=== PATIENT | male | born 1940 | race Caucasian/White ===

== ENCOUNTER 2016-11-08 11:56 | Inpatient (IN) | payer MEDICARE, BC ==
[2016-11-08] VITALS (10 sets, daily range): BP systolic 111–146; BP diastolic 63–96
[~2016-11-08] VITALS: Ht 185.4 cm; Wt 86.4 kg
[~2016-11-08 11:56] MED LIST: AMLO5TAB2 PO; APIX5TAB2 PO; MELO-195 PO; MULT-974 PO; OMEP40CA36 PO; ROSU20TA14 PO
[2016-11-08] MEDS ORDERED: DILTIAZEM 25 MG/5 ML INJ (CARDIZEM) VIAL ONE (12:02)
--- OUTSIDE RECORDS SUMMARY | 2016-11-08 12:03 | XMS REPORT | Continuity of Care Document ---
Author Author [facility] Organization [facility] Address Unknown Phone Unavailable Care Team Providers Care Certified Alcohol Drug Counselor Name Role Phone AdolfoElier PCP [phone] Source Comments Some departments are not documenting in the electronic medical record. If you do not see the information that you expected, contact Release of Information in the Health Information Management department at [phone] for further assistance in locating additional records.[facility] Active Allergies and Adverse Reactions No Known Allergies Current Medications Prescription Sig. Disp. Refills Start End Date Status Date meloxicam (MOBIC) 15 mg Take 15 mg by mouth Active tablet daily. omeprazole DR(+) Take 40 mg by mouth Active (PRILOSEC) 40 mg capsule daily. amLODIPine (NORVASC) 5 mg Take 5 mg by mouth daily. Active tablet apixaban (ELIQUIS) 5 mg Take 5 mg by mouth twice Active tab tablet daily. MULTIVITAMINS WITH Take 1 Tab by mouth Active FLUORIDE (MULTI-VITAMIN daily. PO) metoprolol XL (TOPROL XL) TAKE 1 TABLET DAILY 90 Tab 3 11/23/19 Active 50 mg tablet 16 aspirin EC 81 mg tablet Take 1 Tab by mouth 90 Tab 3 10/04/19 Active daily. Take with food. 17 DOCOSAHEXANOIC ACID/EPA Take 100 mg by mouth Active (FISH OIL PO) three times daily. rosuvastatin (CRESTOR) 20 Take 20 mg by mouth every 10/31/19 Discontin mg tablet 48 hours. 17 ued Active Problems Problem Noted Date Nonsustained ventricular tachycardia (HCC) 10/08/2015 Cardiac function test abnormal 10/08/2015 Overview: 10/04/13: Echo: Normal LV function: EF 60%. Diastolic dysfunction. LA dilation. Mod MR, TR. PA 45mmHg. 10/04/13: Stress test: No ischemia or infarct. EF 62%. 11/20/13: Carotid duplex: No hemodynamically significant stenosis. 05/19/14: LHC: Patent stent in the mid LAD, otherwise no obstructive disease. EF 60%. 08/08/14: LHC: No intervention 08/21/14: PCM implant. 10/04/2013 - ECHO: LVEF ~ 60%. LA size=4.1 cm. The LV is normal in size with normal contractility. Diastolic dysfunction is suggested by Doppler. LA dilitation. Moderate MR and TR. PAP ~ 45 mmHg. ([facility]). 12/02/14: Stress test: Tolerated well. SR with no ischemic changes. EF 48. Mildly prominent LV with preserved contractility. Normal. SSS (sick sinus syndrome) ([facility]) 12/25/2014 Overview: Medtronic DC PPM in place with [email or web address] remote monitoring. Wide-complex tachycardia ([facility]) 08/19/2014 Cardiac device in situ 05/27/2014 Overview: Medtronic Linq + remote monitoring. Chronic anticoagulation 02/20/2014 Overview: On Eliquis CAD (coronary artery disease), ute coronary artery 02/20/2014 Overview: 09/09/2011 - Cardiac Catheterization: 3x8 mm Promus to LAD. PTCA to Diagonal. ([facility]) 09/17/2012 - Cardiac Catheterization: No evidence of obstructive CAD. Abnormal LV systolic function. Mildly elevated LV filling pressures. Normal RV filling pressures. Abnormal PAP. 1+ MVR. ([facility]). 10/04/2013 - Stress Test: Normal LV size with good contractility. Calculated EF=62%. ([facility]). PAF (paroxysmal atrial fibrillation) ([facility]) 02/20/2014 Carotid artery stenosis 02/20/2014 Overview: 11/10/2013 - Carotid duplex Ultrasound: No hemodynamically significant internal carotid artery stenosis. Estimated diameter reduction of < 50%. ([employer]). Essential hypertension 02/20/2014 HLD (hyperlipidemia) 02/20/2014 NSVT (nonsustained ventricular tachycardia) ([facility]) 02/20/2014 Resolved Problems Problem Noted Date Resolved Date Cardiac pacemaker 08/22/2014 12/25/2014 Overview: 08/22/14 MEDTRONIC DDDR MRI compatible device with 5076 leads SCOTT (dyspnea on exertion) 02/20/2014 10/03/2016 Dizziness 02/20/2014 10/03/2016 Overview: 03/01/2012 - ANTHONY: The patient did show some hemodynamically variability but was completely asymptomatic throughout the study, therefore was a negative ANTHONY. ([facility]). Most Recent Encounters Date Type Specialty Providers Description 10/31/2016 [facility] Radiology Ben Ledbetter MD Encounter 10/31/2016 Nurse Only Internal Medicine Cardiac device in situ (Primary Dx) 10/31/2016 Office Visit Cardiology Ben Ledbetter MD Device Check; Post-hospital Follow Up - 1 month post Cath F/U ; Results - PET scan results (Same day), Xray results 10/31/2016 [facility] Cardiology Ben Ledbetter MD Encounter 10/31/2016 [facility] Radiology Ben Ledbetter MD Encounter 10/31/2016 Orders Only Cardiology Radha Lara RN Cardiac device in situ (Primary Dx); SSS (sick sinus syndrome) (HCC) 10/31/2016 Ancillary Cardiology Ben Ledbetter MD Nonsustained ventricular Orders tachycardia (HCC) (Primary Dx); Wide-complex tachycardia (HCC) 10/03/2016 [facility] Cardiology Gian Day MD CAD (coronary artery Encounter disease), ute coronary artery 10/03/2016 Orders Only Cardiology Radha Lara RN Nonsustained ventricular tachycardia (HCC) (Primary Dx); Wide-complex tachycardia (HCC) 10/03/2016 Telephone Cardiology Radha Lara RN Procedure - pet scan for evaluation of inflammation 10/03/2016 Telephone Cardiology Bita Cabrera LPN Procedure - PET scan 10/03/2016 Surgery Cardiology Gian Day MD Left Heart Catheterization With Ventriculogram 09/30/2016 Telephone Cardiology Bita Cabrera LPN Procedure - Monday at 7am 09/30/2016 Pre-Procedure Cardiology Radha Lara RN Cath Pre- Procedure Instructions Instructions - LV Cors possible PCI 09/29/2016 Pre-Admit Cardiology Lucy Dupree APRN-C Orders Only 09/28/2016 Telephone Cardiology Joslyn Claudio RN Patient Questions - regarding heart catheterization. 09/23/2016 Office Visit Cardiology Glenn Casiano MD Bradycardia; Device Check Ben Ledbetter MD 09/23/2016 [facility] Cardiology Ben Ledbetter MD Encounter Social History Tobacco Use Types Packs/Day Years Used Date Never Smoker Alcohol Use Drinks/Week oz/Week Comments Yes social Last Filed Vital Signs Vital Sign Reading Time Taken Blood Pressure 126/76 10/31/2016 2:04 PM OPTICS TECHNICAL OFFICER Pulse 84 10/31/2016 2:04 PM OPTICS TECHNICAL OFFICER Temperature 36.6 C (97.8 F) 10/03/2016 1:37 PM OPTICS TECHNICAL OFFICER Respiratory Rate - - Height 1.88 m (6' 2") 10/31/2016 2:04 PM OPTICS TECHNICAL OFFICER Weight 91.082 kg (200 lb 12.8 10/31/2016 2:04 PM OPTICS TECHNICAL OFFICER oz) Body Mass Index 25.77 10/31/2016 2:04 PM OPTICS TECHNICAL OFFICER Oxygen Saturation 98% 10/03/2016 1:37 PM OPTICS TECHNICAL OFFICER Plan of Care Date Type Specialty Providers Description 02/03/2017 Appointment Cardiology Ben Ledbetter MD [email or web address] [place] [address] [phone] (Fax) 02/03/2017 Appointment Cardiology Ben Ledbetter MD [address] [facility] [address] [place] [address] [phone] (Fax) Health Maintenance Due Date Last Done Comments Physical (Comprehensive) 1947 Exam Pertussis Vaccine 1949 Tetanus Vaccine 1955 Shingles Vaccine 1998 Prevnar/Pneumovax (#1) 2003 Influenza Vaccine 05/05/2017 Procedures from Last 3 Months Procedure Name Priority Date/Time Associated Diagnosis Comments TELEMETRY STRIPS-SCAN 10/05/2016 Results for this 12:03 PM OPTICS TECHNICAL OFFICER procedure are in the results section. PROCEDURE RECORD-SCAN 10/05/2016 Results for this 12:02 PM OPTICS TECHNICAL OFFICER procedure are in the results section. ECG UNCONFIRMED-SCAN 10/05/2016 Results for this 11:36 AM OPTICS TECHNICAL OFFICER procedure are in the results section. Results from Last 3 Months DEVICE EVALUATION - PPM (10/31/2016 3:01 PM)Only the most recent of 2 results within the time period is included. Component Value Range Device Implanted By Keshia Matt MD Generator Model # ADVISA DR MRI SURESCAN [id number] Generator Serial # [id number] Generator Implnat Date 03/27/2014 Remote Monitor Serial# [id number] MEGAN/EOL Indicator TELECOMMUNICATIONS FIELD ENGINEER=2.83V Generator Heating Equipment Installer Medtronic Generator Investigational No Wireless Generator Yes Device Type DDD-PM Atrial Lead Model # CAPSUREFIX ANGIE HARVEY SUREJEANETTEAN 5076-52CM Atrial Lead Serial # [id number] Atrial Lead Implant Date 08/22/2014 Atrial Lead Diaph. 10 Stimulation Atrial Lead Heating Equipment Installer Medtronic Atrial Lead No Investigational Atrial Lead Fixation active fixation Atrial Lead Location right atrial appendage Atrial Lead Pin Connector IS1 Atrial Lead Polarity Bipolar RV Lead Model # CAPSUREFIX NOV 5076-58CM RV Lead Serial # [id number] RV Lead Implant Date 08/22/2014 RV Lead Diaph. 10 Stimulation RV Lead Heating Equipment Installer Medtronic RV Lead Investigational No RV Lead Fixation active fixation RV Lead Location RV low septum RV Lead Pin Connector ICD IS1 Device Mode AAIR-DDDR Lower Rate Limit 60 Upper Rate Limit 130 Sensor Rate Limit 130 Pace AV Delay 180 Sense AV Delay 150 VT Monitor 150 Mode Switch (bpm) 133 High V Rate Detect 133 Mode Switch Status On Date of Last Programming 10/31/16 Pacemaker Dependant No Date of baseline remote Reports to Dr Sheets transmission Remote Monitoring? No HF Patient No EP Device Followed by Dr Lozano in [place], [place] Name EP Device Followed By Other # Mode S. Events 0 # High V Events 1393 VT-NS and 2 SVT episodes Single PVSc 90.8/hr (was54.6) PVC runs 18.6/hr (was7.8) Battery Voltage 3.01 Estimated Longevity 6 to 8.5 years A Sense mv 3.8 A Lead ohms 418 A Capture V 1.0 A Capture ms 0.4 Ao Voltage 1.75A AO Pulse Width 0.4 RV Sense mv 3.5 to 7.1 RV Lead ohms 437 RV Capture V 0.75 RV Capture ms 0.4 RV Voltage 2.0A RV Pulse Width 0.4 Counters Clrd Yes Saved to Disc No Initial Rhythm APVS 74 bpm Underlying Rhythm ASVS SB 43 bpm -VS% 1.2 -SHOWER ROOM ATTENDANT% <0.1 -VS% 97.8 AP-SHOWER ROOM ATTENDANT% 1.0 Device Function WNL Yes Programming? Yes Interrogation? Yes Narrative [10/31/2016 3:54:34 PM - ARNOLD B[facility]] Dual chamber pacemaker programming.Device function appears normal. Events noted since 09/23/16: Atrial:0 Ventricular:1,393 VT-NS/VT-Mon episodes, longest 109 minutes. From 10/31/16 MPE office note: Interestingly, nearly every recent event has had a coupling to the intervals of VT, suggestive of a bigeminal rhythm. Out of concern that this could be related to far-field oversensing, I obtained a CXR today-- this showed excellent lead placement. Therefore, it is certainly possible that he is having periods of ventricular bigeminy precipitating his VT. Although, there are some short but infrequent bursts where there is no coupling. See MPEs office note for further detail. I attached one of the VT monitored egms. 2 SVT episodes, Appear to be short bursts of AT. Changes made to programming:none Device is followed by Dr. Lozano in [place], [place]. Report given to E in clinic. OUTSIDE CHEST EXAM - NO CHARGE (10/31/2016 2:50 PM) Impressions Stable chest radiograph with no acute cardiopulmonary process. Finalized by Donald Cueva M.D. on 10/31/2016 4:19 PM. Dictated by Donald Cueva M.D. on 10/31/2016 4:17 PM. Narrative OUTSIDE CHEST EXAM - NO CHARGE Clinical history: 76 years old Male cardiac device in situ.,Coronary artery disease. Comparison: 08/23/2014. Findings: PA and lateral views of the chest again demonstrate that the heart size and pulmonary vasculature are within normal limits.Left-sided cardiac conduction device remains to be in place. No new acute pulmonary infiltrates, pneumothorax, or pleural effusion is seen.No evidence of consolidating pneumonia is identified. Mild thoracic spondylosis again noted. Procedure Note Interface, Radiant Results - MonOct 31, 2016 4:22 PM OPTICS TECHNICAL OFFICER OUTSIDE CHEST EXAM - NO CHARGE Clinical history: 76 years old Male cardiac device in situ.,Coronary artery disease. Comparison: 08/23/2014. Findings: PA and lateral views of the chest again demonstrate that the heart size and pulmonary vasculature are within normal limits. Left-sided cardiac conduction device remains to be in place. No new acute pulmonary infiltrates, pneumothorax , or pleural effusion is seen. No evidence of consolidating pneumonia is identified. Mild thoracic spondylosis again noted. IMPRESSION Stable chest radiograph with no acute cardiopulmonary process. Finalized by Donald Cueva M.D. on 10/31/2016 4:19 PM. Dictated by Donald Cueva M.D. on 10/31/2016 4:17 PM. NM PET HEART METABOLISM SARCOID (10/31/2016 11:26 AM) Impressions 1.No evidence of myocarditis. 2.No evidence of inflammatory lung disease or lymphadenopathy. Approved by Mela Riley M.D. on 10/31/2016 3:16 PM By my electronic signature, I attest that I have personally reviewed the images for this examination and formulated the interpretations and opinions expressed in this report Finalized by Kenny Schmid M.D. on 11/01/2016 12:30 PM. Dictated by Mela Riley M.D. on 10/31/2016 1:47 PM. Narrative PET HEART METABOLISM WITH FDG CLINICAL HISTORY: 76-year-old male, rule out inflammation, dyspnea, ventricular arrhythmia's RADIOPHARMACEUTICAL: 16.7 mCi IV Fluorine-18 fluorodeoxyglucose (FDG) TECHNIQUE: Patient was instructed to fast 18 hours prior to exam. Upon arrival, the patient was injected with 18-Flourine FDG.PET/CT imaging of the heart was obtained using attenuation correction PET scanning.Findings were displayed as tomographic imaging and polar maps.Comparison was made with perfusion imaging. COMPARISON: None FINDINGS: The maximum left ventricular blood pool SUV is 1.83. The right pulmonary artery demonstrates a maximum SUV of 2.62 (index 78). The basal one third of the anterior wall demonstrates a maximum SUV of 1.67. The basilar one half of the anterior septum demonstrate a maximum SUV of 2.16. The inferior basilar half of the septum demonstrates a maximum SUV of 1.72. The inferior wall demonstrates a maximum SUV of 1.55. The inferolateral wall demonstrates a maximum SUV of 1.85. The anterior lateral wall measures maximum SUV of 1.89. There is no appreciable activity within the right ventricle. There is no evidence of parenchymal lung disease or lymphadenopathy. Procedure Note Interface, Radiant Results - Tue Nov 01, 2016 12:33 PM OPTICS TECHNICAL OFFICER PET HEART METABOLISM WITH FDG CLINICAL HISTORY: 76-year-old male, rule out inflammation, dyspnea, ventricular arrhythmia's RADIOPHARMACEUTICAL: 16.7 mCi IV Fluorine-18 fluorodeoxyglucose (FDG) TECHNIQUE: Patient was instructed to fast 18 hours prior to exam. Upon arrival, the patient was injected with 18-Flourine FDG. PET/CT imaging of the heart was obtained using attenuation correction PET scanning. Findings were displayed as tomographic imaging and polar maps. Comparison was made with perfusion imaging. COMPARISON: None FINDINGS: The maximum left ventricular blood pool SUV is 1.83. The right pulmonary artery demonstrates a maximum SUV of 2.62 (index 78). The basal one third of the anterior wall demonstrates a maximum SUV of 1.67. The basilar one half of the anterior septum demonstrate a maximum SUV of 2.16. The inferior basilar half of the septum demonstrates a maximum SUV of 1.72. The inferior wall demonstrates a maximum SUV of 1.55. The inferolateral wall demonstrates a maximum SUV of 1.85. The anterior lateral wall measures maximum SUV of 1.89. There is no appreciable activity within the right ventricle. There is no evidence of parenchymal lung disease or lymphadenopathy. IMPRESSION 1. No evidence of myocarditis. 2. No evidence of inflammatory lung disease or lymphadenopathy. Approved by Mela Riley M.D. on 10/31/2016 3:16 PM By my electronic signature, I attest that I have personally reviewed the images for this examination and formulated the interpretations and opinions expressed in this report Finalized by Kenny Schmid M.D. on 11/01/2016 12:30 PM. Dictated by Mela Riley M.D. on 10/31/2016 1:47 PM. ECG/QRS (10/31/2016)Only the most recent of 2 results within the time period is included. Component Value Range QRS DURATION 84 TELEMETRY STRIPS-SCAN (10/05/2016 12:03 PM) Narrative Ordered by an unspecified provider. PROCEDURE RECORD-SCAN (10/05/2016 12:02 PM) Narrative Ordered by an unspecified provider. ECG UNCONFIRMED-SCAN (10/05/2016 11:36 AM) Narrative Ordered by an unspecified provider. CARDIAC CATH REPORT (10/03/2016 2:50 PM) Procedure Note MonOct 03, 2016 10:06 AM OPTICS TECHNICAL OFFICER Formatting of this note may be different from the original. [facility] CARDIAC CATHETERIZATION REPORT Page 2 BLANCHE Lawson : 1940 KU#: [id number] BELINDA MR #/Billing ID #: [id number] / [id number] DATE: 10/03/2016 AIR DRILL OPERATOR: Gian Day MD DICTATING PROVIDER: Gian Day MD REFERRING PHYSICIAN: ELIER GONZALEZ REFERRING AIR DRILL OPERATOR: Ben Ledbetter MD. DATE OF PROCEDURE: 10/03/2016 PROCEDURE: 1. Left heart cardiac catheterization. 2. Selective coronary arteriogram. 3. Measurements of left ventricular pressures. INDICATION: Mr. Blanche Torres is a 76-year-old gentleman with a history of coronary artery disease with previous coronary intervention. Patient has a stent which he mentioned in an unknown vessel done back in 2013. He has been having frequent nonsustained ventricular tachycardia. Patient has been admitted electively by Dr. Ledbetter for a cardiac catheterization to rule out any significant coronary artery disease as a cause for his ventricular arrhythmias. Patient does have some chest discomfort also which appears to be somewhat atypical. ANESTHESIA: IV Versed and fentanyl. PROCEDURE NOTE: Once informed consent was obtained, Mr. Torres was brought to the cardiac catheterization laboratory. A Barbeau test performed on his right wrist showed a good response. We then prepped the right wrist and right groin. Using a micropuncture technique, a 6-Kinyarwanda radial sheath was placed into the right radial artery. Selective coronary arteriogram and left ventricular pressures were then measured using the TIG 4 catheter. Prior to starting the procedure, the patient was given 2.5 mg of intra-arterial verapamil and 200 mcg of intra-arterial nitroglycerin. Patient was also given 3000 units of intravenous heparin. Once the procedure was completed. The sheath was removed and TR Band applied. Patient tolerated the procedure well. There were no complications noted. HEMODYNAMICS: Ending aortic pressure 107/66 with a mean of 85 mmHg. Left ventricular systolic pressures were 86 mmHg. Left ventricular end-diastolic pressure was about 4 mmHg. Patient was given 250 mL of IV bolus fluids during the procedure and another 250 mL by the end of the procedure. CONTRAST USED: [id number]. TOTAL CONTRAST: Was 70 mL. TOTAL FLUOROSCOPY TIME: 2.2 minutes. SELECTIVE CORONARY ARTERIOGRAM: 1. Left main: Left main coronary artery arises normally from the left coronary sinus. The left main artery appears to be patent. 2. Left anterior descending artery arises normally from the left main. In its mid portion it has about a 30% narrowing. This is followed by a stent in the mid part of the left anterior descending artery. The stent is widely patent. The rest of the left anterior descending artery is patent. Right in the middle of the stent there is a moderate to large size diagonal branch. The diagonal branch is probably 20% to 30% ostial disease as it is jailed within the stent. However there are no significant flow problems. 3. Left circumflex artery. This arises normally from the left main. Soon after its origin, the circumflex artery gives rise to a high obtuse marginal branch. Proximally the circumflex artery is patent. Right after the obtuse marginal branch, there is a hazy calcified lesion of about 50% in the circumflex artery. The rest of the circumflex artery is patent. The large obtuse marginal branch is also noted to be patent. 4. Right coronary artery. The right coronary artery is the dominant vessel. The right coronary artery arises normally from the right coronary sinus where the right coronary artery is patent with no significant disease. It gives rise to a posterolateral posterior descending arterial branches, both of which are patent. FINAL IMPRESSION: 1. Moderate disease of the mid part of the left circumflex artery which also appears to be calcified. The previously placed stent in the left anterior descending artery is patent. 2. Normal ventricular end-diastolic pressures. 3. No evidence of any significant gradient across the aortic valve. RECOMMENDATION: Continue to optimize medical treatment. Gian Day MD AM/MedQ /[id number] cc: - ELIER Ledbetter MD CBC (10/03/2016 8:04 AM) Component Value Range White Blood Cells 7.8 4.5-11.0 K/UL RBC 4.74 4.4-5.5 M/UL Hemoglobin 15.0 13.5-16.5 GM/DL Hematocrit 45.6 40-50 % MCV 96.3 80-100 FL MCH 31.6 26-34 PG MCHC 32.9 32.0-36.0 G/DL RDW 13.7 11-15 % Platelet Count 165 150-400 K/UL MPV 9.5 7-11 FL Specimen Blood BASIC METABOLIC PANEL (10/03/2016 8:04 AM) Component Value Range Sodium 138 137-147 MMOL/L Potassium 4.6Comment: SLT HEMOLYSIS 3.5-5.1 MMOL/L Chloride 108 98-110 MMOL/L CO2 23 21-30 MMOL/L Anion Gap 7 3-12 Glucose 93 70-100 MG/DL Blood Urea Nitrogen 20 7-25 MG/DL Creatinine 0.85 0.4-1.24 MG/DL Calcium 9.3 8.5-10.6 MG/DL eGFR Non >60Comment: >60 mL/min The eGFR is not validated for use in drug dosing adjustments. Continue to use estimated creatinine clearance per dosing reference text. Please contact the Clinical Pharmacist for questions. eGFR >60Comment: >60 mL/min The eGFR is not validated for use in drug dosing adjustments. Continue to use estimated creatinine clearance per dosing reference text. Please contact the Clinical Pharmacist for questions. Specimen Blood
[2016-11-08] MEDS ORDERED: DILTIAZEM 100 MG/VIAL (CARDIZEM) ADD-VANTAGE IV ONE (12:05)
[2016-11-08] MEDS ORDERED: SODIUM CHLORIDE (ADD-VANTAGE) 100 ML IV ONE (12:06)
[2016-11-08] MEDS ORDERED: ASPIRIN 81 MG CHEW (CHILDREN'S ASA) ONE (12:11)
[2016-11-08] MEDS ORDERED: DILTIAZEM 25 MG/5 ML INJ (CARDIZEM) VIAL IVP ONE ×2 (12:15→13:45)
[2016-11-08] MEDS ORDERED: DILTIAZEM DRIP 100 MG in SODIUM CHLORIDE (ADD-VANTAGE) 100 ML IV SCH (12:15)
[2016-11-08] MEDS ORDERED: DIGOXIN 0.25 MG/ML (LANOXIN) 2 ML AMP ONE (12:19)
[2016-11-08] MEDS: NS IV 1000 ML 1,000 ML IV SCH ×4 (12:20→17:22)
--- NOTE | 2016-11-08 12:43 | ED Cardiac General ---
History of Present Illness General Chief Complaint: Cardiac/General Problems Stated Complaint: RAPID HEART RATE Source: patient Exam Limitations: no limitations History of Present Illness Time seen by provider: 12:15 Initial Comments The patient is a 76-year-old white male from [place] who presents with a complaint of rapid heartbeat. This is been present for several days. His states that he is scarcely been able to do anything. The initial interpretation of the monitor was that of atrial fibrillation with rapid ventricular response. There was a left bundle branch block. There are no previous EKGs and therefore is not clear whether this is chronic or rate related. He has been treated by electro cardiology at [facility]. He had a pacemaker implanted in August 2014. Prior to that he had an implantable recorder. There is apparently no defibrillation function on this pacemaker. Dr. Lozano is his local physician. He has taken amiodarone in the past but this was stopped because of shakiness. He is presently on Eliquis for anticoagulation. He and his states that he was also supposed to have a 30 day recorder placed but this has not been done to date. He denies chest pain. Timing/Duration: 2-3 days Allergies and Home Medications Allergies Coded Allergies: No Known Drug Allergies (Unverified , 10/04/13) Home Medications Amlodipine Besylate 5 Mg Tablet 5 MG PO DAILY (Reported) Apixaban 5 Mg Tablet 5 MG PO BID (Reported) Meloxicam 15 Mg Tablet 15 MG PO DAILY (Reported) Multivitamin 1 Each Tablet 1 EACH PO DAILY (Reported) Omeprazole 40 Mg Capsule.dr 40 MG PO DAILY (Reported) Rosuvastatin Calcium 20 Mg Tablet 20 MG PO HS (Reported) Rosuvastatin Calcium 20 Mg Tablet 1 EACH PO DAILY (Reported) Review of Systems Constitutional: see HPI EENTM: No Symptoms Reported Respiratory: No Symptoms Reported Cardiovascular: Irregular Heart Rate Palpitations Gastrointestinal: No Symptoms Reported Genitourinary: No Symptoms Reported Musculoskeletal: no symptoms reported Skin: no symptoms reported Psychiatric/Neurological: No Symptoms Reported Endocrine: No Symptoms Reported Past Rdpntmg-Fxdgbl-Comjqj Hx Immunizations Up To Date Date of Pneumonia Vaccine: May 10, 2011 Date of Influenza Vaccine: May 06, 2014 Respiratory Hx Respiratory Disorders: No Cardiovascular Hx Cardiac Disorders: No Genitourinary Hx Genitourinary Disorders: No Gastrointestinal Hx Gastrointestinal Disorders: No Cancer Hx Cancer: No Physical Exam Vital Signs Vital Sign - Last 12Hours 11/08/16 11:56 Temp 98.0 Pulse 148 Resp 22 B/P 116/90 Pulse Ox 94 Capillary Refill : General Appearance: Mild Distress Other HEENT: Normal ENT Inspection Neck: Normal Inspection Respiratory: Chest Non Tender Lungs Clear Normal Breath Sounds No Accessory Muscle Use No Respiratory Distress Cardiovascular: Irregularly Irregular Tachycardia Gastrointestinal: Normal Bowel Sounds No Organomegaly No Pulsatile Mass Non Tender Extremity: Normal Capillary Refill Normal Inspection Normal Range of Motion Non Tender No Calf Tenderness No Pedal Edema Neurologic/Psychiatric: Alert Oriented x3 No Motor/Sensory Deficits Normal Mood/Affect Skin: Normal Color Warm/Dry Lymphatic: No Adenopathy Progress/Results/Core Measures Results/Orders My Orders Orders-LIZABETH QUINTERO MD Diltiazem Injection (Cardizem Injection) (11/08/16 12:15) Sodium Chloride (Ad... W/Diltiazem Drip (11/08/16 12:15) Aspirin Chewable Tablet (Baby Aspirin Ch (11/08/16 12:11) Digoxin Injection (Lanoxin Injection) (11/08/16 12:19) Medications Given in ED Current Medications Medications Dose Ordered Sig/Clementina Route Start Time Stop Time Status Last Admin Dose Admin Aspirin 81 mg STK-MED ONCE .ROUTE 11/08/16 12:11 11/08/16 12:13 DC 11/08/16 12:20 81 MG Digoxin 0.5 mg STK-MED ONCE .ROUTE 11/08/16 12:19 11/08/16 12:22 DC 11/08/16 12:24 0.5 MG Diltiazem HCl 20 mg ONCE ONCE IVP 11/08/16 12:15 11/08/16 12:16 DC 11/08/16 12:13 20 MG Diltiazem HCl 100 mg STK-MED ONCE IV 11/08/16 12:05 11/08/16 12:07 DC 11/08/16 12:16 15 MG Vital Signs/I&O Vital Sign - Last 12Hours 11/08/16 11/08/16 11/08/16 11:56 12:15 12:16 Temp 98.0 98.1 Pulse 148 140 148 Resp 22 18 20 B/P 116/90 116/90 116/90 Pulse Ox 94 94 Departure Communication Progress Notes The patient was given 20 mg of Cardizem at arrival. A Cardizem drip was then started. There was minimum if any effect on his rate. Unfortunately his blood pressure dropped to the 70/50 range albeit without symptoms while lying flat. Dr. Lozano then came to the unit and gave him adenosine. This also had no effect. The patient was then admitted to the ICU for further evaluation and maneuvers. Impression Impression: Primary Impression: atrial fibrillation with rapid ventricular response Disposition: ADMITTED INPATIENT Condition: Stable/Unchanged Decision to Admit Reason: Admit from ER (General) Decision to Admit/Date: Nov 08, 2016 Time/Decision to Admit Time: 13:35 Departure-Patient Inst. Referrals: KITA GONZALEZ MD (PCP/Family) Primary Care Physician LIZABETH QUINTERO MD Nov 08, 2016 12:43
[2016-11-08] MEDS ORDERED: ADENOSINE 6 MG/2 ML (ADENOCARD) VIAL IV ONE ×2 (13:07→13:12)
[2016-11-08] MEDS ORDERED: NS IV 1000 ML 1,000 ML IV SCH (14:00)
[2016-11-08] MEDS ORDERED: CATHETER FLUSH 10 ML SYR IV PRN (14:30)
[2016-11-08] MEDS ORDERED: OMG1KC PO (14:57)
[2016-11-08] MEDS ORDERED: METO-352 PO (14:57)
[2016-11-08] MEDS ORDERED: ASPI-983 PO (14:57)
[2016-11-08] MEDS ORDERED: proPOfol 200 MG/20 ML (DIPRIVAN) VIAL IV ONE (14:59)
[2016-11-08] MEDS ORDERED: MIDAZOLAM 2 MG/2 ML (VERSED) VIAL ONE (15:05)
--- NOTE | 2016-11-08 15:06 | Cardiology History & Physical ---
HPI-Cardiology Cardiology Consultation Date of Consultation 11/08/16 Date of Admission Indication: palpitation, shortness of breath HPI 76-year-old gentleman with history of coronary artery disease, history of ventricular tachycardia and paroxysmal atrial fibrillation, permanent pacemaker , for the last 3-4 days has been having increasing shortness of breath, had multiple episodes of wide complex tachycardia on his pacemaker interrogation. He denied any chest pain but has been having increasing shortness of breath, fatigue and loss of energy, came into the emergency room and noted to be in wide complex tachycardia with a heart rate 140, given Cardizem which cause severe hypotension, given IV fluid, I tried a Jose Miguel without any effect on his rhythm, I tried a magnet on his pacemaker which cause few paced beat to be intermittent capture which made me feel that it is in atrial fibrillation with rapid ventricular response and bundle branch block PMH-Cardiology Immunizations Up To Date Date of Pneumonia Vaccine: May 10, 2011 Date of Influenza Vaccine: May 05, 2016 Seasonal Allergies Seasonal Allergies: No Surgeries HX Surgeries: Yes Respiratory Hx Respiratory Disorders: No Cardiovascular Hx Cardiovascular Disorders: Yes (PACEMAKER) Neurological Hx Neurological Disorders: No Genitourinary Hx Genitourinary Disorders: No Gastrointestinal Hx Gastrointestinal Disorders: No Gastrointestinal Disorders: Hiatal Hernia Musculoskeletal Hx Musculoskeletal Disorders: Yes Musculoskeletal Disorders: Arthritis Cancer Hx Cancer: No Other PMHx Other PMHx: past medical history as discussed below Social History Patient Social History Marrital Status: Employed/Student: retired Alcohol Use: Denies Use Recreational Drug Use: No Smoking: Never smoker Recent Foreign Travel: No Contact w/other who traveled: No Recent Infectious Disease Expo: No Family Hx Family History: 19 FATHER FH: heart disease 19 MOTHER FH: heart disease G8 BROTHER FH: CHF (congestive heart failure) Dementia FH: throat cancer Relation not specified for: Dysphasia ROS-Cardiology Review of Systems General: No Chills, No Night Sweats, Fatigue MalaiseNo Appetite HEENT: No Head Aches, No Visual Changes, No Eye Pain, No Ear Pain, No Dysphasia , No Sinus Congestion, No Post Nasal Drip, No Sore Throat Pulmonary: DyspneaNo Cough, No Pleuritic Chest Pain Cardiovascular: : PalpitationsNo: Chest Pain, Edema, Lt Headedness, Orthopnea, Paroxysmal Noc. Dyspnea Gastrointestinal: No: Abdominal Pain, Constipation, Diarrhea, Hematochezia, Melena, Nausea, Vomiting Genitourinary: No Dysuria, No Frequency, No Incontinence, No Hematuria, No Retention Musculoskeletal: No: arm pain, back pain, foot pain, hand pain, leg pain, neck pain, shoulder pain Neurological: No: Change in speech, Confusion, Incoordination, Numbness, Seizures, Weakness Home Medications & Allergies Allergies: Coded Allergies: No Known Drug Allergies (Unverified , 10/04/13) Exam-Cardiology Vital Signs Vital Signs Date Time Temp Pulse Resp B/P Pulse Ox O2 Delivery O2 Flow Rate FiO2 11/08/16 14:14 95.3 141 17 141/63 92 Room Air 11/08/16 13:52 2 Exam General Appearance: Alert, Oriented X3, Cooperative, No Acute Distress HEENT: Atraumatic, PERRLA Respiratory: Clear to Auscultation, Normal Air Movement Cardiovascular: Normal S1, Normal S2, No Murmurs, Other (tachycardia, S3 is present) Abdominal: Normal Bowel Sounds, Soft, No Tenderness, No Hepatosplenomegaly, No Masses Extremities: No Clubbing, No Cyanosis, No Edema, Normal Pulses, No Tenderness/ Swelling Skin: No Rashes, No Breakdown, No Significant Lesion Neuro: Normal Gait, Normal Speech, Strength at 5/5 X4 Ext, Normal Tone, Sensation Intact Psych/Mental Status: Mental Status NL, Mood NL A/P-Cardiology Admission Diagnosis atrial fibrillation Tachycardia Palpitation Shortness of breath Assessment/Plan Wide-complex tachycardia, most probably atrial fibrillation with rapid ventricular response with left bundle branch block. Attempt with a Meng Gillespie has failed, hypotensive at this time, planning to proceed with electrical cardioversion and use sotalol. Patient did not skip any of his oral anticoagulation medication, I reviewed with him and his family regarding the procedure, emphasized on him taking his blood thinner, he expressed that he did not miss a single dose. Shortness of breath and fatigue and lethargy secondary to his tachycardia Palpitations secondary to tachycardia. Coronary artery disease, history of stent to the diagonal artery done in 2011. Last cardiac catheterization was done in August 2014 which showed 40-50 percent proximal LAD stenosis with patent stent otherwise no significant obstructive disease, normal LV size and function. Continue current medications and continue to monitor. Sick sinus syndrome/ Paroxysmal atrial fibrillation. Patient has CHADS2 scores of 2, yearly risk of stroke without oral anti-coagulation is 4 percent, on Eliquis 5 mg twice a day to reduce risk of stroke. Patient had permanent pacemaker placement implantation done in August 2014. History of ventricular tachycardia-managed by Dr. Ledbetter. Intolerance to amiodarone secondary to side effect of shakiness as well as elevated LFTs. LFTs are back to normal since discontinuing medication. Patient has had increased episodes of nonsustained ventricular tachycardia on most recent pacemaker interrogation. he was referred back to see Dr. Ledbetter and he was scheduled for event recorder. Moderate to moderately severe mitral regurgitation, mild aortic regurgitation per most recent 2-D echocardiogram July 2016. Continue to monitor. Planning to repeat 2-D echocardiogram Hypertension, reporting occasional episode of dizziness and lightheadedness, no syncope was reportedcontinue to monitor. Hyperlipidemia, continue on current medication monitor lipids History of Elevated LFTs-improved since discontinuation of amiodarone and Crestor. Since then we have restarted patient Crestor to be taken every other Torrie will evaluate liver function test. Family history of coronary artery disease, History of dizziness and syncope, mainly orthostatic changes. Had a tilt table test done in the past and reported as negative. Status post pacemaker implantation. Carotid artery stenosis-Mild nonobstructive disease, last ultrasound was done in February 2016. Continue to monitor. Venous stasis changes in the lower extremity, complaining of numbness and swelling by the end of the day, improved. ABIs done February 2016 within normal limits. Clinical Quality Measures DVT/VTE Risk/Contraindication: Risk Factor Score Per Nursin RFS Level Per Nursing on Admit: 2=Moderate ORLIN CORONADO MD Nov 08, 2016 3:06 pm
--- NOTE | 2016-11-08 15:09 | Cardiac Procedure Note-CS/ASA ---
Pre-Procedure Note Pre-Op Procedure Note H&P Reviewed The H&P was reviewed, patient examined and no changes noted. Date H&P Reviewed: Nov 08, 2016 Time H&P Reviewed: 15:08 Conscious Sedation Pre-Proced Time Reviewed: 15:08 ASA Class: 3 Airway Mallampati Classification: (mechoopda appropriate class) I. II. III, IV Lungs Heart ASA score ASA 1: a normal healthy patient ASA 2: a patient with a mild systemic disease (mid diabetes, controlled hypertension, obesity x ASA 3: a patient with a severe systemic disease that limits activity (angina , COPD, prior Myocardial infarction) ASA 4: a patient with an incapacitating disease that is a constant threat to life (CHF, renal failure) ASA 5: a moribund patient not expected to survive 24 hrs. (ruptured aneurysm) ASA 6: a declared brain patient whose organs are being harvested. For emergent operations, add the letter E after the classification Grade 3 Sedation Plan: Analgesia, Amnesia, Plan communicated to team members, Discussed options with patient/fam, Discussed risks with patient/fam Note The patient is an appropriate candidate to undergo the planned procedure, sedation, and anesthesia. The patient immediately re-assessed prior to indication. ORLIN CORONADO MD Nov 08, 2016 3:09 pm
--- NOTE | 2016-11-08 15:26 | Progress Note-Standard ---
Standard Progress Note Progress Notes/Assess & Plan Progress/Assessment & Plan 11/08/16 [id number] Called to ICU 6 for cardioversion. Patient is a 76 yo male with history of nonsustained SVT and afib with a pacemaker in place. He reports NKDA and states he has had lots of anesthetics without complication. Initially we were going to sedate with propofol only as no AARON was being done; however, due to his hypotension, we decided to give 2mg versed (1 mg at a time) prior to Dr. Lozano coming into the room, then we followed with 30 mg propofol, and then increments of 10-20 mg until patient was sedated adequately. A total of 2 shocks was completed before the patient maintained NSR. O2 was at 2L/NC and spontaneous respiration continued throughout with positive etcO2 noted throughout the procedure. A total of 2 mg versed and 70 mg Propofol was given for the entire procedure. TYRELL DE LEON CRNA Nov 08, 2016 15:26
[2016-11-08 15:28] LABS: RED BLOOD COUNT 4.31 10^6/uL (4.35-5.85); RED CELL DISTRIBUTION WIDTH 13.8 % (10.0-14.5); WHITE BLOOD COUNT 9.5 10^3/uL (4.3-11.0)
[2016-11-08] MEDS ORDERED: meTOprolol 5 MG/5 ML (LOPRESSOR) VIAL IV ONE (15:30)
[2016-11-08 15:59] LABS: ALANINE AMINOTRANSFERASE 46 U/L (0-55); ALBUMIN 3.2 G/DL (3.2-4.5); ANION GAP 9 MMOL/L (5-14); ASPARTATE AMINO TRANSFERASE 36 U/L (5-34); BILIRUBIN,TOTAL 0.8 MG/DL (0.1-1.0); BLOOD UREA NITROGEN 26 MG/DL (7-18); BUN/CREATININE RATIO 31; CALCIUM 7.9 MG/DL (8.5-10.1); CARBON DIOXIDE 19 MMOL/L (21-32); CHLORIDE 114 MMOL/L (98-107); CREATININE SERUM 0.85 MG/DL (0.60-1.30); GFR ESTIMATED > 60; GLUCOSE 93 MG/DL (70-105); POTASSIUM 4.4 MMOL/L (3.6-5.0); SODIUM 142 MMOL/L (135-145); TOTAL PROTEIN 5.1 G/DL (6.4-8.2)
[2016-11-08 16:19] LABS: THYROID STIMULATING HORMONE 0.98 UIU/ML (0.35-4.94)
[2016-11-08] MEDS: OMEGA 3 (FISH OIL) 1000 MG CAP PO SCH (17:20)
[2016-11-08] MEDS: SOTALOL 80 MG (BETAPACE) TAB PO SCH (20:31)
[2016-11-08] MEDS: APIXABAN 5 MG (ELIQUIS) TABLET PO SCH (20:31)
[2016-11-09] VITALS (12 sets, daily range): BP systolic 107–165; BP diastolic 70–93
[2016-11-09] MEDS: OMEGA 3 (FISH OIL) 1000 MG CAP PO SCH (06:44)
[2016-11-09 07:12] LABS: MEAN PLATELET VOLUME 11.7 FL (7.4-10.4); RED BLOOD COUNT 4.56 10^6/uL (4.35-5.85); RED CELL DISTRIBUTION WIDTH 13.4 % (10.0-14.5); WHITE BLOOD COUNT 5.7 10^3/uL (4.3-11.0)
[2016-11-09 07:20] LABS: ALANINE AMINOTRANSFERASE 42 U/L (0-55); ALBUMIN 3.3 G/DL (3.2-4.5); ANION GAP 8 MMOL/L (5-14); ASPARTATE AMINO TRANSFERASE 30 U/L (5-34); BILIRUBIN,TOTAL 1.2 MG/DL (0.1-1.0); BLOOD UREA NITROGEN 15 MG/DL (7-18); BUN/CREATININE RATIO 19; CALCIUM 8.4 MG/DL (8.5-10.1); CARBON DIOXIDE 21 MMOL/L (21-32); CHLORIDE 112 MMOL/L (98-107); CREATININE SERUM 0.77 MG/DL (0.60-1.30); GFR ESTIMATED > 60; GLUCOSE 81 MG/DL (70-105); POTASSIUM 4.3 MMOL/L (3.6-5.0); SODIUM 141 MMOL/L (135-145); TOTAL PROTEIN 5.3 G/DL (6.4-8.2)
--- NOTE | 2016-11-09 07:41 | PROCEDURE REPORT ---
PROCEDURE PHYSICIAN: ORLIN CORONADO DATE OF PROCEDURE: 11/08/2016 ELECTRICAL CARDIOVERSION REPORT: BRIEF HISTORY: Mr. Torres was admitted with wide complex tachycardia, had history of ventricular tachycardia and history of atrial fibrillation. He has been borderline hypotensive, became sick worse after receiving Cardizem, failed adenosine attempt to evaluate the underlying rhythm. I decided to proceed with electrical cardioversion. PROCEDURE NOTE: After explaining the procedure to the patient, all pros and cons were explained, all questions were answered. The patient signed consent then he was sedated with assistance of anesthesia. Synchronized DC cardioversion 120 joules was delivered. It did not terminate his atrial fibrillation. A second shock of 150 joules was successful in terminating atrial fibrillation. The patient maintained sinus rhythm. IN CONCLUSION: Successful electrical cardioversion with no complications. Job ID: [id number] Dictated Date: 11/08/2016 15:27:40 Supervisor Roving Date: 11/09/2016 07:37:00 / [place]
[2016-11-09] MEDS ORDERED: PANTOPRAZOLE 40 MG (PROTONIX) TAB PO SCH (09:00)
[2016-11-09] MEDS ORDERED: ASPIRIN E.C. 81 MG (ECOTRIN) TAB PO SCH (09:00)
[2016-11-09] MEDS: APIXABAN 5 MG (ELIQUIS) TABLET PO SCH (09:21)
[2016-11-09] MEDS: SOTALOL 80 MG (BETAPACE) TAB PO SCH (09:21)
[2016-11-09] MEDS: NS IV 1000 ML 1,000 ML IV SCH (09:26)
--- NOTE | 2016-11-09 10:55 | Electrophysiology Consultation ---
HPI-Cardiology Cardiology Consultation: Date of Consultation 11/09/16 Date of Admission Attending Physician Sha Lozano MD Admitting Physician No,Local Physician Consulting Physician Lulu LAY MD HPI: Chief Complaint: Wide-complex tachycardia This is 76-year-old gentleman with history of permanent pacemaker, ventricular tachycardia and atrial fibrillation. He presents with wide-complex tachycardia and was hypotensive. He was urgently cardioverted yesterday by Dr. Lozano. The patient denies any chest pain or shortness of breath. Review of Systems-Cardiology Review of Systems Constitutional: As described under HPI Eyes: No blurred vision, No drainage, No pain, No vision change Ears/Nose/Throat: No ear discharge, No ear pain, No nasal drainage, No ulcerations Respiratory: As described under HPI Cardiovascular: As described under HPI Gastrointestinal: No constipation, No diarrhea, No nausea, No vomiting, No stool coloration changes Genitourinary: No dysuria, No discharge, No frequency, No hematuria, No urgency Skin: No rash, No skin related problems, No ulcerations Psychiatric/Neurological: No anxiety, No depression, No focal weakness, No seizure, No syncope Hematologic: No bleeding abnormalities KWT-Gxtvcj-Urlici Hx Patient Social History Marrital Status: Employed/Student: retired Alcohol Use: Denies Use Recreational Drug Use: No Smoking Status: Never a Smoker Recent Foreign Travel: No Recent Infectious Disease Expo: No Hospitalization with Isolation: Denies Physical Abuse Screen: No Sexual Abuse: No Immunizations Up To Date Date of Pneumonia Vaccine: May 10, 2011 Date of Influenza Vaccine: May 05, 2016 Past Medical History PMH As described under Assessment. Family Medical History Family History: Dementia G8 BROTHER Dysphasia FH: CHF (congestive heart failure) G8 BROTHER FH: heart disease 19 FATHER 19 MOTHER FH: throat cancer G8 BROTHER Allergies and Home Medications Allergies Coded Allergies: No Known Drug Allergies (Unverified , 10/04/13) Home Medications Amlodipine Besylate 5 Mg Tablet 5 MG PO DAILY (Reported) Apixaban 5 Mg Tablet 5 MG PO BID (Reported) Aspirin 81 Mg Tablet.dr 81 MG PO DAILY (Reported) Meloxicam 15 Mg Tablet 15 MG PO DAILY (Reported) Metoprolol Succinate 50 Mg Tab.er.24h 50 MG PO DAILY (Reported) Multivitamin 1 Each Tablet 1 TAB PO DAILY (Reported) [place] 3 Polyunsat Fatty Acids 1,000 Mg Cap 1,000 MG PO TID (Reported) Omeprazole 40 Mg Capsule.dr 40 MG PO DAILY (Reported) Physical Exam-Cardiology Physical Exam Vital Signs/I&O Vital Sign - Last 12Hours 11/09/16 11/09/16 11/09/16 11/09/16 00:00 00:00 01:00 01:00 Temp 97.2 Pulse 60 60 60 Resp 13 15 B/P 127/70 107/71 Pulse Ox 95 93 O2 Delivery Room Air Room Air 11/09/16 11/09/16 11/09/16 11/09/16 02:00 03:00 04:00 04:00 Temp 97.5 Pulse 60 60 60 Resp 15 19 14 B/P 136/82 120/75 140/91 Pulse Ox 92 96 97 O2 Delivery Room Air Room Air Room Air 11/09/16 11/09/16 11/09/16 11/09/16 05:00 06:00 07:00 10:00 Temp 97.4 Pulse 60 61 60 Resp 21 12 B/P 133/73 126/74 Pulse Ox 93 95 O2 Delivery Room Air Room Air Intake and Output 11/09/16 00:00 Intake Total 1360 ml Output Total 1050 ml Balance 310 ml Capillary Refill : Less Than 3 Seconds Constitutional: No appears stated age, No AAO x 3, No apparent distress, No PERRL, No well-developed, No well-nourished, No other HEENT: No PERRL, No normal ENT inspection, No TMs normal, No pharynx normal, No scleral icterus (R), No scleral icterus (L), No pale conjunctivae (R), No pale conjunctivae (L), No photophobia, No TM abnormal (R), No TM abnormal (L), No pharyngeal erythema, No tonsillar exudate, No other, No discharge, No EOMI, No hearing is well preserved, No hard of hearing, No oral hygience is good, No ulceration, No xanthelasmas are seen Neck: No non-tender, No full range of motion, No supple, No normal inspection, No carotid bruit, No limited range of motion, No lymphadenopathy (R), No lymphadenopathy (L), No tender lateral, No tender midline, No thyromegaly, No other, No carotid pulses are 2 + bilaterally, No with good upstrokes Respiratory: No accessory muscle use, No respiratory distress, No chest tender , No chest expansion is symmetric, No chest is bilaterally symmetric, No lungs clear to percussion, No lungs clear to auscultation, No crackles, No rhonchi, No rales, No stridor, No wheezing, No pleural rub, No other Cardiovascular: No regular rate-rhythm, No irregularly irregular, No extra beats, No parasternal heave is noted, No JVD, No edema, No bradycardia, No tachycardia, No point of maximal impulse, No cardiac thrills are palpable, No S1 and S2, No gallop/S3, No gallop/S4, No diastolic murmur, No systolic murmur, No friction rub, No click, No other Gastrointestinal: No tender, No soft, No round, No distended, No pulsatile mass , No organomegaly, No guarding, No rebound, No tenderness, No hernia, No mass, No audible bowel sounds, No abnormal bowel sounds, No abdominal bruits, No spleenomegaly, No other Rectal: deferred Extremities: No normal range of motion, No non-tender, No normal inspection, No pedal edema, No calf tenderness, No normal capillary refill, No pelvis stable , No calf tenderness, No inflammation, No pedal edema, No slow capillary refill , No swelling, No other, No abrasion, No clubbing, No cyanosis, No ecchymosis, No laceration, No no lower extremity edema bilateral, No significant edema, No tenderness, No wound Neurologic/Psychiatric: No accountant budget II-XII nml as tested, No no motor/sensory deficits, No alert, No normal mood/affect, No oriented x 3, No abnormal cerebellar tests, No abnormal accountant budget II-XII, No abnormal gait, No aphasia, No EOM palsy, No facial droop, No motor weakness, No sensory deficit, No depressed affect, No disoriented x 3, No other, No grossly intact, No power is 5/5 both on sides Data Review Labs Laboratory Tests 11/08/16 15:19: Alanine Aminotransferase (ALT/SGPT) 46, Albumin 3.2, Alkaline Phosphatase 62, Anion Gap 9, Aspartate Amino Transf (AST/SGOT) 36H, B-Type Natriuretic Peptide 770.7H, BUN/Creatinine Ratio 31, Blood Urea Nitrogen 26H, Calcium Level 7.9L, Carbon Dioxide Level 19L, Chloride Level 114H, Creatinine 0.85, Estimat Glomerular Filtration Rate > 60, Glucose Level 93, Hematocrit 40, Hemoglobin 13.6, Mean Corpuscular Hemoglobin 32, Mean Corpuscular Hemoglobin Concent 34, Mean Corpuscular Volume 93, Mean Platelet Volume 11.0H, Platelet Count 159, Potassium Level 4.4, Red Blood Count 4.31L, Red Cell Distribution Width 13.8, Sodium Level 142, Thyroid Stimulating Hormone (TSH) 0.98, Total Bilirubin 0.8, Total Protein 5.1L, White Blood Count 9.5 11/09/16 06:22: Alanine Aminotransferase (ALT/SGPT) 42, Albumin 3.3, Alkaline Phosphatase 67, Anion Gap 8, Aspartate Amino Transf (AST/SGOT) 30, BUN/Creatinine Ratio 19, Blood Urea Nitrogen 15, Calcium Level 8.4L, Carbon Dioxide Level 21, Chloride Level 112H, Creatinine 0.77, Estimat Glomerular Filtration Rate > 60, Glucose Level 81, Hematocrit 42, Hemoglobin 14.4, Mean Corpuscular Hemoglobin 32, Mean Corpuscular Hemoglobin Concent 34, Mean Corpuscular Volume 93, Mean Platelet Volume 11.7H, Platelet Count 161, Potassium Level 4.3, Red Blood Count 4.56, Red Cell Distribution Width 13.4, Sodium Level 141, Total Bilirubin 1.2H, Total Protein 5.3L, White Blood Count 5.7, Magnesium Level 2.0 ECG Impression ECG Comment Yesterday's EKG showed ventricular tachycardia A/P-Cardiology Assessment/Admission Diagnosis Ventricular tachycardia Plan I have reviewed all the EKGs, telemetry strips, device interrogation. My opinion is that this is ventricular tachycardia. Mostly monomorphic however in one device interrogation strip it is suspicious for polymorphic tachycardia with difference in cycle lengths as well as morphology on electrograms. The patient previously did not tolerate amiodarone due to LFTs. Dr. Lozano started sotalol. The patient also sees Dr Ledbetter electrophysiology at [facility]. I have recommended to Dr. Lozano to do an inpatient transfer to for possible electrophysiology study and ablation. Thank you for your consult Clinical Quality Measures DVT/VTE Risk/Contraindication: Risk Factor Score Per Nursin RFS Level Per Nursing on Admit: 2=Moderate Lulu LAY MD Nov 09, 2016 10:55 am
--- NOTE | 2016-11-09 11:57 | Cardiology Discharge Summary ---
Diagnosis/Chief Complaint Date of Admission Nov 08, 2016 at 13:32 Date of Discharge November 09, 2016 Admission Diagnosis atrial fibrillation Tachycardia Palpitation Shortness of breath Discharge Diagnosis ventricular tachycardia Atrial fibrillation Palpitation Coronary artery disease Chief Complaint/HPI Chief Complaint/HPI 76-year-old gentleman with history of coronary artery disease, history of ventricular tachycardia and paroxysmal atrial fibrillation, permanent pacemaker , for the last 3-4 days has been having increasing shortness of breath, had multiple episodes of wide complex tachycardia on his pacemaker interrogation. He denied any chest pain but has been having increasing shortness of breath, fatigue and loss of energy, came into the emergency room and noted to be in wide complex tachycardia with a heart rate 140, given Cardizem which cause severe hypotension, given IV fluid, I tried a Jose Miguel without any effect on his rhythm, I tried a magnet on his pacemaker which cause few paced beat to be intermittent capture which made me feel that it is in atrial fibrillation with rapid ventricular response and bundle branch block Pacemaker interrogation showed underlying ventricular tachycardia, he is currently in sinus rhythm, there is questionable multifocal ventricular tachycardia, I discussed the management plan with Dr. 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 He is tolerating medication well, discussed the management plan with the patient and his family and with Dr. Arndt Shortness of breath and fatigue and lethargy secondary to his tachycardia Palpitations secondary to tachycardia. Coronary artery disease, history of stent to the diagonal artery done in 2011. Last cardiac catheterization was done in August 2014 which showed 40-50 percent proximal LAD stenosis with patent stent otherwise no significant obstructive disease, normal LV size and function. patient will need a cardiac catheterization. Sick sinus syndrome/ Paroxysmal atrial fibrillation. Patient has CHADS2 scores of 2, yearly risk of stroke without oral anti-coagulation is 4 percent, on Eliquis 5 mg twice a day to reduce risk of stroke. Patient had permanent pacemaker placement implantation done in August 2014. History of ventricular tachycardia-managed by Dr. Ledbetter. Intolerance to amiodarone secondary to side effect of shakiness as well as elevated LFTs. LFTs are back to normal since discontinuing medication. Patient has had increased episodes of nonsustained ventricular tachycardia on most recent pacemaker interrogation. he was referred back to see Dr. Ledbetter and he was scheduled for event recorder. Moderate to moderately severe mitral regurgitation, mild aortic regurgitation per most recent 2-D echocardiogram July 2016. Continue to monitor. Planning to repeat 2-D echocardiogram Hypertension, reporting occasional episode of dizziness and lightheadedness, no syncope was reportedcontinue to monitor. Hyperlipidemia, continue on current medication monitor lipids History of Elevated LFTs-improved since discontinuation of amiodarone and Crestor. Since then we have restarted patient Crestor to be taken every other Torrie will evaluate liver function test. Family history of coronary artery disease, History of dizziness and syncope, mainly orthostatic changes. Had a tilt table test done in the past and reported as negative. Status post pacemaker implantation. Carotid artery stenosis-Mild nonobstructive disease, last ultrasound was done in February 2016. Continue to monitor. Venous stasis changes in the lower extremity, complaining of numbness and swelling by the end of the day, improved. ABIs done February 2016 within normal limits. Labs Laboratory Tests 11/08/16 15:19: Aspartate Amino Transf (AST/SGOT) 36H, B-Type Natriuretic Peptide 770.7H, Blood Urea Nitrogen 26H, Calcium Level 7.9L, Carbon Dioxide Level 19L, Chloride Level 114H, Mean Platelet Volume 11.0H, Red Blood Count 4.31L, Total Protein 5.1L 11/09/16 06:22: Calcium Level 8.4L, Chloride Level 112H, Mean Platelet Volume 11.7H, Total Protein 5.3L, Total Bilirubin 1.2H Procedures None. Discharge Physical Examination Allergies: Coded Allergies: No Known Drug Allergies (Unverified , 10/04/13) Vitals & I&Os Vital Signs Date Time Temp Pulse Resp B/P Pulse Ox O2 Delivery O2 Flow Rate FiO2 11/09/16 11:00 62 14 138/79 95 Room Air 11/09/16 10:00 97.4 11/08/16 13:52 2 General Appearance: Alert, Oriented X3, Cooperative, No Acute Distress HEENT: Atraumatic, PERRLA Respiratory: Clear to Auscultation, Normal Air Movement Cardiovascular: Regular Rate, Normal S1, Normal S2, No Murmurs Abdominal: Normal Bowel Sounds, Soft, No Tenderness, No Hepatosplenomegaly, No Masses Extremities: No Clubbing, No Cyanosis, No Edema, Normal Pulses, No Tenderness/ Swelling Skin: No Rashes, No Breakdown, No Significant Lesion Neuro: Normal Gait, Normal Speech, Strength at 5/5 X4 Ext, Normal Tone, Sensation Intact, Cranial Nerves 3-12 NL, Reflexes 2+ Psych/Mental Status: Mental Status NL, Mood NL Discharge Home Medications Reviewed and agree with Discharge Medication list on patient's Discharge Instruction sheet Instructions to Patient/Family Please see electonic discharge instructions given to patient. Clinical Quality Measures DVT/VTE Risk/Contraindication: VTE Present on Admission: Yes Risk Factor Score Per Nursin RFS Level Per Nursing on Admit: 2=Moderate ORLIN CORONADO MD Nov 09, 2016 11:57
--- NOTE | 2016-11-10 08:05 | ECHOCARDIOGRAPHY REPORT ---
PROCEDURE PHYSICIAN: ORLIN CORONADO DATE OF PROCEDURE: 11/09/2016 TWO DIMENSIONAL ECHOCARDIOGRAM REPORT PRIMARY PHYSICIAN: OTHER PHYSICIAN: REFERRING PHYSICIAN: Dr. Elier Mata ORDERING PHYSICIAN: INDICATION FOR THE PROCEDURE: Ventricular tachycardia. MEASUREMENTS DERIVED VALUES LV DIAMETER (LAX) NORMALS NORMALS Diastolic 4.7 (3.6-5.2) Eject. Fract. 60% (60%+/-6%) Systolic (2.3-3.9) Diastolic Vol. % Shortening (0.22-0.42) Systolic Vol. Aortic Root IVS THICKNESS Diastolic 1.2 (0.6-1.1) LVPW THICKNESS Diastolic 1.2 (0.6-1.1) LA DIAMETER Systolic 3.6 (2.1-3.7) FINDINGS: 1. Technical quality is good. 2. The left ventricle is normal in size with normal contractility. Systolic function appeared to be normal. Estimated ejection fraction is 60%. 3. The left atrium is in the upper normal limit in size. No clot or thrombus were seen within the left atrium. 4. The right atrium and right ventricle are normal in size. No clot or thrombus were seen within the right side. 5. Mitral valve is calcified with mild mitral regurgitation noted by color Doppler flow. No mitral valve prolapse. No mitral valve stenosis. 6. Aortic valve leaflets were not well visualized. No significant aortic stenosis or regurgitation was seen. 7. Tricuspid valve is normal in morphology with mild tricuspid regurgitation noted by color Doppler flow. Doppler across tricuspid valve estimated pulmonary artery pressure of 31+ right atrial pressure. 8. Pulmonic valve is functioning normally. 9. No pericardial effusion. IN CONCLUSION: 1. Normal left ventricular size and systolic function. Estimated ejection fraction 60%. 2. Left atrium is in the upper normal limit in size. 3. Mild mitral regurgitation. Mild tricuspid regurgitation. 4. Estimated pulmonary artery pressure of 35 to 40 mmHg. Job ID: [id number] Dictated Date: 11/09/2016 16:51:29 [employer] Date: 11/10/2016 08:02:29 / [place]
== END 2016-11-09 12:45 | disposition short-term general hospital (02) | DRG 310 ==
LOC: EDUNIT# 11:56 → ER 11:58 → ICU 13:32
PROVIDERS: ADMIT Internal Medicine Cardiovascular Disease; ATTEND Internal Medicine Cardiovascular Disease
DX: I48.0 Paroxysmal atrial fibrillation (principal); I47.2 Ventricular tachycardia; I95.9 Hypotension, unspecified; I25.10 Atherosclerotic heart disease of native coronary artery without angina pectoris; I10 Essential (primary) hypertension; E78.5 Hyperlipidemia, unspecified; I87.8 Other specified disorders of veins; Z95.0 Presence of cardiac pacemaker; Z95.5 Presence of coronary angioplasty implant and graft
CPT/HCPCS: 36415; 80053; 83735; 83880; 84443; 85027; 87081; 93005; 93306; 96374; 96375

== ENCOUNTER → 2017-01-03 | Outpatient (CLI) | payer MEDICARE, BC ==
[~2017-01-03] MED LIST changes: +APIX5TAB PO; +ASPI-983 PO; +ATOR40TA PO; +MELO15TA39 PO; +METO-270 PO; +METO-352 PO; +MEXI200C PO; +MEXILETINE HCL PO; +OMG1KC PO; +Sotalol Hcl PO
[2017-01-03 15:22] LABS: BASOPHILS % (AUTO) 0 % (0-10); EOSINOPHILS # (AUTO) 0.1 10^3/uL (0.0-0.3); EOSINOPHILS % (AUTO) 1 % (0-10); LYMPHOCYTES # (AUTO) 1.1 X 10^3 (1.0-4.0); LYMPHOCYTES % (AUTO) 15 % (12-44); MEAN CORPUSCULAR HEMOGLOBIN 31 PG (25-34); MEAN CORPUSCULAR HGB CONC 33 G/DL (32-36); MEAN CORPUSCULAR VOLUME 94 FL (80-99); MEAN PLATELET VOLUME 10.2 FL (7.4-10.4); MONOCYTES # (AUTO) 0.5 X 10^3 (0.0-1.0); MONOCYTES % (AUTO) 7 % (0-12); NEUTROPHILS # (AUTO) 5.3 X 10^3 (1.8-7.8); NEUTROPHILS % (AUTO) 76 % (42-75); PLATELET COUNT 228 10^3/uL (130-400); RED BLOOD COUNT 4.73 10^6/uL (4.35-5.85); RED CELL DISTRIBUTION WIDTH 15.4 % (10.0-14.5)
[2017-01-03 15:42] LABS: ALBUMIN 3.9 G/DL (3.2-4.5); BILIRUBIN,TOTAL 0.6 MG/DL (0.1-1.0); CALCIUM 9.4 MG/DL (8.5-10.1); CREATININE SERUM 1.62 MG/DL (0.60-1.30); POTASSIUM 4.8 MMOL/L (3.6-5.0); TOTAL PROTEIN 6.5 G/DL (6.4-8.2)
--- NOTE | 2017-01-03 16:13 | Diagnostic Imaging Report ---
PA and lateral views of the chest. INDICATION: Dizziness. Hypertension. FINDINGS: The lungs are hyperinflated with no focal infiltrate. The heart size is normal. No effusion or pneumothorax. The mediastinum and simón appear unremarkable. There is a pacemaker with two leads seen. IMPRESSION: No acute process. Dictated by: Dictated on workstation # [id number]
== END ==
LOC: RAD 14:54
PROVIDERS: ATTEND Internal Medicine Cardiovascular Disease
DX: R42 Dizziness and giddiness (principal); I10 Essential (primary) hypertension; E78.2 Mixed hyperlipidemia; R06.02 Shortness of breath
CPT/HCPCS: 36415; 71020; 80053; 85025

== ENCOUNTER 2017-01-09 15:07 | Inpatient (IN) | payer MEDICARE, BC ==
[2017-01-09] VITALS (14 sets, daily range): BP systolic 117–147; BP diastolic 77–110
[~2017-01-09] VITALS: Ht 185.4 cm; Wt 83.5 kg
[~2017-01-09 15:07] MED LIST changes: -APIX5TAB PO; -ATOR40TA PO; -MELO15TA39 PO; -METO-270 PO; -MEXI200C PO; -MEXILETINE HCL PO; -Sotalol Hcl PO
[2017-01-09] MEDS ORDERED: METO-270 PO (16:13)
[2017-01-09] MEDS ORDERED: MEXI200C PO (16:13)
[2017-01-09] MEDS ORDERED: OMEP40CA36 PO (16:13)
[2017-01-09] MEDS ORDERED: MELO15TA39 PO (16:13)
[2017-01-09] MEDS ORDERED: APIX5TAB PO (16:13)
[2017-01-09 16:16] LABS: MEAN PLATELET VOLUME 10.3 FL (7.4-10.4); RED BLOOD COUNT 4.26 10^6/uL (4.35-5.85); RED CELL DISTRIBUTION WIDTH 15.4 % (10.0-14.5); WHITE BLOOD COUNT 6.7 10^3/uL (4.3-11.0)
[2017-01-09 16:19] LABS: INR 1.1 (0.8-1.4); PROTHROMBIN TIME PATIENT 14.1 SEC (12.2-14.7)
--- NOTE | 2017-01-09 16:20 | History & Physicial-Cardiolgy ---
HPI-Cardiology Cardiology Consultation: Date of Consultation 01/09/17 Date of Admission Attending Physician Lulu Garcia MD Admitting Physician Elier Mata MD Consulting Physician Lulu GARCIA MD HPI: Chief Complaint: Syncope Mr Torres is 76-year-old male with history of coronary artery disease s/p PCI on 09/09/11 with 3x8mm Promus JOVON to LAD and PTCA to Diagonal artery, another coronary angiography on 09/17/12 which shows patent stents and no evidence of obstructive coronary artery disease. The patient has history of sick sinus syndrome and dual-chamber Medtronic pacemaker was placed . Patient also has history of paroxysmal atrial fibrillation and continued on Eliquis. I initially saw him as an inpatient EP consult on 11/09/2016. He complained of dizziness and was found to have wide complex tachycardia and was hypotensive. He was urgently cardioverted by Dr. Lozano. Our assessment was that the patient has monomorphic ventricular tachycardia. Since the patient did not tolerate amiodarone previously due to elevated LFTs he was started on sotalol. We contacted Dr. Sanchez cardiac EP at [facility] and he was transferred to for further investigation. He had EP study by Dr. Lemus on 11/11/2016. VT ablation was done on the septal aspect of the RV output tract as well as the septal aspect of the LVOT. There was another VT induced which was likely epicardial in origin from the apical aspect of the LV. He underwent RANGE MECHANIC-D placement on 11/14/2016. Sotalol was increased to 120 mg twice a day. He did not have any episodes of nonsustained VT in the 24 hours before discharge. He was also continued on Toprol-XL and apixaban 5 mg twice a day for atrial fibrillation. Crestor 5 mg twice weekly was started as well. he presented today secondary to a syncopal episode yesterday. He shares with us that he had a syncopal episode 3 weeks ago as well. Also he stopped taking his sotalol one month ago around mid of December. I saw the patient urgently on the request of Dr. Lozano for an EP evaluation. Review of Systems-Cardiology Review of Systems Constitutional: No As described under HPI, No no symptoms reported, No chills, No fever, No lightheadedness, No malaise, No tiredness, No weight loss, No weight gain, No other Eyes: No As described under HPI, No no symptoms reported, No blindness, No blurred vision, No contact lenses, No drainage, No decreased acuity, No foreign body sensation, No glasses, No inflammation, No pain, No photophobia, No previous injury, No shadows, No tunnel vision, No other, No vision change Ears/Nose/Throat: No As described under HPI, No no symptoms reported, No chronic hearing loss, No epistaxis, No ear discharge, No ear pain, No loose teeth, No mouth pain, No mouth swelling, No nasal drainage, No nose pain, No recent hearing loss, No throat pain, No throat swelling, No ulcerations, No other Respiratory: No no symptoms reported, No As described under HPI, No cough, No orthopnea, No shortness of breath, No SOB with excertion, No SOB at rest, No stridor, No wheezing, No other Cardiovascular: syncope Gastrointestinal: No no symptoms reported, No As described under HPI, No abdomen distended, No abdominal pain, No blood streaked bowels, No constipation , No diarrhea, No difficulty swallowing, No nausea, No poor appetite, No poor fluid intake, No rectal bleeding, No vomiting, No other, No nausea/vomiting/ diarrhea, No stool coloration changes Genitourinary: No no symptoms reported, No As described under HPI, No burning, No dysuria, No discharge, No frequency, No flank pain, No hematuria, No incontinence, No pain, No urgency, No other, No urine frequency changes, No urine coloration changes Musculoskeletal: No no symptoms reported, No As describe under HPI, No back pain, No gout, No joint pain, No joint swelling, No muscle pain, No muscle stiffness, No neck pain, No other Skin: No no symptoms reported, No As described under HPI, No change in color, No change in hair/nails, No dryness, No lesions, No lumps, No rash, No other, No skin related problems, No ulcerations, No rash on exposed areas, No ulcerations on exposed areas Psychiatric/Neurological: No As described under HPI, No anxiety, No depression , No emotional problems, No focal weakness, No headache, No no symptoms reported , No numbness, No other, No pre-existing deficit, No seizure, No syncope, No tingling, No tremors, No weakness [id number] Hx Immunizations Up To Date Date of Pneumonia Vaccine: May 10, 2011 Date of Influenza Vaccine: May 05, 2016 Past Medical History PMH As described under Assessment. Family Medical History Family History: Dementia G8 BROTHER Dysphasia FH: CHF (congestive heart failure) G8 BROTHER FH: heart disease 19 FATHER 19 MOTHER FH: throat cancer G8 BROTHER Allergies and Home Medications Allergies Coded Allergies: No Known Drug Allergies (Unverified , 10/04/13) Home Medications Apixaban 5 Mg Tablet, 5 MG PO BID, (Reported) Aspirin 81 Mg Tablet.dr, 81 MG PO DAILY, (Reported) Meloxicam 15 Mg Tablet, 15 MG PO HS, (Reported) Metoprolol Succinate 25 Mg Tab.er.24h, 25 MG PO BID, (Reported) Mexiletine HCl 200 Mg Capsule, 200 MG PO TID, (Reported) Multivitamin 1 Each Tablet, 1 TAB PO DAILY, (Reported) [place] 3 Polyunsat Fatty Acids 1,000 Mg Cap, 1,000 MG PO TID, (Reported) Omeprazole 40 Mg Capsule.dr, 40 MG PO DAILY, (Reported) Physical Exam-Cardiology Physical Exam Vital Signs/I&O Capillary Refill : Constitutional: No appears stated age, No AAO x 3, No apparent distress, No PERRL, No well-developed, No well-nourished, No other HEENT: No PERRL, No normal ENT inspection, No TMs normal, No pharynx normal, No scleral icterus (R), No scleral icterus (L), No pale conjunctivae (R), No pale conjunctivae (L), No photophobia, No TM abnormal (R), No TM abnormal (L), No pharyngeal erythema, No tonsillar exudate, No other, No discharge, No EOMI, No hearing is well preserved, No hard of hearing, No oral hygience is good, No ulceration, No xanthelasmas are seen Neck: No non-tender, No full range of motion, No supple, No normal inspection, No carotid bruit, No limited range of motion, No lymphadenopathy (R), No lymphadenopathy (L), No tender lateral, No tender midline, No thyromegaly, No other, No carotid pulses are 2 + bilaterally, No with good upstrokes Respiratory: No accessory muscle use, No respiratory distress, No chest tender , No chest expansion is symmetric, No chest is bilaterally symmetric, No lungs clear to percussion, No lungs clear to auscultation, No crackles, No rhonchi, No rales, No stridor, No wheezing, No pleural rub, No other Cardiovascular: No regular rate-rhythm, No irregularly irregular, No extra beats, No parasternal heave is noted, No JVD, No edema, No bradycardia, No tachycardia, No point of maximal impulse, No cardiac thrills are palpable, No S1 and S2, No gallop/S3, No gallop/S4, No diastolic murmur, No systolic murmur, No friction rub, No click, No other Gastrointestinal: No tender, No soft, No round, No distended, No pulsatile mass , No organomegaly, No guarding, No rebound, No tenderness, No hernia, No mass, No audible bowel sounds, No abnormal bowel sounds, No abdominal bruits, No spleenomegaly, No other Rectal: deferred Extremities: No normal range of motion, No non-tender, No normal inspection, No pedal edema, No calf tenderness, No normal capillary refill, No pelvis stable , No calf tenderness, No inflammation, No pedal edema, No slow capillary refill , No swelling, No other, No abrasion, No clubbing, No cyanosis, No ecchymosis, No laceration, No no lower extremity edema bilateral, No significant edema, No tenderness, No wound Neurologic/Psychiatric: No crate opener II-XII nml as tested, No no motor/sensory deficits, No alert, No normal mood/affect, No oriented x 3, No abnormal cerebellar tests, No abnormal crate opener II-XII, No abnormal gait, No aphasia, No EOM palsy, No facial droop, No motor weakness, No sensory deficit, No depressed affect, No disoriented x 3, No other, No grossly intact, No power is 5/5 both on sides Data Review Labs Laboratory Tests 01/09/17 16:02: White Blood Count 6.7, Red Blood Count 4.26L, Hemoglobin 13.5, Hematocrit 40, Mean Corpuscular Volume 95, Mean Corpuscular Hemoglobin 32, Mean Corpuscular Hemoglobin Concent 34, Red Cell Distribution Width 15.4H, Platelet Count 261, Mean Platelet Volume 10.3 A/P-Cardiology Assessment/Admission Diagnosis Sustained ventricular tachycardia, Syncope, Paroxysmal atrial fibrillation Plan Mr Torres is 76-year-old male with history of coronary artery disease s/p PCI on 09/09/11 with 3x8mm Promus JOVON to LAD and PTCA to Diagonal artery, another coronary angiography on 09/17/12 which shows patent stents and no evidence of obstructive coronary artery disease. The patient has history of sick sinus syndrome and dual-chamber Medtronic pacemaker was placed . Patient also has history of paroxysmal atrial fibrillation and continued on Eliquis. I initially saw him as an inpatient EP consult on 11/09/2016. He complained of dizziness and was found to have wide complex tachycardia and was hypotensive. He was urgently cardioverted by Dr. Lozano. Our assessment was that the patient has monomorphic ventricular tachycardia. Since the patient did not tolerate amiodarone previously due to elevated LFTs he was started on sotalol. We contacted Dr. Sanchez cardiac EP at [facility] and he was transferred to for further investigation. He had EP study by Dr. Lemus on 11/11/2016. VT ablation was done on the septal aspect of the RV output tract as well as the septal aspect of the LVOT. There was another VT induced which was likely epicardial in origin from the apical aspect of the LV. He underwent RANGE MECHANIC-D placement on 11/14/2016. Sotalol was increased to 120 mg twice a day. He did not have any episodes of nonsustained VT in the 24 hours before discharge. He was also continued on Toprol-XL and apixaban 5 mg twice a day for atrial fibrillation. Crestor 5 mg twice weekly was started as well. he presented today secondary to a syncopal episode yesterday. He shares with us that he had a syncopal episode 3 weeks ago as well. Also he stopped taking his sotalol one month ago around mid of December. I saw the patient urgently on the request of Dr. Lozano for an EP evaluation. 1. Sick sinus syndrome/ Paroxysmal atrial fibrillation. maintained on low-dose beta blockers with Toprol and Eliquis. 2. History of multiple episode of ventricular tachycardia, intolerant to amiodarone due to side effect of shakiness and elevated LFTs, had monomorphic ventricular tachycardia with associated dizziness and hypotension. Was cardioverted in our hospital and transferred to . patient had recurrent VT with rates of 140-160 BPM. EKG showed left bundle branch block with R to S transition in V4 and inferior axis suggestive of RVOT VT. His MRI and cardiac PET were negative. His clinical VT was inducible with programmed electrical stimulation 600/400/270 ms and Isuprel of 10 g/KG/minute. Earliest activation of the VT was in the high RVOT septum. The VT was ablated with a ThermoCool SF catheter however VT was still inducible. Therefore the LVOT was extensively mapped just below the aortic valve and further ablation was performed with termination of tachycardia and noninducibility. However another VT was induced which had broad QRS from the apical LV and epicardial VT could not be ruled out. sotalol was started and his pacemaker was upgraded to a CRTICD. 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 the patient stopped his sotalol one month after the procedure. He saw Dr. Lozano last week and half per discussion with Dr. Sanchez mexiletine 200 mg 3 times a day was started. He was continued on Toprol and Eliquis as well. The patient presented today after having a syncopal episode yesterday. Device interrogation was performed which showed numerous episodes of VT in zone 1 between 133 bpm to 148 bpm which were treated with ATP. ATP did not result in acceleration of VT and defibrillation was not required. all episodes are monomorphic in origin. Numerous episodes of slow VT was also noticed on device interrogation in the monitored zone from 111 - 133 BPM. the morphology of the slow VT is similar to the other faster VT. I discussed at length with the patient/spouse and I discussed with Dr. Lozano and Dr. Sanchez. The plan is to admit the patient for sotalol loading with 120 mg twice a day. We will continue to follow the patient with device interrogation to see if there is resolution of VT episodes. He will also electively see Dr. Lemus at [facility] for possible repeat ablation. Lulu GARCIA MD January 09, 2017 16:20
[2017-01-09 16:29] LABS: ALANINE AMINOTRANSFERASE 22 U/L (0-55); ALBUMIN 3.4 G/DL (3.2-4.5); ANION GAP 6 MMOL/L (5-14); ASPARTATE AMINO TRANSFERASE 17 U/L (5-34); BILIRUBIN,TOTAL 0.5 MG/DL (0.1-1.0); BLOOD UREA NITROGEN 20 MG/DL (7-18); BUN/CREATININE RATIO 20; CALCIUM 8.5 MG/DL (8.5-10.1); CARBON DIOXIDE 24 MMOL/L (21-32); CHLORIDE 109 MMOL/L (98-107); CHOLESTEROL 213 MG/DL (< 200); CREATININE SERUM 0.99 MG/DL (0.60-1.30); DIRECT LDL 154 MG/DL (1-129); GFR ESTIMATED > 60; GLUCOSE 95 MG/DL (70-105); MAGNESIUM 2.1 MG/DL (1.8-2.4); POTASSIUM 4.1 MMOL/L (3.6-5.0); SODIUM 139 MMOL/L (135-145); TOTAL PROTEIN 5.4 G/DL (6.4-8.2); TRIGLYCERIDES 189 MG/DL (<150); VLDL CHOLESTEROL 38 MG/DL (5-40)
[2017-01-09 16:35] LABS: TROPONIN I < 0.30 NG/ML (<0.30)
--- NOTE | 2017-01-09 17:47 | Diagnostic Imaging Report ---
EXAMINATION: CHEST (PA AND LATERAL) CLINICAL INDICATION: A 76-year-old male, syncope. COMPARISON: January 03, 2017. FINDINGS: There is a left-sided cardiac-assist device with right atrial and right ventricular leads. The leads appear intact. Stable overall appearance of the cardiomediastinal silhouette. There is no identified pneumothorax. There is no pleural effusion. There is no focal airspace consolidation. There are end-stage right glenohumeral degenerative changes. There also are left-sided glenohumeral degenerative changes. There are very mild disc degenerative changes of the thoracic spine. IMPRESSION: No identified acute cardiopulmonary abnormality. Dictated by: Dictated on workstation # [id number]
[2017-01-09] MEDS ORDERED: PATIENT MAY USE OWN MEDS, ALL MC SCH (19:30)
[2017-01-09] MEDS ORDERED: NON-FORMULARY MEDICATION 1 EA EA (Mexiletine HCl 200 MG) PO SCH (21:00)
[2017-01-09] MEDS: SOTALOL 80 MG (BETAPACE) TAB PO SCH (21:05)
[2017-01-09] MEDS: MEXILETINE 200 MG PO SCH (21:06)
[2017-01-09] MEDS: APIXABAN 5 MG (ELIQUIS) TABLET PO SCH (21:06)
[2017-01-10] VITALS (23 sets, daily range): BP systolic 90–142; BP diastolic 61–105
[2017-01-10] MEDS: APIXABAN 5 MG (ELIQUIS) TABLET PO SCH ×2 (08:39→21:20)
[2017-01-10] MEDS: MEXILETINE 200 MG PO SCH (08:40)
[2017-01-10] MEDS: SOTALOL 80 MG (BETAPACE) TAB PO SCH ×2 (08:40→21:23)
--- NOTE | 2017-01-10 12:59 | Cardiology Progress Note ---
Cardiology SOAP Progress Note Subjective: No complaints Objective: I&O/Vital Signs Vital Sign - Last 12Hours 01/10/17 01/10/17 01/10/17 01/10/17 01:27 02:00 03:00 04:00 Pulse 82 80 80 Resp 17 28 B/P (MAP) 107/83 132/92 Pulse Ox 92 97 98 O2 Delivery Room Air Room Air 01/10/17 01/10/17 01/10/17 01/10/17 04:00 04:00 05:00 06:00 Temp 97.0 Pulse 80 80 81 Resp 11 12 12 B/P (MAP) 114/80 136/94 142/105 Pulse Ox 92 92 93 O2 Delivery Room Air Room Air Room Air 01/10/17 01/10/17 01/10/17 01/10/17 07:00 08:00 08:37 12:28 Temp 97.1 Pulse 79 80 Resp 21 B/P (MAP) 119/75 Pulse Ox 95 95 95 O2 Delivery Room Air Intake and Output 01/09/17 23:59 Intake Total 100 ml Output Total 950 ml Balance -850 ml Weight (Pounds): 183 Weight (Ounces): 6.0 Weight (Calculated Kilograms): 83.791068 Constitutional: No appears stated age, No AAO x 3, No apparent distress, No PERRL, No well-developed, No well-nourished, No other Respiratory: No accessory muscle use, No respiratory distress, No chest tender , No chest expansion is symmetric, No chest is bilaterally symmetric, No lungs clear to percussion, No lungs clear to auscultation, No crackles, No rhonchi, No rales, No stridor, No wheezing, No pleural rub, No other Cardiovascular: No regular rate-rhythm, No irregularly irregular, No extra beats, No parasternal heave is noted, No JVD, No edema, No bradycardia, No tachycardia, No point of maximal impulse, No cardiac thrills are palpable, No S1 and S2, No gallop/S3, No gallop/S4, No diastolic murmur, No systolic murmur, No friction rub, No click, No other Gastrointestional: No tender, No soft, No round, No distended, No pulsatile mass, No organomegaly, No guarding, No rebound, No tenderness, No hernia, No mass, No audible bowel sounds, No abnormal bowel sounds, No abdominal bruits, No spleenomegaly, No other Extremities: No normal range of motion, No non-tender, No normal inspection, No pedal edema, No calf tenderness, No normal capillary refill, No pelvis stable , No calf tenderness, No inflammation, No pedal edema, No slow capillary refill , No swelling, No other, No abrasion, No clubbing, No cyanosis, No ecchymosis, No laceration, No no lower extremity edema bilateral, No significant edema, No tenderness, No wound Neurologic/Psychiatric: No line crew supervisor II-XII nml as tested, No no motor/sensory deficits, No alert, No normal mood/affect, No oriented x 3, No abnormal cerebellar tests, No abnormal line crew supervisor II-XII, No abnormal gait, No aphasia, No EOM palsy, No facial droop, No motor weakness, No sensory deficit, No depressed affect, No disoriented x 3, No other, No grossly intact, No power is 5/5 both on sides Results/Procedures: Labs Laboratory Tests 01/09/17 16:02: White Blood Count 6.7, Red Blood Count 4.26L, Hemoglobin 13.5, Hematocrit 40, Mean Corpuscular Volume 95, Mean Corpuscular Hemoglobin 32, Mean Corpuscular Hemoglobin Concent 34, Red Cell Distribution Width 15.4H, Platelet Count 261, Mean Platelet Volume 10.3, Prothrombin Time 14.1, INR Comment 1.1, Activated Partial Thromboplast Time 26, Sodium Level 139, Potassium Level 4.1, Chloride Level 109H, Carbon Dioxide Level 24, Anion Gap 6, Blood Urea Nitrogen 20H, Creatinine 0.99, Estimat Glomerular Filtration Rate > 60, BUN/Creatinine Ratio 20, Glucose Level 95, Calcium Level 8.5, Magnesium Level 2.1, Total Bilirubin 0.5, Aspartate Amino Transf (AST/SGOT) 17, Alanine Aminotransferase (ALT/SGPT) 22, Alkaline Phosphatase 56, Troponin I < 0.30, Total Protein 5.4L, Albumin 3.4 , Triglycerides Level 189H, Cholesterol Level 213H, LDL Cholesterol Direct 154H , VLDL Cholesterol 38, HDL Cholesterol 34L A/P: Assessment/Dx: Sustained ventricular tachycardia, Syncope, Paroxysmal atrial fibrillation significant hyperlipidemia CAD Plan: Mr Torres is 76-year-old male with history of coronary artery disease s/p PCI on 09/09/11 with 3x8mm Promus JOVON to LAD and PTCA to Diagonal artery, another coronary angiography on 09/17/12 which shows patent stents and no evidence of obstructive coronary artery disease. The patient has history of sick sinus syndrome and dual-chamber Medtronic pacemaker was placed . Patient also has history of paroxysmal atrial fibrillation and continued on Eliquis. I initially saw him as an inpatient EP consult on 11/09/2016. He complained of dizziness and was found to have wide complex tachycardia and was hypotensive. He was urgently cardioverted by Dr. Lozano. Our assessment was that the patient has monomorphic ventricular tachycardia. Since the patient did not tolerate amiodarone previously due to elevated LFTs he was started on sotalol. We contacted Dr. Sanchez cardiac EP at [facility] and he was transferred to for further investigation. He had EP study by Dr. Lemus on 11/11/2016. VT ablation was done on the septal aspect of the RV output tract as well as the septal aspect of the LVOT. There was another VT induced which was likely epicardial in origin from the apical aspect of the LV. He underwent AGRICULTURAL SYSTEMS SPECIALIST-D placement on 11/14/2016. Sotalol was increased to 120 mg twice a day. He did not have any episodes of nonsustained VT in the 24 hours before discharge. He was also continued on Toprol-XL and apixaban 5 mg twice a day for atrial fibrillation. Crestor 5 mg twice weekly was started as well. he presented today secondary to a syncopal episode yesterday. He shares with us that he had a syncopal episode 3 weeks ago as well. Also he stopped taking his sotalol one month ago around mid of December. I saw the patient urgently on the request of Dr. Lozano for an EP evaluation. 1. Sick sinus syndrome/ Paroxysmal atrial fibrillation. maintained on low-dose beta blockers with Toprol and Eliquis. 2. History of multiple episode of ventricular tachycardia, intolerant to amiodarone due to side effect of shakiness and elevated LFTs, had monomorphic ventricular tachycardia with associated dizziness and hypotension. Was cardioverted in our hospital and transferred to . patient had recurrent VT with rates of 140-160 BPM. EKG showed left bundle branch block with R to S transition in V4 and inferior axis suggestive of RVOT VT. His MRI and cardiac PET were negative. His clinical VT was inducible with programmed electrical stimulation 600/400/270 ms and Isuprel of 10 g/KG/minute. Earliest activation of the VT was in the high RVOT septum. The VT was ablated with a ThermoCool SF catheter however VT was still inducible. Therefore the LVOT was extensively mapped just below the aortic valve and further ablation was performed with termination of tachycardia and noninducibility. However another VT was induced which had broad QRS from the apical LV and epicardial VT could not be ruled out. sotalol was started and his pacemaker was upgraded to a CRTICD. 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 the patient stopped his sotalol one month after the procedure. He saw Dr. Lozano last week and half per discussion with Dr. Sanchez mexiletine 200 mg 3 times a day was started. He was continued on Toprol and Eliquis as well. The patient presented today after having a syncopal episode yesterday. Device interrogation was performed which showed numerous episodes of VT in zone 1 between 133 bpm to 148 bpm which were treated with ATP. ATP did not result in acceleration of VT and defibrillation was not required. all episodes are monomorphic in origin. Numerous episodes of slow VT was also noticed on device interrogation in the monitored zone from 111 - 133 BPM. the morphology of the slow VT is similar to the other faster VT. I discussed at length with the patient/spouse and I discussed with Dr. Lozano and Dr. Sanchez. The plan is to admit the patient for sotalol loading with 120 mg twice a day. We will continue to follow the patient with device interrogation to see if there is resolution of VT episodes. He will also electively see Dr. Lemus at [facility] for possible repeat ablation. Sotalol 120mg bid started yesterday, however, QTc interval on am EKG was 517ms, therefore, will reduce the dose to Sotalol 80mg twice daily and continue EKG just before and two hour after sotalol dose. continue telemetry. 3. Severe hyperlipidemia in a patient with CAD: will start lipitor 40mg daily. Thank you for your consultation. Please call me if you have any questions. Deborah Garcia MD, FACP, FACC, FSCAI, FHRS, CCDS Interventional Cardiology Cardiac Electrophysiology Vascular Medicine and Endovascular Interventions Lulu GARCIA MD January 10, 2017 12:59 pm
[2017-01-10] MEDS: ATORVASTATIN 40 MG (LIPITOR) TABLET PO SCH (21:23)
[2017-01-11] VITALS (13 sets, daily range): BP systolic 90–136; BP diastolic 61–98
[2017-01-11 08:04] LABS: BASOPHILS % (AUTO) 0 % (0-10); EOSINOPHILS # (AUTO) 0.2 10^3/uL (0.0-0.3); EOSINOPHILS % (AUTO) 2 % (0-10); LYMPHOCYTES # (AUTO) 1.2 X 10^3 (1.0-4.0); LYMPHOCYTES % (AUTO) 18 % (12-44); MEAN CORPUSCULAR HEMOGLOBIN 32 PG (25-34); MEAN CORPUSCULAR HGB CONC 34 G/DL (32-36); MEAN CORPUSCULAR VOLUME 95 FL (80-99); MEAN PLATELET VOLUME 10.4 FL (7.4-10.4); MONOCYTES # (AUTO) 0.6 X 10^3 (0.0-1.0); MONOCYTES % (AUTO) 9 % (0-12); NEUTROPHILS # (AUTO) 4.9 X 10^3 (1.8-7.8); NEUTROPHILS % (AUTO) 70 % (42-75); PLATELET COUNT 274 10^3/uL (130-400); RED CELL DISTRIBUTION WIDTH 15.2 % (10.0-14.5); WHITE BLOOD COUNT 6.9 10^3/uL (4.3-11.0)
[2017-01-11 08:26] LABS: ALANINE AMINOTRANSFERASE 27 U/L (0-55); ALBUMIN 3.7 G/DL (3.2-4.5); ANION GAP 9 MMOL/L (5-14); ASPARTATE AMINO TRANSFERASE 20 U/L (5-34); BILIRUBIN,TOTAL 0.9 MG/DL (0.1-1.0); BLOOD UREA NITROGEN 18 MG/DL (7-18); BUN/CREATININE RATIO 19; CALCIUM 9.2 MG/DL (8.5-10.1); CARBON DIOXIDE 29 MMOL/L (21-32); CHLORIDE 106 MMOL/L (98-107); CREATININE SERUM 0.96 MG/DL (0.60-1.30); GFR ESTIMATED > 60; GLUCOSE 86 MG/DL (70-105); POTASSIUM 4.4 MMOL/L (3.6-5.0); SODIUM 144 MMOL/L (135-145)
[2017-01-11] MEDS: APIXABAN 5 MG (ELIQUIS) TABLET PO SCH ×2 (08:55→21:05)
[2017-01-11] MEDS: SOTALOL 80 MG (BETAPACE) TAB PO SCH ×2 (08:55→21:05)
--- NOTE | 2017-01-11 10:12 | Cardiology Progress Note ---
Cardiology SOAP Progress Note Subjective: No complaints Objective: I&O/Vital Signs Vital Sign - Last 12Hours 01/10/17 01/11/17 01/11/17 01/11/17 23:00 00:00 00:00 00:00 Temp 98.0 Pulse 80 86 Resp 13 14 B/P (MAP) 101/67 94/74 Pulse Ox 89 95 93 O2 Delivery Room Air Room Air 01/11/17 01/11/17 01/11/17 01/11/17 01:00 01:00 02:00 03:00 Pulse 80 80 75 78 Resp 13 13 14 B/P (MAP) 90/69 101/61 95/63 Pulse Ox 93 92 91 O2 Delivery Room Air Room Air Room Air 01/11/17 01/11/17 01/11/17 01/11/17 04:00 04:00 04:00 05:00 Temp 98.9 Pulse 75 80 Resp 11 12 B/P (MAP) 95/64 123/77 Pulse Ox 95 93 90 O2 Delivery Room Air Room Air 01/11/17 01/11/17 01/11/17 01/11/17 06:00 07:00 07:00 08:00 Pulse 80 77 85 77 Resp 18 6 26 B/P (MAP) 104/75 102/91 104/67 Pulse Ox 90 93 94 O2 Delivery Room Air Room Air Room Air 01/11/17 01/11/17 01/11/17 08:00 08:00 09:00 Temp 96.6 Pulse 74 Resp 10 B/P (MAP) 106/64 Pulse Ox 91 94 O2 Delivery Room Air Intake and Output 01/11/17 00:00 Intake Total 850 ml Output Total 1125 ml Balance -275 ml Weight (Pounds): 184 Weight (Ounces): 6.0 Weight (Calculated Kilograms): 83.431398 Constitutional: No appears stated age, No AAO x 3, No apparent distress, No PERRL, No well-developed, No well-nourished, No other Respiratory: No accessory muscle use, No respiratory distress, No chest tender , No chest expansion is symmetric, No chest is bilaterally symmetric, No lungs clear to percussion, No lungs clear to auscultation, No crackles, No rhonchi, No rales, No stridor, No wheezing, No pleural rub, No other Cardiovascular: No regular rate-rhythm, No irregularly irregular, No extra beats, No parasternal heave is noted, No JVD, No edema, No bradycardia, No tachycardia, No point of maximal impulse, No cardiac thrills are palpable, No S1 and S2, No gallop/S3, No gallop/S4, No diastolic murmur, No systolic murmur, No friction rub, No click, No other Gastrointestional: No tender, No soft, No round, No distended, No pulsatile mass, No organomegaly, No guarding, No rebound, No tenderness, No hernia, No mass, No audible bowel sounds, No abnormal bowel sounds, No abdominal bruits, No spleenomegaly, No other Extremities: No normal range of motion, No non-tender, No normal inspection, No pedal edema, No calf tenderness, No normal capillary refill, No pelvis stable , No calf tenderness, No inflammation, No pedal edema, No slow capillary refill , No swelling, No other, No abrasion, No clubbing, No cyanosis, No ecchymosis, No laceration, No no lower extremity edema bilateral, No significant edema, No tenderness, No wound Neurologic/Psychiatric: No forensics analyst II-XII nml as tested, No no motor/sensory deficits, No alert, No normal mood/affect, No oriented x 3, No abnormal cerebellar tests, No abnormal forensics analyst II-XII, No abnormal gait, No aphasia, No EOM palsy, No facial droop, No motor weakness, No sensory deficit, No depressed affect, No disoriented x 3, No other, No grossly intact, No power is 5/5 both on sides Results/Procedures: Labs Laboratory Tests 01/11/17 07:53: White Blood Count 6.9, Red Blood Count 4.90, Hemoglobin 15.5, Hematocrit 46, Mean Corpuscular Volume 95, Mean Corpuscular Hemoglobin 32, Mean Corpuscular Hemoglobin Concent 34, Red Cell Distribution Width 15.2H, Platelet Count 274, Mean Platelet Volume 10.4, Neutrophils (%) (Auto) 70, Lymphocytes (%) (Auto) 18 , Monocytes (%) (Auto) 9, Eosinophils (%) (Auto) 2, Basophils (%) (Auto) 0, Neutrophils # (Auto) 4.9, Lymphocytes # (Auto) 1.2, Monocytes # (Auto) 0.6, Eosinophils # (Auto) 0.2, Basophils # (Auto) 0.0, Sodium Level 144, Potassium Level 4.4, Chloride Level 106, Carbon Dioxide Level 29, Anion Gap 9, Blood Urea Nitrogen 18, Creatinine 0.96, Estimat Glomerular Filtration Rate > 60, BUN/ Creatinine Ratio 19, Glucose Level 86, Calcium Level 9.2, Total Bilirubin 0.9, Aspartate Amino Transf (AST/SGOT) 20, Alanine Aminotransferase (ALT/SGPT) 27, Alkaline Phosphatase 69, Total Protein 6.0L, Albumin 3.7 A/P: Assessment/Dx: Sustained ventricular tachycardia, Syncope, Paroxysmal atrial fibrillation significant hyperlipidemia CAD Plan: 1. Syncope/ventricular tachycardia: Patient was admitted for sotalol loading. Sotalol 120 mg twice a day was started, however, QTc interval was 517 ms. Dose was reduced to sotalol 80 mg twice daily and post sotalol EKGs have shown QTc interval to be below 500 ms. Mexiletine was discontinued yesterday. However, patient has had more ventricular ectopy as well as brief runs of nonsustained VT. We will restart mexiletine at the same dose. We will check electrolytes to make sure potassium > 4 and magnesium > 2. 2. Severe hyperlipidemia in a patient with CAD: Started lipitor 40mg daily. Previously had elevated LFTs with Crestor. Will check LFTs in a couple of weeks. He probably will need ezetimibe as well. If he continues to be intolerant to more than one statin then he may be a candidate for PCSK9 inhibitors (Praluent or Repatha). Thank you for your consultation. Please call me if you have any questions. Deborah Garcia MD, FACP, FACC, FSCAI, FHRS, CCDS Interventional Cardiology Cardiac Electrophysiology Vascular Medicine and Endovascular Interventions Lulu GARCIA MD January 11, 2017 10:12 am
[2017-01-11] MEDS: MEXILETINE 200 MG PO SCH ×2 (13:01→21:06)
[2017-01-11] MEDS: ATORVASTATIN 40 MG (LIPITOR) TABLET PO SCH (21:05)
[2017-01-12] VITALS: BP 129/75
[2017-01-12 04:09] VITALS: BP 120/81
[2017-01-12 04:11] LABS: MEAN PLATELET VOLUME 10.4 FL (7.4-10.4); RED BLOOD COUNT 4.47 10^6/uL (4.35-5.85); WHITE BLOOD COUNT 6.9 10^3/uL (4.3-11.0)
[2017-01-12 04:26] LABS: ANION GAP 7 MMOL/L (5-14); BLOOD UREA NITROGEN 15 MG/DL (7-18); BUN/CREATININE RATIO 19; CARBON DIOXIDE 26 MMOL/L (21-32); CHLORIDE 109 MMOL/L (98-107); GFR ESTIMATED > 60; GLUCOSE 90 MG/DL (70-105); POTASSIUM 4.1 MMOL/L (3.6-5.0); SODIUM 142 MMOL/L (135-145)
[2017-01-12 08:30] VITALS: BP 110/77
--- NOTE | 2017-01-12 09:29 | Cardiology Progress Note ---
Cardiology SOAP Progress Note Subjective: stable Objective: I&O/Vital Signs Vital Sign - Last 12Hours 01/12/17 01/12/17 01/12/17 01/12/17 04:09 07:00 08:30 12:00 Temp 96.7 97.3 98.5 Pulse 76 80 61 77 Resp 18 20 20 B/P (MAP) 120/81 110/77 133/88 Pulse Ox 96 97 95 O2 Delivery Room Air Room Air Room Air Intake and Output 01/12/17 00:00 Intake Total 1350 ml Balance 1350 ml Weight (Pounds): 184 Weight (Ounces): 1.0 Weight (Calculated Kilograms): 83.746702 Constitutional: No appears stated age, No AAO x 3, No apparent distress, No PERRL, No well-developed, No well-nourished, No other Respiratory: No accessory muscle use, No respiratory distress, No chest tender , No chest expansion is symmetric, No chest is bilaterally symmetric, No lungs clear to percussion, No lungs clear to auscultation, No crackles, No rhonchi, No rales, No stridor, No wheezing, No pleural rub, No other Cardiovascular: No regular rate-rhythm, No irregularly irregular, No extra beats, No parasternal heave is noted, No JVD, No edema, No bradycardia, No tachycardia, No point of maximal impulse, No cardiac thrills are palpable, No S1 and S2, No gallop/S3, No gallop/S4, No diastolic murmur, No systolic murmur, No friction rub, No click, No other Gastrointestional: No tender, No soft, No round, No distended, No pulsatile mass, No organomegaly, No guarding, No rebound, No tenderness, No hernia, No mass, No audible bowel sounds, No abnormal bowel sounds, No abdominal bruits, No spleenomegaly, No other Extremities: No normal range of motion, No non-tender, No normal inspection, No pedal edema, No calf tenderness, No normal capillary refill, No pelvis stable , No calf tenderness, No inflammation, No pedal edema, No slow capillary refill , No swelling, No other, No abrasion, No clubbing, No cyanosis, No ecchymosis, No laceration, No no lower extremity edema bilateral, No significant edema, No tenderness, No wound Neurologic/Psychiatric: No measuring machine operator II-XII nml as tested, No no motor/sensory deficits, No alert, No normal mood/affect, No oriented x 3, No abnormal cerebellar tests, No abnormal measuring machine operator II-XII, No abnormal gait, No aphasia, No EOM palsy, No facial droop, No motor weakness, No sensory deficit, No depressed affect, No disoriented x 3, No other, No grossly intact, No power is 5/5 both on sides Results/Procedures: Labs Laboratory Tests 01/12/17 03:48: White Blood Count 6.9, Red Blood Count 4.47, Hemoglobin 14.1, Hematocrit 42, Mean Corpuscular Volume 94, Mean Corpuscular Hemoglobin 32, Mean Corpuscular Hemoglobin Concent 33, Red Cell Distribution Width 15.0H, Platelet Count 241, Mean Platelet Volume 10.4, Sodium Level 142, Potassium Level 4.1, Chloride Level 109H, Carbon Dioxide Level 26, Anion Gap 7, Blood Urea Nitrogen 15, Creatinine 0.80, Estimat Glomerular Filtration Rate > 60, BUN/Creatinine Ratio 19, Glucose Level 90, Calcium Level 9.0, Magnesium Level 2.0 A/P: Assessment/Dx: Sustained ventricular tachycardia, Syncope, Paroxysmal atrial fibrillation significant hyperlipidemia CAD Plan: 1. Syncope/ventricular tachycardia: Patient was admitted for sotalol loading. Sotalol 120 mg twice a day was started, however, QTc interval was 517 ms. Dose was reduced to sotalol 80 mg twice daily and post sotalol EKGs have shown QTc interval to be below 500 ms. Mexiletine was discontinued yesterday. However, patient has had more ventricular ectopy as well as brief runs of nonsustained VT. Mexilitine 200mg Bid started yesterday. We will check electrolytes to make sure potassium > 4 and magnesium > 2. Patient can be discharged today. 2. Severe hyperlipidemia in a patient with CAD: Started lipitor 40mg daily. Previously had elevated LFTs with Crestor. Will check LFTs in a couple of weeks. He probably will need ezetimibe as well. If he continues to be intolerant to more than one statin then he may be a candidate for PCSK9 inhibitors (Praluent or Repatha). Thank you for your consultation. Please call me if you have any questions. Deborah Garcia MD, FACP, FACC, FSCAI, FHRS, CCDS Interventional Cardiology Cardiac Electrophysiology Vascular Medicine and Endovascular Interventions Lulu GARCIA MD January 12, 2017 9:29 am
[2017-01-12] MEDS: SOTALOL 80 MG (BETAPACE) TAB PO SCH (09:44)
[2017-01-12] MEDS: MEXILETINE 200 MG PO SCH (09:45)
[2017-01-12] MEDS: APIXABAN 5 MG (ELIQUIS) TABLET PO SCH (09:45)
[2017-01-12 12:00] VITALS: BP 133/88
[2017-01-12] MEDS ORDERED: MEXILETINE HCL PO (13:22)
[2017-01-12] MEDS ORDERED: ATOR40TA PO (13:22)
[2017-01-12] MEDS ORDERED: Sotalol Hcl PO (13:22)
--- NOTE | 2017-01-12 13:30 | Cardiology Discharge Summary ---
Diagnosis/Chief Complaint Date of Admission January 10, 2017 at 9:20 am Date of Discharge 01/12/2017 Admission Diagnosis Atrial Fibrillation - for sotalol loading Final/Discharge Diagnosis Atrial Fibrillation, sotalol loading Chief Complaint/HPI Chief Complaint/HPI Mr Torres is 76-year-old male with history of coronary artery disease s/p PCI on 09/09/11 with 3x8mm Promus JOVON to LAD and PTCA to Diagonal artery, another coronary angiography on 09/17/12 which shows patent stents and no evidence of obstructive coronary artery disease. The patient has history of sick sinus syndrome and dual-chamber Medtronic pacemaker was placed . Patient also has history of paroxysmal atrial fibrillation and continued on Eliquis. I initially saw him as an inpatient EP consult on 11/09/2016. He complained of dizziness and was found to have wide complex tachycardia and was hypotensive. He was urgently cardioverted by Dr. Lozano. Our assessment was that the patient has monomorphic ventricular tachycardia. Since the patient did not tolerate amiodarone previously due to elevated LFTs he was started on sotalol. We contacted Dr. Sanchez cardiac EP at [facility] and he was transferred to for further investigation. He had EP study by Dr. Lemus on 11/11/2016. VT ablation was done on the septal aspect of the RV output tract as well as the septal aspect of the LVOT. There was another VT induced which was likely epicardial in origin from the apical aspect of the LV. He underwent MEDIA REPORTER-D placement on 11/14/2016. Sotalol was increased to 120 mg twice a day. He did not have any episodes of nonsustained VT in the 24 hours before discharge. He was also continued on Toprol-XL and apixaban 5 mg twice a day for atrial fibrillation. Crestor 5 mg twice weekly was started as well. he presented today secondary to a syncopal episode yesterday. He shares with us that he had a syncopal episode 3 weeks ago as well. Also he stopped taking his sotalol one month ago around mid of December. I saw the patient urgently on the request of Dr. Lozano for an EP evaluation. Discharge Summary Procedures None. Discharge Physical Examination stable Hospital Course Sotalol 120mg Bid resulted in QTc 517 therefore decreased to 80mg bid. Mexilitine initially discontinued however freq ventricular ectopy and NSVT noted , therefore restarted at 200mg Bid Discussion & Recommendations Discussion Stable to discharge. EKG for Qtc on monday Follow up in ten days Follow up appt.: EKG on monday, Follow up in ten days Dicharge Diet: Cardiac Diet Activity as Tolerated: Yes Home Medications Reviewed patient Home Medication Reconciliation Form Discharge Home Medications: Reviewed and agree with Discharge Medication list on patient's Discharge Instruction sheet Condition at discharge stable Instructions to patient/family Follow up in ten days. EKG appointment on monday Clinical Quality Measures DVT/VTE Risk/Contraindication: Risk Factor Score Per Nursin RFS Level Per Nursing on Admit: 2=Moderate Lulu LAY MD January 12, 2017 1:30 pm
== END 2017-01-12 13:55 | disposition home or self-care (01) | DRG 310 ==
LOC: UNDOADMOB 15:15 → ICU 15:15 → INTOOBSV 15:15 → ICU 15:15 → UNDOADMIN 15:19 → OBSVTOIN 01-10 09:20 → INTOOBSV 01-10 09:20 → CSD 01-11 14:55
PROVIDERS: ADMIT Internal Medicine Cardiovascular Disease; ATTEND Internal Medicine Interventional Cardiology
DX: I47.2 Ventricular tachycardia (principal); I48.0 Paroxysmal atrial fibrillation; I25.10 Atherosclerotic heart disease of native coronary artery without angina pectoris; E78.5 Hyperlipidemia, unspecified; Z95.810 Presence of automatic (implantable) cardiac defibrillator; Z95.5 Presence of coronary angioplasty implant and graft; Z79.01 Long term (current) use of anticoagulants
CPT/HCPCS: 36415; 71020; 80048; 80053; 80061; 83735; 84484; 85025; 85027; 85610; 85730; 93005; 99211; G0378

== ENCOUNTER → 2017-03-09 | Outpatient (CLI) | payer MEDICARE, BC ==
[~2017-03-09] MED LIST changes: +APIX5TAB PO; +ATOR40TA PO; +MELO15TA39 PO; +METO-270 PO; +MEXI200C PO; +MEXILETINE HCL PO; +Sotalol Hcl PO
== END ==
LOC: CARD 09:14
PROVIDERS: ATTEND Internal Medicine Cardiovascular Disease
DX: I25.10 Atherosclerotic heart disease of native coronary artery without angina pectoris (principal); I65.23 Occlusion and stenosis of bilateral carotid arteries; I10 Essential (primary) hypertension; E78.2 Mixed hyperlipidemia; R06.02 Shortness of breath; R42 Dizziness and giddiness
CPT/HCPCS: 93306

== ENCOUNTER 2017-06-04 19:30 | Observation (INO) | payer MEDICARE, BC ==
[~2017-06-04] VITALS: Ht 185.4 cm; Wt 88.6 kg
[2017-06-04] MEDS ORDERED: ALPRAZolam 0.25 MG (XANAX) TAB PO PRN (19:45)
[2017-06-04] MEDS ORDERED: DOCUSATE SODIUM 100 MG (COLACE) CAP PO PRN (19:45)
[2017-06-04] MEDS ORDERED: ONDANSETRON 4 MG/2 ML (SDV) Z0FRAN IVP PRN (19:45)
[2017-06-04] MEDS ORDERED: HYDROcodone/APAP 5 MG/325 MG (LORTAB) TAB PO PRN (19:45)
[2017-06-04] MEDS ORDERED: fentaNYL INJECTION 100 MCG/2 ML AMP IVP PRN (19:45)
[2017-06-04] MEDS ORDERED: ACETAMINOPHEN 500 MG TAB (TYLENOL) PO PRN (19:45)
[2017-06-04 21:48] VITALS: BP 131/88
--- OUTSIDE RECORDS SUMMARY | 2017-06-04 21:50 | XMS REPORT | Continuity of Care Document ---
Author Author [employer] Organization [facility] Address Unknown Phone Unavailable Care Team Providers Care Mobile Equipment Mechanic Name Role Phone [employer] Unavailable Unavailable Problems Medications Allergies, Adverse Reactions, Alerts Immunizations Results Vital Signs Encounters Location Location Details Encounter Type Encounter Number Reason For Visit Attending Provider ADM Date DC Date Status Source OUTPATIENT [id number] JEEVAN HENRIQUEZ 02/17/2017 02/17/2017 Active [facility] OUTPATIENT [id number] JEEVAN HENRIQUEZ 03/29/2017 03/29/2017 Active [facility] OUTPATIENT [id number] JEEVAN HENRIQUEZ 05/19/2017 05/19/2017 Active [facility] OUTPATIENT [id number] ANTONI FRIAS 06/20/2017 Active [facility] O Active [facility] Procedures Plan of Care Social History Assessment and Plan Family History Value Date Source Advance Directives Order Name Results Value Date Source
--- OUTSIDE RECORDS SUMMARY | 2017-06-04 21:51 | XMS REPORT | Encounter Summary ---
Author Author [facility] Organization [facility] Address Unknown Phone Unavailable Care Team Providers Care Bridge Repairer Name Role Phone PCP Unavailable Encounter Details Date Type Department Care Team Description 05/19/2017 [facility] Cardiology Ben Ledbetter MD Encounter Remote Device Check [id number] [facility] [phone] [address] [place] [address] [phone] Social History Tobacco Use Types Packs/Day Years Used Date Never Smoker Smokeless Tobacco: Never Used Alcohol Use Drinks/Week oz/Week Comments No social Sex Assigned at Date Recorded Not on file as of this encounter Functional Status Functional Status Response Date of Assessment Does the patient have a hearing impairment: No 04/02/2017 Does the patient have a visual impairment: Yes 04/02/2017 Does the patient have impaired ambulation: No 04/02/2017 Does the patient have an activity of daily living No 04/02/2017 (ADL) impairment: Does the patient have an instrumental activity of No 04/02/2017 daily living (IADL) impairment: Cognitive Status Response Date of Assessment Does the patient have a cognitive impairment: No 04/02/2017 as of this encounter Medications at Time of Discharge Medication Sig. Disp. Refills Start Date End Date apixaban (ELIQUIS) 5 mg Take 5 mg by mouth twice tab tablet daily. aspirin EC 81 mg Take 1 Tab by mouth 90 Tab 3 10/04/2016 tabletIndications: daily. Take with food. Chronic anticoagulation, Coronary artery disease involving [place] coronary artery of [place] heart without angina pectoris, PAF (paroxysmal atrial fibrillation) (HCC), Essential hypertension, Mixed hyperlipidemia, Nonsustained ventricular tachycardia (HCC) atorvastatin (LIPITOR) 40 Take 40 mg by mouth at mg tablet bedtime daily. DOCOSAHEXANOIC ACID/EPA Take 1,200 mg by mouth (FISH OIL PO) twice daily. meloxicam (MOBIC) 15 mg Take 15 mg by mouth tablet daily. MULTIVITAMINS WITH Take 1 Tab by mouth FLUORIDE (MULTI-VITAMIN daily. PO) omeprazole DR(+) Take 40 mg by mouth (PRILOSEC) 40 mg capsule daily. sotalol (BETAPACE) 120 mg Take 1 Tab by mouth twice 180 Tab 3 2016 tab daily. as of this encounter Plan of Treatment Not on fileas of this encounter Results * DEVICE EVALUATION - REMOTE ICD (05/26/2017 8:52 AM) Component Value Ref Range RV Lead Model # SPRINT QUATTRO SECURE S MRI SURECESAR 6935M-62CM RV Lead Serial # [id number] RV Lead Implant Date 11/14/2016 RV Lead Diaph. [address] Mechanical Engineer Medtronic RV Lead Fixation active fixation RV Lead Location RV low septum RV Lead Pin Connector ICD IS1 RV Lead Coil Single Generator Model # EVERA MRI XT DR LUCAS [id number] Generator Serial # [id number] Generator Implnat Date 11/14/[address] Mechanical Engineer Medtronic Generator Investigational No Device Type DDD-ICD Device Needles Carelink Express Transmitter Compatible Atrial Lead Model # CAPSUREFIX NOVUS MRI SURESCTHIERRY 5076-52CM Atrial Lead Serial # [id number] Atrial Lead Implant Date 08/22/2014 Atrial Lead Diaph. N/A Stimulation Atrial Lead Rd Mechanical Engineer Medtronic Atrial Lead No Investigational Atrial Lead Fixation active fixation Atrial Lead Location right atrial appendage Atrial Lead Pin Connector IS1 Atrial Lead Polarity Bipolar Device Mode AAIR/DDDR Lower Rate Limit 70 Upper Rate Limit 110 Sensor Rate Limit 110 Pace AV Delay 180 Sense AV Delay 150 VT Monitor 111 VT Detect Rate (bpm) 154 VT Detect Rate Tx ATP/SHOCK FVT Detect Rate (bpm) 188 FVT Detect Rate Tx ATP/SHOCK VF Detect Rate (bpm) 250 VF Detect Rate Tx ATP/SHOCK Mode Switch (bpm) 150 High A Rate Detect 150 Mode Switch Status On Device Implanted By MACHINE CHAIN MAKER EP Device Followed by MPE Name Pacemaker Dependant No EP Device Followed By MAC Date of Last Programming 03/29/17 HF Patient Yes Date of Last Remote Check 05/19/17 AT/AF Daily [place] Hours 6 Average Vent Rate during 100 AT/AF #BPM Average Vent Rate During 6 AT/AF #Hours Remote Monitoring? Yes Daily [place] Threshld On Alert? Average Venticular Rate On AT/AF On/Off VF Detection/Therapy Off On MEGAN/EOL Indicator BV 2.73v Remote Check? Yes Specimen Performing Laboratory OTHER OUTSIDE LAB Narrative Current Monitoring Period 05/19/17- 08/17/17 See attached PDF for review 03/30/17: s/p VT ablation 5 Carelink remotes received 05/19 & 05/23, reviewed today some with events. Dual chamber ICD interrogation. Device function appears normal. Presenting EGM shows AP-VS Apacing 99.8% PVC count: 17.1/hr since 04/18/17, Prior 160.1/hr (03/31 -04/18) Events noted: Atrial: none Ventricular: Most recent remote episodes: 2 NSVT events occurred on 05/23/17, duration <1 to 1sec V rates 157-171bpm, EGM shows 4 and 21bts 2- VT Mon episodes on 05/23/17, duration 8sec and 24sec, avg V rates 100-101bpm EGMs show V>A. 21 VT events and 274 NSVT events, most show on 05/18 longest duration [id number] on 05/16/17, V rates 84-188bpm Optivol/Thoracic Impedance shows possible fluid accumulation since mid april. Will flag Next OV ~ 06/20/17 with [facility]. Routed to [facility] for review/co-sign. in this encounter Visit Diagnoses Diagnosis Paroxysmal atrial fibrillation (HCC) Atrial fibrillation ICD (implantable cardioverter-defibrillator), dual, in situ Sick sinus syndrome (HCC) Sinoatrial node dysfunction Wide-complex tachycardia (HCC) Paroxysmal ventricular tachycardia in this encounter
--- OUTSIDE RECORDS SUMMARY | 2017-06-04 21:51 | XMS REPORT | Clinical Summary ---
Author Author [facility] Organization [facility] Address Unknown Phone Unavailable Care Team Providers Care Electrolysis Engineer Name Role Phone PCP Unavailable Source Comments Some departments are not documenting in the electronic medical record. If you do not see the information that you expected, contact Release of Information in the Health Information Management department at [phone] for further assistance in locating additional records.[facility] Allergies No Known Allergies Current Medications Prescription Sig. Disp. Refills Start End Date Status Date omeprazole DR(+) Take 40 mg by mouth Active (PRILOSEC) 40 mg capsule daily. apixaban (ELIQUIS) 5 mg Take 5 mg by mouth twice Active tab tablet daily. MULTIVITAMINS WITH Take 1 Tab by mouth Active FLUORIDE (MULTI-VITAMIN daily. PO) aspirin EC 81 mg Take 1 Tab by mouth 90 Tab 3 10/04/19 Active tabletIndications: daily. Take with food. 17 Chronic anticoagulation, Coronary artery disease involving [place] coronary artery of [place] heart without angina pectoris, PAF (paroxysmal atrial fibrillation) (HCC), Essential hypertension, Mixed hyperlipidemia, Nonsustained ventricular tachycardia (HCC) DOCOSAHEXANOIC ACID/EPA Take 1,200 mg by mouth Active (FISH OIL PO) twice daily. atorvastatin (LIPITOR) 40 Take 40 mg by mouth at Active mg tablet bedtime daily. meloxicam (MOBIC) 15 mg Take 15 mg by mouth Active tablet daily. sotalol (BETAPACE) 120 mg Take 1 Tab by mouth twice 180 Tab 3 Active tab daily. 17 Active Problems Problem Noted Date Biventricular implantable cardioverter-defibrillator (ICD) in situ 2016 Overview: Wool Brusher: 6APTtronic Device Type: DDD-ICD Model Number: WILLY HARVEY XT DR LUCAS [id number] Serial Number: [id number] Implant Date: 11/14/2016 Nonsustained ventricular tachycardia (HCC) 10/08/2015 Cardiac function [...] and TR. PAP ~ 45 mmHg. ([facility]). 12/02/14: Stress test: Tolerated well. SR with no ischemic changes. EF 48. Mildly prominent LV with preserved contractility. Normal. SSS (sick sinus syndrome) ([facility]) 12/25/2014 Overview: Medtronic DC PPM in place with CarestreamOnce remote monitoring. VT (ventricular tachycardia) ([facility]) 08/19/2014 Chronic anticoagulation 02/20/2014 Overview: On Eliquis CAD (coronary artery disease), [place] coronary artery 02/20/2014 Overview: 09/09/2011 - Cardiac Catheterization: 3x8 mm Promus to LAD. PTCA to Diagonal. ([facility]) 09/17/2012 - Cardiac Catheterization: No evidence of obstructive CAD. Abnormal LV systolic function. Mildly elevated LV filling pressures. Normal RV filling pressures. Abnormal PAP. 1+ MVR. ([facility]). 10/04/2013 - Stress Test: Normal LV size with good contractility. Calculated EF=62%. ([facility]). PAF (paroxysmal atrial fibrillation) ([facility]) 02/20/2014 Carotid artery stenosis 02/20/2014 Overview: 11/10/2013 - Carotid duplex Ultrasound: No hemodynamically significant internal carotid artery stenosis. Estimated diameter reduction of < 50%. ([employer]). Essential hypertension 02/20/2014 HLD (hyperlipidemia) 02/20/2014 Resolved Problems Problem Noted Date Resolved Date Cardiac pacemaker 08/22/2014 12/25/2014 Overview: 08/22/14 MEDTRONIC DDDR MRI compatible device with 5076 leads Cardiac device in situ 05/27/2014 03/30/2017 Overview: Medtronic Linq + remote monitoring. SCOTT (dyspnea on exertion) 02/20/2014 10/03/2016 Dizziness 02/20/2014 10/03/2016 Overview: 03/01/2012 - ANTHONY: The patient did show some hemodynamically variability but was completely asymptomatic throughout the study, therefore was a negative ANTHONY. ([facility]). Encounters Date Type Specialty Care Team Description 06/02/2017 Patient Profile Cardiology Beth Pruitt New Patient (f /u ) 06/02/2017 Documentation Cardiology Beth Pruitt Records Request (Records from PCP in Care Everywhere) 05/26/2017 Telephone Cardiology Joe Balderas RN Remote ICD/PM Check (SVT and elevated optivol) 05/19/2017 Hospital Cardiology Ben Ledbetter MD Encounter 03/30/2017 Anesthesia Cardiology Meenakshi Grewal CRNA Event 03/30/2017 Procedure Pass Cardiology 03/30/2017 Surgery Cardiology Chago Shin MD Ablation: Ventricular Tachycardia 03/29/2017 [facility] Cardiology David Castanon MD VT (ventricular - Encounter tachycardia) ([facility]) 04/02/2017 03/29/2017 Office Visit Cardiology Ben Ledbetter MD 03/29/2017 [facility] Cardiology Ben Ledbetter MD Encounter from Last 3 Months Family History Medical History Relation Name Comments Cancer Brother throat Heart Attack Father Cancer Maternal Aunt 4 Heart problem Maternal Aunt 4 Heart problem Maternal Grandfather Heart problem Maternal Grandmother Cancer-Colon Mother Heart Attack Mother Heart problem Paternal Aunt Heart problem Paternal Aunt Heart problem Paternal Grandfather Heart problem Paternal Grandmother Heart problem Paternal Uncle Heart problem Paternal Uncle Heart problem Paternal Uncle Relation Name Status Comments Brother Alive Brother Alive [place] disease, poor health Father bad lungs (Age 79) Maternal Aunt 4 Maternal Grandfather Maternal Grandmother Mother (Age 91) Paternal Aunt Paternal Aunt Paternal Grandfather Paternal Grandmother Paternal Uncle Paternal Uncle Paternal Uncle Social History Tobacco Use Types Packs/Day Years Used Date Never Smoker Smokeless Tobacco: Never Used Alcohol Use Drinks/Week oz/Week Comments No social Sex Assigned at Date Recorded Not on file Last Filed Vital Signs Vital Sign Reading Time Taken Blood Pressure 118/90 04/02/2017 12:00 PM CDT Pulse 71 04/02/2017 12:00 PM CDT Temperature 36.3 C (97.4 F) 04/02/2017 12:00 PM CDT Respiratory Rate - - Oxygen Saturation 96% 04/02/2017 12:00 PM CDT Inhaled Oxygen - - Concentration Weight 83.2 kg (183 lb 6.4 oz) 04/02/2017 7:00 AM CDT Height 185.4 cm (6' 1") 03/31/2017 10:06 AM CDT Body Mass Index 24.2 04/02/2017 7:00 AM CDT Plan of Treatment Health Maintenance Due Date Last Done Comments PHYSICAL (COMPREHENSIVE) 1947 EXAM PERTUSSIS VACCINE 1949 TETANUS VACCINE 1955 SHINGLES VACCINE 1998 PREVNAR/PNEUMOVAX (#1) 2003 INFLUENZA VACCINE 06/04/2017 Procedures Procedure Name Priority Date/Time Associated Diagnosis Comments ECG UNCONFIRMED-SCAN 04/09/2017 Results for this 4:42 PM CDT procedure are in the results section. ECG UNCONFIRMED-SCAN 04/09/2017 Results for this 4:42 PM CDT procedure are in the results section. ECG-SCAN 04/09/2017 Results for this 4:39 PM CDT procedure are in the results section. TELEMETRY STRIPS-SCAN 04/06/2017 Results for this 4:21 PM CDT procedure are in the results section. ECG UNCONFIRMED-SCAN 04/06/2017 Results for this 3:01 PM CDT procedure are in the results section. ECG-SCAN 04/06/2017 Results for this 2:58 PM CDT procedure are in the results section. ECG-SCAN 04/06/2017 Results for this 2:58 PM CDT procedure are in the results section. ECG-SCAN 04/04/2017 Results for this 8:22 AM CDT procedure are in the results section. ECG-SCAN 04/04/2017 Results for this 8:22 AM CDT procedure are in the results section. ECG-SCAN 04/04/2017 Results for this 8:22 AM CDT procedure are in the results section. ECG-SCAN 04/02/2017 Results for this 11:03 AM CDT procedure are in the results section. ECG-SCAN 04/02/2017 Results for this 11:03 AM CDT procedure are in the results section. ECG-SCAN 04/02/2017 Results for this 11:03 AM CDT procedure are in the results section. ECG-SCAN 04/02/2017 Results for this 11:03 AM CDT procedure are in the results section. ECG-SCAN 03/31/2017 Results for this 2:04 PM CDT procedure are in the results section. ECG-SCAN 03/31/2017 Results for this 2:04 PM CDT procedure are in the results section. ECG-SCAN 03/31/2017 Results for this 2:04 PM CDT procedure are in the results section. from Last 3 Months Results * DEVICE EVALUATION - REMOTE ICD (05/26/2017 8:52 AM) Component Value Ref Range RV Lead Model # SPRINT QUATTRO SECURE S MRI SURESCAN 6935M-62CM RV Lead Serial # [id number] RV Lead Implant Date 11/14/2016 RV Lead Diaph. 10 Stimulation RV Lead Wool Brusher Medtronic RV Lead Fixation active fixation RV Lead Location RV low septum RV Lead Pin Connector ICD IS1 RV Lead Coil Single Generator Model # EVERA MRI XT DR LUCAS [id number] Generator Serial # [id number] Generator Implnat Date 11/14/2016 Generator Wool Brusher Medtronic Generator Investigational No Device Type DDD-ICD Device Jewell Carelink Express Transmitter Compatible Atrial Lead Model # CAPSUREFIX NOVUS MRI SURESCAN 5076-52CM Atrial Lead Serial # [id number] Atrial Lead Implant Date 08/22/2014 Atrial Lead Diaph. N/A Stimulation Atrial Lead Wool Brusher Medtronic Atrial Lead No Investigational Atrial Lead [...] Mode Switch Status On Device Implanted By INSTITUTIONAL COOK EP Device Followed by MPE Name Pacemaker Dependant No EP Device Followed By MAC Date of Last Programming 03/29/17 HF Patient Yes Date of Last Remote Check 05/19/17 AT/AF Daily [place] Hours 6 Average Vent Rate during 100 AT/AF #BPM Average Vent Rate During 6 AT/AF #Hours Remote Monitoring? Yes Daily [place] Threshld On Alert? Average Venticular Rate On [...] events, most show on 05/18 longest duration [id number] on 05/16/17, V rates 84-188bpm Optivol/Thoracic Impedance shows possible fluid accumulation since mid april. Will flag Next OV ~ 06/20/[address] [facility]. Routed to [facility] for review/co-sign. * ECG UNCONFIRMED-SCAN (04/09/2017 4:42 PM) Narrative Ordered by an unspecified provider. * ECG UNCONFIRMED-SCAN (04/09/2017 4:42 PM) Narrative Ordered by an unspecified provider. * ECG-SCAN (04/09/2017 4:39 PM) Narrative Ordered by an unspecified provider. * TELEMETRY STRIPS-SCAN (04/06/2017 4:21 PM) Narrative Ordered by an unspecified provider. * ECG UNCONFIRMED-SCAN (04/06/2017 3:01 PM) Narrative Ordered by an unspecified provider. * ECG-SCAN (04/06/2017 2:58 PM) Narrative Ordered by an unspecified provider. * ECG-SCAN (04/06/2017 2:58 PM) Narrative Ordered by an unspecified provider. * ECG-SCAN (04/04/2017 8:22 AM) Narrative Ordered by an unspecified provider. * ECG-SCAN (04/04/2017 8:22 AM) Narrative Ordered by an unspecified provider. * ECG-SCAN (04/04/2017 8:22 AM) Narrative Ordered by an unspecified provider. * ECG-SCAN (04/02/2017 11:03 AM) Narrative Ordered by an unspecified provider. * ECG-SCAN (04/02/2017 11:03 AM) Narrative Ordered by an unspecified provider. * ECG-SCAN (04/02/2017 11:03 AM) Narrative Ordered by an unspecified provider. * ECG-SCAN (04/02/2017 11:03 AM) Narrative Ordered by an unspecified provider. * CBC (04/02/2017 5:00 AM) Only the most recent of 4 results within the time period is included. Component Value Ref Range White Blood Cells 7.8 4.5 - 11.0 K/UL RBC 4.22 (L) 4.4 - 5.5 M/UL Hemoglobin 13.4 (L) 13.5 - 16.5 GM/DL Hematocrit 38.2 (L) 40 - 50 % MCV 90.6 80 - 100 FL MCH 31.7 26 - 34 PG MCHC 35.0 32.0 - 36.0 G/DL RDW 14.0 11 - 15 % Platelet Count 152 150 - 400 K/UL MPV 10.0 7 - 11 FL Specimen Performing Laboratory Blood MAIN [facility] [address] [place] [address] * MAGNESIUM (04/02/2017 5:00 AM) Only the most recent of 6 results within the time period is included. Component Value Ref Range Magnesium 2.1Comment: SLT HEMOLYSIS 1.6 - 2.6 mg/dL Specimen Performing Laboratory Blood [facility] [address] [place] [address] * COMPREHENSIVE METABOLIC PANEL (04/02/2017 5:00 AM) Only the most recent of 5 results within the time period is included. Component Value Ref Range Sodium 139 137 - 147 MMOL/L Potassium 4.4Comment: SLT HEMOLYSIS 3.5 - 5.1 MMOL/L Chloride 107 98 - 110 MMOL/L Glucose 96 70 - 100 MG/DL Blood Urea Nitrogen 18 7 - 25 MG/DL Creatinine 0.70 0.4 - 1.24 MG/DL Calcium 9.2 8.5 - 10.6 MG/DL Total Protein 5.7 (L) 6.0 - 8.0 G/DL Total Bilirubin 1.0 0.3 - 1.2 MG/DL Albumin 3.2 (L) 3.5 - 5.0 G/DL Alk Phosphatase 87 25 - 110 U/L AST (SGOT) 30 7 - 40 U/L CO2 27 21 - 30 MMOL/L ALT (SGPT) 18 7 - 56 U/L Anion Gap 5 3 - 12 eGFR Non >60 >60 mL/min Comment: The eGFR is not validated for use in drug dosing adjustments. Continue to use estimated creatinine clearance per dosing reference text. Please contact the Clinical Pharmacist for questions. eGFR >60 >60 mL/min Comment: The eGFR is not validated for use in drug dosing adjustments. Continue to use estimated creatinine clearance per dosing reference text. Please contact the Clinical Pharmacist for questions. Specimen Performing Laboratory [facility] [address] [place] [address] * DEVICE EVALUATION - ICD (03/31/2017 3:55 PM) Only the most recent of 3 results within the time period is included. Component Value Ref Range RV Lead Model # SPRINT QUATTRO SECURE S MRI SURESCAN 6935M-62CM RV Lead Serial # [id number] RV Lead Implant Date 11/14/2016 RV Lead Diaph. 10 Stimulation RV Lead Wool Brusher Medtronic RV Lead Fixation active fixation RV Lead Location RV low septum RV Lead Pin Connector ICD IS1 RV Lead Coil Single Generator Model # EVERA MRI XT DR LUCAS [id number] Generator Serial # [id number] Generator Implnat Date 11/14/2016 Generator Wool Brusher Medtronic Generator Investigational No Device Type DDD-ICD Device Jewell Carelink Express Transmitter Compatible Atrial Lead Model # CAPSUREFIX NOVUS MRI SURESCAN 5076-52CM Atrial Lead Serial # [id number] Atrial Lead Implant Date 08/22/2014 Atrial Lead Diaph. N/A Stimulation Atrial Lead Wool Brusher Medtronic Atrial Lead No Investigational Atrial Lead [...] Mode Switch Status On Device Implanted By INSTITUTIONAL COOK EP Device Followed by MPE Name Pacemaker Dependant No EP Device Followed By MAC Date of Last Programming 03/29/17 HF Patient Yes Date of Last Remote Check 02/17/17 Next Remote Check Due 05/19/17 AT/AF Daily [place] Hours 6 Average Vent Rate during 100 AT/AF #BPM Average Vent Rate During 6 AT/AF #Hours Remote Monitoring? Yes Daily [place] Threshld On Alert? Average Venticular Rate On AT/AF On/Off VF Detection/Therapy Off On MEGAN/EOL Indicator BV 2.73v Specimen Performing Laboratory OTHER OUTSIDE LAB Narrative Post ablation programming changes by Alyssa Leggett with 6APTtronic. LRL from 80 [id number] VT detect from 162 to 154bpm. See scanned Implantable Device Flowsheet. Report to Dr. Shin [03/31/2017 5:00:24 PM - PETER SARAVIA] * ECG-SCAN (03/31/2017 2:04 PM) Narrative Ordered by an unspecified provider. * ECG-SCAN (03/31/2017 2:04 PM) Narrative Ordered by an unspecified provider. * ECG-SCAN (03/31/2017 2:04 PM) Narrative Ordered by an unspecified provider. * CARDIAC CATH REPORT (03/31/2017 1:40 PM) Specimen Performing Laboratory OTHER OUTSIDE LAB Procedure Note Mustapha Alonzo MD - 03/30/2017 5:10 PM CDT [facility] CARDIAC CATHETERIZATION REPORT Page 1 BLANCHE Lawson : 1940 KU#: [id number] BELINDA MR #/Billing ID #: [id number] / [id number] DATE: 03/30/2017 PANAMA HAT HYDRAULIC PRESS OPERATOR: Mustapha Alonzo MD DICTATING PROVIDER: Mustapha Alonzo MD REFERRING PHYSICIAN: PROCEDURES PERFORMED: 1. Limited left coronary cineangiogram. 2. Echo-guided alcohol septal ablation, also utilizing electrophysiologic guidance. 3. Manage basal LV OT ventricular tachycardia which was refractory to the traditional ablation. PROCEDURE: Mr. Torres is a 76-year-old male with a history of recurrent symptomatic ventricular tachycardia that was mapped to the basal septum left ventricular outflow tract region. He had undergone an attempted VT ablation with traditional catheters and this was a repeat attempt. We were asked to participate with alcohol septal ablation to help manage the ablation of the rhythm from this region. I discussed with Mr. Torres and his the risks and benefits at length given the risk of potential complications and worsening rhythm problems. He agreed to proceed given the current situation. He was undergoing VT ablation after mapping. The rhythm was mapped to the basal left ventricular outflow tract. They were unable to manage it with traditional RF ablation. We performed limited left coronary cineangiography and identified the 1st septal bench worker. We advanced a 2.0 x 6 [id number] balloon into the 1st septal bench worker and confirmed occlusion after inflating the balloon to 3 atmospheres, injecting with contrast through the end-hole of the balloon. This did continue down the septal bench worker and did not extravasate back into the LAD. Utilizing echo guidance, both transthoracic and intracardiac, we administered a total 1.9 mL to the basal septum. He tolerated this well. I did modify the ventricular rhythm. After observing for a period of time, all catheters and wires were removed and he continued with the ventricular tachycardia ablation. The left coronary bifurcated to LAD and circumflex vessels. There was a patent stent to the mid LAD with some mild to moderate diffuse plaquing throughout the mid segment of the LAD. Post ablation the anterior branch off the septal bench worker was occluded. There were no complications associated with the procedure. Total IV contrast was 265 mL of Visipaque 320. PLAN: Post alcohol ablation, we will plan to repeat a 2D echocardiogram in the morning and cycle cardiac markers q.8 hours until they peak. MD NATALIE Gentile/Valeria /[id number] p cc: * TROPONIN-I (03/31/2017 12:36 PM) Only the most recent of 7 results within the time period is included. Component Value Ref Range Troponin-I 4.22 (H) 0.0 - 0.05 NG/ML Specimen Performing Laboratory [facility] [address] [place] [address] * 2-D + DOPPLER ECHOCARDIOGRAM (03/31/2017 10:06 AM) Component Value Ref Range BSA 2.1 m2 LVIDD 4.9 4.2 - 5.9 cm IVS 1.2 0.6 - 1.0 cm PW 0.8 0.6 - 1.0 cm LVIDS 3.9 cm LA volume 57.7 18 - 58 mL LA size 3.1 3.0 - 4.0 cm AV peak velocity 0.9 m/s AV LVOT peak gradient 2 mmHg TV rest pulmonary artery 32 mmHg pressure Right Ventricular Basal 4.6 cm (2.4-4.2) Diameter Right Ventricular Mid 2.5 cm (2.0-3.5) Diameter Right Ventricular Long 6.9 cm (5.6-8.6) Diameter Right Atrial Area 18.9 cm2 (<=18) Right Atrial Major 4.7 cm (<=5.3) Dimension Right Heart Systolic 2.8 cm Mmode TAPSE FS 20.41 28 - 44 % EF 34.70 % Left Atrium Index 27.48 10 - 32 ECHO EF 60 % Specimen Performing Laboratory OTHER OUTSIDE LAB Narrative 1.Normal left ventricular function, EF 60% - hypokinesis of the basal septum 2.Mild right atrial enlargment 3.Mild mitral and tricuspid insufficiency 4.Estimated peak PAP ~ 32mm hg 5.No pericardial effusion * EP STUDY (03/30/2017 10:30 PM) Specimen Performing Laboratory OTHER OUTSIDE LAB Impressions : Partially successful ablation of VT from the intramural outflow tract region and LV [place] Alcohol septal ablation performed by Dr. Mustapha Alonzo PLAN: - Sheaths to be removed in recovery - Bedrest 8 hours after sheath removal - Anti-arrhythmic drug: resume/start sotalol 120 bid - Anticoagulation: Aspirin 81 mg daily -- hold apixaban for at least 24-48 hours while femoral site heals (can resume earlier if goes into atrial fibrillation) - Add lidocaine if develops VT overnight - Echocardiogram tomorrow - Trend troponins until peak - Outpatient follow up with Dr. Ledbetter and Dr. Lozano Narrative ELECTROPHYSIOLOGY PROCEDURE PROCEDURES: Ventricular tachycardia ablation (Location: Intramural outflow-tract/LV summit) Alcohol septal ablation (by Dr. Alonzo) Ventricular stimulation study EP study with CS catheter placement and pacing Intra-atrial pacing and intraventricular pacing. Bundle of HIS recording. Moderate Sedation Anesthesia Right heart catheterization Intracardiac echocardiography Three-dimensional intracardiac electroanatomic mapping Acute drug testing/IV Drug-Isuprel Administration Coronary angiography BRIEF SUMMARY: Frequent nonsustained and sustained spontaneous ventricular tachycardia at the beginning of the procedure that was decreased but occasionally present with sedation.With single and occasionally double ventricular extrastimuli ventricular tachycardia was easily inducible, especially on Isuprel 1 mcg/min) but often would only last for 30 seconds to a few minutes.The cycle length was variable and often changed exits which limited the ability to perform entrainment mapping and confirm the mechanism of the tachycardia. 3 of the 4 inducible ventricular tachycardias were mapped to the outflow tract region with exits to the RV posterior septum, LVOT, and cusp region.Scar was seen adjacent to these areas likely from the prior ablation.Ablation was performed in these areas which would temporarily suppress but not eliminate the ventricular tachycardia.Pace maps from the adjacent areas were also consistent with exits of VT 1, 2, and 3.Mapping was also performed in the great cardiac vein.Coronary angiography confirmed an acceptable distance from the coronary arteries.Ablation was performed here as well but did not eliminate the tachycardia.After further discussion with Dr. Lemus who performed the prior ablation, it was elected to proceed with septal alcohol ablation with Dr. Alonzo. This was performed with a small high septal bench worker branch.It often suppressed the tachycardia but later there continued to be spontaneous ventricular tachycardia which was nonsustained and now had a superior axis.It was elected to map this exit site which was localized to the RV basal, mid septum.Ablation was performed here and eliminated the spontaneous ectopy.Ventricular stimulation which previously easily induced multiple ventricular tachycardias no longer induced a sustained tachycardia.There were approximately up to 5-6 beats of VT 5 seen on occasion with ventricular extrastimuli (nonsustained).Ventricular tachycardia 4 was no longer induced and thus was not mapped. ATTENDING: Chago Shin M.D. INDICATION FOR PROCEDURE: Mr. Torres is a 76 y.o. year-old man with history of recurrent VT that presents for EP study +- ablation of VT. # Ventricular tachycardia s/p prior ablation Follows with Dr. Ledbetter and Dr. Lozano ([place], [place]) AAD: Sotalol 80 bid (ineffective at 80 bid, on 120 bid on DC 11/16/16 and decreased for unclear reasons), prior amiodarone (Aug 2014, decreased to 100 daily in Oct 2015 d/t tremor/ataxis, DC d 2015), prior dofetilide (2013, stopped due to QTc prolongation) -12/25/14 Cardiac MRI: LV end-diastolic volume index 81 mL/m, normal myocardial thickness, LVEF 56%.No myocardial delayed enhancement.There is possible artifact and a small segment of the posterior wall.Mild ectasia of the ascending aorta measuring 39 x 40 mm at the root. -10/31/16 PET: No evidence of myocarditis. Max SUV 2.16 with blood pool 1.83. -11/09/16 Echo: LVIDD 49 mm, LVEF 55%, interventricular septum/posterior wall 11 mm LA 37 mm, LA volume index 23, RVSP 32.Mild tricuspid and mitral regurgitation. -11/11/16 Ablation (Dr. Lemus): 2 different VTs mapped from the same region. High septal RVOT and subaortic LVOT on septal aspect. Fractionation and low voltage in this area. Accelerated and terminated the VT there.Also had wide-QRS LV apical VT that looked epicardial by report. -03/29/17 EC-lead ECG of ventricular tachycardia shows left bundle branch block morphology with large R-wave in V1, V2 transition isoelectric inferior axis and completely negative in aVL and aVR.The R waves are very tall in the inferior leads -03/30/17 Ablation (Dr. Shin): Intramural OFT and LV summit. Ablation in posteroseptal RVOT, cusps, LVOT, GCV, and after alcohol ablation the mid-septal RVOT --> Frequent nonsustained and sustained spontaneous ventricular tachycardia at the beginning of the procedure that was decreased but occasionally present with sedation.With single and occasionally double ventricular extrastimuli ventricular tachycardia was easily inducible, especially on Isuprel 1 mcg/min) but often would only last for 30 seconds to a few minutes.The cycle length was variable and often changed exits which limited the ability to perform entrainment mapping and confirm the mechanism of the tachycardia. 3 of the 4 inducible ventricular tachycardias were mapped to the outflow tract region with exits to the RV posterior septum, LVOT, and cusp region.Scar was seen adjacent to these areas likely from the prior ablation.Ablation was performed in these areas which would temporarily suppress but not eliminate the ventricular tachycardia.Pace maps from the adjacent areas were also consistent with exits of VT 1, 2, and 3.Mapping was also performed in the great cardiac vein.Coronary angiography confirmed an acceptable distance from the coronary arteries.Ablation was performed here as well but did not eliminate the tachycardia.After further discussion with Dr. Lemus who performed the prior ablation, it was elected to proceed with septal alcohol ablation with Dr. Alonzo. This was performed with a small high septal bench worker branch.It often suppressed the tachycardia but later there continued to be spontaneous ventricular tachycardia which was nonsustained and now had a superior axis.It was elected to map this exit site which was localized to the RV basal, mid septum.Ablation was performed here and eliminated the spontaneous ectopy.Ventricular stimulation which previously easily induced multiple ventricular tachycardias no longer induced a sustained tachycardia.There were approximately up to 5-6 beats of VT 5 seen on occasion with ventricular extrastimuli (nonsustained).Ventricular tachycardia 4 was no longer induced and thus was not mapped. # Sinus node dysfunction s/p Medtronic dual-chamber ICD implantation -08/22/14 Implant (Dr. Matt): for SND; Medtronic DC PPM implantation (5076 leads) -11/14/16 Upgrade (Dr. Matt): Extraction of RV 5076 lead, Implant of a new RV ICD lead and dual-chamber ICD # Atrial fibrillation -November 2016: Cardioversion in [place], [place] # CAD s/p PCI -09/09/2011 - Cardiac Catheterization:3x8 mm Promus to LAD.PTCA to Diagonal.([facility]) 09/17/2012 - Cardiac Catheterization:No evidence of obstructive CAD.Abnormal LV systolic function.Mildly elevated LV filling pressures.Normal RV filling pressures.Abnormal PAP.1+ MVR.([facility]). 10/04/2013 - Stress Test:Normal LV size with -10/03/16 Coronary angiogram: Mid LAD stent was patent.Moderate disease in the mid circumflex measured at 50% with a hazy calcified lesion. # Sinus node dysfunction s/p Medtronic dual-chamber ICD implantation -08/22/14 Implant (Dr. Matt): for SND; Medtronic DC PPM implantation (5076 leads) -11/14/16 Upgrade (Dr. Matt): Extraction of RV 5076 lead, Implant of a new RV ICD lead and dual-chamber ICD CONSENT: The risks, benefits and alternatives to the procedure have been described to the patient in detail. All questions wre answered.The patient expressed understanding and agreed to proceed. PRESENTATING RHYTHM:Sinus with frequent NSVT SETUP AND ACCESS: The patient was brought to the EP Lab in a fasting state after informed and written consent was obtained. Cardiac rhythm, blood pressure, heart rate, respirations, oxygen saturation and level of consciousness were monitored prior to, throughout and after the procedure. Moderate sedation was then administered by trained staff members. The patient was prepped and draped in the usual sterile fashion. Local anesthetic was provided. Ultrasound was utilized to confirm femoral venous and arterial patency. Needle access was obtained under ultrasound guidance and a permanent recording obtained.Venous access was obtained using a micropuncture needle in the right femoral artery/vein and the left femoral vein under fluoroscopic/anatomic and ultrasound guidance using the modified Seldinger technique.Guidewires were placed through each access. A 45 cm 8 Fr Arrow sheath was placed in the right femoral artery and attached for continuous blood pressure monitoring. An 8.5 Nigerien SR-0, 8 Fr short, and 6 Fr short sheaths were placed in the right femoral vein and a 11 Fr short sheath placed in the left femoral vein.3000 Units of heparin was provided followed by 1000 units per hour during the case. In addition, a bolus and maintenance of heparin was provided prior to and during left-sided mapping and ablation to maintain the ACT between 300 and 350 CATHETER PLACEMENT: The intracardiac echo catheter was advanced via the left femoral vein into the right heart. A Vidhi quadripolar diagnostic catheter was advanced to the RV apex. A Biosense Rogesr D-F CS catheter was placed into the coronary sinus.A Biosense Rogers SF D-F Ablation catheter was advanced through the SR-0 to the His position. INTRACARDIAC ECHO:Intracardiac echocardiography was performed under the guidance of fluoroscopy. Cardiac anatomy was assessed and contours were drawn using [employer]. The origin of the left main coronary artery was well visualized but the right coronary artery origin was not well seen. There was trace baseline pericardial effusion. Post-procedure, the intracardiac echocardiogram was repeated and there remained trace pericardial effusion.Septal hypokinesis was seen after the ablation likely due to ablation lesions and alcohol septal ablation. MAPPING AND ABLATION: Frequent nonsustained and sustained spontaneous ventricular tachycardia at the beginning of the procedure that was decreased but occasionally present with sedation.With single and occasionally double ventricular extrastimuli ventricular tachycardia was easily inducible, especially on Isuprel 1 mcg/min) but often would only last for 30 seconds to a few minutes.The cycle length was variable and often changed exits which limited the ability to perform entrainment mapping and confirm the mechanism of the tachycardia. 3 of the 4 inducible ventricular tachycardias were mapped to the outflow tract region with exits to the RV posterior septum, LVOT, and cusp region.Activation and pace mapping were performed.Pace mapping from these areas had matches of low 90% and 10 out of 12 of surface leads. Scar was seen adjacent to these areas likely from the prior ablation. Ablation was performed in these areas which would temporarily suppress but not eliminate the ventricular tachycardia.Ablation was performed in the RVOT posterior septum at up to 30-35 W. The aortic cusps were then mapped utilizing fluoroscopy and the labeled 3D shells from [employer]. Ablation in the cusp region was limited to 25 W and predominantly occurred at the right left commissure and right coronary cusp.Ablation in the LVOT was just below the cusp lesions and ablation was extended between the cusp lesions in the sites of the best pace and activation mapping within the LVOT.Ablation in the LVOT was performed at up to 40 W.Care was taken to monitor the impedance and look for an approximate 10 ohm impedance drop with ablation.Unfortunately, despite this ablation, the VT was only suppressed but certainly not eliminated. Mapping was then performed in the great cardiac vein.The ablation catheter advanced out to the distal great cardiac vein/anterior interventricular vein junction.Coronary angiography confirmed an acceptable distance from the coronary arteries.Ablation was performed here starting with 15 W titrating up as high as 25 Wwith careful monitoring of the impedance and high flow. Unfortunately, this did not eliminate the tachycardia. After further discussion with Dr. Lemus who performed the prior ablation, it was elected to proceed with septal alcohol ablation by Dr. Alonzo this was discussed with the patient.And as an option prior to our ablation procedure.This was performed with a small high septal bench worker branch.It often suppressed the tachycardia but later there continued to be spontaneous ventricular tachycardia which was nonsustained and now had a superior axis. This appeared to be likely a new exit site from the prior intramural ectopy. It was elected to map this exit site which likely changed due to the alcohol septal ablation. Activation mapping localized it to the RV basal, mid septum.Ablation was performed here at up to 35 W and eliminated the spontaneous ectopy.Ventricular stimulation which previously easily induced multiple ventricular tachycardias no longer induced a sustained tachycardia.There were approximately up to 5-6 beats of VT 5 seen on occasion with ventricular extrastimuli (nonsustained). Ventricular tachycardia 4 was no longer induced and thus was not mapped. It appeared to have an apical origin. Isoproterenol 1 mcg/min was used throughout much of the procedure to help facilitate further ventricular ectopy.This was later titrated up to 2 mcg/min after ablation to make sure that there is no other ventricular arrhythmias. Post ablation intracardiac echo showedno change in pericardial effusion. A repeat EP study was performed, including pacing and recording from the CS.Final measurements were taken.All catheters were removed, sheaths were flushed, long sheaths were exchanged for short sheaths, protamine was administered (initially with a test dose followed by the remainder), and the patient was brought to the holding area where the sheaths were to be pulled once the ACT had dropped to a safe level. Hopefully this procedure will reduce the burden of VT. VENTRICULAR TACHYCARDIAS: VT CL Morphology Site of earliest activation Hemodynamically stable Entrainment Pace-termination If successfully ablated VT1 clinical 510 msec RBB Iso Inferior axis V3 transitionLVOT HD stableNot possible (variable CL) Yes Yes VT2 clinical 500 msec LBB L inferior axis V4 transitionPosteroseptal RVOT HD stable Not possible (variable CL) Yes Yes VT3 Clinical 400 ms LBBB R Inferior axis, V3 transition RCC-LCC commissure/LVOT HD stable Not possible (variable CL) Yes Yes VT4 280msec LBB L Inferior axis V6 transitionLikely apical RV/LV HD unstable Not possible (variable CL) Yes N/A (no longer inducible although this VT was not ablated) VT5 (likely changed clinical exit from prior VT1-3) 420 msecLBBB L superior axis V4 transition Mid basal RV septum HD stable Not possible (variable CL) Yes Non-sustained up to 5 beats post-ablation ABLATION TIME: 32.1 minutes EXTERNAL DC CARDIOVERSION: Direct current cardioversion was not performed. DRUG INFUSION: Isoproterenol 2 mcg/min was initiated to attempt to induce other arrhythmias. During this time, the patient had no induction of other arrhythmias. DIAGNOSTIC EP STUDY: Baseline: Surface QRS: Sinus CL 900 msec, P wave duration 103 ms, IN interval 185 msec, QRSd 115 msec, QT 452 msec. Incomplete RBBB Final Intervals Surface QRS: Sinus CL 980 msec, P wave duration 103 ms, IN interval 176 msec, QRSd 126 msec, QT 452 msec. RBBB morphology. AH interval 93 msec, HV interval 56 msec. AV Wenkebach: 400 msec VA Wenkebach: 390 msec. AV Node ERP: 600/380/360 msec Atrial ERP: 600/320 msec Ventricular ERP (at RV [place]): 350/220/210; 400/220/210; 600/250/240 msec DEVICE PROGRAMMING AND REPROGRAMMING: The patient's device was assessed prior to the procedure and demonstrated appropriate function.It was programmed to LRL of 40 ppm for the procedure.At the completion of the procedure, the device was reprogrammed back to therapies on, same lower rate limit (80 bpm), and the VT treatment zone was decreased to 162 bpm. VT/VF therapies were also adjusted. * POC ACTIVATED CLOTTING TIME (03/30/2017 6:52 PM) Component Value Ref Range Activated Clotting Time 159 s Specimen Performing Laboratory MAIN LAB [address] [place] [id number] * POC ACTIVATED CLOTTING TIME (03/30/2017 5:43 PM) Only the most recent of 10 results within the time period is included. Component Value Ref Range Activated Clotting Time 371 s Specimen Performing Laboratory MAIN LAB [address] [place] [address] * TYPE & CROSSMATCH (03/30/2017 8:40 AM) Component Value Ref Range Units Ordered 2 Crossmatch Expires 04/02/2017 Record Check FOUND ABO/RH(D) A POS Antibody Screen NEG Electronic Crossmatch YES Specimen Performing Laboratory Blood MAIN LAB [address] [place] [address] * POC PT/INR (03/30/2017 8:29 AM) Component Value Ref Range INR POC 1.1 0.8 - 1.2 Specimen Performing Laboratory MAIN LAB [address] [place] [address] * CHEST SINGLE VIEW (03/29/2017 4:05 PM) Specimen Performing Laboratory [facility] RAD RESULTS Impressions No acute disease in the chest. Approved by Tyree David M.D. on 03/29/2017 4:55 PM By my electronic signature, I attest that I have personally reviewed the images for this examination and formulated the interpretations and opinions expressed in this report Finalized by Deng Amaya M.D. on 03/29/2017 4:57 PM. Dictated by Tyree David M.D. on 03/29/2017 4:33 PM. Narrative CHEST SINGLE VIEW Clinical Indication: Male, 76 years old. Ventricular tachycardia, device Comparison: Chest November 15, 2016 Findings: Dual-lead cardiac conduction device with leads in unchanged position. Cardiac silhouettes normal in size. Pulmonary vasculature is unremarkable. No focal consolidation or pleural effusion. Mild bilateral glenohumeral arthrosis. Procedure Note Interface, Radiant Results - 03/29/2017 5:00 PM CDT CHEST SINGLE VIEW Clinical Indication: Male, 76 years old. Ventricular tachycardia, device Comparison: Chest November 15, 2016 Findings: Dual-lead cardiac conduction device with leads in unchanged position. Cardiac silhouettes normal in size. Pulmonary vasculature is unremarkable. No focal consolidation or pleural effusion. Mild bilateral glenohumeral arthrosis. IMPRESSION No acute disease in the chest. Approved by Tyree David M.D. on 03/29/2017 4:55 PM By my electronic signature, I attest that I have personally reviewed the images for this examination and formulated the interpretations and opinions expressed in this report Finalized by Deng Amaya M.D. on 03/29/2017 4:57 PM. Dictated by Tyree David M.D. on 03/29/2017 4:33 PM. * PTT (APTT) (03/29/2017 3:55 PM) Component Value Ref Range APTT 31.3 24.0 - 40.0 SEC Specimen Performing Laboratory Blood MAIN LAB [address] [place] [address] * PROTIME INR (PT) (03/29/2017 3:55 PM) Component Value Ref Range INR 1.4 (H) 0.8 - 1.2 Specimen Performing Laboratory Blood MAIN LAB [address] [place] [address] * CBC AND DIFF (03/29/2017 3:55 PM) Component Value Ref Range White Blood Cells 9.8 4.5 - 11.0 K/UL RBC 4.82 4.4 - 5.5 M/UL Hemoglobin 14.7 13.5 - 16.5 GM/DL Hematocrit 44.1 40 - 50 % MCV 91.5 80 - 100 FL MCH 30.4 26 - 34 PG MCHC 33.2 32.0 - 36.0 G/DL RDW 14.1 11 - 15 % Platelet Count 184 150 - 400 K/UL MPV 10.0 7 - 11 FL Neutrophils 70 41 - 77 % Lymphocytes 18 (L) 24 - 44 % Monocytes 10 4 - 12 % Eosinophils 2 0 - 5 % Basophils 0 0 - 2 % Absolute Neutrophil Count 6.80 1.8 - 7.0 K/UL Absolute Lymph Count 1.80 1.0 - 4.8 K/UL Absolute Monocyte Count 1.00 (H) 0 - 0.80 K/UL Absolute Eosinophil Count 0.20 0 - 0.45 K/UL Absolute Basophil Count 0.00 0 - 0.20 K/UL Specimen Performing Laboratory Blood MAIN LAB [address] [place] [address] * PHOSPHORUS (03/29/2017 3:55 PM) Component Value Ref Range Phosphorus 3.5 2.0 - 4.0 MG/DL Specimen Performing Laboratory Blood MAIN LAB [address] [place] [address] * BNP (B-TYPE NATRIURETIC PEPTI) (03/29/2017 3:55 PM) Component Value Ref Range B Type Natriuretic 446.0 (H) 0 - 100 PG/ML Peptide Specimen Performing Laboratory Blood MAIN LAB [address] [place] [address] from Last 3 Months
--- OUTSIDE RECORDS SUMMARY | 2017-06-04 21:51 | XMS REPORT | Encounter Summary ---
Author Author [facility] Organization [facility] Address Unknown Phone Unavailable Care Team Providers Care Product Responsibility Liaison Name Role Phone PCP Unavailable Reason for Visit * Reason Comments New Patient f/u Encounter Details Date Type Department Care Team Description 06/02/2017 Patient Profile [facility] New Patient (f/u ) [address] [place] [address] Social History Tobacco Use Types Packs/Day Years [...] impairment: No 04/02/2017 as of this encounter Plan of Treatment Not on fileas of this encounter Visit Diagnoses Not on filein this encounter
--- OUTSIDE RECORDS SUMMARY | 2017-06-04 21:51 | XMS REPORT | Encounter Summary ---
Author Author [facility] Organization [facility] Address Unknown Phone Unavailable Care Team Providers Care Psychology Assistant Name Role Phone PCP Unavailable Reason for Visit * Reason Comments Remote ICD/PM Check SVT and elevated optivol Encounter Details Date Type Department Care Team Description 05/26/2017 Telephone [facility] Cardiology Joe Balderas RN Remote ICD/PM Check (SVT [address] and elevated optivol) [place] [address] Social History Tobacco Use Types Packs/Day Years [...] impairment: No 04/02/2017 as of this encounter Miscellaneous Notes * Telephone Encounter - Joe Balderas RN - 05/26/2017 10:35 AM CDT Spoke to Mrs. Torres in f/u of remote findings as below as pt was outside at the time of my call. She states pt does not keep daily weights, but he is generally within a pound or two and doesn't really fluctuate. She has not noticed any edema, but pt has c/o a few dizzy spells this week with associated SOA during those times. She states he has associated them with food or drink such as feeling hungry or having just had coffee. She reports the dizziness and SOA are fleeting and when he sits down and relaxes then the s/s dissipate quickly. I suggested they might keep track of date and time of any additional episodes for review with MD at next OV. Pt has upcoming OV with Dr. Chago Shin ([facility]) on in [facility] and will have f/u device check that day as well. Confirmed date, time , and location of upcoming OV with Mrs. Torres. Mrs. Torres verbalized understanding and was agreeable to this plan. No further needs identified at this time. ----- Message ----- From: Elaine Leung RN Sent: 05/26/2017 9:57 AM To: [facility] Nurse Ep Subject: Elevated Optivol suggesting fluid accumulation & NSVT Remotes rec'd and charted. Several NSVT episodes, most recent 05/23/17 Pt had VT abl on 03/30. Also, Optivol suggests possible fluid accumulation. Pls follow up with pt. in this encounter Plan of Treatment Not on fileas of this encounter Visit Diagnoses Not on filein this encounter
--- OUTSIDE RECORDS SUMMARY | 2017-06-04 21:51 | XMS REPORT | Encounter Summary ---
Author Author [facility] Organization [facility] Address Unknown Phone Unavailable Care Team Providers Care Morgue Librarian Name Role Phone PCP Unavailable Reason for Visit * Reason Comments Records Request Records from PCP in Care Everywhere Encounter Details Date Type Department Care Team Description 06/02/2017 Documentation [facility] Beth Pruitt Records Request (Records [address] [place] from PCP in Care [address] Everywhere) [place] [address] Social History Tobacco Use Types Packs/Day Years [...] impairment: No 04/02/2017 as of this encounter Progress Notes * Beth Pruitt - 06/02/2017 11:57 AM CDT Records from PCP in Care Everywhere in this encounter Plan of Treatment Not on fileas of this encounter Visit Diagnoses Not on filein this encounter
--- OUTSIDE RECORDS SUMMARY | 2017-06-04 21:52 | XMS REPORT | Encounter Summary ---
Author Author [facility] Organization [facility] Address Unknown Phone Unavailable Care Team Providers Care Automatic Cigar Wrapper Tender Name Role Phone PCP Unavailable Encounter Details Date Type Department Care Team Description 03/30/2017 Procedure [facility] [address] [place] [address] Social History Tobacco Use Types Packs/Day Years Used Date Never Smoker Smokeless Tobacco: Never Used Alcohol Use Drinks/Week oz/Week Comments No social Sex Assigned at Date Recorded Not on file as of this encounter Functional Status Functional Status Response Date of Assessment Does the patient have a hearing impairment: No 03/29/2017 Does the patient have a visual impairment: No 11/16/2016 Does the patient have impaired ambulation: No 11/16/2016 Does the patient have an activity of daily living No 11/16/2016 (ADL) impairment: Does the patient have an instrumental activity of No 11/16/2016 daily living (IADL) impairment: Cognitive Status Response Date of Assessment Does the patient have a cognitive impairment: No 11/16/2016 as of this encounter Plan of Treatment Not on fileas of this encounter Visit Diagnoses Not on filein this encounter
--- OUTSIDE RECORDS SUMMARY | 2017-06-04 21:52 | XMS REPORT | Encounter Summary ---
Author Author [facility] Organization [facility] Address Unknown Phone Unavailable Care Team Providers Care Shoe Laster Name Role Phone PCP Unavailable Reason for Visit * Auth/Cert Status Reason Specialty Diagnoses / Referred By Referred To Procedures Contact Contact Diagnoses Vtach VT (ventricular tachycardia) ([facility]) Encounter Details Date Type Department Care Team Description 03/30/2017 Anesthesia Cardiac Catheterization Meenakshi Grewal CRNA Laboratory [address] [place] [address] Social History Tobacco Use Types Packs/Day Years [...] impairment: No 11/16/2016 as of this encounter OR Notes * Anesthesia Postprocedure Evaluation - Isabell Leo CRNA - 03/30/2017 6: 36 PM CDT Post-Anesthesia Evaluation Name: Srinivasa Torres : 1940 Age: 76 y.o. Sex: male Procedure Date: 03/30/2017 Procedure: Procedure(s): Ablation: Ventricular Tachycardia Surgeon: Surgeon(s): Chago Shin MD Post-Anesthesia Vitals BP: 111/87 (03/30 1100) Temp: 36.4 C (97.5 F) (03/30 0700) Pulse: 103 (03/30 1136) Respirations: 20 PER MINUTE (03/30 113) SpO2: 96 % (03/30 113) O2 Delivery: None (Room Air) (03/30 700) SpO2 Pulse: 75 (03/30 1136) Post Anesthesia Evaluation Note Evaluation location: ICU Patient participation: recovered; patient participated in evaluation Level of consciousness: alert Pain score: 0 Pain management: adequate Hydration: normovolemia Temperature: < 36.0C despite warming measures Airway patency: adequate Perioperative Events Perioperative events: no Post-op nausea and vomiting: no PONV Postoperative Status Cardiovascular status: hemodynamically stable Respiratory status: spontaneous ventilation * Anesthesia Preprocedure Evaluation - Meenakshi Grewal CRNA - 03/30/2017 7:36 AM CDT Formatting of this note may be different from the original. Anesthesia Pre-Procedure Evaluation Name: Srinivasa Torres : 1940 Age: 76 y.o. Sex: male Procedure Date: 03/30/2017 Procedure: Procedure(s): Ablation: Ventricular Tachycardia Physical Assessment Vital Signs (last filed in past 24 hours): BP: 135/99 (03/30 0700) Temp: 36.4 C (97.5 F) (03/30 700) Pulse: 79 (03/30 0700) Respirations: 18 PER MINUTE (03/30 700) SpO2: 94 % (03/30 0700) O2 Delivery: None (Room Air) (03/30 0400) Height: 185.4 cm (72.99") (03/29 154) Weight: 85.8 kg (189 lb 2.5 oz) (03/29 1546) Patient History No Known Allergies Current Medications Medication Directions apixaban (ELIQUIS) 5 mg tab tablet Take 5 mg by mouth twice daily. aspirin EC 81 mg tablet Take 1 Tab by mouth daily. Take with food. DOCOSAHEXANOIC ACID/EPA (FISH OIL PO) Take 1,200 mg by mouth twice daily. metoprolol XL (TOPROL XL) 25 mg extended release tablet Take 25 mg by mouth twice daily. MULTIVITAMINS WITH FLUORIDE (MULTI-VITAMIN PO) Take 1 Tab by mouth daily. omeprazole DR(+) (PRILOSEC) 40 mg capsule Take 40 mg by mouth daily. sotalol (BETAPACE) 80 mg tablet Take 80 mg by mouth twice daily. Review of Systems/Medical History Patient summary reviewed Nursing notes reviewed Pertinent labs reviewed PONV Screening: Non-smoker No history of anesthetic complications No family history of anesthetic complications Airway - negative Intubation not difficult No history of head/neck radiation No prior tracheostomy No TMJ Pulmonary Not a current smoker No recent URI Shortness of breath No sleep apnea Cardiovascular Recent diagnostic studies: echocardiogram 11/09/16 The LV EF is estimated at about 55%. The LA is normal in size. Mild MR & mild TR noted. Exercise tolerance: <4 METS Beta Yo therapy: Yes Beta blockers within 24 hours: Yes Pacemaker ( Placed in 2013 for SSS/SB, upgraded to RN PRIVATE DUTY-D 11/2016; Pt denies h /o defibrillation from ICD): Medtronic AV-paced Pacemaker interrogated last 6 months ( See Note) Hypertension, well controlled Coronary artery disease PTCA (remote stent to LAD) Dysrhythmias (history of Afib; current admission; transferred from office with NSVT) Angina (patient reports this as "chest tightness" which he has been experiencing independent of activity on and off for past 3 years) with exertion and at rest PVD Hyperlipidemia Orthopnea Dyspnea on exertion Per Cardiology H&P Sustained VT - Admitted from office with Vtach episodes. Hemodynamically stable. Rates 130's , just below VT threshold on RN PRIVATE DUTY-d -Patien had another episode of VT (hemodynamically stable) with admission to [facility] in November. The patient had nonsustained ventricular tachycardia with positive QRS in leads V5 and V6 consistent with RVOT ventricular tachyarrhythmia. The RVOT ablation was done on November 2016 as well. The patient was started on sotalol 120 mg twice daily to prevent VT, as well as Toprol-XL and apixaban 5 mg twice daily for atrial fibrillation. -Patient had Medtronic subcutaneous engine monitor in 2013. Cardiac catheterization was done on 09/09/2011 and stent was placed in the LAD artery. Repeat cardiac cath in 2012 did not show any obstruction. Echo echo in November 2016 showed EF of 55% and mild MR and mild TR. PET scan in 10/31/2016 was normal. GI/Hepatic/Renal - negative No GERD, Neuro/Psych Neuropathy (bilateral hands and feet) Per chart; Carotid artery stenosis Musculoskeletal No neck pain No back pain Arthritis History of bilateral knee replacements Endocrine/Other Chronic anticoagulation Physical Exam Airway Findings Mallampati: II TM distance: >3 FB Neck ROM: full Mouth opening: good Airway patency: adequate Dental Findings: Poor dentition, increased risk for dental injury; pt advised, lower dentures and partials Comments: Denies any loose/chipped/cracked teeth Cardiovascular Findings: Rhythm: regular Rate: normal Comments: Currently paced no episodes of VTach at time of assessment Pulmonary Findings: Negative Breath sounds clear to auscultation. Neurological Findings: Negative Diagnostic Tests Hematology: Lab Results Component Value Date HGB 13.5 03/30/2017 HCT 39.4 03/30/2017 PLTCT 163 03/30/2017 WBC 7.6 03/30/2017 NEUT 70 03/29/2017 ANC 6.80 03/29/2017 ALC 1.80 03/29/2017 GIOVANNI 10 03/29/2017 AMC 1.00 03/29/2017 EOSA 2 03/29/2017 ABC 0.00 03/29/2017 MCV 91.6 03/30/2017 MCH 31.3 03/30/2017 MCHC 34.2 03/30/2017 MPV 9.7 03/30/2017 RDW 14.1 03/30/2017 General Chemistry: Lab Results Component Value Date NA 140 03/30/2017 K 4.1 03/30/2017 CL 109 03/30/2017 CO2 26 03/30/2017 GAP 5 03/30/2017 BUN 26 03/30/2017 CR 0.86 03/30/2017 GLU 96 03/30/2017 GLU 96 10/08/2015 CA 8.9 03/30/2017 ALBUMIN 3.3 03/30/2017 MG 1.9 03/30/2017 TOTBILI 0.7 03/30/2017 PO4 3.5 03/29/2017 Coagulation: Lab Results Component Value Date PTT 31.3 03/29/2017 INR 1.4 03/29/2017 Anesthesia Plan ASA score: 3 Plan: MAC Induction method: intravenous NPO status: acceptable Informed Consent Anesthetic plan and risks discussed with patient. Use of blood products discussed with patient; consented to blood products. Plan discussed with: anesthesiologist and [employer] SEWER. in this encounter Plan of Treatment Not on fileas of this encounter Visit Diagnoses Not on filein this encounter Administered Medications Medication Order MAR Action Action Date Dose Rate Site ceFAZolin (ANCEF) injection Given 03/30/2017 2 g INTRA-PROCEDURE MED, Starting Bhavana 12:32 CDT 03/30/17 at 1232, Until Bhavana 03/30/17 at 1837, Anesthesia Intra-op Given 03/30/2017 2 g 16:35 CDT fentaNYL citrate PF (SUBLIMAZE) Given 03/30/2017 25 mcg injection 13:47 CDT INTRA-PROCEDURE MED, Starting Bhavana 03/30/17 at 1237, Until Bhavana 03/30/17 at 1837, Pain Injectable, Anesthesia Intra-op Given 03/30/2017 25 mcg 14:54 CDT Given 03/30/2017 25 mcg 15:37 CDT phenylephrine (SHARRON-SYNEPHRINE) 10 mg in Dose/Rate 03/30/2017 0.25 32.2 mL/hr sodium chloride 0.9% (NS) 250 mL IV drip Change 14:54 CDT mcg/kg/min (std conc) 10 mg 250 mL, INTRA-PROCEDURE MED(CONT), Starting Bhavana 03/30/17 at 1225, Until Bhavana 03/30/17 at 1837, Anesthesia Intra-op Dose/Rate Change 03/30/2017 0.2 25.7 mL/hr 14:56 CDT mcg/kg/min Dose/Rate Change 03/30/2017 0.1 12.9 mL/hr 15:08 CDT mcg/kg/min phenylephrine in NS Injection Given 03/30/2017 200 mcg INTRA-PROCEDURE MED, Starting Bhavana 12:02 CDT 03/30/17 at 1202, Until Bhavana 03/30/17 at 1837, Symptomatic Hypotension, Anesthesia Intra-op Given 03/30/2017 200 mcg 12:16 CDT propofol (DIPRIVAN) infusion 1,000 mg Dose/Rate 03/30/2017 35 18 mL/hr 1,000 mg Change 12:52 CDT mcg/kg/min 100 mL, INTRA-PROCEDURE MED(CONT), Starting Bhavana 03/30/17 at 1158, Until Bhavana 03/30/17 at 1837, Anesthesia Intra-op Dose/Rate Change 03/30/2017 28 14.4 mL/hr 15:17 CDT mcg/kg/min Dose/Rate Change 03/30/2017 35 18 mL/hr 15:36 CDT mcg/kg/min in this encounter
--- OUTSIDE RECORDS SUMMARY | 2017-06-04 21:52 | XMS REPORT | Encounter Summary ---
Author Author [facility] Organization [facility] Address Unknown Phone Unavailable Care Team Providers Care Hairspring Ii Inspector Name Role Phone PCP Unavailable Reason for Referral * Consult, Test & Treat (Routine) Status Reason Specialty Diagnoses / Referred By Referred To Procedures Contact Contact No Auth Needed Specialty Cardiology Diagnoses David Ruiz Sheldon, Seth, MD Services [place] (ventricular MD [address] Required tachycardia) [address] [place], [place] ([facility]) [address] [address] [address] Phone: [place], [place] [phone] [place] [phone] Reason for Visit * Auth/Cert Status Reason Specialty Diagnoses / Referred By Referred To Procedures Contact Contact Diagnoses Vtach VT (ventricular tachycardia) ([facility]) Encounter Details Date Type Department Care Team Description 03/29/2017 Hospital Cardiac Intensive Care David Ruiz MD [place] ( ventricular - Encounter [address] tachycardia) ([facility]) 04/02/2017 [place] [address] [address] [place] [address] [phone] Social History Tobacco Use Types Packs/Day Years Used Date Never Smoker Smokeless Tobacco: Never Used Alcohol Use Drinks/Week oz/Week Comments No social Sex Assigned at Date Recorded Not on file as of this encounter Last Filed Vital Signs Vital Sign Reading [...] Mass Index 24.2 04/02/2017 7:00 AM CDT in this encounter Functional Status Functional Status Response [...] impairment: No 04/02/2017 as of this encounter Discharge Summaries * David Ruiz MD - 04/02/2017 12:30 PM CDT Formatting of this note may be different from the original. Physician Discharge Summary Name: Blanche Torres Date Of : 1940 Age: 76 years Admit date: 03/29/2017 Discharge date: 04/02/2017 Attending Physician: Dr. David Ruiz Service: Cardiology-1st Round/CCU- 2634 Physician Summary completed by: Willem Choi DO Reason for hospitalization: Ventricular tachycardia Significant PMH: Past Medical History: Diagnosis Date CAD (coronary artery disease), [place] coronary artery 02/20/2014 09/09/2011 - Cardiac Catheterization: 3x8 mm Promus to LAD. PTCA to Diagonal. ([facility]) 09/17/2012 - Cardiac Catheterization: No evidence of obstructive CAD. Abnormal LV systolic function. Mildly elevated LV filling pressures. Normal RV filling pressures. Abnormal PAP. 1+ MVR. ([facility]). 10/04/2013 - Stress Test: Normal LV size with good c Cardiac device in situ 05/27/2014 [employer] + remote monitoring. Carotid artery stenosis 02/20/2014 Chronic anticoagulation 02/20/2014 Dizziness 02/20/2014 SCOTT (dyspnea on exertion) 02/20/2014 HLD (hyperlipidemia) 02/20/2014 HTN (hypertension) 02/20/2014 NSVT (nonsustained ventricular tachycardia) ([facility]) 02/20/2014 PAF (paroxysmal atrial fibrillation) ([facility]) 02/20/2014 SSS (sick sinus syndrome) ([facility]) 12/25/2014 [employer] DC PPM in place with [employer] remote monitoring. Allergies: Review of patient's allergies indicates no known allergies. Admission Physical Exam notable for: Regular rate and rhythm on auscultation, lungs clear on auscultation Admission Lab/Radiology studies notable for: BNP of 446, trop neg x3, INR 1.4 Brief Hospital Course: The patient was admitted and the following issues were addressed during this hospitalization: (with pertinent details). Blanche Torres is a 76 y.o. 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 On device interrogation, patient had been in multiple episodes of stable VT over the last month at a rate of around 130bpm and his device was set to function at 133. Patient was given bolus of amiodarone in transit to , and once inpatient, patient was stabilized on lidocaine. EP was consulted and performed ablation on LVOT, and following, patient remained in sinus and was put back on an elevated dose of sotalol at 120mg BID which is what he was discharged on. EP reset device detection zone to 170 Condition at Discharge: Stable Discharge Diagnoses: Hospital Problems Active Problems * (Principal)VT (ventricular tachycardia) (HCC) Chronic anticoagulation CAD (coronary artery disease), [place] coronary artery PAF (paroxysmal atrial fibrillation) ([facility]) Essential hypertension SSS (sick sinus syndrome) ([facility]) Biventricular implantable cardioverter-defibrillator (ICD) in situ Surgical Procedures: none Significant Diagnostic Studies and Procedures: noted in brief hospital course Consults: Cardiology - EP Patient Disposition: Home Patient instructions/medications: AMB REFERRAL TO CARDIAC ELECTROPHYSIOLOGY Referral Priority: Routine Referral Type: Consult, Test & Treat Referral Reason: Specialty Services Required Referred to Provider: CHAGO FRIAS Requested Specialty: Cardiology Number of Visits Requested: 1 Expiration Date: 04/02/18 Other Activity Restrictions You should resume your normal activity in [address] after 2 days. No lifting greater than 10 pounds for 1 week. No sexual activity of strenuous activity for 1 week. You may shower now, however no baths for 1 week. Procedure Specific Activity *Resume your normal activity in 3 days *You may drive after 2 days. *You may shower after discharge. *NO tub baths, hot tubs, or swimming for 1 week. *NO lifting greater than 10 pounds for 1 week. *NO sexual activity or strenuous activity for 1 week. DISCHARGE WOUND CARE Call if any swelling, redness or bleeding from groin site. No soaking in bath tub for 1 week. Report These Signs and Symptoms Please contact your doctor if you have any of the following symptoms: Chest pain , shortness of breath, lightheadedness, dizziness, near fainting, palpitations, abd pain, back pain, or bleeding. Questions About Your Stay For questions or concerns regarding your hospital stay: - DURING BUSINESS HOURS (8:00 AM - 4:30 PM): Call [phone] and asked to be transferred to your discharge attending physician. - AFTER BUSINESS HOURS (4:30 PM - 8:00 AM, on weekends, or holidays): Call [phone] and ask the varnishing machine operator to page the on-call doctor for the discharge attending physician. Discharging attending physician: DAVID RUIZ [[id number]] Cardiac Diet Limiting unhealthy fats and cholesterol is the most important step you can take in reducing your risk for cardiovascular disease. Unhealthy fats include saturated and trans fats. Monitor your sodium and cholesterol intake. Restrict your sodium to 2g (grams) or 2000mg (milligrams) daily, and your cholesterol to 200mg daily. If you have questions regarding your diet at home, you may contact a dietitian at . Incision Care *Keep your incision clean and dry. *May shower 3 days following procedure. Avoid direct water contact to the incision. Take sponge baths, working around the incision during this time. *Do not submerge incision in tub, pool, hot tub, or gomes for 4 weeks. *Usually there are not stitches to be removed. Steri-strips (strips of tape) will begin to fall off in 10-14 days. If they remain after 2 weeks, gently remove them when they are damp after a shower. *Your incision should gradually look better each day. If you notice unusual swelling, redness, drainage, have increasing pain at the site, or have a fever greater than 100 degrees, notify your physician immediately. REQUEST FOR CARDIOLOGY APPOINTMENT Standing Status: Future Standing Exp. Date: 03/30/22 Scheduling Priority: Routine [address] Ledbetter Location of Appointment [place] / Mon-Mon Current Discharge Medication List CONTINUE these medications which have been CHANGED or REFILLED Details sotalol (BETAPACE) 120 mg tab Take 1 Tab by mouth twice daily. Qty: 180 Tab, Refills: 3 PRESCRIPTION TYPE: Normal CONTINUE these medications which have NOT CHANGED Details apixaban (ELIQUIS) 5 mg tab tablet Take 5 mg by mouth twice daily. PRESCRIPTION TYPE: Historical Med aspirin EC 81 mg tablet Take 1 Tab by mouth daily. Take with food. Qty: 90 Tab, Refills: 3 PRESCRIPTION TYPE: OTC Associated Diagnoses: Chronic anticoagulation; Coronary artery disease involving [place] coronary artery of [place] heart without angina pectoris; PAF ( paroxysmal atrial fibrillation) (HCC); Essential hypertension; Mixed hyperlipidemia; Nonsustained ventricular tachycardia (HCC) atorvastatin (LIPITOR) 40 mg tablet Take 40 mg by mouth at bedtime daily. PRESCRIPTION TYPE: Historical Med DOCOSAHEXANOIC ACID/EPA (FISH OIL PO) Take 1,200 mg by mouth twice daily. PRESCRIPTION TYPE: Historical Med meloxicam (MOBIC) 15 mg tablet Take 15 mg by mouth daily. PRESCRIPTION TYPE: Historical Med MULTIVITAMINS WITH FLUORIDE (MULTI-VITAMIN PO) Take 1 Tab by mouth daily. PRESCRIPTION TYPE: Historical Med omeprazole DR(+) (PRILOSEC) 40 mg capsule Take 40 mg by mouth daily. PRESCRIPTION TYPE: Historical Med The following medications were removed from your list. This list includes medications discontinued this stay and those removed from your prior med list in our system metoprolol XL (TOPROL XL) 25 mg extended release tablet mexiletine (MEXITIL) 200 mg capsule Pending items needing follow up: None Signed: Willem Choi DO 04/03/2017 ATTESTATION I reviewed all relevant information in chart, including the EKG and other test results. I discussed the case with the resident, and concur with the findings and documentation of history, physical exam, assessment, the overall management and discharge plans unless otherwise noted. The discharge plan was discussed with the patient. The patient understood and agreed. I have made additions and corrections to the discharge summary as needed. Physician: David Ruiz M.D. Date: 04/03/17 cc: Primary Care Physician: Elier Mata Verified Referring physicians: Elier Mata MD Additional provider(s): in this encounter Medications at Time of Discharge Medication Sig. Disp. Refills Start Date End Date apixaban (ELIQUIS) 5 mg Take 5 mg by mouth twice tab tablet daily. aspirin EC 81 mg Take 1 Tab by mouth 90 Tab 3 10/04/2016 tabletIndications: daily. Take with food. Chronic anticoagulation, Coronary artery disease involving [place] coronary artery of [place] heart without angina pectoris, PAF (paroxysmal atrial fibrillation) ([facility]), Essential hypertension, Mixed hyperlipidemia, Nonsustained ventricular tachycardia [...] 2016 tab daily. as of this encounter Progress Notes * David Ruiz MD - 04/02/2017 7:16 AM CDT Formatting of this note may be different from the original. Cardiology Progress Note Today's Date: 04/02/2017 Name: Blanche Torres Admission Date: 03/29/2017 LOS: 4 days Assessment/Plan: arrhythmia Principal Problem: VT (ventricular tachycardia) ([facility]) Active Problems: Chronic anticoagulation CAD (coronary artery disease), [place] coronary artery PAF (paroxysmal atrial fibrillation) (HCC) Essential hypertension SSS (sick sinus syndrome) ([facility]) Biventricular implantable cardioverter-defibrillator (ICD) in situ 76 yo M with PMHx CAD s/p remote PCI to LAD , paroxysmal afib (on apixaban), SSS /bradycardia s/p PPM placed 2013, hx RVOTVtach (ablabtion on November), HTN, HLD , carotid artery stenosis who transferred from EP clinicwith VT. 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 Patient has been hemodynamically stable. - s/p VT ablation, alcohol septal ablation 03/30 - no VT events on tele overnight. - Patient back on sotalol, dose increased to 120 BID - EP increased VT detection zone to 170 - Patient back on apixaban 5mg BID - Patient to get scheduled for EP follow up Hx Afib -[id number] (age, HTN, CAD) - restartPTA apixaban 5mg BID CAD s/p LAD stent placement - Coronary angio09/2016 50% circumflex, 20% LAD and patent LAD stent - EKG A pacedw/ non specific St-t changes/Trop neg x3 on admission - Continue RADIO COMMUNICATIONS MECHANICIAN aspirin and statin HTN-BP stable this admission GERD- Protonix 40mg PO daily FEN:no IVF, monitor and replace electrolytes CODE STATUS: FULL CODE DISPO:Okay to discharge Patient seen and discussed with Dr. Ruiz ATTESTATION I personally performed the de la cruz portions of the E/M visit, examined the patient and reviewed all relevant information in chart, including the EKG and other test results. I discussed the case with the resident, and concur with the findings and documentation of history, physical exam, assessment, and the overall management plans unless otherwise noted. I have made additions and corrections to the entry as needed. Feeling better. No arrhythmia. Tolerated sotalol. Will f/u with EP perhaps one time - and then with local die cast operator. Physician: David Ruiz M.D. Date: 04/02/17 __ Subjective: Blanche Torres is a 76 y.o. male. Overnight Events:No new events noted. Patient Is feeling well this morning. Denies any palpitations, chest pain, shortness of breath, dizziness, or peripheral swelling. Patient able to get up and walk around the unit without any symptoms. Review of Systems: Review of Systems: Constitutional: negative for fevers, chills or headaches Eyes: negative for double or blurry vision Ears, nose, mouth, throat, and face: negative Respiratory: negative for shortness of breath, cough or wheezing Cardiovascular: denies chest pain , denies palpitations Gastrointestinal: denies nausea, vomiting Genitourinary:negative for polyuria/dysuria Musculoskeletal:denies swelling or joint pain Neurological: negative for sensory or motor deficits Behavioral/Psych: negative for mood changes Objective: Medications: Scheduled Meds: apixaban (ELIQUIS) tablet 5 mg 5 mg Oral BID aspirin EC tablet 81 mg 81 mg Oral QDAY atorvastatin (LIPITOR) tablet 20 mg 20 mg Oral QDAY pantoprazole DR (PROTONIX) tablet 40 mg 40 mg Oral QDAY(21) sotalol (BETAPACE) tablet 120 mg 120 mg Oral BID Continuous Infusions: sodium chloride 0.9 % infusion Stopped (03/30/17 1745) PRN and Respiratory Meds:ondansetron Q6H PRN, sodium chloride PRN Vital Signs: Last Filed Vital Signs: 24 Hour Range BP: 142/98 (04/02 700) Temp: 36.4 C (97.6 F) (04/01 2300) Pulse: 71 (04/02 700) Respirations: 19 PER MINUTE (04/02 700) SpO2: 98 % (04/02 700) O2 Delivery: None (Room Air) (04/02 0400) SpO2 Pulse: 71 (04/02 700) BP: (90-142)/(58-98) Temp: [36.3 C (97.4 F)-36.5 C (97.7 F)] Pulse: [70-86] Respirations: [10 PER MINUTE-24 PER MINUTE] SpO2: [93 %-99 %] O2 Delivery: None (Room Air) Intensity Pain Scale 0-10 (Pain 1): (not recorded) Vitals: 03/31/17 0600 03/31/17 1006 04/02/17 07 Weight: 84.6 kg (186 lb 9.6 oz) 85.7 kg (189 lb) 83.2 kg (183 lb 6.4 oz) Intake/Output Summary: (Last 24 hours) Intake/Output Summary (Last 24 hours) at 04/02/17 0716 Last data filed at 04/02/17 0700 Gross per 24 hour Intake 1090 ml Output 950 ml Net 140 ml Physical Exam: General appearance: alert, well-developed and cooperative Head: Normocephalic, without obvious abnormality, atraumatic Lungs: clear to auscultation bilaterally Heart: regular rate and rhythm, S1, S2 normal, no murmur, click, rub or gallop Abdomen: soft, non-tender. Bowel sounds normal. No masses, no organomegaly Extremities: extremities normal, atraumatic, no cyanosis or edema Neurologic: alert and oriented Peripheral pulses: 2+ and symmetric Skin: warm and dry Laboratory Review: 24-hour labs: Results for orders placed or performed during the hospital encounter of (from the past 24 hour(s)) CBC Collection Time: 04/02/17 5:00 AM Result Value Ref Range White Blood Cells 7.8 [...] K/UL MPV 10.0 7 - 11 FL COMPREHENSIVE METABOLIC PANEL Collection Time: 04/02/17 5:00 AM Result Value Ref Range Sodium 139 137 - 147 MMOL/L Potassium 4.4 3.5 - 5.1 MMOL/L Chloride 107 98 [...] - 12 eGFR Non >60 >60 mL/min eGFR >60 >60 mL/min MAGNESIUM Collection Time: 04/02/17 5:00 AM Result Value Ref Range Magnesium 2.1 1.6 - 2.6 mg/dL Point of Care Testing: (Last 24 hours): Glucose: 96 (04/02/17 0500) Cardiographics: ECG: atrial paced, no qt prolongation, RBBB Echocardiogram: This admit EF normal, mild right atrial enlargement, mild MR and TR, PAP of 32 Other Radiology/Diagnostics Review: Pertinent radiology reviewed. Willem Choi DO Pager [phone] * David Ruiz MD - 04/01/2017 12:28 PM CDT Formatting of this note may be different from the original. Cardiology Progress Note Today's Date: 04/01/2017 Name: Blanche Torres Admission Date: 03/29/2017 LOS: 3 days Assessment/Plan: arrhythmia Principal Problem: VT (ventricular tachycardia) ([facility]) Active Problems: Chronic anticoagulation CAD (coronary artery disease), [place] coronary artery PAF (paroxysmal atrial fibrillation) (HCC) Essential hypertension SSS (sick sinus syndrome) ([facility]) Biventricular implantable cardioverter-defibrillator (ICD) in situ 76 yo M with PMHx CAD s/p remote PCI to LAD , paroxysmal afib (on apixaban), SSS /bradycardia s/p PPM placed 2013, hx RVOTVtach (ablabtion on November), HTN, HLD , carotid artery stenosis who transferred from EP clinicwith VT. 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 Patient has been hemodynamically stable. - s/p VT ablation, alcohol septal ablation 03/30 - no VT events on tele overnight. - Patient back on sotalol, dose increased to 120 BID - EP increased VT detection zone to 170 - Restart eliquis today - continue holding beta matt Hx Afib -[id number] (age, HTN, CAD) - restartPTA apixaban 5mg BID - holding toprol XL 50mg CAD s/p LAD stent placement - Coronary angio09/2016 50% circumflex, 20% LAD and patent LAD stent - EKG A pacedw/ non specific St-t changes/Trop neg x3 - Continue RADIO COMMUNICATIONS MECHANICIAN aspirin and statin HTN-Toprol XL as above, holding now GERD- Protonix 40mg PO daily FEN:no IVF, monitor and replace electrolytes CODE STATUS: FULL CODE DISPO:continue Admission to -1 Patient seen and discussed with Dr. Ruiz ATTESTATION I personally performed the de la cruz portions of the E/M visit, examined the patient and reviewed all relevant information in chart, including the EKG and other test results. I discussed the case with the resident, and concur with the findings and documentation of history, physical exam, assessment, and the overall management plans unless otherwise noted. I have made additions and corrections to the entry as needed. No further episode of ventricular arrhythmia. On sotalol 120. Restart Eliquis. Physician: David Ruiz M.D. Date: 04/01/17 __ Subjective: Blanche Torres is a 76 y.o. male. Overnight Events:No new events noted. Patient this morning is doing well. Denies feeling any palpitations, chest pain , shortness of breath, confusion, dizziness, or peripheral swelling. Patient reports ablation went well. Review of Systems: Constitutional: negative for fevers, chills or headaches Eyes: negative for double or blurry vision Ears, nose, mouth, throat, and face: negative Respiratory: negative for shortness of breath, cough or wheezing Cardiovascular: denies chest pain , denies palpitations Gastrointestinal: denies nausea, vomiting Genitourinary:negative for polyuria/dysuria Musculoskeletal:denies swelling or joint pain Neurological: negative for sensory or motor deficits Behavioral/Psych: negative for mood changes Objective: Medications: Scheduled Meds: aspirin EC tablet 81 mg 81 mg Oral QDAY atorvastatin (LIPITOR) tablet 20 mg 20 mg Oral QDAY pantoprazole DR (PROTONIX) tablet 40 mg 40 mg Oral QDAY(21) sotalol (BETAPACE) tablet 120 mg 120 mg Oral BID Continuous Infusions: sodium chloride 0.9 % infusion Stopped (03/30/17 1745) PRN and Respiratory Meds:ondansetron Q6H PRN, sodium chloride PRN Vital Signs: Last Filed Vital Signs: 24 Hour Range BP: 113/66 (04/01 1200) Temp: 36.3 C (97.4 F) (04/01 1200) Pulse: 70 (04/01 1200) Respirations: 12 PER MINUTE (04/01 1200) SpO2: 98 % (04/01 1200) O2 Delivery: None (Room Air) (04/01 1200) SpO2 Pulse: 69 (04/01 1200) BP: (90-135)/(59-89) Temp: [36.2 C (97.2 F)-36.8 C (98.2 F)] Pulse: [70-86] Respirations: [12 PER MINUTE-25 PER MINUTE] SpO2: [93 %-99 %] O2 Delivery: None (Room Air) Intensity Pain Scale 0-10 (Pain 1): (not recorded) Vitals: 03/29/17 1546 03/31/17 0600 03/31/17 1006 Weight: 85.8 kg (189 lb 2.5 oz) 84.6 kg (186 lb 9.6 oz) 85.7 kg (189 lb) Intake/Output Summary: (Last 24 hours) Intake/Output Summary (Last 24 hours) at 04/01/17 1229 Last data filed at 04/01/17 0800 Gross per 24 hour Intake 595 ml Output 1650 ml Net -1055 ml Physical Exam: General appearance: alert, well-developed and cooperative Head: Normocephalic, without obvious abnormality, atraumatic Lungs: non-labored breathing, good chest wall expansion Heart: regular rate and rhythm, S1, S2 normal, no murmur, click, rub or gallop Abdomen: Soft and non tender Neurologic: alert and oriented Peripheral pulses: 2+ and symmetric Skin: warm and dry Laboratory Review: 24-hour labs: Results for orders placed or performed during the hospital encounter of (from the past 24 hour(s)) TROPONIN-I Collection Time: 03/31/17 12:36 PM Result Value Ref Range Troponin-I 4.22 (H) 0.0 - 0.05 NG/ML CBC Collection Time: 04/01/17 3:00 AM Result Value Ref Range White Blood Cells 8.7 4.5 - 11.0 K/UL RBC 4.67 4.4 - 5.5 M/UL Hemoglobin 14.1 13.5 - 16.5 GM/DL Hematocrit 42.5 40 - 50 % MCV 90.9 80 - 100 FL MCH 30.2 26 - 34 PG MCHC 33.2 32.0 - 36.0 G/DL RDW 14.2 11 - 15 % Platelet Count 135 (L) 150 - 400 K/UL MPV 10.1 7 - 11 FL COMPREHENSIVE METABOLIC PANEL Collection Time: 04/01/17 3:00 AM Result Value Ref Range Sodium 139 137 - 147 MMOL/L Potassium 4.5 3.5 - 5.1 MMOL/L Chloride 109 98 - 110 MMOL/L Glucose 95 70 - 100 MG/DL Blood Urea Nitrogen 21 7 - 25 MG/DL Creatinine 0.79 0.4 - 1.24 MG/DL Calcium 8.9 8.5 - 10.6 MG/DL Total Protein 5.5 (L) 6.0 - 8.0 G/DL Total Bilirubin 0.7 0.3 - 1.2 MG/DL Albumin 3.5 3.5 - 5.0 G/DL Alk Phosphatase 80 25 - 110 U/L AST (SGOT) 37 7 - 40 U/L CO2 23 21 - 30 MMOL/L ALT (SGPT) 19 7 - 56 U/L Anion Gap 7 3 - 12 eGFR Non >60 >60 mL/min eGFR >60 >60 mL/min MAGNESIUM Collection Time: 04/01/17 3:00 AM Result Value Ref Range Magnesium 2.1 1.6 - 2.6 mg/dL Point of Care Testing: (Last 24 hours): Glucose: 95 (04/01/17 0300) Cardiographics: ECG: Showing mild qt prolongation Other Radiology/Diagnostics Review: Pertinent radiology reviewed. Willem Choi DO Pager [phone] * Roxanna Light RN - 03/31/2017 9:04 PM CDT 0900-Spoke with Dr. Hemphill regarding EKG 2 hours post sotalol dose given. OK to check EKG in AM * David Ruiz MD - 03/31/2017 1:31 PM CDT Formatting of this note may be different from the original. Cardiology Progress Note Today's Date: 03/31/2017 Name: Blanche Torres Admission Date: 03/29/2017 LOS: 2 days Assessment/Plan: arrhythmia Principal Problem: VT (ventricular tachycardia) ([facility]) Active Problems: Chronic anticoagulation CAD (coronary artery disease), [place] coronary artery PAF (paroxysmal atrial fibrillation) ([facility]) Essential hypertension SSS (sick sinus syndrome) ([facility]) Biventricular implantable cardioverter-defibrillator (ICD) in situ 76 yo M with PMHx CAD s/p remote PCI to LAD , paroxysmal afib (on apixaban), SSS /bradycardia s/p PPM placed 2013, 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 Patient has been hemodynamically stable. - hold RADIO COMMUNICATIONS MECHANICIAN sotalol - Was placed on lidocaine on admission, holding it now in preparation for ablation - s/p VT ablation, alcohol septal ablation 03/30 - no VT events on tele overnight. - EP increased VT detection zone to 170 - switched to sotalol , d/c lidocaine - will restart eliquis in the am - continue holding beta matt Hx Afib - [id number] (age, HTN, CAD) - Hold RADIO COMMUNICATIONS MECHANICIAN apixaban 5mg BID - holding toprol XL 50mg before ablation - continue to hold per EP recs - Patient on heparin now CAD s/p LAD stent placement - Coronary angio 09/2016 50% circumflex, 20% LAD and patent LAD stent - EKG A paced w/ non specific St-t changes/Trop neg x3 - Continue RADIO COMMUNICATIONS MECHANICIAN aspirin and statin HTN- Toprol XL as above, holding for ablation GERD- Protonix 40mg PO daily FEN:no IVF, monitor and replace electrolytes CODE STATUS: FULL CODE DISPO:continue Admission to -1 Patient seen and dicussed with Dr Ruiz ATTESTATION I personally performed the de la cruz portions of the E/M visit, examined the patient and reviewed all relevant information in chart, including the EKG and other test results. I discussed the case with the resident, and concur with the findings and documentation of history, physical exam, assessment, and the overall management plans unless otherwise noted. I have made additions and corrections to the entry as needed. Mr. Torres feels much better overall. Some chest discomfort after septal ablation. Trend trops. Sotalol started. Will monitor for arrhythmias. Physician: David Ruiz M.D. Date: 03/31/17 __ Subjective: Patient stable overnight. Reports some chest discomfort this morning , however bearable. Denies any chest pain, dizziness, nausea, vomiting. Remains afebrile. Objective: Medications: Scheduled Meds: aspirin EC tablet 81 mg 81 mg Oral QDAY atorvastatin (LIPITOR) tablet 20 mg 20 mg Oral QDAY pantoprazole DR (PROTONIX) tablet 40 mg 40 mg Oral QDAY(21) sotalol (BETAPACE) tablet 120 mg 120 mg Oral BID Continuous Infusions: lidocaine 2 g/D5W 250 mL infusion Stopped (03/30/17 0625) sodium chloride 0.9 % infusion Stopped (03/30/17 1745) PRN and Respiratory Meds: Vital Signs: Last Filed Vital Signs: 24 Hour Range BP: 103/81 (03/31 1300) Temp: 36.4 C (97.6 F) (03/31 1200) Pulse: 79 (03/31 1300) Respirations: 19 PER MINUTE (03/31 1300) SpO2: 95 % (03/31 1300) O2 Delivery: None (Room Air) (03/31 1300) SpO2 Pulse: 80 (03/31 1300) Height: 185.4 cm (73") (03/31 1006) BP: (98-168)/(58-103) Temp: [36.4 C (97.5 F)-36.9 C (98.4 F)] Pulse: [77-96] Respirations: [9 PER MINUTE-32 PER MINUTE] SpO2: [93 %-99 %] O2 Delivery: None (Room Air) Intensity Pain Scale 0-10 (Pain 1): (not recorded) Vitals: 03/29/17 1546 03/31/17 0600 03/31/17 1006 Weight: 85.8 kg (189 lb 2.5 oz) 84.6 kg (186 lb 9.6 oz) 85.7 kg (189 lb) Intake/Output Summary: (Last 24 hours) Intake/Output Summary (Last 24 hours) at 03/31/17 1331 Last data filed at 03/31/17 1200 Gross per 24 hour Intake 1225 ml Output 2675 ml Net -1450 ml Physical Exam: General appearance: alert, well-developed and cooperative Head: Normocephalic, without obvious abnormality, atraumatic Lungs: clear to auscultation bilaterally Heart: Normal rate with extra beats auscultated frequently, No murmurs aprpeciated Abdomen: soft, non-tender. Bowel sounds normal. No masses, no organomegaly Extremities: extremities normal, atraumatic, no cyanosis or edema Neurologic: alert and oriented Peripheral pulses: 2+ and symmetric Skin: warm and dry Laboratory Review: 24-hour labs: Results for orders placed or performed during the hospital encounter of (from the past 24 hour(s)) POC ACTIVATED CLOTTING TIME Collection Time: 03/30/17 1:57 PM Result Value Ref Range Activated Clotting Time 382 s POC ACTIVATED CLOTTING TIME Collection Time: 03/30/17 2:27 PM Result Value Ref Range Activated Clotting Time 382 s POC ACTIVATED CLOTTING TIME Collection Time: 03/30/17 2:59 PM Result Value Ref Range Activated Clotting Time 376 s POC ACTIVATED CLOTTING TIME Collection Time: 03/30/17 3:28 PM Result Value Ref Range Activated Clotting Time 389 s POC ACTIVATED CLOTTING TIME Collection Time: 03/30/17 3:50 PM Result Value Ref Range Activated Clotting Time 379 s POC ACTIVATED CLOTTING TIME Collection Time: 03/30/17 4:31 PM Result Value Ref Range Activated Clotting Time 373 s POC ACTIVATED CLOTTING TIME Collection Time: 03/30/17 5:01 PM Result Value Ref Range Activated Clotting Time 373 s POC ACTIVATED CLOTTING TIME Collection Time: 03/30/17 5:25 PM Result Value Ref Range Activated Clotting Time 368 s POC ACTIVATED CLOTTING TIME Collection Time: 03/30/17 5:43 PM Result Value Ref Range Activated Clotting Time 371 s POC ACTIVATED CLOTTING TIME Collection Time: 03/30/17 6:52 PM Result Value Ref Range Activated Clotting Time 159 s TROPONIN-I Collection Time: 03/30/17 7:00 PM Result Value Ref Range Troponin-I 2.59 (H) 0.0 - 0.05 NG/ML TROPONIN-I Collection Time: 03/31/17 12:53 AM Result Value Ref Range Troponin-I 4.26 (H) 0.0 - 0.05 NG/ML CBC Collection Time: 03/31/17 4:08 AM Result Value Ref Range White Blood Cells 9.4 4.5 - 11.0 K/UL RBC 4.19 (L) 4.4 - 5.5 M/UL Hemoglobin 13.4 (L) 13.5 - 16.5 GM/DL Hematocrit 38.2 (L) 40 - 50 % MCV 91.2 80 - 100 FL MCH 31.9 26 - 34 PG MCHC 35.0 32.0 - 36.0 G/DL RDW 13.9 11 - 15 % Platelet Count 150 150 - 400 K/UL MPV 9.5 7 - 11 FL COMPREHENSIVE METABOLIC PANEL Collection Time: 03/31/17 4:08 AM Result Value Ref Range Sodium 141 137 - 147 MMOL/L Potassium 3.8 3.5 - 5.1 MMOL/L Chloride 110 98 - 110 MMOL/L Glucose 130 (H) 70 - 100 MG/DL Blood Urea Nitrogen 19 7 - 25 MG/DL Creatinine 0.82 0.4 - 1.24 MG/DL Calcium 8.3 (L) 8.5 - 10.6 MG/DL Total Protein 5.0 (L) 6.0 - 8.0 G/DL Total Bilirubin 0.8 0.3 - 1.2 MG/DL Albumin 3.0 (L) 3.5 - 5.0 G/DL Alk Phosphatase 75 25 - 110 U/L AST (SGOT) 50 (H) 7 - 40 U/L CO2 24 21 - 30 MMOL/L ALT (SGPT) 23 7 - 56 U/L Anion Gap 7 3 - 12 eGFR Non >60 >60 mL/min eGFR >60 >60 mL/min MAGNESIUM Collection Time: 03/31/17 4:08 AM Result Value Ref Range Magnesium 2.1 1.6 - 2.6 mg/dL TROPONIN-I Collection Time: 03/31/17 6:56 AM Result Value Ref Range Troponin-I 5.80 (H) 0.0 - 0.05 NG/ML MAGNESIUM Collection Time: 03/31/17 6:56 AM Result Value Ref Range Magnesium 2.2 1.6 - 2.6 mg/dL TROPONIN-I Collection Time: 03/31/17 12:36 PM Result Value Ref Range Troponin-I 4.22 (H) 0.0 - 0.05 NG/ML Point of Care Testing: (Last 24 hours): Glucose: (!) 130 (03/31/17 0408) Cardiographics: ECG: 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 Alex Regalado Internal Medicine PGY3 [phone] * Magalis Dillon APRN-MANPOWER DEVELOPMENT SPECIALIST - 03/31/2017 12:54 PM CDT Formatting of this note may be different from the original. EP Note: Patient awake and alert up to chair this am. Reports feeling well and denies active pain. Deonte groins free of bleeding, hematoma or bruit. Heart tones clear. Lungs CTA Tele: A-paced / V-sensed @ 80 bpm without frequent PVC's or arrhythmia's. Vitals: 03/31/17 1200 BP: 120/87 Pulse: 80 Temp: 36.4 C (97.6 F) SpO2: 97% Labs: Hematology: Lab Results Component Value Date HGB 13.4 03/31/2017 HCT 38.2 03/31/2017 PLTCT 150 03/31/2017 WBC 9.4 03/31/2017 NEUT 70 03/29/2017 ANC 6.80 03/29/2017 ALC 1.80 03/29/2017 GIOVANNI 10 03/29/2017 AMC 1.00 03/29/2017 ABC 0.00 03/29/2017 MCV 91.2 03/31/2017 MCHC 35.0 03/31/2017 MPV 9.5 03/31/2017 RDW 13.9 03/31/2017 , Coagulation: Lab Results Component Value Date PTT 31.3 03/29/2017 INR 1.1 03/30/2017 INR 1.4 03/29/2017 and General Chemistry: Lab Results Component Value Date NA 141 03/31/2017 K 3.8 03/31/2017 CL 110 03/31/2017 GAP 7 03/31/2017 BUN 19 03/31/2017 CR 0.82 03/31/2017 GLU 130 03/31/2017 GLU 96 10/08/2015 CA 8.3 03/31/2017 ALBUMIN 3.0 03/31/2017 MG 2.2 03/31/2017 TOTBILI 0.8 03/31/2017 Recommendations: Will reduce lower rate limit from 80 bpm to 70 bpm. Continue sotalol re- initiation @ 120 mg bid (He has tolerated this dose previously, so should not require monitoring for 5 total doses). If groins continue to look good tomorrow am, would resume Apixiban and if tele, QTc, and groins stable by tomorrow evening - ok for DC home from EP standpoint with outpatient follow up in 2 months time. JOSE ARMANDO Loyd (pgr [phone]) Heart Rhythm Management (pgr [phone]) Associated attestation - Chago Frias MD - 03/31/2017 10:26 PM CDT I personally interviewed and examined the patient. I have reviewed the history , physical, impression and plan outlined by the Nurse Practitioner. I agree with the note below, which I have reviewed and agree with with the exception of updates/revisions as noted here. The patient presents with ventricular tachycardia and is status post ablation on 03/30. He had no ventricular arrhythmias overnight. Examination demonstrates man in bed in no apparent distress. Access sites are without evidence of hematoma or bruit. Our impression is VT s/p ablation. Our plan is: -Reduce device lower rate limit from 80 to 70 bpm -Resume sotalol 120 bid -If access sites are okay tomorrow morning he may resume apixaban at that time -He does not have to stay inpatient for the entire sotalol load as he previously tolerated the dose of 120 mg twice a day and has a defibrillator. # Ventricular tachycardia s/p ablation x 2 and alcohol ablation of septal golf course keeper branch Follows with Dr. Ledbetter and Dr. Lozano ([place], [place]) AAD: Sotalol 80 bid (ineffective at 80 bid, on 120 bid on DC 11/16/16 and decreased for unclear reasons), prior amiodarone (Aug 2014, decreased to 100 daily in Oct 2015 d/t tremor/ataxis, DCd 2015), prior dofetilide (2013, stopped due to QTc prolongation) -12/25/14 Cardiac MRI: LV end-diastolic volume index 81 mL/m, normal myocardial thickness, LVEF 56%. No myocardial delayed enhancement. There is possible artifact and a small segment of the posterior wall. Mild ectasia of the ascending aorta measuring 39 x 40 mm at the root. -10/31/16 PET: No evidence of myocarditis. Max SUV 2.16 with blood pool 1.83. -11/09/16 Echo: LVIDD 49 mm, LVEF 55%, interventricular septum/posterior wall 11 mm LA 37 mm, LA volume index 23, RVSP 32. Mild tricuspid and mitral regurgitation. -11/11/16 Ablation (Dr. Lemus): 2 different VTs mapped from the same region. High septal RVOT and subaortic LVOT on septal aspect. Fractionation and low voltage in this area. Accelerated and terminated the VT there. Also had wide-QRS LV apical VT that looked epicardial by report. -03/29/17 EC-lead ECG of ventricular tachycardia shows left bundle branch block morphology with large R-wave in V1, V2 transition isoelectric inferior axis and completely negative in aVL and aVR. The R waves are very tall in the inferior leads -03/30/17 Ablation (Dr. Frias): Intramural OFT and LV summit. Ablation in posteroseptal RVOT, cusps, LVOT, GCV, and after alcohol ablation the mid-septal RVOT --> Frequent nonsustained and sustained spontaneous ventricular tachycardia at the beginning of the procedure that was decreased but occasionally present with sedation. With single and occasionally double ventricular extrastimuli ventricular tachycardia was easily inducible, especially on Isuprel 1 mcg/min) but often would only last for 30 seconds to a few minutes. The cycle length was variable and often changed exits which limited the ability to perform entrainment mapping and confirm the mechanism of the tachycardia. 3 of the 4 inducible ventricular tachycardias were mapped to the outflow tract region with exits to the RV posterior septum, LVOT, and cusp region. Scar was seen adjacent to these areas likely from the prior ablation. Ablation was performed in these areas which would temporarily suppress but not eliminate the ventricular tachycardia. Pace maps from the adjacent areas were also consistent with exits of VT 1, 2, and 3. Mapping was also performed in the great cardiac vein. Coronary angiography confirmed an acceptable distance from the coronary arteries. Ablation was performed here as well but did not eliminate the tachycardia. After further discussion with Dr. Lemus who performed the prior ablation, it was elected to proceed with septal alcohol ablation with Dr. Alonzo. This was performed with a small high septal golf course keeper branch. It often suppressed the tachycardia but later there continued to be spontaneous ventricular tachycardia which was nonsustained and now had a superior axis. It was elected to map this exit site which was localized to the RV basal, mid septum. Ablation was performed here and eliminated the spontaneous ectopy. Ventricular stimulation which previously easily induced multiple ventricular tachycardias no longer induced a sustained tachycardia. There were approximately up to 5-6 beats of [...] # Atrial fibrillation -November 2016: Cardioversion in [place], [place] # CAD s/p PCI -09/09/2011 - Cardiac Catheterization: 3x8 mm Promus to LAD. PTCA to Diagonal. ([facility]ia [facility]) 09/17/2012 - Cardiac Catheterization: No evidence of obstructive CAD. Abnormal LV systolic function. Mildly elevated LV filling pressures. Normal RV filling pressures. Abnormal PAP. 1+ MVR. ( [facility]). 10/04/2013 - Stress Test: Normal LV size with -10/03/16 Coronary angiogram: Mid LAD stent was patent. Moderate disease in the mid circumflex measured at 50% with a hazy calcified lesion. # Sinus node dysfunction s/p Medtronic dual-chamber ICD implantation -08/22/14 Implant (Dr. Matt): for SND; Medtronic DC PPM implantation (5076 leads) -11/14/16 Upgrade (Dr. Matt): Extraction of RV 5076 lead, Implant of a new RV ICD lead and dual-chamber ICD Chago Frias MD * Sha Hemphill MD - 03/30/2017 10:54 PM CDT CV fellow note: Called to review pre-Sotalol ECG. ECG done 03/30/17 at 20:42 pm shows Atrial paced rhythm with RBBB at 80 bpm. The QRS duration was 130-140, measured QT interval was 430 msec. Modified QT interval (430 - 1/2*130) is 365 msec. Calculated QTc is 421 msec. Of to give 1st dose. 2 hour post 1st dose sotalol ECG done on shows Atrial paced rhythm with RBBB at 81 bpm. The QRS duration was 130-140, measured QT interval was 445 msec. Modified QT interval (445 - 1/2*130) is 380 msec. Calculated QTc is 438 msec. Ok to give next dose. Sha Hemphill CV fellow PGY-5 Pager # [phone] * Luis Fernando Haskins - 03/30/2017 8:48 PM CDT Obtained EKG before 1st dose of Sotalol. Dr. Hemphill notified and read EKG, stated to go ahead with first dose. * Mateo Campos, MINAL - 03/30/2017 10:57 AM CDT Patient is in V-Tach with the heart rate in mid-140th. Dr. Salazar is at bedside , evaluating patient. Patient remains asymptomatic, BP stable. * David Ruiz MD - 03/30/2017 9:30 AM CDT Formatting of this note may be different from the original. Cardiology Progress Note Today's Date: 03/30/2017 Name: Blanche Torres Admission Date: 03/29/2017 LOS: 1 day Assessment/Plan: arrhythmia Principal Problem: VT (ventricular tachycardia) ([facility]) Active Problems: Chronic anticoagulation CAD (coronary artery disease), [place] coronary artery PAF (paroxysmal atrial fibrillation) ([facility]) Essential hypertension SSS (sick sinus syndrome) ([facility]) Biventricular implantable cardioverter-defibrillator (ICD) in situ 76 yo M with PMHx CAD s/p remote PCI to LAD , paroxysmal afib (on apixaban), SSS /bradycardia s/p PPM placed 2013, 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 Patient has been hemodynamically stable. - hold RADIO COMMUNICATIONS MECHANICIAN sotalol - Was placed on lidocaine on admission, holding it now in preparation for ablation - appreciate EP recs - EP increased VT detection zone to 170 Hx Afib - [id number] (age, HTN, CAD) - Hold RADIO COMMUNICATIONS MECHANICIAN apixaban 5mg BID - holding toprol XL 50mg before ablation - Patient on heparin now CAD s/p LAD stent placement - Coronary angio 09/2016 50% circumflex, 20% LAD and patent LAD stent - EKG A paced w/ non specific St-t changes/Trop neg x3 - Continue RADIO COMMUNICATIONS MECHANICIAN aspirin and statin HTN- Toprol XL as above, holding for ablation GERD- Protonix 40mg PO daily FEN:NPO CODE STATUS: FULL CODE DISPO:Admit to CV-1 ATTESTATION I personally performed the del a cruz portions of the E/M visit, examined the patient and reviewed all relevant information in chart, including the EKG and other test results. I discussed the case with the resident, and concur with the findings and documentation of history, physical exam, assessment, and the overall management plans unless otherwise noted. I have made additions and corrections to the entry as needed. Mr. Torres continues to be in VT intermittently. Hemodynamically stable. Plan for ablation today. Physician: David Ruiz M.D. Date: 03/30/17 __ Subjective: Blanche Torres is a 76 y.o. male. Patient admitted overnight for sustained VT. This morning, patient reports that he is still experiencing some shortness of breath and generalized fatigue that he thinks is associated to when his rhythm is in VT. Otherwise patient is comfortably sitting in chair next to his bed and saying that he is feeling well. Denies chest pain, dizziness or confusion. Review of Systems: Review of Systems: Constitutional: negative for fevers, chills or headaches Eyes: negative for double or blurry vision Ears, nose, mouth, throat, and face: negative Respiratory: positive for occasional shortness of breath Cardiovascular: denies chest pain, or palpitations Gastrointestinal: denies nausea, vomiting Genitourinary:negative for polyuria/dysuria Musculoskeletal:denies swelling or joint pain Neurological: negative for sensory or motor deficits Behavioral/Psych: negative for mood changes Objective: Medications: Scheduled Meds: aspirin EC tablet 81 mg 81 mg Oral QDAY atorvastatin (LIPITOR) tablet 20 mg 20 mg Oral QDAY pantoprazole DR (PROTONIX) tablet 40 mg 40 mg Oral QDAY(21) Continuous Infusions: lidocaine 2 g/D5W 250 mL infusion Stopped (03/30/17624) sodium chloride 0.9 % infusion 20 mL/hr at 03/30/17 0800 PRN and Respiratory Meds: Vital Signs: Last Filed Vital Signs: 24 Hour Range BP: 122/92 (03/30 900) Temp: 36.4 C (97.5 F) (03/30 700) Pulse: 99 (03/30 900) Respirations: 18 PER MINUTE (03/30 900) SpO2: 96 % (03/30 900) O2 Delivery: None (Room Air) (03/30 700) SpO2 Pulse: 76 (03/30 900) Height: 185.4 cm (72.99") (03/29 154) BP: (98-149)/(65-99) Temp: [36.3 C (97.4 F)-36.6 C (97.9 F)] Pulse: [78-135] Respirations: [13 PER MINUTE-28 PER MINUTE] SpO2: [93 %-99 %] O2 Delivery: None (Room Air) Intensity Pain Scale 0-10 (Pain 1): (not recorded) Vitals: 03/29/17 1546 Weight: 85.8 kg (189 lb 2.5 oz) Intake/Output Summary: (Last 24 hours) Intake/Output Summary (Last 24 hours) at 03/30/17 09 Last data filed at 03/30/17 06 Gross per 24 hour Intake 587.33 ml Output 950 ml Net -362.67 ml Physical Exam: General appearance: alert, well-developed and cooperative Head: Normocephalic, without obvious abnormality, atraumatic Lungs: clear to auscultation bilaterally Heart: Normal rate with extra beats auscultated frequently, No murmurs aprpeciated Abdomen: soft, non-tender. Bowel sounds normal. No masses, no organomegaly Extremities: extremities normal, atraumatic, no cyanosis or edema Neurologic: alert and oriented Peripheral pulses: 2+ and symmetric Skin: warm and dry Laboratory Review: 24-hour labs: Results for orders placed or performed during the hospital encounter of (from the past 24 hour(s)) CBC AND DIFF Collection Time: 03/29/17 3:55 PM Result Value Ref Range White Blood Cells 9.8 [...] Basophil Count 0.00 0 - 0.20 K/UL PROTIME INR (PT) Collection Time: 03/29/17 3:55 PM Result Value Ref Range INR 1.4 (H) 0.8 - 1.2 PTT (APTT) Collection Time: 03/29/17 3:55 PM Result Value Ref Range APTT 31.3 24.0 - 40.0 SEC COMPREHENSIVE METABOLIC PANEL Collection Time: 03/29/17 3:55 PM Result Value Ref Range Sodium 137 137 - 147 MMOL/L Potassium 4.5 3.5 - 5.1 MMOL/L Chloride 107 98 - 110 MMOL/L Glucose 121 (H) 70 - 100 MG/DL Blood Urea Nitrogen 25 7 - 25 MG/DL Creatinine 1.04 0.4 - 1.24 MG/DL Calcium 9.3 8.5 - 10.6 MG/DL Total Protein 6.1 6.0 - 8.0 G/DL Total Bilirubin 1.0 0.3 - 1.2 MG/DL Albumin 3.8 3.5 - 5.0 G/DL Alk Phosphatase 86 25 - 110 U/L AST (SGOT) 24 7 - 40 U/L CO2 24 21 - 30 MMOL/L ALT (SGPT) 22 7 - 56 U/L Anion Gap 6 3 - 12 eGFR Non >60 >60 mL/min eGFR >60 >60 mL/min MAGNESIUM Collection Time: 03/29/17 3:55 PM Result Value Ref Range Magnesium 2.1 1.6 - 2.6 mg/dL PHOSPHORUS Collection Time: 03/29/17 3:55 PM Result Value Ref Range Phosphorus 3.5 2.0 - 4.0 MG/DL BNP (B-TYPE NATRIURETIC PEPTI) Collection Time: 03/29/17 3:55 PM Result Value Ref Range B Type Natriuretic Peptide 446.0 (H) 0 - 100 PG/ML TROPONIN-I Collection Time: 03/29/17 3:55 PM Result Value Ref Range Troponin-I 0.01 0.0 - 0.05 NG/ML TROPONIN-I Collection Time: 03/29/17 9:26 PM Result Value Ref Range Troponin-I <0.01 0.0 - 0.05 NG/ML CBC Collection Time: 03/30/17 4:08 AM Result Value Ref Range White Blood Cells 7.6 4.5 - 11.0 K/UL RBC 4.30 (L) 4.4 - 5.5 M/UL Hemoglobin 13.5 13.5 - 16.5 GM/DL Hematocrit 39.4 (L) 40 - 50 % MCV 91.6 80 - 100 FL MCH 31.3 26 - 34 PG MCHC 34.2 32.0 - 36.0 G/DL RDW 14.1 11 - 15 % Platelet Count 163 150 - 400 K/UL MPV 9.7 7 - 11 FL COMPREHENSIVE METABOLIC PANEL Collection Time: 03/30/17 4:08 AM Result Value Ref Range Sodium 140 137 - 147 MMOL/L Potassium 4.1 3.5 - 5.1 MMOL/L Chloride 109 98 - 110 MMOL/L Glucose 96 70 - 100 MG/DL Blood Urea Nitrogen 26 (H) 7 - 25 MG/DL Creatinine 0.86 0.4 - 1.24 MG/DL Calcium 8.9 8.5 - 10.6 MG/DL Total Protein 5.3 (L) 6.0 - 8.0 G/DL Total Bilirubin 0.7 0.3 - 1.2 MG/DL Albumin 3.3 (L) 3.5 - 5.0 G/DL Alk Phosphatase 75 25 - 110 U/L AST (SGOT) 25 7 - 40 U/L CO2 26 21 - 30 MMOL/L ALT (SGPT) 29 7 - 56 U/L Anion Gap 5 3 - 12 eGFR Non >60 >60 mL/min eGFR >60 >60 mL/min TROPONIN-I Collection Time: 03/30/17 4:08 AM Result Value Ref Range Troponin-I <0.01 0.0 - 0.05 NG/ML MAGNESIUM Collection Time: 03/30/17 4:08 AM Result Value Ref Range Magnesium 1.9 1.6 - 2.6 mg/dL POC PT/INR Collection Time: 03/30/17 8:29 AM Result Value Ref Range INR POC 1.1 0.8 - 1.2 TYPE & CROSSMATCH Collection Time: 03/30/17 8:40 AM Result Value Ref Range Units Ordered 2 Crossmatch Expires 04/02/2017 Record Check FOUND ABO/RH(D) A POS Antibody Screen NEG Electronic Crossmatch YES Point of Care Testing: (Last 24 hours): Glucose: 96 (03/30/17 0408) Cardiographics: ECG: 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 Willem Choi DO Pager [phone] * Luis Hess, MINAL - 03/30/2017 5:32 AM CDT At ~ [address] Hemphill that the Pt had gone back into VT per telemetry at rates 130-135 BP 90s over 70s and Pt had not CP or SOA but did feel "a little light headed". Dr Hemphill to the bedside to assess. Pt continued to go in and out of VT sustaining >10 minutes. Lidocaine gtt resumed at 1mg/min. Will continue to monitor closely. in this encounter H&P Notes * David Ruiz MD - 03/29/2017 3:22 PM CDT Formatting of this note may be different from the original. Admission History and Physical Examination Name: Blanche Torres Admission Date: (Not on file) Assessment/Plan: Active Problems: Chronic anticoagulation CAD (coronary artery disease), [place] coronary artery PAF (paroxysmal atrial fibrillation) ([facility]) Essential hypertension VT (ventricular tachycardia) ([facility]) SSS (sick sinus syndrome) ([facility]) 76 yo M with PMHx CAD s/p remote PCI to LAD , paroxysmal afib (on apixaban), SSS /bradycardia s/p PPM placed 2013, 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 Recurrent Ventricular Tachycardia - Positive inferior lead axis, RBBB with transition in v2 (baseline EKG RBBB with transition in v3) which is likly in ideiopathic LVOT VT - hold RADIO COMMUNICATIONS MECHANICIAN sotalol - will start on lidocaine( Pt was given bolus amiodarone in clinic) - appreciate EP recs for ablation - EP increased VT detection zone to 170 Hx Afib - [id number] (age, HTN, CAD) - Hold RADIO COMMUNICATIONS MECHANICIAN apixaban 5mg BID and cont toprol XL 50mg daily - will start on heparin drip CAD s/p LAD stent placement - Coronary angio 09/2016 50% circumflex, 20% LAD and patent LAD stent - EKG A paced w/ non specific St-t changes/Trop neg - Continue RADIO COMMUNICATIONS MECHANICIAN aspirin and statin HTN- Toprol XL as above GERD- Protonix 40mg PO daily FEN: NPO CODE STATUS: FULL CODE DISPO:Admit to CV-1 Pt was seen and discussed with Dr. Ruiz. ATTESTATION I personally performed the de la cruz portions of the E/M visit, examined the patient and reviewed all relevant information in chart, including the EKG and other test results. I discussed the case with the resident, and concur with the findings and documentation of history, physical exam, assessment, and the overall management plans unless otherwise noted. I have made additions and corrections to the entry as needed. 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 Tolerated well. Appreciate EP assistance with mgmt. On lido. Plan for ablation in AM. Guarded prognosis. Physician: David Ruiz M.D. Date: 03/29/17 __ Primary Care Physician: Elier Mata Verified Chief Complaint: SOB and palpitation History of Present Illness: Blanche Torres is a 76 y.o. 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 Pt presented to EP clinic and was found to be in sustained VT with rate ~130 ( below his devices VT detection.) Pt was given 150mg amiodarone and was transnfered to . He was hemodynamically stable and denies any symptoms except for mild SOB. He noticed palpitation fatigue and SOB recently. He denies any chest pain or dizziness. Of note, Pt had VT ablation in November at . Past Medical History: Diagnosis Date CAD (coronary artery disease), [place] coronary artery 02/20/2014 09/09/2011 - Cardiac Catheterization: 3x8 mm Promus to LAD. PTCA to Diagonal. ([facility]) 09/17/2012 - Cardiac Catheterization: No evidence of obstructive CAD. Abnormal LV systolic function. Mildly elevated LV filling pressures. Normal RV filling pressures. Abnormal PAP. 1+ MVR. ([facility]). 10/04/2013 - Stress Test: Normal LV size with good c Cardiac device in situ 05/27/2014 Independent [employer] Linq + remote monitoring. Carotid artery stenosis 02/20/2014 Chronic anticoagulation 02/20/2014 Dizziness 02/20/2014 SCOTT (dyspnea on exertion) 02/20/2014 HLD (hyperlipidemia) 02/20/2014 HTN (hypertension) 02/20/2014 NSVT (nonsustained ventricular tachycardia) (HCC) 02/20/2014 PAF (paroxysmal atrial fibrillation) (HCC) 02/20/2014 SSS (sick sinus syndrome) ([facility]) 12/25/2014 Medtronic DC PPM in place with Carelink remote monitoring. Past Surgical History: Procedure Laterality Date PERCUTANEOUS CORONARY INTERVENTION N/A 10/03/2016 Possible Percutaneous Coronary Intervention performed by Gian Day MD at [facility] No family history on file. Social History Social History Marital status: Spouse name: N/A Number of children: N/A Years of education: N/A Social History Main Topics Smoking status: Never Smoker Smokeless tobacco: Never Used Alcohol use No Comment: social Drug use: No Sexual activity: Not on file Other Topics Concern Not on file Social History Narrative Immunizations (includes history and patient reported): There is no immunization history on file for this patient. Allergies: Review of patient's allergies indicates no known allergies. Medications: Prescriptions Prior to Admission Medication Sig apixaban (ELIQUIS) 5 mg tab tablet Take [...] mg by mouth twice daily. Review of Systems: A 14 point review of systems was negative except for: SOB, palpitation Physical Exam: Vital Signs: Last Filed In 24 Hours Vital Signs: 24 Hour Range BP: ()/() ABP: ()/() General: Alert, cooperative, no distress, appears stated age Head: Normocephalic, without obvious abnormality, atraumatic Throat: Lips, mucosa and tongue normal. Teeth and gums normal Neck: Supple, symmetrical, trachea midline, no adenopathy, thyroid: no enlargement/tenderness/nodules, no carotid bruit and no JVD Back: Symmetric, no curvature, ROM normal. No CVA tenderness. Lungs: Clear to auscultation bilaterally Chest wall: No tenderness or deformity. Heart: Regular rate and rhythm, S1, S2 normal, no murmur, click rub or gallop Abdomen: Soft, non-tender. Bowel sounds normal. No masses. No organomegaly. Extremities: Extremities normal, atraumatic, no cyanosis or edema Peripheral pulses: 2+ and symmetric, all extremities Musculoskeletal: Tenderness Lab/Radiology/Other Diagnostic Tests: 24-hour labs: No results found for this visit on 03/29/17 (from the past 24 hour(s)). Pertinent radiology reviewed. Gilberto Saalzar MD Pager in this encounter Procedure Notes * Mustapha Alonzo MD - 03/30/2017 5:10 PM CDT Associated Order(s): CARDIAC CATH REPORT [facility] CARDIAC CATHETERIZATION REPORT Page 1 BLANCHE Lawson : 1940 KU#: [id number] MR #/Billing ID #: [id number] / [id number] DATE: 03/30/2017 CREDIT COLLECTION SPECIALIST: Mustapha Alonzo MD DICTATING PROVIDER: Mustapha Alonzo [...] coronary cineangiography and identified the 1st septal golf course keeper. We advanced a 2.0 x 6 [id number] balloon into the 1st septal golf course keeper and confirmed occlusion after inflating the balloon to 3 atmospheres, injecting with contrast through the end-hole of the balloon. This did continue down the septal golf course keeper and did not extravasate back into the [...] ablation the anterior branch off the septal golf course keeper was occluded. There were no complications associated with the procedure. Total IV contrast was 265 mL of Visipaque 320. PLAN: Post alcohol ablation, we will plan to repeat a 2D echocardiogram in the morning and cycle cardiac markers q.8 hours until they peak. MD NATALIE Gentile/Valeria /[id number] p cc: in this encounter Consult Notes * Jasmeet Narayanan MD - 03/29/2017 6:04 PM CDT Associated Order(s): CONSULT CARDIOLOGY PHYSICIAN Formatting of this note may be different from the original. EP Consult Name: Blanche Torres Date: 03/29/2017 Admission Date: 03/29/2017 LOS: 0 Reason for Consult: Ventricular tachycardia Consult type: Routine ASSESSMENT AND PLAN: -Episodes of ventricular tachycardia (very inferior looking VT with precordial transition in lead V2, possible LVOT ventricular tachycardia), patient is hemodynamically stable so far -Right bundle branch block at baseline after the ablation in November 2069 -Medtronic CHASSIS INSPECTOR-D device in place and functioning, initial liver VT threshold was set as 130 (now increased to 170) -Structurally normal heart, remote coronary artery disease and PCI to LAD -Paroxysmal atrial fibrillation on apixaban at home Recommendations: -N.p.o. after midnight -Start lidocaine 1 mg/kg in case of recurrent VT episodes -Hold anticoagulation, beta-blockers, amiodarone, and sotalol for now -The VT zone was increased to 170 bpm, patient is hemodynamically stable We will consider ablation in the morning - Please keep potassium over 4, magnesium over 2 and calcium over 9. Jasmeet Choudhury MD, PhD sporting goods sales associate, pager [phone] HPI Patient was seen and examined at the bedside. Patient is a 76-year-old man with past medical history of coronary artery disease status post PCI to LAD, paroxysmal A. fib on apixaban, recurrent VT (status post VT ablation in November 11 2016, on sotalol at home), status post CHASSIS INSPECTOR/D in November 2016 (Medtronic device , upgrade from PPM placed in 2013 for sick sinus syndrome/bradycardia), hypertension, hyperlipidemia, carotid artery stenosis, who was transferred to [facility] hospital with sustained VT episodes at the rate of 130, which was slightly below the Medtronic device (VT zone 1) threshold. Patient was loaded with amiodarone and has been hemodynamically stable throughout the transfer process. Patient mentioned that he has fatigue and feels occasional shortness of breath and palpitation. He denied chest pain, shortness of breath, nausea, vomiting, PND, orthopnea. Of note, patient had tried amiodarone before and had the rash afterward. Patient had another episode of VT (hemodynamically stable) with admission to [facility] in November. The patient had nonsustained ventricular tachycardia with positive QRS in leads V5 and V6 consistent with RVOT ventricular tachyarrhythmia. The RVOT ablation was done on November 2016 as well. The patient was started on sotalol 120 mg twice daily to prevent VT, as well as Toprol-XL and apixaban 5 mg twice daily for atrial fibrillation. Patient had Medtronic subcutaneous hospital monitor in 2013. Cardiac catheterization was done on 09/09/2011 and stent was placed in the LAD artery. Repeat cardiac cath in 2012 did not show any obstruction. Echo echo in November 2016 showed EF of 55% and mild MR and mild TR. PET scan in 10/31/2016 was normal. ATTESTATION/ADDENDUM: Medications (inpatient) No medication comments found. Review of Systems: General: Denies fever, chills, loss of appetite, weight change Neuro: Denies headache, seizure. Oriented to person, place, and time Cardio: Admits to shortness of breath and palpitation, denies CP, PND, cyanosis , claudication Resp: Denies cough, sputum production, dyspnea, wheeze, snoring, hemoptysis GI: Denies GERD, N/V, hematochezia, melena, BRBPR, abd pain MSK: Admits to fatigue, denies arthralgia, myalgia, back pain, cramps, denies lower extremity sinus changes or asymmetry Skin: Denies rash, pruritis Psych: Denies depression, anxiety, hallucination, memory loss, psychosis Endo: Denies polyphagia, polydipsia, heat/cold intolerance Heme: Denies ecchymosis, purpura, petechiae, anemia, JUNG Filed Vitals: 03/08/17 0750 03/08/17 0905 03/08/17 1147 03/08/17 1500 BP: 114/52 143/50 124/68 Pulse: 70 Temp: 36.8 C (98.2 F) Height: 1.651 m (5' 5") 1.651 m (5' 5") Weight: 73.483 kg (162 lb) 73.5 kg (162 lb 0.6 oz) SpO2: 96% 97% Physical Exam: Constitutional: in no acute distress, resting comfortably. Skin/Integument: Warm and dry Eyes: PERRL, sclera are non-icteric and no xanthelasmas noted ENT : Hearing is intact, Oropharynx is clear and moist. Heme/Lym/Immun: Supple neck, without thyromegaly Respiratory-Pulmonary/Chest: Effort normal and breath sounds normal. No respiratory distress or accessory muscle use. No obvious tracheal deviation. Clear to auscultation bilaterally. Cardiovascular: Occasionally irregular, S1 S2, No murmur, No heaves, thrills or rubs. GI: Obese, + Bowel sounds, soft and non-tender Musc/Skeletal-Extremities: Homans sign is negative, no lower extremity size changes or asymmetry, no pain in the lower extremities on palpation, no visible superficial veins Neuro: Patient is alert and oriented to person, place, and time. Psych: Patient does not appear anxious, appears appropriate, with normal non- pressured speech and what appears to be appropriate judgement Laboratory Review: Results for orders placed or performed during the hospital encounter of (from the past 48 hour(s)) CBC AND DIFF Collection Time: 03/29/17 3:55 PM # # Low-High White Blood Cells 9.8 4.5 - 11.0 [...] Basophil Count 0.00 0 - 0.20 K/UL PROTIME INR (PT) Collection Time: 03/29/17 3:55 PM # # Low-High INR 1.4 (H) 0.8 - 1.2 PTT (APTT) Collection Time: 03/29/17 3:55 PM # # Low-High APTT 31.3 24.0 - 40.0 SEC COMPREHENSIVE METABOLIC PANEL Collection Time: 03/29/17 3:55 PM # # Low-High Sodium 137 137 - 147 MMOL/L Potassium 4.5 3.5 - 5.1 MMOL/L Chloride 107 98 - 110 MMOL/L Glucose 121 (H) 70 - 100 MG/DL Blood Urea Nitrogen 25 7 - 25 MG/DL Creatinine 1.04 0.4 - 1.24 MG/DL Calcium 9.3 8.5 - 10.6 MG/DL Total Protein 6.1 6.0 - 8.0 G/DL Total Bilirubin 1.0 0.3 - 1.2 MG/DL Albumin 3.8 3.5 - 5.0 G/DL Alk Phosphatase 86 25 - 110 U/L AST (SGOT) 24 7 - 40 U/L CO2 24 21 - 30 MMOL/L ALT (SGPT) 22 7 - 56 U/L Anion Gap 6 3 - 12 eGFR Non >60 >60 mL/min eGFR >60 >60 mL/min MAGNESIUM Collection Time: 03/29/17 3:55 PM # # Low-High Magnesium 2.1 1.6 - 2.6 mg/dL PHOSPHORUS Collection Time: 03/29/17 3:55 PM # # Low-High Phosphorus 3.5 2.0 - 4.0 MG/DL BNP (B-TYPE NATRIURETIC PEPTI) Collection Time: 03/29/17 3:55 PM # # Low-High B Type Natriuretic Peptide 446.0 (H) 0 - 100 PG/ML TROPONIN-I Collection Time: 03/29/17 3:55 PM # # Low-High Troponin-I 0.01 0.0 - 0.05 NG/ML Cardiographics: EKG: Right bundle branch block status post ablation at baseline Tele episodes of ventricular tachycardia (nonsustained) Associated attestation - Loretta Garcia MD - 04/03/2017 10:49 AM CDT ATTESTATION I personally interviewed and examined the patient. I have reviewed the history , physical, impression and plan outlined by the Fellow.. The patient presents with (HPI) Recurrent VT, On examination there is Incessant VT, Clear Lung sounds My impression is Incessant outflow tract VT refractory to Sotalol, My plan is Consider VT ablation. in this encounter Miscellaneous Notes * Care Plan - Nini Li RN - 04/02/2017 1:53 AM CDT Problem: Discharge Planning Goal: Participation in plan of care Outcome: Goal Ongoing POC reviewed with patient and (bedside); discharge date tentatively 04/02/17 Problem: Pain Goal: Management of pain Outcome: Goal Ongoing Pt denies pain; pt encouraged to report pain to nursing staff Problem: Falls, High Risk of Goal: Absence of falls-Adult Patient Outcome: Goal Ongoing High fall risk bundle implemented * Care Plan - Roxanna Light RN - 04/01/2017 5:49 AM CDT Problem: Discharge Planning Goal: Participation in plan of care Outcome: Goal Ongoing Discharge pending, asks questions appropriately Problem: Pain Goal: Management of pain Outcome: Goal Ongoing Encourage to speak up, pain meds per MD order, hourly rounding Problem: Skin Integrity Goal: Skin integrity intact Outcome: Goal Ongoing Encourage activity Problem: Falls, High Risk of Goal: Absence of falls-Adult Patient Outcome: Goal Ongoing Bed in lowest position, near nurses station, prompt response to call light, socks and bracelet on * Care Plan - Luis Fernando Haskins - 03/31/2017 4:30 AM CDT Problem: Discharge Planning Goal: Participation in plan of care Outcome: Goal Ongoing Pt understanding of teaching, eager to go home. Problem: Pain Goal: Management of pain Outcome: Goal Ongoing Pt has been free from pain so far this shift, will continue to assess. Problem: Respiratory Impairment (Non-Ventilated Patient) Goal: Effective gas exchange Outcome: Goal Ongoing Pt O2 appropriate this shift, will continue to monitor. Problem: Tissue Perfusion, Altered Goal: Adequate tissue perfusion Outcome: Goal Ongoing Pt pulses remain appropriate with sheath pulls, will continue to assess. Problem: Skin Integrity Goal: Skin integrity intact Outcome: Goal Ongoing Pt had multiple sheath pulls this shift, will continue to monitor wounds. * Procedures (Immed Post or Bedside) - Chago Frias MD - 03/30/2017 6:19 PM CDT Cardiac Electrophysiology Brief Post-Procedure Note Attending: Chago Frias MD Preoperative diagnosis: Recurrent monomorphic VT Postoperative diagnosis: Recurrent monomorphic VT Procedure(s) Performed: EP study, VT ablation, alcohol septal ablation (by Dr. Mustapha Alonzo) Procedure Description: Partially successful EP study, VT ablation, alcohol septal ablation (by Dr. Mustapha Alonzo) Procedure Findings: -Baseline: 4 VT's inducible -- 3 from outflow tract likely intramural exit, 1 from apical ventricle (not treated, non-clinical) -Post-EtOH: continued NSVT no longer exiting OFT -- exiting from mid-posterior basal RV septum -- then ablated there -Procedure end: Short non-sustained VT inducible with double extrastimuli. No sustained VT induced (apical VT also no longer inducible). No change in pericardium post-ablation. Septal RWMA present post-alcohol ablation Anesthesia: Deep sedation via anesthesia Estimated blood loss: 100 mL Complications: None Specimens removed: None Sheaths: RFA 8 Fr; RFV 8.5/8/6 Fr; LFV 11 Fr Recommendations: - Please refer to post-procedure note for full recommendations - Pain control as needed - Remove sheaths in recovery once ACT <200 - Bedrest 8 hours after sheath removal - Anti-arrhythmic drug: resume/start sotalol 120 bid - Anticoagulation: Aspirin 81 mg daily -- hold apixaban for at least 24-48 hours while femoral site heals (can resume earlier if goes into atrial fibrillation) - Add lidocaine if develops VT overnight - Echocardiogram tomorrow - Trend troponins until peak * Case Mgmt DC Plan - Praveena Dinero RN - 03/30/2017 10:46 AM CDT Formatting of this note may be different from the original. Case Management Admission Assessment NAME:Blanche Torres :1939 AGE: 76 y.o. ADMISSION DATE: 03/29/2017 DAYS ADMITTED: LOS: 1 day Todays Date: 03/30/2017 Source of Information: patient and Plan Plan: CM Assessment, Assist PRN with SW/NCM Services, Discharge Planning for Home Anticipated EP consulted for VT- currently on Lido gtt Emergency Contact Extended Emergency Contact Information Primary Emergency Contact: Brittanie Torres [facility] Relation: Spouse Secondary Emergency Contact: Heidi Cruz [facility] Relation: Daughter KASIA on file Transportation Does the patient need discharge transport arranged?: No Transportation Name, Phone and Availability #1: maikel Dave Does the patient use Medicaid Transportation?: No Expected Discharge Expected Discharge Date: 04/01/17 Living Situation Prior to Admission ? Living Arrangements Type of Residence: Home, independent Living Arrangements: Spouse/significant other Bathroom Shower / Tub: Tub/Shower Unit Bathroom Toilet: Standard How many levels in the residence?: 1 Can patient live on one level if needed?: Yes Support Systems: Spouse/Partner, Other family (daughter geraldo TRIPP lives in [place], [place] 50 miles from [place]) Assistance Needed: No (pt no longer drives, provides transport ) Home Care Services: No ? Level of Function Prior level of function: Independent drives to and from appts, reports patient passing out while driving therefore pt no longer is allowed to drive. Pt still mows the yard and manages his own care. ? Cognitive Abilities Cognitive Abilities: Alert and Oriented, Engages in problem solving and planning , Participates in decision making Financial Resources ? 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 Pt is of [place] ? Source of Income Source Of Income: Other [place] [facility] income (worked for [employer] for 30 years ) ? Financial Assistance Needed? none identified Current/Previous Services ? 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 DME DME at home: Single Point Cane, Walker ? Home Health Receiving home health: No ? HD or PD Undergoing hemodialysis or peritoneal dialysis: No ? Tube/Enteral Feeds Receive tube/enteral feeds: No ? Infusion Receive infusions: No ? Private Duty Private duty help used: No ? HCBS Home and community based services: No ? Francisco White Francisco White: N/A ? Hospice Hospice: No ? Outpatient Therapy PT: In the past Name of rehab location/group: ([facility]) Would patient return for future services?: Yes OT: In the past Name of rehab location/group: [facility] Would patient return for future services?: Yes REGIONAL ACCOUNT EXECUTIVE: No ? SNF/NH SNF: No NH: No ? IPR IPR: No ? LTACH LTACH: No ? Acute Hospital Stay Acute Hospital Stay: In the past Was patient's stay within the last 30 days?: No When did patient receive care?: December 2016 Name of hospital: [facility] [place] [place] Psychosocial Needs ? Mental Health Mental Health History: No ? Substance History History Smoking Status Never Smoker Smokeless Tobacco Never Used History Alcohol Use No Comment: social History Drug Use No ? Abuse/Sexual Assault Are You Alone With The Patient?: No Have You Ever Been Hit, Hurt Or Threatened In Any Way In The Past 5 Years?: No Nurse Suspected Abuse?: No Praveena Dinero RN, BSN Cardiology Nurse [employer] Machine Feeder pager: [phone] * Advanced Care Planning/Resuscitation Status - Gilberto Salazar MD - 03/29/2017 6:05 PM CDT Advance Care Planning/Resuscitation Status Conversation Individuals present for advance care planning conversation: resident/fellow physician, patient and patient surrogate decision maker Pertinent details of conversation (including direct quotes from patient or surrogate): full code Outcome of conversation: Full Code Documents completed as a result of this conversation: None Other documents present, which outline patient/surrogate wishes: None in this encounter Plan of Treatment Name Priority Associated Diagnoses Order Schedule ECG 12-LEAD Routine ONE TIME for 1 Occurrences starting 03/29/2017 until 03/29/2017 ECG 12-LEAD Routine TWO TIMES A DAY TWO TIMES A DAY for 5 Occurrences starting 03/30/2017 until 04/01/2017, 3 completed Name Priority Associated Diagnoses Order Schedule AMB REFERRAL TO CARDIAC Routine VT (ventricular Ordered: 04/02/2017 ELECTROPHYSIOLOGY tachycardia) (HCC) as of this encounter Procedures Procedure Name Priority Date/Time Associated Diagnosis [...] CDT procedure are in the results section. in this encounter Results * ECG UNCONFIRMED-SCAN (04/09/2017 4:42 PM) Narrative [...] Narrative Ordered by an unspecified provider. * MAGNESIUM (04/02/2017 5:00 AM) Component Value Ref Range Magnesium 2.1Comment: SLT HEMOLYSIS 1.6 - 2.6 mg/dL Specimen Performing Laboratory Blood MAIN LAB [address] [place] [address] * COMPREHENSIVE METABOLIC PANEL (04/02/2017 5:00 AM) Component Value Ref Range Sodium 139 137 [...] Pharmacist for questions. Specimen Performing Laboratory Blood MAIN LAB [address] [place] [address] * CBC (04/02/2017 5:00 AM) Component Value Ref Range White Blood Cells [...] Specimen Performing Laboratory Blood MAIN LAB [address] [place] [address] * MAGNESIUM (04/01/2017 3:00 AM) Component Value Ref Range Magnesium 2.1 1.6 - 2.6 mg/dL Specimen Performing Laboratory Blood MAIN LAB [address] [place] [address] * COMPREHENSIVE METABOLIC PANEL (04/01/2017 3:00 AM) Component Value Ref Range Sodium 139 137 - 147 MMOL/L Potassium 4.5 3.5 - 5.1 MMOL/L Chloride 109 98 - 110 MMOL/L Glucose 95 70 - 100 MG/DL Blood Urea Nitrogen 21 7 - 25 MG/DL Creatinine 0.79 0.4 - 1.24 MG/DL Calcium 8.9 8.5 - 10.6 MG/DL Total Protein 5.5 (L) 6.0 - 8.0 G/DL Total Bilirubin 0.7 0.3 - 1.2 MG/DL Albumin 3.5 3.5 - 5.0 G/DL Alk Phosphatase 80 25 - 110 U/L AST (SGOT) 37 7 - 40 U/L CO2 23 21 - 30 MMOL/L ALT (SGPT) 19 7 - 56 U/L Anion Gap 7 3 - 12 eGFR Non >60 >60 [...] Pharmacist for questions. Specimen Performing Laboratory Blood MAIN LAB [address] [place] [address] * CBC (04/01/2017 3:00 AM) Component Value Ref Range White Blood Cells 8.7 4.5 - 11.0 K/UL RBC 4.67 4.4 - 5.5 M/UL Hemoglobin 14.1 13.5 - 16.5 GM/DL Hematocrit 42.5 40 - 50 % MCV 90.9 80 - 100 FL MCH 30.2 26 - 34 PG MCHC 33.2 32.0 - 36.0 G/DL RDW 14.2 11 - 15 % Platelet Count 135 (L) 150 - 400 K/UL MPV 10.1 7 - 11 FL Specimen Performing Laboratory Blood MAIN LAB [address] [place] [address] * DEVICE EVALUATION - ICD (03/31/2017 3:55 PM) Component Value Ref Range RV Lead Model # SPRINT QUATTRO SECURE S MRI SURESCAN 6935M-62CM RV Lead Serial # [id number] RV Lead Implant Date 11/14/2016 RV Lead Diaph. 10 Stimulation RV Lead Sap Plant Maintenance Consultant Medtronic RV Lead Fixation active fixation RV Lead Location RV low septum RV Lead Pin Connector ICD IS1 RV Lead Coil Single Generator Model # EVERA MRI XT DR LANCE [id number] Generator Serial # [id number] Generator Implnat Date 11/14/2016 Generator Sap Plant Maintenance Consultant Medtronic Generator Investigational No Device Type DDD-ICD Device [place] Carelink Express Transmitter Compatible Atrial Lead Model # CAPSUREFIX NOVUS MRI SURESCAN 5076-52CM Atrial Lead Serial # [id number] Atrial Lead Implant Date 08/22/2014 Atrial Lead Diaph. 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 Medtronic Atrial Lead No Investigational Atrial Lead [...] Mode Switch Status On Device Implanted By LINK TRAINER OPERATOR EP Device Followed by MPE Name Pacemaker Dependant No EP Device Followed By MAC Date of Last Programming 03/29/17 HF Patient Yes Date of Last Remote Check 6/16/17 Next Remote Check Due 05/19/17 AT/AF Daily Touchet Hours 6 Average Vent Rate during 100 AT/AF #BPM Average Vent Rate During 6 AT/AF #Hours Remote Monitoring? Yes Daily Touchet Threshld On Alert? Average Venticular Rate On AT/AF On/Off VF Detection/Therapy Off On MEGAN/EOL Indicator BV 2.73v Specimen Performing Laboratory OTHER OUTSIDE LAB Narrative Post ablation programming changes by Alyssa Leggett with [employer]. LRL from 80 [id number] VT detect from 162 to 154bpm. See scanned Implantable Device Flowsheet. Report to Dr. Frias [03/31/2017 5:00:24 PM - PETER SARAVIA] * [...] 5:10 PM CDT [facility] CARDIAC CATHETERIZATION REPORT Page 1 BLANCHE Lawson : 1940 #: [id number] MR #/Billing ID #: [id number] / [id number] DATE: 03/30/2017 CREDIT COLLECTION SPECIALIST: Mustapha Alonzo MD DICTATING PROVIDER: Mustapha Alonzo [...] coronary cineangiography and identified the 1st septal golf course keeper. We advanced a 2.0 x 6 [id number] balloon into the 1st septal golf course keeper and confirmed occlusion after inflating the balloon to 3 atmospheres, injecting with contrast through the end-hole of the balloon. This did continue down the septal golf course keeper and did not extravasate back into the [...] ablation the anterior branch off the septal golf course keeper was occluded. There were no complications associated with the procedure. Total IV contrast was 265 mL of Visipaque 320. PLAN: Post alcohol ablation, we will plan to repeat a 2D echocardiogram in the morning and cycle cardiac markers q.8 hours until they peak. MD NATALIE Gentile/Valeria /[id number] p cc: * TROPONIN-I (03/31/2017 12:36 PM) Component Value Ref Range Troponin-I 4.22 (H) 0.0 - 0.05 NG/ML Specimen Performing Laboratory [facility] [address] [place] [address] * 2-D + DOPPLER ECHOCARDIOGRAM (03/31/2017 10:06 [...] ~ 32mm hg 5.No pericardial effusion * DEVICE EVALUATION - ICD (03/31/2017 8:11 AM) Component Value Ref Range RV Lead Model # SPRINT QUATTRO SECURE S MRI SURESCAN 6935M-62CM RV Lead Serial # [id number] RV Lead Implant Date 11/14/2016 RV Lead Diaph. 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 [employer] Atrial Lead No Investigational Atrial Lead Fixation active fixation Atrial Lead Location right atrial appendage Atrial Lead Pin Connector IS1 Atrial Lead Polarity Bipolar Device Mode AAIR/DDDR Lower Rate Limit 80 Upper Rate Limit 110 Sensor Rate Limit 110 Pace AV Delay 180 Sense AV Delay 150 VT Monitor 111 VT Detect Rate (bpm) 162 VT Detect Rate Tx ATP/SHOCK FVT Detect Rate (bpm) 188 FVT Detect Rate Tx ATP/SHOCK VF Detect Rate (bpm) 250 VF Detect Rate Tx ATP/SHOCK Mode Switch (bpm) 150 High A Rate Detect 150 Mode Switch Status On Device Implanted By LINK TRAINER OPERATOR EP Device Followed by MPE Name Pacemaker Dependant No EP Device Followed By MAC Date of Last Programming 03/29/17 HF Patient Yes Date of Last Remote Check 02/17/17 Next Remote Check Due 05/19/17 AT/AF Daily Touchet Hours 6 Average Vent Rate during 100 AT/AF #BPM Average Vent Rate During 6 AT/AF #Hours Remote Monitoring? Yes Daily Touchet Threshld On Alert? Average Venticular Rate On AT/AF On/Off VF Detection/Therapy Off On MEGAN/EOL Indicator BV 2.73v Specimen Performing Laboratory OTHER OUTSIDE LAB Narrative s/p VT RFA Post VT ablation check by [employer] rep.See scanned Implantable Device Flowsheet. Notes indicate VT zone was changed from 171 to 162bpm. Report to Dr. Frias. * MAGNESIUM (03/31/2017 6:56 AM) Component Value Ref Range Magnesium 2.2 1.6 - 2.6 mg/dL Specimen Performing Laboratory [facility] [address] [place] [address] * TROPONIN-I (03/31/2017 6:56 AM) Component Value Ref Range Troponin-I 5.80 (H) 0.0 - 0.05 NG/ML Specimen Performing Laboratory [facility] [address] [place] [address] * MAGNESIUM (03/31/2017 4:08 AM) Component Value Ref Range Magnesium 2.1 1.6 - 2.6 mg/dL Specimen Performing Laboratory MA[facility] [address] [place] [address] * COMPREHENSIVE METABOLIC PANEL (03/31/2017 4:08 AM) Component Value Ref Range Sodium 141 137 - 147 MMOL/L Potassium 3.8 3.5 - 5.1 MMOL/L Chloride 110 98 - 110 MMOL/L Glucose 130 (H) 70 - 100 MG/DL Blood Urea Nitrogen 19 7 - 25 MG/DL Creatinine 0.82 0.4 - 1.24 MG/DL Calcium 8.3 (L) 8.5 - 10.6 MG/DL Total Protein 5.0 (L) 6.0 - 8.0 G/DL Total Bilirubin 0.8 0.3 - 1.2 MG/DL Albumin 3.0 (L) 3.5 - 5.0 G/DL Alk Phosphatase 75 25 - 110 U/L AST (SGOT) 50 (H) 7 - 40 U/L CO2 24 21 - 30 MMOL/L ALT (SGPT) 23 7 - 56 U/L Anion Gap 7 3 - 12 eGFR Non >60 >60 [...] Pharmacist for questions. Specimen Performing Laboratory [facility] [address] [place] [address] * CBC (03/31/2017 4:08 AM) Component Value Ref Range White Blood Cells 9.4 4.5 - 11.0 K/UL RBC 4.19 (L) 4.4 - 5.5 M/UL Hemoglobin 13.4 (L) 13.5 - 16.5 GM/DL Hematocrit 38.2 (L) 40 - 50 % MCV 91.2 80 - 100 FL MCH 31.9 26 - 34 PG MCHC 35.0 32.0 - 36.0 G/DL RDW 13.9 11 - 15 % Platelet Count 150 150 - 400 K/UL MPV 9.5 7 - 11 FL Specimen Performing Laboratory [facility] [address] [place] [address] * TROPONIN-I (03/31/2017 12:53 AM) Component Value Ref Range Troponin-I 4.26 (H) 0.0 - 0.05 NG/ML Specimen Performing Laboratory [facility] [address] [place] [address] * EP STUDY (03/30/2017 10:30 PM) Specimen Performing Laboratory OTHER OUTSIDE LAB Impressions : Partially successful ablation of VT from the intramural outflow tract region and LV Qulin Alcohol septal ablation performed by Dr. Mustapha [...] was performed with a small high septal golf course keeper branch.It often suppressed the tachycardia but later [...] and thus was not mapped. ATTENDING: Chago Frias M.D. INDICATION FOR PROCEDURE: Mr. Torres is a 76 y.o. year-old man with history of recurrent VT that presents for EP study +- ablation of VT. # Ventricular tachycardia s/p prior ablation Follows with Dr. Ledbetter and Dr. Lozano ([place], [place]) AAD: Sotalol 80 bid (ineffective at [...] in the inferior leads -03/30/17 Ablation (Dr. Frias): Intramural OFT and LV summit. Ablation in [...] was performed with a small high septal golf course keeper branch.It often suppressed the tachycardia but later [...] # Atrial fibrillation -November 2016: Cardioversion in [place], [place] # CAD s/p PCI -09/09/2011 - Cardiac Catheterization:3x8 mm Promus to LAD.PTCA to Diagonal.([facility]) 09/17/2012 - Cardiac Catheterization:No evidence of obstructive CAD.Abnormal LV systolic function.Mildly elevated LV filling pressures.Normal RV filling pressures.Abnormal PAP.1+ MVR.([facility]). 10/04/2013 - Stress Test:Normal LV size [...] for continuous blood pressure monitoring. An 8.5 Yi SR-0, 8 Fr short, and 6 Fr [...] advanced to the RV apex. A Biosense Rogers D-F CS catheter was placed into the coronary sinus.A Biosense Rogers SF D-F Ablation catheter was advanced through the SR-0 to the His position. INTRACARDIAC ECHO:Intracardiac echocardiography was performed under the guidance of fluoroscopy. Cardiac anatomy was assessed and contours were drawn using [employer]. The origin of the left main coronary [...] was performed with a small high septal golf course keeper branch.It often suppressed the tachycardia but later [...] 900 msec, P wave duration 103 ms, ND interval 185 msec, QRSd 115 msec, QT 452 msec. Incomplete RBBB Final Intervals Surface QRS: Sinus CL 980 msec, P wave duration 103 ms, ND interval 176 msec, QRSd 126 msec, QT 452 msec. RBBB morphology. AH interval 93 msec, HV interval 56 msec. AV Wenkebach: 400 msec VA Wenkebach: 390 msec. AV Node ERP: 600/380/360 msec Atrial ERP: 600/320 msec Ventricular ERP (at RV Dixie): 350/220/210; 400/220/210; 600/250/240 msec DEVICE PROGRAMMING AND [...] bpm. VT/VF therapies were also adjusted. * TROPONIN-I (03/30/2017 7:00 PM) Component Value Ref Range Troponin-I 2.59 (H) 0.0 - 0.05 NG/ML Specimen Performing Laboratory [facility] [address] [place] [address] * POC ACTIVATED CLOTTING TIME (03/30/2017 6:52 PM) Component Value Ref Range Activated Clotting Time 159 s Specimen Performing Laboratory [facility] [address] [place] [address] * POC ACTIVATED CLOTTING TIME (03/30/2017 5:43 PM) Component Value Ref Range Activated Clotting Time 371 s Specimen Performing Laboratory [facility] [address] [place] [address] * POC ACTIVATED CLOTTING TIME (03/30/2017 5:25 PM) Component Value Ref Range Activated Clotting Time 368 s Specimen Performing Laboratory MA[facility] [address] [place] [address] * POC ACTIVATED CLOTTING TIME (03/30/2017 5:01 PM) Component Value Ref Range Activated Clotting Time 373 s Specimen Performing Laboratory [facility] [address] [place] [address] * POC ACTIVATED CLOTTING TIME (03/30/2017 4:31 PM) Component Value Ref Range Activated Clotting Time 373 s Specimen Performing Laboratory [facility] [address] [place] [address] * POC ACTIVATED CLOTTING TIME (03/30/2017 3:50 PM) Component Value Ref Range Activated Clotting Time 379 s Specimen Performing Laboratory [facility] [address] [place] [address] * POC ACTIVATED CLOTTING TIME (03/30/2017 3:28 PM) Component Value Ref Range Activated Clotting Time 389 s Specimen Performing Laboratory [facility] [address] [place] [address] * POC ACTIVATED CLOTTING TIME (03/30/2017 2:59 PM) Component Value Ref Range Activated Clotting Time 376 s Specimen Performing Laboratory MA[facility] [address] [place] [address] * POC ACTIVATED CLOTTING TIME (03/30/2017 2:27 PM) Component Value Ref Range Activated Clotting Time 382 s Specimen Performing Laboratory [facility] [address] [place] [address] * POC ACTIVATED CLOTTING TIME (03/30/2017 1:57 PM) Component Value Ref Range Activated Clotting Time 382 s Specimen Performing Laboratory [facility] [address] [place] [address] * POC ACTIVATED CLOTTING TIME (03/30/2017 1:15 PM) Component Value Ref Range Activated Clotting Time 173 s Specimen Performing Laboratory [facility] [address] [place] [address] * TYPE & CROSSMATCH (03/30/2017 8:40 AM) Component Value Ref Range Units Ordered 2 Crossmatch Expires 04/02/2017 Record Check FOUND ABO/RH(D) A POS Antibody Screen NEG Electronic Crossmatch YES Specimen Performing Laboratory [facility] [address] [place] [address] * POC PT/INR (03/30/2017 8:29 AM) Component Value Ref Range INR POC 1.1 0.8 - 1.2 Specimen Performing Laboratory [facility] [address] [place] [address] * MAGNESIUM (03/30/2017 4:08 AM) Component Value Ref Range Magnesium 1.9 1.6 - 2.6 mg/dL Specimen Performing Laboratory [facility] [address] [place] [address] * COMPREHENSIVE METABOLIC PANEL (03/30/2017 4:08 AM) Component Value Ref Range Sodium 140 137 - 147 MMOL/L Potassium 4.1 3.5 - 5.1 MMOL/L Chloride 109 98 - 110 MMOL/L Glucose 96 70 - 100 MG/DL Blood Urea Nitrogen 26 (H) 7 - 25 MG/DL Creatinine 0.86 0.4 - 1.24 MG/DL Calcium 8.9 8.5 - 10.6 MG/DL Total Protein 5.3 (L) 6.0 - 8.0 G/DL Total Bilirubin 0.7 0.3 - 1.2 MG/DL Albumin 3.3 (L) 3.5 - 5.0 G/DL Alk Phosphatase 75 25 - 110 U/L AST (SGOT) 25 7 - 40 U/L CO2 26 21 - 30 MMOL/L ALT (SGPT) 29 7 - 56 U/L Anion Gap 5 [...] Pharmacist for questions. Specimen Performing Laboratory [facility] [address] [place] [address] * CBC (03/30/2017 4:08 AM) Component Value Ref Range White Blood Cells 7.6 4.5 - 11.0 K/UL RBC 4.30 (L) 4.4 - 5.5 M/UL Hemoglobin 13.5 13.5 - 16.5 GM/DL Hematocrit 39.4 (L) 40 - 50 % MCV 91.6 80 - 100 FL MCH 31.3 26 - 34 PG MCHC 34.2 32.0 - 36.0 G/DL RDW 14.1 11 - 15 % Platelet Count 163 150 - 400 K/UL MPV 9.7 7 - 11 FL Specimen Performing Laboratory [facility] [address] [place] [address] * TROPONIN-I (03/30/2017 4:08 AM) Component Value Ref Range Troponin-I <0.01 0.0 - 0.05 NG/ML Specimen Performing Laboratory [facility] [address] [place] [address] * TROPONIN-I (03/29/2017 9:26 PM) Component Value Ref Range Troponin-I <0.01 0.0 - 0.05 NG/ML Specimen Performing Laboratory [facility] [address] [place] [address] * CHEST SINGLE VIEW (03/29/2017 4:05 PM) [...] David M.D. on 03/29/2017 4:33 PM. * TROPONIN-I (03/29/2017 3:55 PM) Component Value Ref Range Troponin-I 0.01 0.0 - 0.05 NG/ML Specimen Performing Laboratory [facility] [address] [place] [address] * BNP (B-TYPE NATRIURETIC PEPTI) (03/29/2017 3:55 PM) Component Value Ref Range B Type Natriuretic 446.0 (H) 0 - 100 PG/ML Peptide Specimen Performing Laboratory [facility] [address] [place] [address] * PHOSPHORUS (03/29/2017 3:55 PM) Component Value Ref Range Phosphorus 3.5 2.0 - 4.0 MG/DL Specimen Performing Laboratory [facility] [address] [place] [address] * MAGNESIUM (03/29/2017 3:55 PM) Component Value Ref Range Magnesium 2.1 1.6 - 2.6 mg/dL Specimen Performing Laboratory [facility] [address] [place] [address] * COMPREHENSIVE METABOLIC PANEL (03/29/2017 3:55 PM) Component Value Ref Range Sodium 137 137 - 147 MMOL/L Potassium 4.5 3.5 - 5.1 MMOL/L Chloride 107 98 - 110 MMOL/L Glucose 121 (H) 70 - 100 MG/DL Blood Urea Nitrogen 25 7 - 25 MG/DL Creatinine 1.04 0.4 - 1.24 MG/DL Calcium 9.3 8.5 - 10.6 MG/DL Total Protein 6.1 6.0 - 8.0 G/DL Total Bilirubin 1.0 0.3 - 1.2 MG/DL Albumin 3.8 3.5 - 5.0 G/DL Alk Phosphatase 86 25 - 110 U/L AST (SGOT) 24 7 - 40 U/L CO2 24 21 - 30 MMOL/L ALT (SGPT) 22 7 - 56 U/L Anion Gap 6 3 - 12 eGFR Non >60 >60 [...] Pharmacist for questions. Specimen Performing Laboratory [facility] [address] [place] [address] * PTT (APTT) (03/29/2017 3:55 PM) Component Value Ref Range APTT 31.3 24.0 - 40.0 SEC Specimen Performing Laboratory [facility] [address] [place] [address] * PROTIME INR (PT) (03/29/2017 3:55 PM) Component Value Ref Range INR 1.4 (H) 0.8 - 1.2 Specimen Performing Laboratory [facility] [address] [place] [address] * CBC AND DIFF (03/29/2017 3:55 PM) [...] Specimen Performing Laboratory [facility] [address] [place] [address] in this encounter Visit Diagnoses Diagnosis VT (ventricular tachycardia) ([facility]) - Primary Paroxysmal ventricular tachycardia PAF (paroxysmal atrial fibrillation) ([facility]) Atrial fibrillation SSS (sick sinus syndrome) ([facility]) Sinoatrial node dysfunction CAD (coronary artery disease), [place] coronary artery Coronary atherosclerosis of [place] coronary artery Chronic anticoagulation Long-term (current) use of anticoagulants Essential hypertension Unspecified essential hypertension Biventricular implantable cardioverter-defibrillator (ICD) in situ in this encounter Admitting Diagnoses Diagnosis Vtach VT (ventricular tachycardia) ([facility]) in this encounter Administered Medications Medication Order MAR Action Action Date Dose Rate Site amiodarone (CORDARONE) 360 mg in Given - New 03/29/2017 1 mg/min 33 mL/ hr dextrose, iso-osm 200 ml infusion Bag 16:11 CDT 0.5-1 mg/min (16.6667-33.3333 mL/hr, rounded to 17-33 mL/hr) 200 mL, at 17-33 mL/hr, Intravenous, TITRATE DIRECTED , Starting Mon03/29/17 at 1600, Until Mon03/29/17 at 1629, Std conc=1.8mg/mL. Initiate infusion at 1mg/min for the first 6 hours, followed by 0.5mg/min maint rate. apixaban (ELIQUIS) tablet 5 mg Given 04/01/2017 5 mg 5 mg, Oral, TWICE DAILY, First dose on 20:44 CDT 04/01/17 at 2100, Until Discontinued, NOTE: This is a HIGH ALERT Medication. Given 04/02/2017 5 mg 10:29 CDT aspirin EC tablet 81 mg Given 03/31/2017 81 mg 81 mg, Oral, DAILY, First dose on Mon 08:50 CDT 03/29/17 at 1630, Until Discontinued Given 04/01/2017 81 mg 09:06 CDT Given 04/02/2017 81 mg 08:55 CDT atorvastatin (LIPITOR) tablet 20 mg Given 03/31/2017 20 mg 20 mg, Oral, DAILY, First dose on Mon 08:50 CDT 03/29/17 at 1930, Until Discontinued Given 04/01/2017 20 mg 09:06 CDT Given 04/02/2017 20 mg 08:55 CDT lidocaine 2 g/D5W 250 mL infusion Given - New 03/29/2017 1 mg/min 7.5 mL/hr 1 mg/min (7.5 mL/hr) Bag 17: CDT 250 mL, at 7.5 mL/hr, Intravenous, CONTINUOUS, Starting Mon03/29/17 at 1730, Until Mon03/29/17 at 1802, Initiate at 1 mg Titrate to keep: Do not titrate NOTE: This is a HIGH ALERT Medication. lidocaine 2 g/D5W 250 mL infusion Dose/Rate 03/29/2017 1 mg/min 7.5 mL/ hr 1 mg/min (7.5 mL/hr) Verify 18:28 CDT 250 mL, at 7.5 mL/hr, Intravenous, TITRATE DIRECTED , Starting Mon03/29/17 at 1830, Until Bhavana 03/30/17 at 0400, Initiate at 1 Titrate to keep: Do not titrate NOTE: This is a HIGH ALERT Medication. Dose/Rate Verify 03/29/2017 1 mg/min 7.5 mL/hr 19:29 CDT lidocaine 2 g/D5W 250 mL infusion Infusion 03/30/2017 1 mg/min 7.5 mL/ hr 1 mg/min (7.5 mL/hr) Restarted 05:20 CDT 250 mL, at 7.5 mL/hr, Intravenous, CONTINUOUS, Starting Bhavana 03/30/17 at 0545, Until Mon03/31/17 at 1421, Initiate at 1 mg/min Titrate to keep: do not titrate/ NOTE: This is a HIGH ALERT Medication. magnesium sulfate 1 g/D5W 100 mL IVPB Given - New 03/30/2017 1 g 100 mL/hr 1 g, Intravenous, 100 mL, Administer Bag 06:29 CDT over 1 Hours, ONCE, 1 dose, Bhavana 03/30/17 at 0630, Each 1gm delivers 8.1 mEq Magnesium. melatonin tablet 5 mg Given 04/01/2017 5 mg 5 mg, Oral, ONCE, 1 dose, 04/01/17 at 22:[address] (PROTONIX) tablet 40 mg Given 03/30/2017 40 mg 40 mg, Oral, DAILY, First dose on Mon 20:55 CDT 03/29/17 at 2100, Until Discontinued, Do not crush or chew tablet. Given 03/31/2017 40 mg 21:03 CDT Given 04/01/2017 40 mg 20:44 CDT potassium chloride SR (K-DUR) tablet 40 Given 03/31/2017 40 mEq mEq 08:50 CDT 40 mEq, Oral, ONCE, 1 dose, Mon03/31/17 at 0715, Do NOT break or crush tablet sodium chloride 0.9 % infusion Given - New 03/30/2017 20 mL/hr 1,000 mL, Intravenous, at 20 mL/hr, Bag 08:00 CDT CONTINUOUS, Starting Mon03/29/17 at 0600, Until Mon04/02/17 at 1442 sotalol (BETAPACE) tablet 120 mg Given 04/01/2017 120 mg 120 mg, Oral, TWICE DAILY, First dose on 09:06 CDT Bhavana 03/30/17 at 2100, Until Discontinued Given 04/01/2017 120 mg 20:44 CDT Given 04/02/2017 120 mg 08:55 CDT in this encounter
--- OUTSIDE RECORDS SUMMARY | 2017-06-04 21:53 | XMS REPORT | Encounter Summary ---
Author Author [facility] Organization [facility] Address Unknown Phone Unavailable Care Team Providers Care Pocket Grinder Operator Name Role Phone PCP Unavailable Reason for Visit * Auth/Cert Status Reason Specialty Diagnoses / Referred By Referred To Procedures Contact Contact Diagnoses Vtach VT (ventricular tachycardia) (HCC) Encounter Details Date Type Department Care Team Description 03/30/2017 Surgery Cardiac Catheterization Chago Frias MD Ablation : Ventricular Laboratory [address] Tachycardia [address] [place] [address] [place] [address] [phone] Social History Tobacco Use Types Packs/Day Years [...] History: Diagnosis Date CAD (coronary artery disease), [place] coronary artery 02/20/2014 09/09/2011 - Cardiac Catheterization: 3x8 mm Promus to LAD. PTCA to Diagonal. ([facility]) 09/17/2012 - Cardiac Catheterization: No evidence of obstructive CAD. Abnormal LV systolic function. Mildly elevated LV filling pressures. Normal RV filling pressures. Abnormal PAP. 1+ MVR. ([facility]). 10/04/2013 - Stress Test: Normal LV size with good c Cardiac device in situ 05/27/2014 Medtronic Linq + remote monitoring. Carotid artery stenosis 02/20/2014 Chronic anticoagulation 02/20/2014 Dizziness 02/20/2014 SCOTT (dyspnea on exertion) 02/20/2014 HLD (hyperlipidemia) 02/20/2014 HTN (hypertension) 02/20/2014 NSVT (nonsustained ventricular tachycardia) ([facility]) 02/20/2014 PAF (paroxysmal atrial fibrillation) ([facility]) 02/20/2014 SSS (sick sinus syndrome) ([facility]) 12/25/2014 Medtronic DC PPM in place with [...] (HCC) Chronic anticoagulation CAD (coronary artery disease), [place] coronary artery PAF (paroxysmal atrial fibrillation) (HCC) Essential hypertension SSS (sick sinus syndrome) (HCC) Biventricular implantable cardioverter-defibrillator (ICD) in situ Surgical [...] HOURS (8:00 AM - 4:30 PM): Call [phone] and asked to be transferred to your discharge attending physician. - AFTER BUSINESS HOURS (4:30 PM - 8:00 AM, on weekends, or holidays): Call [phone] and ask the slime plant operator to page the on-call doctor for the discharge attending physician. Discharging attending physician: DAVID RUIZ [[id number]] Cardiac Diet Limiting unhealthy fats and cholesterol [...] months with Dr. Ledbetter Location of Appointment [place] / Mon-Mon Current Discharge Medication List CONTINUE [...] Diagnoses: Chronic anticoagulation; Coronary artery disease involving [place] coronary artery of [place] heart without angina pectoris; PAF ( paroxysmal atrial fibrillation) ([facility]); Essential hypertension; Mixed hyperlipidemia; Nonsustained ventricular tachycardia [...] food. Chronic anticoagulation, Coronary artery disease involving [place] coronary artery of [place] heart without angina pectoris, PAF (paroxysmal atrial fibrillation) ([facility]), Essential hypertension, Mixed hyperlipidemia, Nonsustained ventricular tachycardia [...] Assessment/Plan: arrhythmia Principal Problem: VT (ventricular tachycardia) ([facility]) Active Problems: Chronic anticoagulation CAD (coronary artery disease), [place] coronary artery PAF (paroxysmal atrial fibrillation) ([facility]) Essential hypertension SSS (sick sinus syndrome) ([facility]) Biventricular implantable cardioverter-defibrillator (ICD) in situ 78 [...] scheduled for EP follow up Hx Afib -[id number]=8 (age, HTN, CAD) - restartPTA apixaban 5mg BID CAD s/p LAD stent placement - Coronary angio09/2016 50% circumflex, 20% LAD and patent LAD stent - EKG A pacedw/ non specific St-t changes/Trop neg x3 on admission - Continue INVENTORY CONTROL CLERK aspirin and statin HTN-BP stable this admission [...] one time - and then with local water pipe installer. Physician: David Ruiz M.D. Date: 04/02/17 __ [...] Pertinent radiology reviewed. Willem Choi DO Pager [phone] * David Ruiz MD - 04/01/2017 12:28 PM CDT Formatting of this note may be different from the original. Cardiology Progress Note Today's Date: 04/01/2017 Name: Blanche Torres Admission Date: 03/29/2017 LOS: 3 days Assessment/Plan: arrhythmia Principal Problem: VT (ventricular tachycardia) ([facility]) Active Problems: Chronic anticoagulation CAD (coronary artery disease), [place] coronary artery PAF (paroxysmal atrial fibrillation) ([facility]) Essential hypertension SSS (sick sinus syndrome) ([facility]) Biventricular implantable cardioverter-defibrillator (ICD) in situ 78 [...] - continue holding beta matt Hx Afib -[id number]=4 (age, HTN, CAD) - restartPTA apixaban 5mg BID - holding toprol XL 50mg CAD s/p LAD stent placement - Coronary angio09/2016 50% circumflex, 20% LAD and patent LAD stent - EKG A pacedw/ non specific St-t changes/Trop neg x3 - Continue INVENTORY CONTROL CLERK aspirin and statin HTN-Toprol XL as above, holding now GERD- Protonix 40mg PO daily FEN:no IVF, monitor and replace electrolytes CODE STATUS: FULL CODE DISPO:continue Admission to CV-1 Patient seen and discussed with Dr. Ruiz [...] PER MINUTE (04/01 1200) SpO2: 98 % (07/29 1200) O2 Delivery: None (Room Air) (04/01 [...] Pertinent radiology reviewed. Willem Choi DO Pager [phone] * Roxanna Light RN - 03/31/2017 9:04 [...] Assessment/Plan: arrhythmia Principal Problem: VT (ventricular tachycardia) ([facility]) Active Problems: Chronic anticoagulation CAD (coronary artery disease), [place] coronary artery PAF (paroxysmal atrial fibrillation) ([facility]) Essential hypertension SSS (sick sinus syndrome) ([facility]) Biventricular implantable cardioverter-defibrillator (ICD) in situ 78 [...] Patient has been hemodynamically stable. - hold INVENTORY CONTROL CLERK sotalol - Was placed on lidocaine on admission, holding it now in preparation for ablation - s/p VT ablation, alcohol septal ablation 03/30 - no VT events on tele overnight. - EP increased VT detection zone to 170 - switched to sotalol , d/c lidocaine - will restart eliquis in the am - continue holding beta matt Hx Afib - [id number]=2 (age, HTN, CAD) - Hold INVENTORY CONTROL CLERK apixaban 5mg BID - holding toprol XL 50mg before ablation - continue to hold per EP recs - Patient on heparin now CAD s/p LAD stent placement - Coronary angio 09/2016 50% circumflex, 20% LAD and patent LAD stent - EKG A paced w/ non specific St-t changes/Trop neg x3 - Continue INVENTORY CONTROL CLERK aspirin and statin HTN- Toprol XL as [...] (Last 24 hours): Glucose: (!) 130 (03/31/17 9385) Cardiographics: ECG: 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 Alex Regalado Internal Medicine PGY3 [phone] * Magalis Dillon APRN-DIESEL MACHINIST - 03/31/2017 12:54 PM CDT Formatting of [...] 2 months time. JOSE ARMANDO Loyd (pgr [phone]) Heart Rhythm Management ([facility] [phone]) Associated attestation - Chago Frias MD - [...] x 2 and alcohol ablation of septal new business clerk branch Follows with Dr. Ledbetter and Dr. Lozano ([place], [place]) AAD: Sotalol 80 bid (ineffective at [...] was performed with a small high septal new business clerk branch. It often suppressed the tachycardia but [...] # Atrial fibrillation -November 2016: Cardioversion in [place], [place] # CAD s/p PCI -09/09/2011 - Cardiac Catheterization: 3x8 mm Promus to LAD. PTCA to Diagonal. ([facility]) 09/17/2012 - Cardiac Catheterization: No evidence of obstructive CAD. Abnormal LV systolic function. Mildly elevated LV filling pressures. Normal RV filling pressures. Abnormal PAP. 1+ MVR. ( [facility]). 10/04/2013 - Stress Test: Normal LV size [...] Sha Hemphill CV fellow PGY-5 Pager # [phone] * Jozef Luis Fernando - 03/30/2017 8:48 PM CDT Obtained EKG before 1st dose of Sotalol. Dr. Hemphill notified and read EKG, stated to go ahead with first dose. * Mateo Campos RN - 03/30/2017 10:57 AM CDT Patient is [...] Assessment/Plan: arrhythmia Principal Problem: VT (ventricular tachycardia) ([facility]) Active Problems: Chronic anticoagulation CAD (coronary artery disease), [place] coronary artery PAF (paroxysmal atrial fibrillation) ([facility]) Essential hypertension SSS (sick sinus syndrome) ([facility]) Biventricular implantable cardioverter-defibrillator (ICD) in situ 78 [...] Patient has been hemodynamically stable. - hold INVENTORY CONTROL CLERK sotalol - Was placed on lidocaine on admission, holding it now in preparation for ablation - appreciate EP recs - EP increased VT detection zone to 170 Hx Afib - [id number]=2 (age, HTN, CAD) - Hold INVENTORY CONTROL CLERK apixaban 5mg BID - holding toprol XL 50mg before ablation - Patient on heparin now CAD s/p LAD stent placement - Coronary angio 09/2016 50% circumflex, 20% LAD and patent LAD stent - EKG A paced w/ non specific St-t changes/Trop neg x3 - Continue INVENTORY CONTROL CLERK aspirin and statin HTN- Toprol XL as above, holding for ablation GERD- Protonix 40mg PO daily FEN:NPO CODE STATUS: FULL CODE DISPO:Admit to CV-1 ATTESTATION I personally performed the de la [...] (03/30 900) Height: 185.4 cm (72.99") (03/29 1546) BP: (98-149)/(65-99) Temp: [36.3 C (97.4 F)-36.6 C (97.9 F)] Pulse: [78-135] Respirations: [13 PER MINUTE-28 PER MINUTE] SpO2: [93 %-99 %] O2 Delivery: None (Room Air) Intensity Pain Scale 0-10 (Pain 1): (not recorded) Vitals: 03/29/171545 Weight: 85.8 kg (189 lb 2.5 oz) Intake/Output Summary: (Last 24 hours) Intake/Output Summary (Last 24 hours) at 03/30/17930 Last data filed at 03/30/17624 Gross per 24 hour Intake 587.33 ml [...] Pertinent radiology reviewed. Willem Choi DO Pager [phone] * Luis Hess RN - 03/30/2017 5:32 AM CDT At ~ [...] Problems: Chronic anticoagulation CAD (coronary artery disease), [place] coronary artery PAF (paroxysmal atrial fibrillation) ([facility]) Essential hypertension VT (ventricular tachycardia) ([facility]) SSS (sick sinus syndrome) ([facility]) 76 yo M with PMHx CAD s/p [...] likly in ideiopathic LVOT VT - hold INVENTORY CONTROL CLERK sotalol - will start on lidocaine( Pt was given bolus amiodarone in clinic) - appreciate EP recs for ablation - EP increased VT detection zone to 170 Hx Afib - [id number]=2 (age, HTN, CAD) - Hold INVENTORY CONTROL CLERK apixaban 5mg BID and cont toprol XL 50mg daily - will start on heparin drip CAD s/p LAD stent placement - Coronary angio 09/2016 50% circumflex, 20% LAD and patent LAD stent - EKG A paced w/ non specific St-t changes/Trop neg - Continue INVENTORY CONTROL CLERK aspirin and statin HTN- Toprol XL as [...] History: Diagnosis Date CAD (coronary artery disease), [place] coronary artery 02/20/2014 09/09/2011 - Cardiac Catheterization: 3x8 mm Promus to LAD. PTCA to Diagonal. ([facility]) 09/17/2012 - Cardiac Catheterization: No evidence of obstructive CAD. Abnormal LV systolic function. Mildly elevated LV filling pressures. Normal RV filling pressures. Abnormal PAP. 1+ MVR. ([facility]). 10/04/2013 - Stress Test: Normal LV size with good c Cardiac device in situ 05/27/2014 Medtronic Linq + remote monitoring. Carotid artery stenosis 02/20/2014 Chronic anticoagulation 02/20/2014 Dizziness 02/20/2014 SCOTT (dyspnea on exertion) 02/20/2014 HLD (hyperlipidemia) 02/20/2014 HTN (hypertension) 02/20/2014 NSVT (nonsustained ventricular tachycardia) ([facility]) 02/20/2014 PAF (paroxysmal atrial fibrillation) ([facility]) 02/20/2014 SSS (sick sinus syndrome) ([facility]) 12/25/2014 Medtronic DC PPM in place with Carelink remote monitoring. Past Surgical History: Procedure Laterality Date PERCUTANEOUS CORONARY INTERVENTION N/A 10/03/2016 Possible Percutaneous Coronary Intervention performed by Gian Day MD at [facility] No family history on file. Social History [...] past 24 hour(s)). Pertinent radiology reviewed. Gilberto Salazar MD Pager [phone] in this encounter Procedure Notes * Mustapha Alonzo MD - 03/30/2017 5:10 PM CDT Associated Order(s): CARDIAC CATH REPORT [facility] CARDIAC CATHETERIZATION REPORT Page 1 BLANCHE GARVEY: 1940 #: [id number] MR #/Billing ID #: [id number] / [id number] DATE: 03/30/2017 IT SECURITY ADMINISTRATOR: Mustapha Alonzo MD DICTATING PROVIDER: Mustapha Alonzo [...] coronary cineangiography and identified the 1st septal new business clerk. We advanced a 2.0 x 6 [id number]-[id number] balloon into the 1st septal new business clerk and confirmed occlusion after inflating the balloon to 3 atmospheres, injecting with contrast through the end-hole of the balloon. This did continue down the septal new business clerk and did not extravasate back into the [...] ablation the anterior branch off the septal new business clerk was occluded. There were no complications associated with the procedure. Total IV contrast was 265 mL of Visipaque 320. PLAN: Post alcohol ablation, we will plan to repeat a 2D echocardiogram in the morning and cycle cardiac markers q.8 hours until they peak. MD NATALIE Gentile/Valeria /[id number] p cc: in this encounter Consult Notes [...] after the ablation in November 2069 -Medtronic PROCESS ENGINEERING TECHNICIAN-D device in place and functioning, initial liver [...] calcium over 9. Jasmeet Choudhury MD, PhD electric meter technician, pager [phone] HPI Patient was seen and examined at the bedside. Patient is a 76-year-old man with past medical history of coronary artery disease status post PCI to LAD, paroxysmal A. fib on apixaban, recurrent VT (status post VT ablation in November 11 2016, on sotalol at home), status post PROCESS ENGINEERING TECHNICIAN/D in November 2016 (Medtronic device , upgrade from PPM placed in 2013 for sick sinus syndrome/bradycardia), hypertension, hyperlipidemia, carotid artery stenosis, who was transferred to [facility] hospital with sustained VT episodes at the [...] of VT (hemodynamically stable) with admission to [facility] in November. The patient had nonsustained ventricular tachycardia with positive QRS in leads V5 and V6 consistent with RVOT ventricular tachyarrhythmia. The RVOT ablation was done on November 2016 as well. The patient was started on sotalol 120 mg twice daily to prevent VT, as well as Toprol-XL and apixaban 5 mg twice daily for atrial fibrillation. Patient had Medtronic subcutaneous medicaid billing specialist in 2013. 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 Pt is of [place] ? 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 Financial Assistance Needed? none identified Current/Previous Services ? PCP Elier Ledbetter water pipe installer ? DME DME at home: Single Point [...] In the past Name of rehab location/group: ([facility]) Would patient return for future services?: Yes OT: In the past Name of rehab location/group: [facility] Would patient return for future services?: Yes MANAGER OF ENGINEERING: No ? SNF/NH SNF: No NH: No ? IPR IPR: No ? LTACH LTACH: No ? Acute Hospital Stay Acute Hospital Stay: In the past Was patient's stay within the last 30 days?: No When did patient receive care?: December 2016 Name of hospital: [facility] [place] [place] Psychosocial Needs ? Mental Health Mental [...] No Praveena Dinero RN, BSN Cardiology Nurse Polymerization Oven Operator pager: [phone] * Advanced Care Planning/Resuscitation Status - Gilberto [...] Specimen Performing Laboratory Blood MAIN LAB [address] [place] [address] * COMPREHENSIVE METABOLIC PANEL (04/02/2017 5:00 AM) [...] Specimen Performing Laboratory Blood MAIN LAB [address] [place] [address] * CBC (04/02/2017 5:00 AM) Component Value [...] Specimen Performing Laboratory Blood MAIN LAB [address] [place] [address] * MAGNESIUM (04/01/2017 3:00 AM) Component Value Ref Range Magnesium 2.1 1.6 - 2.6 mg/dL Specimen Performing Laboratory Blood MAIN LAB [address] [place] [address] * COMPREHENSIVE METABOLIC PANEL (04/01/2017 3:00 AM) [...] Specimen Performing Laboratory Blood MAIN LAB [address] [place] [address] * CBC (04/01/2017 3:00 AM) Component Value [...] Specimen Performing Laboratory Blood MAIN LAB [address] [place] [address] * DEVICE EVALUATION - ICD (03/31/2017 3:55 PM) Component Value Ref Range RV Lead Model # SPRINT QUATTRO SECURE S MRI SURESCAN 6935M-62CM RV Lead Serial # [id number] RV Lead Implant Date 11/14/2016 RV Lead Diaph. 10 Stimulation RV Lead Bpo Specialist Medtronic RV Lead Fixation active fixation RV Lead Location RV low septum RV Lead Pin Connector ICD IS1 RV Lead Coil Single Generator Model # EVERA MRI XT DR LUCAS [id number] Generator Serial # [id number] Generator Implnat Date 11/14/2016 Generator Bpo Specialist Medtronic Generator Investigational No Device Type DDD-ICD Device Sequim Carelink Express Transmitter Compatible Atrial Lead Model # CAPSUREFIX NOVUS MRI SURESCAN 5076-52CM Atrial Lead Serial # [id number] Atrial Lead Implant Date 08/22/2014 Atrial Lead Diaph. N/A Stimulation Atrial Lead Bpo Specialist Medtronic Atrial Lead No Investigational Atrial Lead [...] Mode Switch Status On Device Implanted By MIDDLE SCHO[employer] SPORTS COACH EP Device Followed by MPE Name Pacemaker Dependant No EP Device Followed By MAC Date of Last Programming 03/29/17 HF Patient Yes Date of Last Remote Check 02/17/17 Next Remote Check Due 05/19/17 AT/AF Daily [place] Hours 6 Average Vent Rate during 100 AT/AF #BPM Average Vent Rate During 6 AT/AF #Hours Remote Monitoring? Yes Daily [place] Threshld On Alert? Average Venticular Rate On AT/AF On/Off VF Detection/Therapy Off On MEGAN/EOL Indicator BV 2.73v Specimen Performing Laboratory OTHER OUTSIDE LAB Narrative Post ablation programming changes by Alyssa Leggett with Medtronic. LRL from 80 [id number] VT detect from 162 to 154bpm. See [...] Alonzo MD - 03/30/2017 5:10 PM CDT [facility] CARDIAC CATHETERIZATION REPORT Page 1 BLANCHE Lawson : 1940 KU#: [id number] KU MR #/Billing ID #: [id number] / [id number] DATE: 03/30/2017 IT SECURITY ADMINISTRATOR: Mustapha Alonzo MD DICTATING PROVIDER: Mustapha Alonzo [...] coronary cineangiography and identified the 1st septal new business clerk. We advanced a 2.0 x 6 [id number]-pkh-qktj balloon into the 1st septal new business clerk and confirmed occlusion after inflating the balloon to 3 atmospheres, injecting with contrast through the end-hole of the balloon. This did continue down the septal new business clerk and did not extravasate back into the [...] ablation the anterior branch off the septal new business clerk was occluded. There were no complications associated with the procedure. Total IV contrast was 265 mL of Visipaque 320. PLAN: Post alcohol ablation, we will plan to repeat a 2D echocardiogram in the morning and cycle cardiac markers q.8 hours until they peak. MD NATALIE Gentile/Valeria /[id number] p cc: * TROPONIN-I (03/31/2017 12:36 PM) Component Value Ref Range Troponin-I 4.22 (H) 0.0 - 0.05 NG/ML Specimen Performing Laboratory Blood KU MAIN LAB [address] [place] [address] * 2-D + DOPPLER ECHOCARDIOGRAM (03/31/2017 10:06 [...] MRI SURECESAR 6935M-62CM RV Lead Serial # [id number] RV Lead Implant Date 11/14/2016 RV Lead Diaph. 10 Stimulation RV Lead Bpo Specialist Medtronic RV Lead Fixation active fixation RV Lead Location RV low septum RV Lead Pin Connector ICD IS1 RV Lead Coil Single Generator Model # EVERA MRI XT DR LANCE [id number] Generator Serial # [id number] Generator Implnat Date 11/14/2016 Generator Bpo Specialist Medtronic Generator Investigational No Device Type DDD-ICD Device Sequim Carelink Express Transmitter Compatible Atrial Lead Model # CAPSUREFIX NOVUS MRI SURESCTHIERRY 5076-52CM Atrial Lead Serial # [id number] Atrial Lead Implant Date 08/22/2014 Atrial Lead Diaph. N/A Stimulation Atrial Lead Bpo Specialist Medtronic Atrial Lead No Investigational Atrial Lead [...] Mode Switch Status On Device Implanted By [employer] SPORTS COACH EP Device Followed by MPE Name Pacemaker Dependant No EP Device Followed By MAC Date of Last Programming 03/29/17 HF Patient Yes Date of Last Remote Check 02/17/17 Next Remote Check Due 05/19/17 AT/AF Daily [place] Hours 6 Average Vent Rate during 100 AT/AF #BPM Average Vent Rate During 6 AT/AF #Hours Remote Monitoring? Yes Daily [place] Threshld On Alert? Average Venticular Rate On [...] Specimen Performing Laboratory Blood MAIN LAB [address] [place] [address] * TROPONIN-I (03/31/2017 6:56 AM) Component Value Ref Range Troponin-I 5.80 (H) 0.0 - 0.05 NG/ML Specimen Performing Laboratory Blood MAIN LAB [address] [place] [address] * MAGNESIUM (03/31/2017 4:08 AM) Component Value Ref Range Magnesium 2.1 1.6 - 2.6 mg/dL Specimen Performing Laboratory MAIN LAB [address] [place] [address] * COMPREHENSIVE METABOLIC PANEL (03/31/2017 4:08 AM) [...] questions. Specimen Performing Laboratory Blood MAIN LAB [address] [place] [address] * CBC (03/31/2017 4:08 AM) Component Value [...] - 11 FL Specimen Performing Laboratory Blood [facility]U MAIN LAB [address] [place] [address] * TROPONIN-I (03/31/2017 12:53 AM) Component Value Ref Range Troponin-I 4.26 (H) 0.0 - 0.05 NG/ML Specimen Performing Laboratory Blood [facility]U MAIN LAB [address] [place] [address] * EP STUDY (03/30/2017 10:30 PM) Specimen Performing Laboratory OTHER OUTSIDE LAB Impressions : Partially successful ablation of VT from the intramural outflow tract region and LV [place] Alcohol septal ablation performed by Dr. Mustapha [...] was performed with a small high septal new business clerk branch.It often suppressed the tachycardia but later [...] Follows with Dr. Ledbetter and Dr. Lozano ([place], [place]) AAD: Sotalol 80 bid (ineffective at [...] was performed with a small high septal new business clerk branch.It often suppressed the tachycardia but later [...] # Atrial fibrillation -November 2016: Cardioversion in [place], [place] # CAD s/p PCI -09/09/2011 - Cardiac Catheterization:3x8 mm Promus to LAD.PTCA to Diagonal.([facility]) 09/17/2012 - Cardiac Catheterization:No evidence of obstructive CAD.Abnormal LV systolic function.Mildly elevated LV filling pressures.Normal RV filling pressures.Abnormal PAP.1+ MVR.([facility]). 10/04/2013 - Stress Test:Normal LV size with [...] for continuous blood pressure monitoring. An 8.5 [place] SR-0, 8 Fr short, and 6 Fr [...] femoral vein into the right heart. A Bluespec quadripolar diagnostic catheter was advanced to the RV apex. A Biosense Rogers D-F CS catheter was placed into the coronary sinus.A Biosense Rogers SF D-F Ablation catheter was advanced through the SR-0 to the His position. INTRACARDIAC ECHO:Intracardiac echocardiography was performed under the guidance of fluoroscopy. Cardiac anatomy was assessed and contours were drawn using CARTOPersonetaund. The origin of the left main coronary [...] was performed with a small high septal new business clerk branch.It often suppressed the tachycardia but later [...] 900 msec, P wave duration 103 ms, AR interval 185 msec, QRSd 115 msec, QT 452 msec. Incomplete RBBB Final Intervals Surface QRS: Sinus CL 980 msec, P wave duration 103 ms, AR interval 176 msec, QRSd 126 msec, QT 452 msec. RBBB morphology. AH interval 93 msec, HV interval 56 msec. AV Wenkebach: 400 msec VA Wenkebach: 390 msec. AV Node ERP: 600/380/360 msec Atrial ERP: 600/320 msec Ventricular ERP (at [facility] [place]): 350/220/210; 400/220/210; 600/250/240 msec DEVICE PROGRAMMING AND [...] - 0.05 NG/ML Specimen Performing Laboratory Blood [facility] [address] [place] [address] 67784 * POC ACTIVATED CLOTTING TIME (03/30/2017 6:52 PM) Component Value Ref Range Activated Clotting Time 159 s Specimen Performing Laboratory [facility] [address] [place] [address] 60332 * POC ACTIVATED CLOTTING TIME (03/30/2017 5:43 PM) Component Value Ref Range Activated Clotting Time 371 s Specimen Performing Laboratory [facility] [address] [place] [address] 47828 * POC ACTIVATED CLOTTING TIME (03/30/2017 5:25 PM) Component Value Ref Range Activated Clotting Time 368 s Specimen Performing Laboratory [facility] [address] [place] [address] 08787 * POC ACTIVATED CLOTTING TIME (03/30/2017 5:01 PM) Component Value Ref Range Activated Clotting Time 373 s Specimen Performing Laboratory [facility] [address] [place] [address] 09467 * POC ACTIVATED CLOTTING TIME (03/30/2017 4:31 PM) Component Value Ref Range Activated Clotting Time 373 s Specimen Performing Laboratory [facility] [address] [place] [address] 96136 * POC ACTIVATED CLOTTING TIME (03/30/2017 3:50 PM) Component Value Ref Range Activated Clotting Time 379 s Specimen Performing Laboratory [facility] [address] [place] [address] 60918 * POC ACTIVATED CLOTTING TIME (03/30/2017 3:28 PM) Component Value Ref Range Activated Clotting Time 389 s Specimen Performing Laboratory [facility] [address] [place] [address] 03832 * POC ACTIVATED CLOTTING TIME (03/30/2017 2:59 PM) Component Value Ref Range Activated Clotting Time 376 s Specimen Performing Laboratory [facility] [address] [place] [address] 94301 * POC ACTIVATED CLOTTING TIME (03/30/2017 2:27 PM) Component Value Ref Range Activated Clotting Time 382 s Specimen Performing Laboratory [facility] [address] [place] [address] 28648 * POC ACTIVATED CLOTTING TIME (03/30/2017 1:57 PM) Component Value Ref Range Activated Clotting Time 382 s Specimen Performing Laboratory [facility] [address] [place] [address] 76242 * POC ACTIVATED CLOTTING TIME (03/30/2017 1:15 PM) Component Value Ref Range Activated Clotting Time 173 s Specimen Performing Laboratory [facility] [address] [place] [address] 73655 * TYPE & CROSSMATCH (03/30/2017 8:40 AM) Component Value Ref Range Units Ordered 2 Crossmatch Expires 04/02/2017 Record Check FOUND ABO/RH(D) A POS Antibody Screen NEG Electronic Crossmatch YES Specimen Performing Laboratory Blood [facility] [address] [place] [address] 88915 * POC PT/INR (03/30/2017 8:29 AM) Component Value Ref Range INR POC 1.1 0.8 - 1.2 Specimen Performing Laboratory [facility] [address] [place] [address] 82821 * MAGNESIUM (03/30/2017 4:08 AM) Component Value Ref Range Magnesium 1.9 1.6 - 2.6 mg/dL Specimen Performing Laboratory [facility] [address] [place], [place] [id number] * COMPREHENSIVE METABOLIC PANEL (03/30/2017 4:08 AM) [...] Specimen Performing Laboratory [facility] [address] [place] [address] * CBC (03/30/2017 4:08 AM) Component Value [...] - 11 FL Specimen Performing Laboratory [facility] [address] [place] [address] * TROPONIN-I (03/30/2017 4:08 AM) Component Value Ref Range Troponin-I <0.01 0.0 - 0.05 NG/ML Specimen Performing Laboratory [facility] [address] [place] [address] * TROPONIN-I (03/29/2017 9:26 PM) Component Value Ref Range Troponin-I <0.01 0.0 - 0.05 NG/ML Specimen Performing Laboratory [facility] [address] [place] [address] * CHEST SINGLE VIEW (03/29/2017 4:05 PM) [...] Specimen Performing Laboratory Blood [facility] [address] [place] [address] * BNP (B-TYPE NATRIURETIC PEPTI) (03/29/2017 3:55 PM) Component Value Ref Range B Type Natriuretic 446.0 (H) 0 - 100 PG/ML Peptide Specimen Performing Laboratory [facility] [address] [place] [address] * PHOSPHORUS (03/29/2017 3:55 PM) Component Value Ref Range Phosphorus 3.5 2.0 - 4.0 MG/DL Specimen Performing Laboratory Blood [facility] [address] [place] [address] * MAGNESIUM (03/29/2017 3:55 PM) Component Value Ref Range Magnesium 2.1 1.6 - 2.6 mg/dL Specimen Performing Laboratory Blood [facility] [address] [place] [address] * COMPREHENSIVE METABOLIC PANEL (03/29/2017 3:55 PM) [...] questions. Specimen Performing Laboratory [facility] [address] [place] [address] * PTT (APTT) (03/29/2017 3:55 PM) Component Value Ref Range APTT 31.3 24.0 - 40.0 SEC Specimen Performing Laboratory Blood [facility] [address] [place] [address] 938[address] * PROTIME INR (PT) (03/29/2017 3:55 PM) Component Value Ref Range INR 1.4 (H) 0.8 - 1.2 Specimen Performing Laboratory [facility] [address] [place] [address] 8[address] * CBC AND DIFF (03/29/2017 3:55 PM) [...] - 0.20 K/UL Specimen Performing Laboratory [facility] [address] [place] [address] in this encounter Visit Diagnoses Not on filein this encounter Admitting Diagnoses Diagnosis Vtach VT (ventricular tachycardia) (HCC) in this encounter
--- OUTSIDE RECORDS SUMMARY | 2017-06-04 21:53 | XMS REPORT | Encounter Summary ---
Author Author [facility] Organization [facility] Address Unknown Phone Unavailable Care Team Providers Care Clearance Center Manager Name Role Phone PCP Unavailable Reason for Visit * Auth/Cert Status Reason Specialty Diagnoses / Referred By Referred To Procedures Contact Contact Diagnoses Vtach VT (ventricular tachycardia) ([facility]) Encounter Details Date Type Department Care Team Description 03/29/[address] [facility] [place] [address] [place], [place] [id number] [place] [address] [phone] Social History Tobacco Use Types Packs/Day Years Used Date Never Smoker Smokeless Tobacco: Never Used Alcohol Use Drinks/Week oz/Week Comments No social Sex Assigned at Date Recorded Not on file as of this encounter Last Filed Vital Signs Vital Sign Reading Time Taken Blood Pressure - - Pulse - - Temperature - - Respiratory Rate - - Oxygen Saturation - - Inhaled Oxygen - - Concentration Weight 86.2 kg (190 lb) 03/29/2017 2:20 PM CDT Height 185.4 cm (6' 1") 03/29/2017 2:20 PM CDT Body Mass Index 25.07 03/29/2017 2:20 PM CDT in this encounter Functional Status Functional [...] impairment: No 11/16/2016 as of this encounter Progress Notes * Ben Ledbetter MD - 03/29/2017 2:30 PM CDT Formatting of this note may be different from the original. Date of Service: 03/29/2017 Srinivasa Torres is a 76 y.o. male. HPI Patient presented today to the office and sustained VT. He was below his devices VT detection. His VT detection was at 133 bpm his VT was at 130 bpm. He was spontaneously terminating maintaining sinus rhythm for a few beats and then going back and VT. He was hemodynamically stable but has been feeling markedly more fatigued lately. He is especially been having problems during the morning hours as opposed to the afternoon, per him and his . He denies any tachypalpitations and he has not had any near-syncope or syncope. Refer to prior hospital notes regarding his recent VT and VT ablation back in November 2016, By Dr. Lemus. I briefly visited with and Mrs. Torres regarding his VT and the fact that we were calling an ambulance to transfer him straight to [facility] for further evaluation and treatment of his VT. EMS has arrived I have not lowered his VT detection at this time since it would result in repeated ICD shocks and since he is hemodynamically stable. I did however put in an order with EMS to administer amiodarone 150 mg IV bolus as soon as he is in the ambulance and stable. I also inform them that his VT/ F VT/VF zones are still intact, turned on, and will deliver therapy if his arrhythmia worsens. I spoke with the EP VEST BUSHELER Mona Irene to inform him the patient was coming. However he will be coming through the ED. She was asked to communicate with Dr. Garcia and the rounding physician that would be receiving him. Vitals: 03/29/17 1420 Weight: 86.2 kg (190 lb) Height: 1.854 m (6' 1") Body mass index is 25.07 kg/(m^2). Past Medical History Patient Active Problem List Diagnosis Date Noted Nonsustained ventricular tachycardia (HCC) 10/08/2015 Cardiac function test abnormal 10/08/2015 10/04/13: Echo: Normal LV function: EF 60%. Diastolic dysfunction. LA dilation. Mod MR, TR. PA 45mmHg. 1/31/14: Stress test: No ischemia or infarct. EF [...] and TR. PAP ~ 45 mmHg. ([facility]). 12/02/14: Stress test: Tolerated well. SR with no ischemic changes. EF 48. Mildly prominent LV with preserved contractility. Normal. SSS (sick sinus syndrome) ([facility]) 12/25/2014 Medtronic DC PPM in place with [employer] remote monitoring. Wide-complex tachycardia ([facility]) 08/19/2014 Cardiac device in situ 05/27/2014 Medtronic Linq + remote monitoring. Chronic anticoagulation 02/20/2014 On Eliquis CAD (coronary artery disease), [place] coronary artery 02/20/2014 09/09/2011 - Cardiac Catheterization: 3x8 mm Promus to LAD. PTCA to Diagonal. ([facility]) 09/17/2012 - Cardiac Catheterization: No evidence of obstructive CAD. Abnormal LV systolic function. Mildly elevated LV filling pressures. Normal RV filling pressures. Abnormal PAP. 1+ MVR. ([facility]) . 10/04/2013 - Stress Test: Normal LV size with good contractility. Calculated EF=62%. ([facility]). PAF (paroxysmal atrial fibrillation) ([facility]) 02/20/2014 Carotid artery stenosis 02/20/2014 11/10/2013 - Carotid duplex Ultrasound: No hemodynamically significant internal carotid artery stenosis. Estimated diameter reduction of < 50%. ( [place]). Essential hypertension 02/20/2014 HLD (hyperlipidemia) 02/20/2014 Review of Systems Constitution: Positive for decreased appetite, diaphoresis, weakness and malaise /fatigue. HENT: Positive for hearing loss. Eyes: Positive for blurred vision. Cardiovascular: Positive for dyspnea on exertion, orthopnea and paroxysmal nocturnal dyspnea. Respiratory: Positive for shortness of breath. Endocrine: Positive for heat intolerance, polydipsia and polyuria. Hematologic/Lymphatic: Negative. Skin: Positive for flushing. Musculoskeletal: Negative. Gastrointestinal: Positive for bloating and flatus. Genitourinary: Negative. Neurological: Positive for excessive daytime sleepiness, dizziness, focal weakness, light-headedness and loss of balance. Psychiatric/Behavioral: Negative. Allergic/Immunologic: Negative. Physical Exam Problems Addressed Today No diagnosis found. Current Medications (including today's revisions) apixaban (ELIQUIS) 5 mg tab tablet Take [...] Take 80 mg by mouth twice daily. in this encounter Plan of Treatment Name Priority Associated Diagnoses Order Schedule ECG 12-LEAD Routine VT (ventricular Ordered: 03/29/2017 tachycardia) ([facility]) PAF (paroxysmal atrial fibrillation) ([facility]) Coronary artery disease involving [place] coronary artery of [place] heart without angina pectoris Essential hypertension Mixed hyperlipidemia Biventricular implantable cardioverter-defibrillato r (ICD) in situ as of this encounter Visit Diagnoses Diagnosis VT (ventricular tachycardia) ([facility]) - Primary Paroxysmal ventricular tachycardia PAF (paroxysmal atrial fibrillation) ([facility]) Atrial fibrillation Coronary artery disease involving [place] coronary artery of [place] heart without angina pectoris Essential hypertension Unspecified essential hypertension Mixed hyperlipidemia Biventricular implantable cardioverter-defibrillator (ICD) in situ in this encounter
--- OUTSIDE RECORDS SUMMARY | 2017-06-04 21:54 | XMS REPORT | Encounter Summary ---
Author Author [facility] Organization [facility] Address Unknown Phone Unavailable Care Team Providers Care Loading Unit Operator Powder Charging Name Role Phone PCP Unavailable Reason for Visit * Auth/Cert Status Reason Specialty Diagnoses / Referred By Referred To Procedures Contact Contact Diagnoses Vtach VT (ventricular tachycardia) ([facility]) Encounter Details Date Type Department Care Team Description 03/29/2017 [facility] Cardiology Ben Ledbetter MD Encounter [id number] [facility] [address] [place] [address] [place] [address] [phone] Social History Tobacco Use Types Packs/Day Years [...] impairment: No 11/16/2016 as of this encounter Medications at Time of Discharge Medication Sig. Disp. Refills Start Date End Date apixaban (ELIQUIS) 5 mg Take 5 mg by mouth twice tab tablet daily. aspirin EC 81 mg Take 1 Tab by mouth 90 Tab 3 10/04/2016 tabletIndications: daily. Take with food. Chronic anticoagulation, Coronary artery disease involving [place] coronary artery of [place] heart without angina pectoris, PAF (paroxysmal atrial [...] twice 180 Tab 3 2016 tab daily. metoprolol XL (TOPROL XL) Take 25 mg by mouth twice 04/02/2017 25 mg extended release daily. tablet mexiletine (MEXITIL) 200 Take 200 mg by mouth 04/02/2017 mg capsule every 12 hours. sotalol (BETAPACE) 80 mg Take 80 mg by mouth twice 04/02/2017 tablet daily. as of this encounter Plan of Treatment Not on fileas of this encounter Results * DEVICE EVALUATION - ICD (03/29/2017 2:20 PM) Component Value Ref Range RV Lead Model # SPRINT QUATTRO SECURE S MRI LANCE 6935M-62CM RV Lead Serial # [id number] RV Lead Implant Date 11/14/2016 RV Lead Diaph. 10 Stimulation RV Lead Pricing Coordinator Medtronic RV Lead Fixation active fixation RV Lead Location RV low septum RV Lead Pin Connector ICD IS1 RV Lead Coil Single Generator Model # EVERA MRI XT DR LUCAS [id number] Generator Serial # [id number] Generator Implnat Date 11/14/2016 Generator Pricing Coordinator Medtronic Generator Investigational No Device Type DDD-ICD Device [place] Carelink Express Transmitter Compatible Atrial Lead Model # CAPSUREFIX NOVUS MRI SURESCAN 5076-52CM Atrial Lead Serial # [id number] Atrial Lead Implant Date 08/22/2014 Atrial Lead Diaph. N/A Stimulation Atrial Lead Pricing Coordinator Medtronic Atrial Lead No Investigational Atrial Lead Fixation active fixation Atrial Lead Location right atrial appendage Atrial Lead Pin Connector IS1 Atrial Lead Polarity Bipolar Device Mode AAIR/DDDR Lower Rate Limit 80 Upper Rate Limit 110 Sensor Rate Limit 110 Pace AV Delay 180 Sense AV Delay 150 VT Monitor 111 VT Detect Rate (bpm) 133 VT Detect Rate Tx ATP/SHOCK FVT Detect Rate (bpm) 188 FVT Detect Rate Tx ATP/SHOCK VF Detect Rate (bpm) 250 VF Detect Rate Tx ATP/SHOCK Mode Switch (bpm) 150 High A Rate Detect 150 High V Rate Detect 133 Mode Switch Status On Device Implanted By HOME ENERGY CONSULTANT EP Device Followed by MPE Name Pacemaker Dependant No EP Device Followed By MAC Date of Last Programming 03/29/17 HF Patient Yes Date of Last Remote Check 02/17/17 Next Remote Check Due 05/19/17 AT/AF Daily [place] Hours 6 Average Vent Rate during 100 AT/AF #BPM Average Vent Rate During 6 AT/AF #Hours Remote Monitoring? Yes Daily [place] Threshld On Alert? Average Venticular Rate On AT/AF On/Off VF Detection/Therapy Off On -VS% 1.7 -WAREHOUSE INVENTORY CLERK% <1 -VS% 96.8 AP-WAREHOUSE INVENTORY CLERK% 1.5 # Mode S. Events 0 # of VT Events 46 # of NSVT Events 4316 VT-NS and 97 VT-mon Single PVSc 74.6/hr (was54) PVC runs 18.3/hr (was4.0) Battery Voltage 3.06 Charge Time 3.7 Defib Lead Imped 73 A Sense mv 4.8 A Capture V 1.0 A Capture ms 0.4 A Lead ohms 475 RV Sense mv 7.6 RV Capture V 0.5 RV Capture ms 0.4 RV Lead ohms 513 Counters Clrd Yes Saved to Disc No Device Function WNL Yes Device Reprogram No Ao Voltage 1.75A AO Pulse Width 0.4 RV Voltage 1.5 RV Pulse Width 0.4 Estimated Longevity 8.5 to 10.3 years Initial Rhythm APVS 60s and in and out of VT in the 130s and 140s. Programming? Yes Interrogation? Yes ICM Evaluation Yes Remote Check? No Specimen Performing Laboratory OTHER OUTSIDE LAB Narrative [03/29/2017 3:23:23 PM - [facility]] Dual chamber ICD programming + ICM.Device function appears normal.Pt in and out of VT today 130s/140s. Events noted since 02/10/17: Atrial:0 Ventricular:46 treated (ATP only-no shocks) VT episodes. 4316 VT-NS and 97 VT monitored (111 to 133 bpm monitor zone) episodes. All egms show VT. Trends show pt has had an increase in VT episodes since about mid February. V rates mostly 120s to 140s. VT monitor zone is programmed 111 bpm and therapy zones start at 133 bpm. ATP only occasionally successful at terminating VT. 28 Treated VT/VF episodes longer than 30 seconds. 97 monitored VT episodes, longest 20 minutes. Thoracic Impedance trend shows possible fluid accumulation and/or possible early heart failure. Changes made to programming:none Carelink remote monitoring is in place. Will continue to monitor. Report given to TERESITA in clinic. Pt to be admitted to . in this encounter Visit Diagnoses Diagnosis PAF (paroxysmal atrial fibrillation) (HCC) Atrial fibrillation VT (ventricular tachycardia) (HCC) Paroxysmal ventricular tachycardia ICD (implantable cardioverter-defibrillator), dual, in situ in this encounter
[2017-06-04 22:15] VITALS: BP 153/94
[2017-06-04] MEDS ORDERED: SOTALOL PO (22:54)
[2017-06-04 23:00] VITALS: BP 150/93
[2017-06-05 00:06] VITALS: BP 127/75
[2017-06-05 04:08] VITALS: BP 125/69
[2017-06-05 04:11] LABS: BASOPHILS % (AUTO) 0 % (0-10); EOSINOPHILS # (AUTO) 0.4 10^3/uL (0.0-0.3); EOSINOPHILS % (AUTO) 5 % (0-10); LYMPHOCYTES # (AUTO) 1.7 X 10^3 (1.0-4.0); LYMPHOCYTES % (AUTO) 19 % (12-44); MEAN CORPUSCULAR HEMOGLOBIN 29 PG (25-34); MEAN CORPUSCULAR HGB CONC 33 G/DL (32-36); MEAN CORPUSCULAR VOLUME 87 FL (80-99); MEAN PLATELET VOLUME 11.8 FL (7.4-10.4); MONOCYTES % (AUTO) 11 % (0-12); NEUTROPHILS # (AUTO) 5.8 X 10^3 (1.8-7.8); NEUTROPHILS % (AUTO) 65 % (42-75); PLATELET COUNT 168 10^3/uL (130-400); RED BLOOD COUNT 4.46 10^6/uL (4.35-5.85); RED CELL DISTRIBUTION WIDTH 14.1 % (10.0-14.5); WHITE BLOOD COUNT 8.9 10^3/uL (4.3-11.0)
[2017-06-05 04:31] LABS: ALANINE AMINOTRANSFERASE 18 U/L (0-55); ALBUMIN 3.2 GM/DL (3.2-4.5); ANION GAP 9 MMOL/L (5-14); ASPARTATE AMINO TRANSFERASE 18 U/L (5-34); BILIRUBIN,TOTAL 0.8 MG/DL (0.1-1.0); BLOOD UREA NITROGEN 20 MG/DL (7-18); BUN/CREATININE RATIO 28; CALCIUM 8.9 MG/DL (8.5-10.1); CARBON DIOXIDE 23 MMOL/L (21-32); CHLORIDE 111 MMOL/L (98-107); CREATININE SERUM 0.72 MG/DL (0.60-1.30); GFR ESTIMATED > 60; GLUCOSE 99 MG/DL (70-105); POTASSIUM 3.8 MMOL/L (3.6-5.0); SODIUM 143 MMOL/L (135-145); TOTAL PROTEIN 5.3 GM/DL (6.4-8.2)
[2017-06-05] MEDS ORDERED: INFLUENZA TRIvalent 2017-2018 0.5 ML/45 MCG SYR IM ONE (07:15)
[2017-06-05 08:00] VITALS: BP 136/86
--- NOTE | 2017-06-05 08:28 | Diagnostic Imaging Report ---
PROCEDURE: CT head without contrast. TECHNIQUE: Multiple contiguous axial images were obtained through the brain without the use of intravenous contrast. INDICATION: Syncope. FINDINGS: There is no intracranial hemorrhage, edema or mass effect. The brain parenchyma and page-white matter differentiation is preserved. No hydrocephalus. No extra-axial fluid collections seen. The calvarium, the paranasal sinuses and the orbits visualized portions appear unremarkable. There is a tiny right parietal scalp hematoma seen. IMPRESSION: No intracranial hemorrhage. Tiny right parietal scalp hematoma. Dictated by: Dictated on workstation # [id number]
--- NOTE | 2017-06-05 08:47 | Consultation-Cardiology ---
HPI-Cardiology Cardiology Consultation Date of Consultation 06/05/17 Date of Admission Time Seen by Provider: 08:40 Indication: syncope HPI 76 years old gentleman with history of nonsustained ventricular tachycardia, coronary artery disease, had multiple ablation in the past, intolerance to multiple medications. Was walking out of his car in the garage when he fell backward, had a full syncopal episode, does not recall the event, did not have any palpitation, had an injury to his back and head, was beside him and brought him to the emergency room, regained consciousness immediately. No shock was delivered from his differential device. He denied any chest pain. While he was on telemetry he was having multiple episodes of lightheadedness and feeling numb while he is having episodes of tachycardia. Otherwise he has been in paced rhythm. He has been having increasing shortness of breath on exertion which has been worse recently Home Medications & Allergies Allergies: Coded Allergies: No Known Drug Allergies (Unverified , 10/04/13) Home Medication List Reviewed: Yes UDH-[id number] Hx Patient Social History Marital Status: Employed/Student: retired Alcohol Use: Denies Use Recreational Drug Use: No Smoking Status: Former Smoker Type Used: Cigarettes Recent Foreign Travel: No Recent Infectious Disease Expo: No Recent Hopitalizations: Yes ( FOR HEART CHECK UP-JANUARY 2017) Physical Abuse Screen: No Sexual Abuse: No Immunizations Up To Date Date of Pneumonia Vaccine: Jun 05, 2015 Date of Influenza Vaccine: May 05, 2016 Past Medical History past medical history is discussed below Family Medical History Family History: 19 FATHER FH: heart disease 19 MOTHER FH: heart disease G8 BROTHER FH: CHF (congestive heart failure) Dementia FH: throat cancer Relation not specified for: Dysphasia Constitutional: see HPI, weakness EENTM: see HPI, no symptoms reported Respiratory: see HPI, No cough, dyspnea on exertion, No hemoptysis, No orthopnea, No phlegm, No short of breath, No stridor, No wheezing, No other Cardiovascular: see HPI, No chest pain, No edema, No Hx of Intervention, palpitations, syncope, No vascular heart diseas, No other Gastrointestinal: see HPI, other (abdominal distention) Genitourinary: no symptoms reported, see HPI Musculoskeletal: see HPI, back pain, joint pain Skin: no symptoms reported, see HPI Psychiatric/Neurological: No Symptoms Reported, See HPI Reviewed Test Results Reviewed Test Results Lab Laboratory Tests Test 06/05/17 03:30 Range/Units White Blood Count 8.9 4.3-11.0 10^3/uL Red Blood Count 4.46 4.35-5.85 10^6/uL Hemoglobin 12.8 L 13.3-17.7 G/DL Hematocrit 39 L 40-54 % Mean Corpuscular Volume 87 80-99 FL Mean Corpuscular Hemoglobin 29 25-34 PG Mean Corpuscular Hemoglobin Concent 33 32-36 G/DL Red Cell Distribution Width 14.1 10.0-14.5 % Platelet Count 168 130-400 10^3/uL Mean Platelet Volume 11.8 H 7.4-10.4 FL Neutrophils (%) (Auto) 65 42-75 % Lymphocytes (%) (Auto) 19 12-44 % Monocytes (%) (Auto) 11 0-12 % Eosinophils (%) (Auto) 5 0-10 % Basophils (%) (Auto) 0 0-10 % Neutrophils # (Auto) 5.8 1.8-7.8 X 10^3 Lymphocytes # (Auto) 1.7 1.0-4.0 X 10^3 Monocytes # (Auto) 1.0 0.0-1.0 X 10^3 Eosinophils # (Auto) 0.4 H 0.0-0.3 10^3/uL Basophils # (Auto) 0.0 0.0-0.1 10^3/uL Sodium Level 143 135-145 MMOL/L Potassium Level 3.8 3.6-5.0 MMOL/L Chloride Level 111 H 98-107 MMOL/L Carbon Dioxide Level 23 21-32 MMOL/L Anion Gap 9 5-14 MMOL/L Blood Urea Nitrogen 20 H 7-18 MG/DL Creatinine 0.72 0.60-1.30 MG/DL Estimat Glomerular Filtration Rate > 60 BUN/Creatinine Ratio 28 Glucose Level 99 70-105 MG/DL Calcium Level 8.9 8.5-10.1 MG/DL Total Bilirubin 0.8 0.1-1.0 MG/DL Aspartate Amino Transf (AST/SGOT) 18 5-34 U/L Alanine Aminotransferase (ALT/SGPT) 18 0-55 U/L Alkaline Phosphatase 88 40-136 U/L Total Protein 5.3 L 6.4-8.2 GM/DL Albumin 3.2 3.2-4.5 GM/DL Physical Exam Vital Signs Vital Sign - Last 12Hours 06/04/17 06/04/17 21:10 21:48 Temp 98.1 Pulse 73 Resp 12 B/P (MAP) 131/88 Pulse Ox 97 O2 Delivery Room Air Capillary Refill : General Appearance: WD/WN, Moderate Distress Eyes: Bilateral Eye Normal Inspection, Bilateral Eye PERRL, Bilateral Eye EOMI HEENT: PERRL/EOMI, TMs Normal, Normal ENT Inspection, Pharynx Normal Neck: Full Range of Motion, Normal Inspection, Non Tender, Supple, Carotid Bruit Respiratory: Chest Non Tender, Lungs Clear, Normal Breath Sounds, No Accessory Muscle Use, No Respiratory Distress Cardiovascular: Regular Rate, Rhythm, No Edema, No Gallop, No JVD, Normal Peripheral Pulses, Systolic Murmur Gastrointestinal: Normal Bowel Sounds, No Organomegaly, No Pulsatile Mass, Non Tender, Soft Back: Normal Inspection, No CVA Tenderness, No Vertebral Tenderness Extremity: Normal Capillary Refill, Normal Inspection, Normal Range of Motion, Non Tender, No Calf Tenderness, No Pedal Edema Neurologic/Psychiatric: Alert, Oriented x3, No Motor/Sensory Deficits, Normal Mood/Affect Skin: Normal Color, Warm/Dry Lymphatic: No Adenopathy A/P-Cardiology Admission Diagnosis (1) Syncope Qualifiers: Qualified Codes: R55 - Syncope and collapse Status: Acute Assessment & Plan: Syncopal episode is probably due to arrhythmia, I will interrogate his ICD and evaluate for any possible arrhythmia during the syncopal episode. Had history of negative tilt table test in the past, the possibility of having vasovagal syncope is still present (2) Head trauma Status: Acute Assessment & Plan: managed by primary care physician (3) Ventricular tachycardia Status: Acute Assessment & Plan: History of polymorphic ventricular tachycardia, had extensive radiofrequency ablation done in [place] [address] Mckeon, reported as ventricle tachycardia from high outflow septum 2 different origin, successful ablation of the RVOT and LVOT, resulted in ICD implantation. Had another 2 ablation procedures done late in March 2017, discharged from , intolerant to amiodarone due to side effect of shakiness and elevated LFTs, had polymorphic ventricular tachycardia, has been on Sotalol, Intolerant to Mexiletine (4) Long QT interval Status: Acute Assessment & Plan: probably secondary to medication, evaluate magnesium level (5) Paroxysmal atrial fibrillation Status: Chronic Assessment & Plan: Maintained on sotalol and Eliquis, currently both on hold due to the syncope and long QT interval [id number] score is 4, yearly risk of stroke without oral anticoagulation is 4 percent, has been maintained on Eliquis as an outpatient. Currently on hold. (6) SSS (sick sinus syndrome) Status: Chronic Assessment & Plan: History of permanent pacemaker/ICD implantation (7) CAD (coronary artery disease) Qualifiers: Status: Chronic Assessment & Plan: History of stent to the diagonal artery done in 2011. Last cardiac catheterization was done in August 2014 which showed 40-50 percent proximal LAD stenosis with patent stent otherwise no significant obstructive disease, normal LV size and function, evaluate cardiac enzymes, evaluate echocardiogram (8) Elevated liver enzymes Status: Chronic Assessment & Plan: Intolerant to amiodarone and statin, liver enzymes are back to normal. Continue to monitor (9) Hyperlipemia, mixed Status: Chronic Assessment & Plan: intolerant to statin due to elevated liver enzymes (10) Shortness of breath Status: Chronic Assessment & Plan: no change from baseline at this time. Continue to monitor (11) HTN (hypertension) Status: Chronic Assessment & Plan: continue to monitor blood pressure, I will not restart his medication at this time. Assessment/Plan Shortness of breath on exertion, echocardiogram was done on March 09, 2017 showing normal left ventricle size with ejection fraction 45-50 percent, LVH, PA pressure 45-50 mmHg Coronary artery disease, history of stent to the diagonal artery done in 2011. Last cardiac catheterization was done in August 2014 which showed 40-50 percent proximal LAD stenosis with patent stent otherwise no significant obstructive disease, normal LV size and function. Sick sinus syndrome/ Paroxysmal atrial fibrillation. Status post polymorphic ventricular tachycardia, had extensive radiofrequency ablation done in [place] [address] Mckeon, reported as ventricle tachycardia from high outflow septum 2 different origin, successful ablation of the RVOT and LVOT, resulted in ICD implantation. Had another 2 ablation procedures done late in March 2017 History of multiple episode of ventricular tachycardia, intolerant to amiodarone due to side effect of shakiness and elevated LFTs, had polymorphic ventricular tachycardia, had an ICD implant after the ablation of the RVOT and LVOT in November, another 2 ablation procedures done in March 2017. Moderate mitral regurgitation, last echocardiogram showed mild MR. Continue to monitor Hypertension Hyperlipidemia History of Elevated LFTs-improved since discontinuation of amiodarone and Crestor. Family history of coronary artery disease, History of dizziness and syncope. Had a tilt table test done in the past and reported as negative Carotid artery stenosis-Mild nonobstructive disease, last ultrasound was done in February 2016 and I will evaluate carotid ultrasound Venous stasis changes in the lower extremity, complaining of numbness and swelling by the end of the day, improved. ABIs done February 2016 within normal limits. Clinical Quality Measures DVT/VTE Risk/Contraindication: Risk Factor Score Per Nursin RFS Level Per Nursing on Admit: 2=Moderate ORLIN CORONADO MD Jun 05, 2017 08:47
[2017-06-05] MEDS ORDERED: SOTA120T PO (09:56)
[2017-06-05] MEDS ORDERED: ATOR40TA70 PO (09:56)
[2017-06-05] MEDS ORDERED: MULT-35 PO (09:56)
[2017-06-05] MEDS ORDERED: NS IV 1000 ML 1,000 ML ONE (11:58)
[2017-06-05 12:00] VITALS: BP 128/78
[2017-06-05] MEDS ORDERED: NS IV 1000 ML 1,000 ML IV SCH (12:15)
[2017-06-05] MEDS ORDERED: CATHETER FLUSH 10 ML SYR IV PRN (12:15)
--- NOTE | 2017-06-05 13:30 | Clinic Account Progress/Dx ---
Clinic Account Progress/Dx DIAGNOSIS: Date Seen by Provider: Jun 05, 2017 Time Seen by Provider: 09:00 Syncope Ventricular tachycardia Coronary artery disease Paroxysmal atrial fibrillation Sick sinus syndrome ORLIN CORONADO MD Jun 05, 2017 1:30 pm
== END 2017-06-05 14:15 | disposition designated cancer center or children's hospital (05) ==
LOC: ICU 21:10 → UNDOADMOB 21:44 → UNDODISOB 06-05 14:15
PROVIDERS: ADMIT Internal Medicine; ATTEND Internal Medicine
DX: R55 Syncope and collapse (principal); R00.2 Palpitations; I48.0 Paroxysmal atrial fibrillation; I49.5 Sick sinus syndrome; I25.10 Atherosclerotic heart disease of native coronary artery without angina pectoris; R74.8 Abnormal levels of other serum enzymes; E78.5 Hyperlipidemia, unspecified; R06.02 Shortness of breath; I10 Essential (primary) hypertension
CPT/HCPCS: 36415; 70450; 80053; 83735; 85025; 93005; 93306; 99211

== ENCOUNTER → 2017-12-28 | Outpatient (CLI) | payer MEDICARE, BC ==
[~2017-12-28] VITALS: Ht 185.4 cm; Wt 84.1 kg
[~2017-12-28] MED LIST changes: +ACHD5005 PO; +ATOR40TA70 PO; -METO-270 PO; +METO-387 PO; +MULT-35 PO; +OMEG-35 PO; +SOTA120T PO; +SOTALOL PO
== END ==
LOC: PREOP 10:06
PROVIDERS: ATTEND Surgery
DX: Z01.818 Encounter for other preprocedural examination (principal); Z12.11 Encounter for screening for malignant neoplasm of colon; Z80.0 Family history of malignant neoplasm of digestive organs

== ENCOUNTER 2018-01-01 10:43 | Day surgery (SDC) | payer BC, MEDICARE ==
[~2018-01-01] VITALS: Ht 185.4 cm; Wt 84.1 kg
[~2018-01-01 10:43] MED LIST changes: -ACHD5005 PO
--- OUTSIDE RECORDS SUMMARY | 2018-01-01 10:46 | XMS REPORT | Continuity of Care Document ---
Author Author [employer] Organization [facility] Address Unknown Phone Unavailable Care Team Providers Care Internal Controls Analyst Name Role Phone [employer] Unavailable Unavailable Problems Medications Allergies, Adverse Reactions, Alerts Immunizations Results Vital Signs Encounters Location Location Details Encounter Type Encounter Number Reason For Visit Attending Provider ADM Date DC Date Status Source OUTPATIENT [id number] JEEVAN HENRIQUEZ 02/17/2017 02/17/2017 Active [facility] OUTPATIENT [id number] JEEVAN HENRIQUEZ 03/29/2017 03/29/2017 Active [facility] OUTPATIENT [id number] JEEVAN HENRIQUEZ 05/19/2017 05/19/2017 Active [facility] INPATIENT [id number] HARI ALCALA 06/05/20172016 Active [facility] OUTPATIENT [id number] LOOKOUT ALTAGRACIA 06/20/2017 Active [facility] OUTPATIENT [id number] JEEVAN HENRIQUEZ 08/18/2017 08/18/2017 Active [facility] OUTPATIENT [id number] LOOKOUT ALTAGRACIA 09/11/20172017 Active [facility] OUTPATIENT [id number] ANTONI ALTAGRACIA 11/17/20172017 Active [facility] O Active [facility] Procedures Plan of Care Social History Assessment and Plan Family History Advance Directives Functional Status
--- OUTSIDE RECORDS SUMMARY | 2018-01-01 10:46 | XMS REPORT | Encounter Summary ---
Author Author [facility] Organization [facility] Address Unknown Phone Unavailable Care Team Providers Care Ice Puller Name Role Phone Elier Mata MD PCP Beatriz Hook RN Unavailable Unavailable Reason for Visit * Reason Comments Erroneous duplicate phone call encounter-disregard Encounter Details Date Type Department Care Team Description 12/20/2017 Telephone [facility] Sloane Coronel RN Erroneous [address] [place] [address] (duplicate phone call) [phone] Social History Tobacco Use Types Packs/Day Years Used Date Never Smoker Smokeless Tobacco: Never Used Alcohol Use Drinks/Week oz/Week Comments No social Sex Assigned at Date Recorded Not on file as of this encounter Functional Status Functional Status Response Date of Assessment Does the patient have a hearing impairment: No 06/08/2017 Does the patient have a visual impairment: No 06/08/2017 Does the patient have impaired ambulation: No 06/08/2017 Does the patient have an activity of daily living No 06/08/2017 (ADL) impairment: Does the patient have an instrumental activity of No 06/08/2017 daily living (IADL) impairment: Cognitive Status Response Date of Assessment Does the patient have a cognitive impairment: No 06/08/2017 as of this encounter Miscellaneous Notes * Telephone Encounter - Sloane Coronel RN - 12/20/2017 12:33 PM CDT ----- Message from Bita Cabrera LPN sent at 12/20/2017 11:49 AM CDT ----- Regarding: SHS- CC VM from on triage line. Said that he needs CC for dental appointment. in this encounter Plan of Treatment Not on fileas of this encounter Visit Diagnoses Not on filein this encounter
--- OUTSIDE RECORDS SUMMARY | 2018-01-01 10:46 | XMS REPORT | Clinical Summary ---
Author Author [facility] Organization [facility] Address Unknown Phone Unavailable Care Team Providers Care Dental Therapist Name Role Phone Elier Mata MD PCP Beatriz Hook RN Unavailable Unavailable Source Comments Some departments are not documenting in the electronic medical record. If you do not see the information that you expected, contact Release of Information in the Health Information Management department at [phone] for further assistance in locating additional records.[facility] Allergies No Known Allergies Current Medications Prescription [...] 17 Chronic anticoagulation, Coronary artery disease involving chitimacha coronary artery of chitimacha heart without angina pectoris, PAF (paroxysmal atrial fibrillation) (HCC), Essential hypertension, Mixed hyperlipidemia, Nonsustained ventricular tachycardia (HCC) DOCOSAHEXANOIC ACID/EPA Take 1,200 mg by mouth Active (FISH OIL PO) daily. atorvastatin (LIPITOR) 40 Take 40 mg by mouth at Active mg tablet bedtime daily. meloxicam (MOBIC) 15 mg Take 15 mg by mouth Active tablet daily. sotalol (BETAPACE) 120 mg Take 1 tablet by mouth 60 tablet 0 06/09/20 Active tab twice daily. 17 mexiletine (MEXITIL) 200 Take 1 capsule by mouth 270 capsule 3 Active mg capsule three times daily. 17 Active Problems Problem Noted Date Fatigue 06/20/2017 Ventricular arrhythmia 06/05/2017 Overview: 06/06/17 EPS VT Ablation Syncope 06/05/2017 Dual ICD (implantable cardioverter-defibrillator) in place 03/29/2017 Overview: Personal Insurance Advisor: Medtr[employer] Device Type: DDD-ICD Model Number: EVERA MRI XT DR LUCAS [id number] Serial Number: [id number] Implant Date: 11/14/2016 Nonsustained ventricular tachycardia (HCC) [...] and TR. PAP ~ 45 mmHg. ([facility]). 12/02/14: Stress test: Tolerated well. SR with no ischemic changes. EF 48. Mildly prominent LV with preserved contractility. Normal. SSS (sick sinus syndrome) ([facility]) 12/25/2014 Overview: Medtronic DC PPM in place with Carelink remote monitoring. Sustained ventricular tachycardia ([facility]) 08/19/2014 Chronic anticoagulation 02/20/2014 Overview: On Eliquis CAD (coronary artery disease), chitimacha coronary artery 02/20/2014 Overview: 09/09/2011 - Cardiac Catheterization: 3x8 mm Promus to LAD. PTCA to Diagonal. ([facility]) 09/17/2012 - Cardiac Catheterization: No evidence of obstructive CAD. Abnormal LV systolic function. Mildly elevated LV filling pressures. Normal RV filling pressures. Abnormal PAP. 1+ MVR. ([facility]). 10/04/2013 - Stress Test: Normal LV size with good contractility. Calculated EF=62%. ([facility]). PAF (paroxysmal atrial fibrillation) ([facility]) 02/20/2014 Carotid artery stenosis 02/20/2014 Overview: 11/10/2013 - Carotid duplex Ultrasound: No hemodynamically significant internal carotid artery stenosis. Estimated diameter reduction of < 50%. ([facility]). Essential hypertension 02/20/2014 HLD (hyperlipidemia) 02/20/2014 Resolved [...] the study, therefore was a negative ANTHONY. ([facility]). Encounters Date Type Specialty Care Team Description 12/20/2017 Telephone Cardiology Sloane Coronel RN Erroneous encounter-disregard (duplicate) 12/20/2017 Telephone Cardiology Sloane Coronel RN Erroneous encounter-disregard (duplicate phone call) 12/20/2017 Telephone Cardiology Sloane Coronel RN 11/17/2017 [facility] Cardiology Chago Shin MD Encounter 11/17/2017 Telephone Cardiology Nidhi Do RN from Last 3 Months Family History Medical [...] Name Status Comments Brother Alive Brother Alive diomede disease, poor health Father bad lungs (Age [...] Vital Sign Reading Time Taken Blood Pressure 102/78 09/11/2017 1:23 PM PAINT MIXER HAND Pulse 85 09/11/2017 1:23 PM PAINT MIXER HAND Temperature 36.3 C (97.4 F) 06/09/2017 11:45 AM CDT Respiratory Rate - - Oxygen Saturation 97% 06/09/2017 11:45 AM CDT Inhaled Oxygen - - Concentration Weight 87.1 kg (192 lb) 09/11/2017 1:23 PM PAINT MIXER HAND Height 186.7 cm (6' 1.5") 09/11/2017 1:23 PM PAINT MIXER HAND Body Mass Index 24.99 09/11/2017 1:23 PM PAINT MIXER HAND Plan of Treatment Health Maintenance Due Date Last Done Comments PHYSICAL (COMPREHENSIVE) 1945 EXAM PERTUSSIS VACCINE 1949 TETANUS VACCINE 1955 SHINGLES VACCINE 1998 PREVNAR/PNEUMOVAX (#1) 2003 INFLUENZA VACCINE 06/04/2018 Results * DEVICE EVALUATION - REMOTE ICD (11/17/2017 10:43 AM) Component Value Ref Range RV Lead Model # SPRINT QUATTRO SECURE S MRI SURESCAN 6935M-62CM RV Lead Serial # [id number] RV Lead Implant Date 11/14/2016 RV Lead Diaph. 10 Stimulation RV Lead Personal Insurance Advisor Medtronic RV Lead Fixation active fixation RV Lead Location RV low septum RV Lead Pin Connector ICD IS1 RV Lead Coil Single Generator Model # EVERA MRI XT DR LUCAS [id number] Generator Serial # [id number] Generator Implnat Date 11/14/2016 Generator Personal Insurance Advisor Medtronic Generator Investigational No Device Type DDD-ICD Device [place] Carelink Express Transmitter Compatible Atrial Lead Model # CAPSUREFIX NOVUS MRI SURESCAN [id number] Atrial Lead Serial # [id number] Atrial Lead Implant Date 08/22/2014 Atrial Lead Diaph. N/A Stimulation Atrial Lead Personal Insurance Advisor Medtronic Atrial Lead No Investigational Atrial Lead Fixation active fixation Atrial Lead Location right atrial appendage Atrial Lead Pin Connector IS1 Atrial Lead Polarity Bipolar Device Mode DDDR Lower Rate Limit 85 Upper Rate Limit 110 Sensor Rate Limit [...] Mode Switch Status On Device Implanted By PRINT PRODUCTION ASSOCIATE EP Device Followed by MPE Name Pacemaker Dependant No EP Device Followed By MAC Date of Last Programming 09/11/17 HF Patient Yes Date of Last Remote Check 11/17/17 AT/AF Daily Mcnabb Hours 6 Average Vent Rate during 100 AT/AF #BPM Average Vent Rate During 6 AT/AF #Hours Remote Monitoring? Yes Daily Mcnabb Threshld On Alert? Average Venticular Rate On AT/AF On/Off VF Detection/Therapy Off On MEGAN/EOL Indicator BV 2.73v Wireless Generator Yes Remote Connectivity Cellular adaptor Remote Check? Yes Specimen Performing Laboratory OTHER OUTSIDE LAB Narrative Current monitoring period 11/17/17-02/17/18 [11/17/2017 10:44:40 AM - PETER SARAVIA] Ep Nurse team notified of abnormal remote for VT Please see scanned data sheets for further review. Scheduled Carelink transmission received for dual chamber ICD.Device function appears appropriate. Presenting EGM shows Ap-SAW REPAIRER, long PAV, 350ms. Battery longevity avg 8.8y. Events noted since: 09/11/17 Atrial:none. Ventricular:10 treated VT, all on 09/24/17 between 17:47-20:42. ATP seq 3-8, for each event, longest 1min 9sec and others 34-54sec. EGMS confirm monomorphic VT, 162-167bpm. 8 monitored VT, last was 10/25/17 lasting 2min 8 sec, EGM confirms VT, ~120bpm, others 2/6 lasting 4min total, 10/12 and 10/21. 1,276 NSVT, last 2 occurred 11/15/17, EGMs show slower VT and PVCs, lasting 3-5 sec. PVC count is up, 70.2/hr (was 7.8), 9.4runs/hr (was 1.2) Thoracic impedance/Optivol is stable for this pt. Next follow up appt pending. Next remote scheduled for 3 mo. Results routed to Dr. Shin for signature and review. __ from Last 3 Months
--- OUTSIDE RECORDS SUMMARY | 2018-01-01 10:46 | XMS REPORT | Encounter Summary ---
Author Author [facility] Organization [facility] Address Unknown Phone Unavailable Care Team Providers Care Field Handyman Name Role Phone Elier Mata MD PCP Beatriz Hook RN Unavailable Unavailable Encounter Details Date Type Department Care Team Description 12/20/2017 Telephone [facility] Cardiology Sloane Coronel, RN [address] [place] [address] Social History Tobacco Use Types Packs/Day Years [...] Miscellaneous Notes * Telephone Encounter - Sloane Coronel, MINAL - 12/20/2017 12:31 PM CDT I spoke to spouse. She thought Mr. Torres was having a cleaning. He should not need cardiac clearance for a cleaning. He does not need to hold Eliquis for a cleaning. He does not require antibiotic prophylaxis. The dental office can send us a form if they need something in writing. ----- Message from Bita Cabrera LPN sent at 12/20/2017 11:49 AM CDT ----- Regarding: [facility]S- CC VM from on triage line. Said that he needs CC for dental appointment. in this encounter Plan of Treatment Not on fileas of this encounter Visit Diagnoses Not on filein this encounter
--- OUTSIDE RECORDS SUMMARY | 2018-01-01 10:46 | XMS REPORT | Encounter Summary ---
Author Author [facility] Organization [facility] Address Unknown Phone Unavailable Care Team Providers Care Mine Surveyor Name Role Phone Elier Mata MD PCP Beatriz Hook RN Unavailable Unavailable Encounter Details Date Type Department Care Team Description 11/17/2017 Telephone [facility] [place] [address] [place] [address] Social History Tobacco Use Types Packs/Day Years [...] encounter Miscellaneous Notes * Telephone Encounter - Nidhi Do RN - 11/20/2017 8:38 AM CDT Formatting of this note may be different from the original. Chago Shin MD Loganbill, Miriam, RN Caller: Unspecified (3 days ago, 4:38 PM) No changes for now. Thanks. * Telephone Encounter - Nidhi Do RN - 11/17/2017 4:45 PM CDT Spoke with patient who tells me that in September and October he had the flu. He took Coricidin HBP for this. He is no longer on this medication and is feeling much better in the last few weeks. He has continued on Mexiletine and sotalol. . * Telephone Encounter - Nidhi Do RN - 11/17/2017 4:38 PM CDT ----- Message from Luba Harris RN sent at 11/17/2017 11:12 AM CDT ----- Regarding: VT on remote Scheduled remote received today. 10 treated VT all on 09/24/17. 8 monitored, last one was Oct.05,276 NSVT, last 2 on 11/15. VT seems to have settled down more recently but want [facility] to be aware. All the strips are attached to the report. Pls f/u thx in this encounter Plan of Treatment Not on fileas of this encounter Visit Diagnoses Not on filein this encounter
--- OUTSIDE RECORDS SUMMARY | 2018-01-01 10:46 | XMS REPORT | Encounter Summary ---
Author Author [facility] Organization [facility] Address Unknown Phone Unavailable Care Team Providers Care Cannon Crewmember Name Role Phone Elier Mata MD PCP Beatriz Hook RN Unavailable Unavailable Reason for Visit * Reason Comments Erroneous duplicate encounter-disregard Encounter Details Date Type Department Care Team Description 12/20/2017 Telephone [facility] Cardiology Sloane Coronel, MINAL Erroneous [address] [place] [address] (duplicate) [phone] Social History Tobacco Use Types Packs/Day Years [...] Encounter - Sloane Coronel RN - 12/20/2017 1:09 PM CDT ----- Message from Bita Cabrera LPN sent at 12/20/2017 11:49 AM CDT ----- Regarding: [facility]- CC VM from on triage line. Said that he needs CC for dental appointment. in this encounter Plan of Treatment Not on fileas of this encounter Visit Diagnoses Not on filein this encounter
--- OUTSIDE RECORDS SUMMARY | 2018-01-01 10:47 | XMS REPORT | Encounter Summary ---
Author Author [facility] Organization [facility] Address Unknown Phone Unavailable Care Team Providers Care Billposter Name Role Phone Elier Mata MD PCP Beatriz Hook RN Unavailable Unavailable Encounter Details Date Type Department Care Team Description 11/17/2017 [facility] Cardiology Chago Shin MD Encounter Remote Device Check [address] [phone] [place] [address] [phone] Social History Tobacco Use Types Packs/Day Years [...] impairment: No 06/08/2017 as of this encounter Medications at Time of Discharge Medication Sig. Disp. Refills Start Date End Date apixaban (ELIQUIS) 5 mg Take 5 mg by mouth twice tab tablet daily. aspirin EC 81 mg Take 1 Tab by mouth 90 Tab 3 10/04/2016 tabletIndications: daily. Take with food. 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 DOCOSAHEXANOIC ACID/EPA Take 1,200 mg by mouth (FISH OIL PO) daily. meloxicam (MOBIC) 15 mg Take 15 mg by mouth tablet daily. mexiletine (MEXITIL) 200 Take 1 capsule by mouth 270 capsule 3 2016 mg capsule three times daily. MULTIVITAMINS WITH Take 1 Tab by mouth FLUORIDE (MULTI-VITAMIN daily. PO) omeprazole DR(+) Take 40 mg by mouth (PRILOSEC) 40 mg capsule daily. sotalol (BETAPACE) 120 mg Take 1 tablet by mouth 60 tablet 0 2016 tab twice daily. as of this encounter Plan of Treatment Not on fileas of this encounter Results * DEVICE EVALUATION - REMOTE ICD (11/17/2017 10:43 AM) Component Value Ref Range RV Lead Model # SPRINT QUATTRO SECURE S MRI SURESCAN 6935M-62CM RV Lead Serial # [id number] RV Lead Implant Date 11/14/2016 RV Lead Diaph. 10 Stimulation RV Lead Rubber Trimmer Medtronic RV Lead Fixation active fixation RV Lead Location RV low septum RV Lead Pin Connector ICD IS1 RV Lead Coil Single Generator Model # EVERA MRI XT DR LUCAS [id number] Generator Serial # [id number] Generator Implnat Date 11/14/2016 Generator Rubber Trimmer Medtronic Generator Investigational No Device Type DDD-ICD Device [place] [employer] Express Transmitter Compatible Atrial Lead Model # CAPSUREFIX NOVUS MRI SURESCAN 5076-52CM Atrial Lead Serial # [id number] Atrial Lead Implant Date 08/22/2014 Atrial Lead Diaph. 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 Yes Daily [place] Threshld On Alert? Average Venticular Rate On [...] ICD.Device function appears appropriate. 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 Battery longevity avg 8.8y. [...] Dr. Shin for signature and review. __ in this encounter Visit Diagnoses Diagnosis PAF (paroxysmal atrial fibrillation) (HCC) Atrial fibrillation Sustained ventricular tachycardia (HCC) Paroxysmal ventricular tachycardia
--- OUTSIDE RECORDS SUMMARY | 2018-01-01 10:48 | XMS REPORT | Continuity of Care Document ---
Author Author [facility] Organization [facility] Address Unknown Phone Unavailable Allergies Active Description Code Type Severity Reaction Onset Reported/Identified Relationship to Patient Clinical Status Yes No Known Drug Allergies [id number] N/A N/A Yes No Known Drug Allergies [id number] Drug Allergy Unknown N/A 10/04/2013 Medications There is no data. Problems Date Dx Coded Attending Type Code Diagnosis Diagnosed By 05/19/2014 ORLIN CORONADO MD Ot 272.4 HYPERLIPIDEMIA NEC/NOS 05/19/2014 ORLIN CORONADO MD Ot 401.9 HYPERTENSION NOS 05/19/2014 ORLIN CORONADO MD Ot 414.01 CORONARY ATHEROSCLEROSIS OF [place] CORON 05/19/2014 ORLIN CORONADO MD Ot 427.0 PAROX ATRIAL TACHYCARDIA 05/19/2014 ORLIN CORONADO MD Ot 427.31 ATRIAL FIBRILLATION 05/19/2014 ORLIN CORONADO MD Ot V45.82 PERCUTANEOUS TRANSLUM CORON ANGIOPLASTY 05/19/2014 ORLIN CORONADO MD Ot V58.61 ANTICOAGULANTS,LT,CURRENT USE 05/19/2014 ORLIN CORONADO MD Ot V58.69 OTH MED,LT,CURRENT USE 08/08/2014 ORLIN CORONADO MD Ot 272.4 HYPERLIPIDEMIA NEC/NOS 08/08/2014 ORLIN CORONADO MD Ot 401.9 HYPERTENSION NOS 08/08/2014 ORLIN CORONADO MD Ot 414.01 CORONARY ATHEROSCLEROSIS OF [place] CORON 08/08/2014 ORLIN CORONADO MD Ot 427.1 PAROX VENTRIC TACHYCARD 08/08/2014 ORLIN CORONADO MD Ot 427.31 ATRIAL FIBRILLATION 08/08/2014 ORLIN CORONADO MD Ot 440.0 AORTIC ATHEROSCLEROSIS 08/08/2014 ORLIN CORONADO MD Ot 440.20 ATHEROSCLEROSIS [place] ARTERIES EXTREMIT 08/08/2014 ORLIN CORONADO MD Ot V45.82 PERCUTANEOUS TRANSLUM CORON ANGIOPLASTY 08/08/2014 ORLIN CORONADO MD Ot V58.61 ANTICOAGULANTS,LT,CURRENT USE 08/08/2014 ORLIN CORONADO MD Ot V58.69 OTH MED,LT,CURRENT USE 12/02/2014 ORLIN CORONADO MD Ot 272.4 12/02/2014 ORLIN CORONADO MD Ot 397.0 12/02/2014 ORLIN CORONADO MD Ot 401.9 12/02/2014 ORLIN CORONADO MD Ot 414.00 12/02/2014 ORLIN CORONADO MD Ot 416.8 12/02/2014 ORLIN CORONADO MD Ot 424.0 12/02/2014 ORLIN CORONADO MD Ot 427.69 12/02/2014 ORLIN CORONADO MD Ot 433.10 12/02/2014 ORLIN CORONADO MD Ot 780.4 12/02/2014 ORLIN CORONADO MD Ot 786.05 12/02/2014 ORLIN CORONADO MD Ot 401.9 12/02/2014 ORLIN CORONADO MD Ot 414.00 12/02/2014 ORLIN CORONADO MD Ot 427.31 12/31/2014 GAVIN SALEH Ot 401.9 12/31/2014 GAVIN SALEH Ot 414.01 12/31/2014 GAVIN SALEH Ot 427.1 03/25/2016 ORLIN CORONADO MD Ot I48.0 PAROXYSMAL ATRIAL FIBRILLATION 03/25/2016 ORLIN CORONADO MD Ot I10 ESSENTIAL (PRIMARY) HYPERTENSION 03/25/2016 ORLIN CORONADO MD Ot I25.10 ATHSCL HEART DISEASE OF [place] CORONARY 03/25/2016 ORLIN CORONADO MD Ot I47.2 VENTRICULAR TACHYCARDIA 03/25/2016 ORLIN CORONADO MD Ot I48.0 PAROXYSMAL ATRIAL FIBRILLATION 03/25/2016 ORLIN CORONADO MD Ot I65.23 OCCLUSION AND STENOSIS OF BILATERAL [place] 03/25/2016 ORLIN CORONADO MD Ot R06.02 SHORTNESS OF BREATH 03/30/2016 ORLIN CORONADO MD Ot I10 ESSENTIAL (PRIMARY) HYPERTENSION 03/30/2016 ORLIN CORONADO MD Ot I25.10 ATHSCL HEART DISEASE OF [place] CORONARY 03/30/2016 ORLIN CORONADO MD Ot I47.2 VENTRICULAR TACHYCARDIA 03/30/2016 ORLIN CORONADO MD Ot I48.0 PAROXYSMAL ATRIAL FIBRILLATION 03/30/2016 ORLIN CORONADO MD Ot I65.23 OCCLUSION AND STENOSIS OF BILATERAL [place] 03/30/2016 ORLIN CORONADO MD Ot R06.02 SHORTNESS OF BREATH 04/14/2016 ORLIN CORONADO MD Ot I10 ESSENTIAL (PRIMARY) HYPERTENSION 04/14/2016 ORLIN CORONADO MD Ot I25.10 ATHSCL HEART DISEASE OF [place] CORONARY 04/14/2016 ORLIN CORONADO MD Ot I47.2 VENTRICULAR TACHYCARDIA 04/14/2016 ORLIN CORONADO MD Ot I48.0 PAROXYSMAL ATRIAL FIBRILLATION 04/14/2016 ORLIN CORONADO MD Ot I65.23 OCCLUSION AND STENOSIS OF [place]ILATERAL [place] 04/14/2016 ORLIN CORONADO MD Ot R06.02 SHORTNESS OF BREATH 05/05/2016 ORLIN CORONADO MD Ot I10 ESSENTIAL (PRIMARY) HYPERTENSION 05/05/2016 ORLIN CORONADO MD Ot I25.10 ATHSCL HEART DISEASE OF [place] CORONARY 05/05/2016 ORLIN CORONADO MD Ot I47.2 VENTRICULAR TACHYCARDIA 05/05/2016 ORLIN CORONADO MD Ot I48.0 PAROXYSMAL ATRIAL FIBRILLATION 05/05/2016 ORLIN CORONADO MD Ot I65.23 OCCLUSION AND STENOSIS OF [place]ILATERAL [place] 05/05/2016 ORLIN CORONADO MD Ot R06.02 SHORTNESS OF BREATH 07/19/2016 ORLIN CORONADO MD Ot 272.4 HYPERLIPIDEMIA NEC/NOS 07/19/2016 ORLIN CORONADO MD Ot 397.0 TRICUSPID VALVE DISEASE 07/19/2016 ORLIN CORONADO MD Ot 401.9 HYPERTENSION NOS 07/19/2016 ORLIN CORONADO MD Ot 414.00 CORON ATHEROSCLER NOS TYPE VESSEL, NATIV 07/19/2016 ORLIN CORONADO MD Ot 416.8 CHR PULMON HEART DIS NEC 07/19/2016 ORLIN CORONADO MD Ot 424.0 MITRAL VALVE DISORDER 07/19/2016 ORLIN CORONADO MD Ot 427.69 PREMATURE BEATS NEC 07/19/2016 ORLIN CORONADO MD Ot 433.10 CAROTID ARTERY OCCLUSION W O CEREBRAL IN 07/19/2016 ORLIN CORONADO MD Ot 780.4 DIZZINESS AND GIDDINESS 07/19/2016 ORLIN CORONADO MD Ot 786.05 SHORTNESS OF BREATH 07/19/2016 ORLIN CORONADO MD Ot 401.9 HYPERTENSION NOS 07/19/2016 ORLIN CORONADO MD Ot 414.00 CORON ATHEROSCLER NOS TYPE VESSEL, NATIV 07/19/2016 ORLIN CORONADO MD Ot 427.31 ATRIAL FIBRILLATION 07/19/2016 GAVIN SALEH Ot 401.9 HYPERTENSION NOS 07/19/2016 GAVIN SALEH Ot 414.01 CORONARY ATHEROSCLEROSIS OF [place] CORON 07/19/2016 GAVIN SALEH Ot 427.1 PAROX VENTRIC TACHYCARD 07/19/2016 ORLIN CORONADO MD Ot I10 ESSENTIAL (PRIMARY) HYPERTENSION 07/19/2016 ORLIN CORONADO MD Ot I25.10 ATHSCL HEART DISEASE OF [place] CORONARY 07/19/2016 ORLIN CORONADO MD Ot I47.2 VENTRICULAR TACHYCARDIA 07/19/2016 ORLIN CORONADO MD Ot I48.0 PAROXYSMAL ATRIAL FIBRILLATION 07/19/2016 ORLIN CORONADO MD Ot I65.23 OCCLUSION AND STENOSIS OF [place]AL [place] 07/19/2016 ORLIN CORONADO MD Ot R06.02 SHORTNESS OF BREATH 07/20/2016 ORLIN CORONADO MD Ot E78.2 MIXED HYPERLIPIDEMIA 07/20/2016 ORLIN CORONADO MD Ot I10 ESSENTIAL (PRIMARY) HYPERTENSION 07/20/2016 ORLIN CORONADO MD Ot I25.10 ATHSCL HEART DISEASE OF [place] CORONARY 07/20/2016 ORLIN CORONADO MD Ot I65.23 OCCLUSION AND STENOSIS OF [place]AL [place] 07/20/2016 ORLIN CORONADO MD Ot R06.02 SHORTNESS OF BREATH 07/20/2016 ORLIN CORONADO MD Ot R42 DIZZINESS AND GIDDINESS 07/21/2016 ORLIN CORONADO MD Ot E78.2 MIXED HYPERLIPIDEMIA 07/21/2016 ORLIN CORONADO MD Ot I10 ESSENTIAL (PRIMARY) HYPERTENSION 07/21/2016 ORLIN CORONADO MD Ot I25.10 ATHSCL HEART DISEASE OF [place] CORONARY 07/21/2016 ORLIN CORONADO MD Ot I65.23 OCCLUSION AND STENOSIS OF [place] 07/21/2016 ORLIN CORONADO MD Ot R06.02 SHORTNESS OF BREATH 07/21/2016 ORLIN CORONADO MD Ot R42 DIZZINESS AND GIDDINESS 07/25/2016 ORLIN CORONADO MD Ot 272.4 HYPERLIPIDEMIA NEC/NOS 07/25/2016 ORLIN CORONADO MD Ot 397.0 TRICUSPID VALVE DISEASE 07/25/2016 ORLIN CORONADO MD Ot 401.9 HYPERTENSION NOS 07/25/2016 ORLIN CORONADO MD Ot 414.00 CORON ATHEROSCLER NOS TYPE VESSEL, NATIV 07/25/2016 ORLIN CORONADO MD Ot 416.8 CHR PULMON HEART DIS NEC 07/25/2016 ORLIN CORONADO MD Ot 424.0 MITRAL VALVE DISORDER 07/25/2016 ORLIN CORONADO MD Ot 427.69 PREMATURE BEATS NEC 07/25/2016 ORLIN CORONADO MD Ot 433.10 CAROTID ARTERY OCCLUSION W O CEREBRAL IN 07/25/2016 ORLIN CORONADO MD Ot 780.4 DIZZINESS AND GIDDINESS 07/25/2016 ORLIN CORONADO MD Ot 786.05 SHORTNESS OF BREATH 07/25/2016 ORLIN CORONADO MD Ot 401.9 HYPERTENSION NOS 07/25/2016 ORLIN CORONADO MD Ot 414.00 CORON ATHEROSCLER NOS TYPE VESSEL, NATIV 07/25/2016 ORLIN CORONADO MD Ot 427.31 ATRIAL FIBRILLATION 07/25/2016 GAVIN SALEH Ot 401.9 HYPERTENSION NOS 07/25/2016 GAVIN SALEH Ot 414.01 CORONARY ATHEROSCLEROSIS OF [place] CORON 07/25/2016 GAVIN SALEH Ot 427.1 PAROX VENTRIC TACHYCARD 07/25/2016 ORLIN CORONADO MD Ot I10 ESSENTIAL (PRIMARY) HYPERTENSION 07/25/2016 ORLIN CORONADO MD Ot I25.10 ATHSCL HEART DISEASE OF [place] CORONARY 07/25/2016 ORLIN CORONADO MD Ot I47.2 VENTRICULAR TACHYCARDIA 07/25/2016 ORLIN CORONADO MD Ot I48.0 PAROXYSMAL ATRIAL FIBRILLATION 07/25/2016 ORLIN CORONADO MD Ot I65.23 OCCLUSION AND STENOSIS OF [place] 07/25/2016 ORLIN CORONADO MD Ot R06.02 SHORTNESS OF BREATH 07/25/2016 ORLIN CORONADO MD Ot E78.2 MIXED HYPERLIPIDEMIA 07/25/2016 ORLIN CORONADO MD Ot I10 ESSENTIAL (PRIMARY) HYPERTENSION 07/25/2016 ORLIN CORONADO MD Ot I25.10 ATHSCL HEART DISEASE OF [place] CORONARY 07/25/2016 ORLIN CORONADO MD Ot I65.23 OCCLUSION AND STENOSIS OF [place] 07/25/2016 ORLIN CORONADO MD Ot R06.02 SHORTNESS OF BREATH 07/25/2016 ORLIN CORONADO MD Ot R42 DIZZINESS AND GIDDINESS 07/26/2016 ORLIN CORONADO MD Ot E78.2 MIXED HYPERLIPIDEMIA 07/26/2016 ORLIN CORONADO MD Ot I10 ESSENTIAL (PRIMARY) HYPERTENSION 07/26/2016 ORLIN CORONADO MD Ot I25.10 ATHSCL HEART DISEASE OF [place] CORONARY 07/26/2016 ORLIN CORONADO MD Ot I65.23 OCCLUSION AND STENOSIS OF [place] 07/26/2016 ORLIN CORONADO MD Ot R06.02 SHORTNESS OF BREATH 07/26/2016 ORLIN CORONADO MD Ot R42 DIZZINESS AND GIDDINESS 07/26/2016 ORLIN CORONADO MD Ot E78.2 MIXED HYPERLIPIDEMIA 07/26/2016 ORLIN CORONADO MD Ot I10 ESSENTIAL (PRIMARY) HYPERTENSION 07/26/2016 ORLIN CORONADO MD Ot I25.10 ATHSCL HEART DISEASE OF [place] CORONARY 07/26/2016 ORLIN CORONADO MD Ot I65.23 OCCLUSION AND STENOSIS OF [place]IL[place]AL [place] 07/26/2016 ORLIN CORONADO MD Ot R06.02 SHORTNESS OF BREATH 07/26/2016 ORLIN CORONADO MD Ot R42 DIZZINESS AND GIDDINESS 08/03/2016 PATRICIA ARTIS MD Ot K40.90 UNIL INGUINAL HERNIA, W/O OBST OR GANGR, 08/03/2016 PATRICIA ARTIS MD Ot K42.9 UMBILICAL HERNIA WITHOUT OBSTRUCTION OR 08/03/2016 PATRICIA ARTIS MD Ot R10.84 GENERALIZED ABDOMINAL PAIN 08/09/2016 ORLIN CORONADO MD Ot E78.2 MIXED HYPERLIPIDEMIA 08/09/2016 ORLIN CORONADO MD Ot I10 ESSENTIAL (PRIMARY) HYPERTENSION 08/09/2016 ORLIN CORONADO MD Ot I25.10 ATHSCL HEART DISEASE OF [place] CORONARY 08/09/2016 ORLIN CORONADO MD Ot I65.23 OCCLUSION AND STENOSIS OF [place] 08/09/2016 ORLIN CORONADO MD Ot R06.02 SHORTNESS OF BREATH 08/09/2016 ORLIN CORONADO MD Ot R42 DIZZINESS AND GIDDINESS 08/11/2016 PATRICIA ARTIS MD Ot K40.90 UNIL INGUINAL HERNIA, W/O OBST OR GANGR, 08/11/2016 PATRICIA ARTIS MD Ot K42.9 UMBILICAL HERNIA WITHOUT OBSTRUCTION OR 08/11/2016 PATRICIA ARTIS MD M Ot R10.84 GENERALIZED ABDOMINAL PAIN 08/17/2016 ORLIN CORONADO MD Ot E78.2 MIXED HYPERLIPIDEMIA 08/17/2016 ORLIN CORONADO MD Ot I10 ESSENTIAL (PRIMARY) HYPERTENSION 08/17/2016 ORLIN CORONADO MD Ot I25.10 ATHSCL HEART DISEASE OF [place] CORONARY 08/17/2016 ORLIN CORONADO MD Ot I65.23 OCCLUSION AND STENOSIS OF [place]AL [place] 08/17/2016 ORLIN CORONADO MD Ot R06.02 SHORTNESS OF BREATH 08/17/2016 ORLIN CORONADO MD Ot R42 DIZZINESS AND GIDDINESS 08/23/2016 PATRICIA ARTIS MD Ot K40.90 UNIL INGUINAL HERNIA, W/O OBST OR GANGR, 08/23/2016 PATRICIA ARTIS MD Ot K42.9 UMBILICAL HERNIA WITHOUT OBSTRUCTION OR 08/23/2016 PATRICIA ARTIS MD M Ot R10.84 GENERALIZED ABDOMINAL PAIN 11/09/2016 ORLIN CORONADO MD Ot E78.5 HYPERLIPIDEMIA, UNSPECIFIED 11/09/2016 ORLIN CORONADO MD Ot I10 ESSENTIAL (PRIMARY) HYPERTENSION 11/09/2016 ORLIN CORONADO MD Ot I25.10 ATHSCL HEART DISEASE OF [place] CORONARY 11/09/2016 ORLIN CORONADO MD Ot I47.2 VENTRICULAR TACHYCARDIA 11/09/2016 ORLIN CORONADO MD Ot I48.0 PAROXYSMAL ATRIAL FIBRILLATION 11/09/2016 ORLIN CORONADO MD Ot I87.8 OTHER SPECIFIED DISORDERS OF VEINS 11/09/2016 ORLIN CORONADO MD Ot I95.9 HYPOTENSION, UNSPECIFIED 11/09/2016 ORLIN CORONADO MD Ot Z95.0 PRESENCE OF CARDIAC PACEMAKER 11/09/2016 ORLIN CORONADO MD Ot Z95.5 PRESENCE OF CORONARY ANGIOPLASTY IMPLANT 01/04/2017 ORLIN CORONADO MD Ot E78.2 MIXED HYPERLIPIDEMIA 01/04/2017 ORLIN CORONADO MD Ot I10 ESSENTIAL (PRIMARY) HYPERTENSION 01/04/2017 ORLIN CORONADO MD Ot R06.02 SHORTNESS OF BREATH 01/04/2017 ORLIN CORONADO MD Ot R42 DIZZINESS AND GIDDINESS 01/10/2017 Lulu LAY MD Ot I25.10 ATHSCL HEART DISEASE OF [place] CORONARY 01/10/2017 Lulu LAY MD Ot I47.2 VENTRICULAR TACHYCARDIA 01/10/2017 Lulu LAY MD Ot I48.0 PAROXYSMAL ATRIAL FIBRILLATION 01/10/2017 Lulu LAY MD Ot I49.5 SICK SINUS SYNDROME 01/10/2017 Lulu LAY MD Ot R55 SYNCOPE AND COLLAPSE 01/10/2017 Lulu LAY MD Ot Z79.01 MCC (CURRENT) USE OF ANTICOAGULANT 01/10/2017 Lulu LAY MD Ot Z95.0 PRESENCE OF CARDIAC PACEMAKER 01/10/2017 Lulu LAY MD Ot Z95.5 PRESENCE OF CORONARY ANGIOPLASTY IMPLANT 01/10/2017 Lulu LAY MD Ot I25.10 ATHSCL HEART DISEASE OF [place] CORONARY 01/10/2017 Lulu LAY MD Ot I47.2 VENTRICULAR TACHYCARDIA 01/10/2017 Lulu LAY MD Ot I48.0 PAROXYSMAL ATRIAL FIBRILLATION 01/10/2017 Lulu LAY MD Ot I49.5 SICK SINUS SYNDROME 01/10/2017 Lulu LAY MD Ot R55 SYNCOPE AND COLLAPSE 01/10/2017 Lulu LAY MD Ot Z79.01 MCC (CURRENT) USE OF ANTICOAGULANT 01/10/2017 Lulu LAY MD Ot Z95.0 PRESENCE OF CARDIAC PACEMAKER 01/10/2017 Lulu LAY MD Ot Z95.5 PRESENCE OF CORONARY ANGIOPLASTY IMPLANT 01/10/2017 Lulu LAY MD Ot I25.10 ATHSCL HEART DISEASE OF [place] CORONARY 01/10/2017 Lulu LAY MD Ot I47.2 VENTRICULAR TACHYCARDIA 01/10/2017 Lulu LAY MD Ot I48.0 PAROXYSMAL ATRIAL FIBRILLATION 01/10/2017 Lulu LAY MD Ot I49.5 SICK SINUS SYNDROME 01/10/2017 Lulu LAY MD Ot R55 SYNCOPE AND COLLAPSE 01/10/2017 Lulu LAY MD Ot Z79.01 RADIOLOGIST CHIEF OF BREAST IMAGING (CURRENT) USE OF ANTICOAGULANT 01/10/2017 Lulu LAY MD Ot Z95.0 PRESENCE OF CARDIAC PACEMAKER 01/10/2017 Lulu LAY MD Ot Z95.5 PRESENCE OF CORONARY ANGIOPLASTY IMPLANT 01/10/2017 Lulu LAY MD Ot I25.10 ATHSCL HEART DISEASE OF [place] CORONARY 01/10/2017 Lulu LAY MD Ot I47.2 VENTRICULAR TACHYCARDIA 01/10/2017 Lulu LAY MD Ot I48.0 PAROXYSMAL ATRIAL FIBRILLATION 01/10/2017 Lulu LAY MD Ot I49.5 SICK SINUS SYNDROME 01/10/2017 Lulu LAY MD Ot R55 SYNCOPE AND COLLAPSE 01/10/2017 Lulu LAY MD Ot Z79.01 RADIOLOGIST CHIEF OF BREAST IMAGING (CURRENT) USE OF ANTICOAGULANT 01/10/2017 Lulu LAY MD Ot Z95.0 PRESENCE OF CARDIAC PACEMAKER 01/10/2017 Lulu LAY MD Ot Z95.5 PRESENCE OF CORONARY ANGIOPLASTY IMPLANT 01/11/2017 Lulu LAY MD Ot I25.10 ATHSCL HEART DISEASE OF [place] CORONARY 01/11/2017 Lulu LAY MD Ot I47.2 VENTRICULAR TACHYCARDIA 01/11/2017 Lulu LAY MD Ot I48.0 PAROXYSMAL ATRIAL FIBRILLATION 01/11/2017 Lulu LAY MD Ot I49.5 SICK SINUS SYNDROME 01/11/2017 Lulu LAY MD Ot R55 SYNCOPE AND COLLAPSE 01/11/2017 Lluu LAY MD Ot Z79.01 MCC (CURRENT) USE OF ANTICOAGULANT 01/11/2017 Lulu LAY MD Ot Z95.0 PRESENCE OF CARDIAC PACEMAKER 01/11/2017 Lulu LAY MD Ot Z95.5 PRESENCE OF CORONARY ANGIOPLASTY IMPLANT 01/11/2017 Lulu LAY MD Ot I25.10 ATHSCL HEART DISEASE OF [place] CORONARY 01/11/2017 Lulu LAY MD Ot I47.2 VENTRICULAR TACHYCARDIA 01/11/2017 Lulu LAY MD Ot I48.0 PAROXYSMAL ATRIAL FIBRILLATION 01/11/2017 Lulu LAY MD Ot I49.5 SICK SINUS SYNDROME 01/11/2017 Lulu LAY MD Ot R55 SYNCOPE AND COLLAPSE 01/11/2017 Lulu LAY MD Ot Z79.01 MCC (CURRENT) USE OF ANTICOAGULANT 01/11/2017 Lulu LAY MD Ot Z95.0 PRESENCE OF CARDIAC PACEMAKER 01/11/2017 Lulu LAY MD Ot Z95.5 PRESENCE OF CORONARY ANGIOPLASTY IMPLANT 01/12/2017 Lulu LAY MD Ot I25.10 ATHSCL HEART DISEASE OF [place] CORONARY 01/12/2017 Lulu LAY MD Ot I47.2 VENTRICULAR TACHYCARDIA 01/12/2017 Lulu LAY MD Ot I48.0 PAROXYSMAL ATRIAL FIBRILLATION 01/12/2017 Lulu LAY MD Ot I49.5 SICK SINUS SYNDROME 01/12/2017 Lulu LAY MD Ot R55 SYNCOPE AND COLLAPSE 01/12/2017 Lulu LAY MD Ot Z79.01 RADIOLOGIST CHIEF OF BREAST IMAGING (CURRENT) USE OF ANTICOAGULANT 01/12/2017 Lulu LAY MD Ot Z95.0 PRESENCE OF CARDIAC PACEMAKER 01/12/2017 Lulu LAY MD Ot Z95.5 PRESENCE OF CORONARY ANGIOPLASTY IMPLANT 01/12/2017 Lulu LAY MD Ot E78.5 HYPERLIPIDEMIA, UNSPECIFIED 01/12/2017 Lulu LAY MD Ot I25.10 ATHSCL HEART DISEASE OF [place] CORONARY 01/12/2017 Lulu LAY MD Ot I47.2 VENTRICULAR TACHYCARDIA 01/12/2017 Lulu LAY MD Ot I48.0 PAROXYSMAL ATRIAL FIBRILLATION 01/12/2017 Lulu LAY MD Ot Z79.01 MCC (CURRENT) USE OF ANTICOAGULANT 01/12/2017 Lulu LAY MD Ot Z95.5 PRESENCE OF CORONARY ANGIOPLASTY IMPLANT 01/12/2017 Lulu LAY MD Ot Z95.810 PRESENCE OF AUTOMATIC (IMPLANTABLE) CARD 01/19/2017 Lulu LAY MD Ot E78.5 HYPERLIPIDEMIA, UNSPECIFIED 01/19/2017 Lulu LAY MD Ot I25.10 ATHSCL HEART DISEASE OF [place] CORONARY 01/19/2017 Lulu LAY MD Ot I47.2 VENTRICULAR TACHYCARDIA 01/19/2017 Lulu LAY MD Ot I48.0 PAROXYSMAL ATRIAL FIBRILLATION 01/19/2017 Lulu LAY MD Ot Z79.01 RADIOLOGIST CHIEF OF BREAST IMAGING (CURRENT) USE OF ANTICOAGULANT 01/19/2017 Lulu LAY MD Ot Z95.5 PRESENCE OF CORONARY ANGIOPLASTY IMPLANT 01/19/2017 Lulu LAY MD Ot Z95.810 PRESENCE OF AUTOMATIC (IMPLANTABLE) CARD 01/19/2017 Lulu LAY MD Ot E78.5 HYPERLIPIDEMIA, UNSPECIFIED 01/19/2017 Lulu LAY MD Ot I25.10 ATHSCL HEART DISEASE OF [place] CORONARY 01/19/2017 Lulu LAY MD Ot I47.2 VENTRICULAR TACHYCARDIA 01/19/2017 Lulu LAY MD Ot I48.0 PAROXYSMAL ATRIAL FIBRILLATION 01/19/2017 Lulu LAY MD Ot Z79.01 RADIOLOGIST CHIEF OF BREAST IMAGING (CURRENT) USE OF ANTICOAGULANT 01/19/2017 Lulu LAY MD Ot Z95.5 PRESENCE OF CORONARY ANGIOPLASTY IMPLANT 01/19/2017 Lulu LAY MD Ot Z95.810 PRESENCE OF AUTOMATIC (IMPLANTABLE) CARD 01/19/2017 Lulu LAY MD Ot E78.5 HYPERLIPIDEMIA, UNSPECIFIED 01/19/2017 Lulu LAY MD Ot I25.10 ATHSCL HEART DISEASE OF [place] CORONARY 01/19/2017 Lulu LAY MD Ot I47.2 VENTRICULAR TACHYCARDIA 01/19/2017 Lulu LAY MD Ot I48.0 PAROXYSMAL ATRIAL FIBRILLATION 01/19/2017 Lulu LAY MD Ot Z79.01 MCC (CURRENT) USE OF ANTICOAGULANT 01/19/2017 Lulu LAY MD Ot Z95.5 PRESENCE OF CORONARY ANGIOPLASTY IMPLANT 01/19/2017 Lulu LAY MD Ot Z95.810 PRESENCE OF AUTOMATIC (IMPLANTABLE) CARD 01/25/2017 ORLIN CORONADO MD Ot E78.2 MIXED HYPERLIPIDEMIA 01/25/2017 ORLIN CORONADO MD Ot I10 ESSENTIAL (PRIMARY) HYPERTENSION 01/25/2017 ORLIN CORONADO MD Ot R06.02 SHORTNESS OF BREATH 01/25/2017 ORLIN CORONADO MD Ot R42 DIZZINESS AND GIDDINESS 03/31/2017 ORLIN CORONADO MD Ot E78.2 MIXED HYPERLIPIDEMIA 03/31/2017 ORLIN CORONADO MD Ot I10 ESSENTIAL (PRIMARY) HYPERTENSION 03/31/2017 ORLIN CORONADO MD Ot I25.10 ATHSCL HEART DISEASE OF [place] CORONARY 03/31/2017 ORLIN CORONADO MD Ot I65.23 OCCLUSION AND STENOSIS OF BILATERAL [place] 03/31/2017 ORLIN CORONADO MD Ot R06.02 SHORTNESS OF BREATH 03/31/2017 ORLIN CORONADO MD Ot R42 DIZZINESS AND GIDDINESS 06/05/2017 JUAN MANUEL FAUSTIN DO Ot E78.5 HYPERLIPIDEMIA, UNSPECIFIED 06/05/2017 JUAN MANUEL FAUSTIN DO Ot I10 ESSENTIAL (PRIMARY) HYPERTENSION 06/05/2017 JUAN MANUEL FAUSTIN DO Ot I25.10 ATHSCL HEART DISEASE OF [place] CORONARY 06/05/2017 JUAN MANUEL FAUSTIN DO Ot I48.0 PAROXYSMAL ATRIAL FIBRILLATION 06/05/2017 JUAN MANUEL FAUSTIN DO Ot I49.5 SICK SINUS SYNDROME 06/05/2017 JUAN MANUEL FAUSTIN DO Ot R00.2 PALPITATIONS 06/05/2017 JUAN MANUEL FAUSTIN DO Ot R06.02 SHORTNESS OF BREATH 06/05/2017 JUAN MANUEL FAUSTIN DO Ot R55 SYNCOPE AND COLLAPSE 06/05/2017 JUAN MANUEL FAUSTIN DO Ot R74.8 ABNORMAL LEVELS OF OTHER SERUM ENZYMES Procedures There is no data. Results Test Result Range Automated blood complete blood count (hemogram) panel - 11/08/16 15:19 Blood leukocytes automated count (number/volume) 9.5 10*3/uL 4.3-11.0 Blood erythrocytes automated count (number/volume) 4.31 10*6/uL 4.35-5.85 Venous blood hemoglobin measurement (mass/volume) 13.6 g/dL 13.3-17.7 Blood hematocrit (volume fraction) 40 % 40-54 Automated erythrocyte mean corpuscular volume 93 [foz_us] 80-99 Automated erythrocyte mean corpuscular hemoglobin (mass per erythrocyte) 32 pg 25-34 Automated erythrocyte mean corpuscular hemoglobin concentration measurement ( mass/volume) 34 g/dL 32-36 Automated erythrocyte distribution width ratio 13.8 % 10.0-14.5 Automated blood platelet count (count/volume) 159 10*3/uL 130-400 Automated blood platelet mean volume measurement 11.0 [foz_us] 7.4-10.4 Comprehensive metabolic panel - 11/08/16 15:19 Serum or plasma sodium measurement (moles/volume) 142 mmol/L 135-145 Serum or plasma potassium measurement (moles/volume) 4.4 mmol/L 3.6-5.0 Serum or plasma chloride measurement (moles/volume) 114 mmol/L 98-107 Carbon dioxide 19 mmol/L 21-32 Serum or plasma anion gap determination (moles/volume) 9 mmol/L 5-14 Serum or plasma urea nitrogen measurement (mass/volume) 26 mg/dL 7-18 Serum or plasma creatinine measurement (mass/volume) 0.85 mg/dL 0.60-1.30 Serum or plasma urea nitrogen/creatinine mass ratio 31 NRG Serum or plasma creatinine measurement with calculation of estimated glomerular filtration rate > NRG Serum or plasma glucose measurement (mass/volume) 93 mg/dL 70-105 Serum or plasma calcium measurement (mass/volume) 7.9 mg/dL 8.5-10.1 Serum or plasma total bilirubin measurement (mass/volume) 0.8 mg/dL 0.1-1.0 Serum or plasma alkaline phosphatase measurement (enzymatic activity/volume) 62 U/L 40-136 Serum or plasma aspartate aminotransferase measurement (enzymatic activity/ volume) 36 U/L 5-34 Serum or plasma alanine aminotransferase measurement (enzymatic activity/volume ) 46 U/L 0-55 Serum or plasma protein measurement (mass/volume) 5.1 g/dL 6.4-8.2 Serum or plasma albumin measurement (mass/volume) 3.2 g/dL 3.2-4.5 Serum or plasma lithium measurement (moles/volume) - 11/08/16 15:19 BNP level 770.7 pg/mL <100.0 THYROID STIMULATING HORMONE - 11/08/16 15:19 THYROID STIMULATING HORMONE 0.98 u[iU]/mL 0.35-4.94 Methicillin resistant Staphylococcus aureus (MRSA) screening culture - 20:40 Methicillin resistant Staphylococcus aureus (MRSA) screening culture NEG NRG Automated blood complete blood count (hemogram) panel - 11/09/16 06:22 Blood leukocytes automated count (number/volume) 5.7 10*3/uL 4.3-11.0 Blood erythrocytes automated count (number/volume) 4.56 10*6/uL 4.35-5.85 Venous blood hemoglobin measurement (mass/volume) 14.4 g/dL 13.3-17.7 Blood hematocrit (volume fraction) 42 % 40-54 Automated erythrocyte mean corpuscular volume 93 [foz_us] 80-99 Automated erythrocyte mean corpuscular hemoglobin (mass per erythrocyte) 32 pg 25-34 Automated erythrocyte mean corpuscular hemoglobin concentration measurement ( mass/volume) 34 g/dL 32-36 Automated erythrocyte distribution width ratio 13.4 % 10.0-14.5 Automated blood platelet count (count/volume) 161 10*3/uL 130-400 Automated blood platelet mean volume measurement 11.7 [foz_us] 7.4-10.4 Comprehensive metabolic panel - 11/09/16 06:22 Serum or plasma sodium measurement (moles/volume) 141 mmol/L 135-145 Serum or plasma potassium measurement (moles/volume) 4.3 mmol/L 3.6-5.0 Serum or plasma chloride measurement (moles/volume) 112 mmol/L 98-107 Carbon dioxide 21 mmol/L 21-32 Serum or plasma anion gap determination (moles/volume) 8 mmol/L 5-14 Serum or plasma urea nitrogen measurement (mass/volume) 15 mg/dL 7-18 Serum or plasma creatinine measurement (mass/volume) 0.77 mg/dL 0.60-1.30 Serum or plasma urea nitrogen/creatinine mass ratio 19 NRG Serum or plasma creatinine measurement with calculation of estimated glomerular filtration rate > NRG Serum or plasma glucose measurement (mass/volume) 81 mg/dL 70-105 Serum or plasma calcium measurement (mass/volume) 8.4 mg/dL 8.5-10.1 Serum or plasma total bilirubin measurement (mass/volume) 1.2 mg/dL 0.1-1.0 Serum or plasma alkaline phosphatase measurement (enzymatic activity/volume) 67 U/L 40-136 Serum or plasma aspartate aminotransferase measurement (enzymatic activity/ volume) 30 U/L 5-34 Serum or plasma alanine aminotransferase measurement (enzymatic activity/volume ) 42 U/L 0-55 Serum or plasma protein measurement (mass/volume) 5.3 g/dL 6.4-8.2 Serum or plasma albumin measurement (mass/volume) 3.3 g/dL 3.2-4.5 Magnesium - 11/09/16 06:22 Magnesium 2.0 mg/dL 1.8-2.4 Automated blood complete blood count (hemogram) panel - 01/09/17 16:02 Blood leukocytes automated count (number/volume) 6.7 10*3/uL 4.3-11.0 Blood erythrocytes automated count (number/volume) 4.26 10*6/uL 4.35-5.85 Venous blood hemoglobin measurement (mass/volume) 13.5 g/dL 13.3-17.7 Blood hematocrit (volume fraction) 40 % 40-54 Automated erythrocyte mean corpuscular volume 95 [foz_us] 80-99 Automated erythrocyte mean corpuscular hemoglobin (mass per erythrocyte) 32 pg 25-34 Automated erythrocyte mean corpuscular hemoglobin concentration measurement ( mass/volume) 34 g/dL 32-36 Automated erythrocyte distribution width ratio 15.4 % 10.0-14.5 Automated blood platelet count (count/volume) 261 10*3/uL 130-400 Automated blood platelet mean volume measurement 10.3 [foz_us] 7.4-10.4 PT panel in platelet poor plasma by coagulation assay - 01/09/17 16:02 Prothrombin time (PT) in platelet poor plasma by coagulation assay 14.1 s 12.2-14.7 INR in platelet poor plasma or blood by coagulation assay 1.1 0.8-1.4 Activated partial thromboplastin time (aPTT) in platelet poor plasma bycoagulation assay - 01/09/17 16:02 Activated partial thromboplastin time (aPTT) in platelet poor plasma bycoagulation assay 26 s 24-35 Comprehensive metabolic panel - 01/09/17 16:02 Serum or plasma sodium measurement (moles/volume) 139 mmol/L 135-145 Serum or plasma potassium measurement (moles/volume) 4.1 mmol/L 3.6-5.0 Serum or plasma chloride measurement (moles/volume) 109 mmol/L 98-107 Carbon dioxide 24 mmol/L 21-32 Serum or plasma anion gap determination (moles/volume) 6 mmol/L 5-14 Serum or plasma urea nitrogen measurement (mass/volume) 20 mg/dL 7-18 Serum or plasma creatinine measurement (mass/volume) 0.99 mg/dL 0.60-1.30 Serum or plasma urea nitrogen/creatinine mass ratio 20 NRG Serum or plasma creatinine measurement with calculation of estimated glomerular filtration rate > NRG Serum or plasma glucose measurement (mass/volume) 95 mg/dL 70-105 Serum or plasma calcium measurement (mass/volume) 8.5 mg/dL 8.5-10.1 Serum or plasma total bilirubin measurement (mass/volume) 0.5 mg/dL 0.1-1.0 Serum or plasma alkaline phosphatase measurement (enzymatic activity/volume) 56 U/L 40-136 Serum or plasma aspartate aminotransferase measurement (enzymatic activity/ volume) 17 U/L 5-34 Serum or plasma alanine aminotransferase measurement (enzymatic activity/volume ) 22 U/L 0-55 Serum or plasma protein measurement (mass/volume) 5.4 g/dL 6.4-8.2 Serum or plasma albumin measurement (mass/volume) 3.4 g/dL 3.2-4.5 Magnesium - 01/09/17 16:02 Magnesium 2.1 mg/dL 1.8-2.4 Serum or plasma troponin i.cardiac measurement (mass/volume) - 01/09/17 16:02 Serum or plasma troponin i.cardiac measurement (mass/volume) < ng/ mL <0.30 Lipid 1996 panel - 01/09/17 16:02 Serum or plasma triglyceride measurement (mass/volume) 189 mg/dL <150 Serum or plasma cholesterol measurement (mass/volume) 213 mg/dL < 200 Serum or plasma cholesterol in HDL measurement (mass/volume) 34 mg/ dL 40-60 Cholesterol in LDL [mass/volume] in serum or plasma by direct assay 154 mg/dL 1-129 Serum or plasma cholesterol in VLDL measurement (mass/volume) 38 mg/ dL 5-40 Complete blood count (CBC) with automated white blood cell (WBC) differential - 01/11/17 07:53 Blood leukocytes automated count (number/volume) 6.9 10*3/uL 4.3-11.0 Blood erythrocytes automated count (number/volume) 4.90 10*6/uL 4.35-5.85 Venous blood hemoglobin measurement (mass/volume) 15.5 g/dL 13.3-17.7 Blood hematocrit (volume fraction) 46 % 40-54 Automated erythrocyte mean corpuscular volume 95 [foz_us] 80-99 Automated erythrocyte mean corpuscular hemoglobin (mass per erythrocyte) 32 pg 25-34 Automated erythrocyte mean corpuscular hemoglobin concentration measurement ( mass/volume) 34 g/dL 32-36 Automated erythrocyte distribution width ratio 15.2 % 10.0-14.5 Automated blood platelet count (count/volume) 274 10*3/uL 130-400 Automated blood platelet mean volume measurement 10.4 [foz_us] 7.4-10.4 Automated blood neutrophils/100 leukocytes 70 % 42-75 Automated blood lymphocytes/100 leukocytes 18 % 12-44 Blood monocytes/100 leukocytes 9 % 0-12 Automated blood eosinophils/100 leukocytes 2 % 0-10 Automated blood basophils/100 leukocytes 0 % 0-10 Blood neutrophils automated count (number/volume) 4.9 10*3 1.8-7.8 Blood lymphocytes automated count (number/volume) 1.2 10*3 1.0-4.0 Blood monocytes automated count (number/volume) 0.6 10*3 0.0-1.0 Automated eosinophil count 0.2 10*3/uL 0.0-0.3 Automated blood basophil count (count/volume) 0.0 10*3/uL 0.0-0.1 Comprehensive metabolic panel - 01/11/17 07:53 Serum or plasma sodium measurement (moles/volume) 144 mmol/L 135-145 Serum or plasma potassium measurement (moles/volume) 4.4 mmol/L 3.6-5.0 Serum or plasma chloride measurement (moles/volume) 106 mmol/L 98-107 Carbon dioxide 29 mmol/L 21-32 Serum or plasma anion gap determination (moles/volume) 9 mmol/L 5-14 Serum or plasma urea nitrogen measurement (mass/volume) 18 mg/dL 7-18 Serum or plasma creatinine measurement (mass/volume) 0.96 mg/dL 0.60-1.30 Serum or plasma urea nitrogen/creatinine mass ratio 19 NRG Serum or plasma creatinine measurement with calculation of estimated glomerular filtration rate > NRG Serum or plasma glucose measurement (mass/volume) 86 mg/dL 70-105 Serum or plasma calcium measurement (mass/volume) 9.2 mg/dL 8.5-10.1 Serum or plasma total bilirubin measurement (mass/volume) 0.9 mg/dL 0.1-1.0 Serum or plasma alkaline phosphatase measurement (enzymatic activity/volume) 69 U/L 40-136 Serum or plasma aspartate aminotransferase measurement (enzymatic activity/ volume) 20 U/L 5-34 Serum or plasma alanine aminotransferase measurement (enzymatic activity/volume ) 27 U/L 0-55 Serum or plasma protein measurement (mass/volume) 6.0 g/dL 6.4-8.2 Serum or plasma albumin measurement (mass/volume) 3.7 g/dL 3.2-4.5 Magnesium - 01/11/17 07:53 Magnesium 2.1 mg/dL 1.8-2.4 Automated blood complete blood count (hemogram) panel - 01/12/17 03:48 Blood leukocytes automated count (number/volume) 6.9 10*3/uL 4.3-11.0 Blood erythrocytes automated count (number/volume) 4.47 10*6/uL 4.35-5.85 Venous blood hemoglobin measurement (mass/volume) 14.1 g/dL 13.3-17.7 Blood hematocrit (volume fraction) 42 % 40-54 Automated erythrocyte mean corpuscular volume 94 [foz_us] 80-99 Automated erythrocyte mean corpuscular hemoglobin (mass per erythrocyte) 32 pg 25-34 Automated erythrocyte mean corpuscular hemoglobin concentration measurement ( mass/volume) 33 g/dL 32-36 Automated erythrocyte distribution width ratio 15.0 % 10.0-14.5 Automated blood platelet count (count/volume) 241 10*3/uL 130-400 Automated blood platelet mean volume measurement 10.4 [foz_us] 7.4-10.4 Whole blood basic metabolic panel - 01/12/17 03:48 Serum or plasma sodium measurement (moles/volume) 142 mmol/L 135-145 Serum or plasma potassium measurement (moles/volume) 4.1 mmol/L 3.6-5.0 Serum or plasma chloride measurement (moles/volume) 109 mmol/L 98-107 Carbon dioxide 26 mmol/L 21-32 Serum or plasma anion gap determination (moles/volume) 7 mmol/L 5-14 Serum or plasma urea nitrogen measurement (mass/volume) 15 mg/dL 7-18 Serum or plasma creatinine measurement (mass/volume) 0.80 mg/dL 0.60-1.30 Serum or plasma urea nitrogen/creatinine mass ratio 19 NRG Serum or plasma creatinine measurement with calculation of estimated glomerular filtration rate > NRG Serum or plasma glucose measurement (mass/volume) 90 mg/dL 70-105 Serum or plasma calcium measurement (mass/volume) 9.0 mg/dL 8.5-10.1 Magnesium - 01/12/17 03:48 Magnesium 2.0 mg/dL 1.8-2.4 Complete blood count (CBC) with automated white blood cell (WBC) differential - 06/05/17 03:30 Blood leukocytes automated count (number/volume) 8.9 10*3/uL 4.3-11.0 Blood erythrocytes automated count (number/volume) 4.46 10*6/uL 4.35-5.85 Venous blood hemoglobin measurement (mass/volume) 12.8 g/dL 13.3-17.7 Blood hematocrit (volume fraction) 39 % 40-54 Automated erythrocyte mean corpuscular volume 87 [foz_us] 80-99 Automated erythrocyte mean corpuscular hemoglobin (mass per erythrocyte) 29 pg 25-34 Automated erythrocyte mean corpuscular hemoglobin concentration measurement ( mass/volume) 33 g/dL 32-36 Automated erythrocyte distribution width ratio 14.1 % 10.0-14.5 Automated blood platelet count (count/volume) 168 10*3/uL 130-400 Automated blood platelet mean volume measurement 11.8 [foz_us] 7.4-10.4 Automated blood neutrophils/100 leukocytes 65 % 42-75 Automated blood lymphocytes/100 leukocytes 19 % 12-44 Blood monocytes/100 leukocytes 11 % 0-12 Automated blood eosinophils/100 leukocytes 5 % 0-10 Automated blood basophils/100 leukocytes 0 % 0-10 Blood neutrophils automated count (number/volume) 5.8 10*3 1.8-7.8 Blood lymphocytes automated count (number/volume) 1.7 10*3 1.0-4.0 Blood monocytes automated count (number/volume) 1.0 10*3 0.0-1.0 Automated eosinophil count 0.4 10*3/uL 0.0-0.3 Automated blood basophil count (count/volume) 0.0 10*3/uL 0.0-0.1 Comprehensive metabolic panel - 06/05/17 03:30 Serum or plasma sodium measurement (moles/volume) 143 mmol/L 135-145 Serum or plasma potassium measurement (moles/volume) 3.8 mmol/L 3.6-5.0 Serum or plasma chloride measurement (moles/volume) 111 mmol/L 98-107 Carbon dioxide 23 mmol/L 21-32 Serum or plasma anion gap determination (moles/volume) 9 mmol/L 5-14 Serum or plasma urea nitrogen measurement (mass/volume) 20 mg/dL 7-18 Serum or plasma creatinine measurement (mass/volume) 0.72 mg/dL 0.60-1.30 Serum or plasma urea nitrogen/creatinine mass ratio 28 NRG Serum or plasma creatinine measurement with calculation of estimated glomerular filtration rate > NRG Serum or plasma glucose measurement (mass/volume) 99 mg/dL 70-105 Serum or plasma calcium measurement (mass/volume) 8.9 mg/dL 8.5-10.1 Serum or plasma total bilirubin measurement (mass/volume) 0.8 mg/dL 0.1-1.0 Serum or plasma alkaline phosphatase measurement (enzymatic activity/volume) 88 U/L 40-136 Serum or plasma aspartate aminotransferase measurement (enzymatic activity/ volume) 18 U/L 5-34 Serum or plasma alanine aminotransferase measurement (enzymatic activity/volume ) 18 U/L 0-55 Serum or plasma protein measurement (mass/volume) 5.3 g/dL 6.4-8.2 Serum or plasma albumin measurement (mass/volume) 3.2 g/dL 3.2-4.5 Magnesium - 06/05/17 03:30 Magnesium 1.8 mg/dL 1.8-2.4 Encounters ACCT No. Visit Date/Time Discharge Status Pt. Type Provider Facility Loc./Unit Complaint [id number] 09/30/2014 14:31:42 09/30/2014 23:59:59 CLS Outpatient Ripton, Fredy [id number] 06/24/2014 10:33:44 06/24/2014 23:59:59 CLS Outpatient Ripton, Fredy [id number] 06/04/2014 12:09:33 06/04/2014 23:59:59 CLS Outpatient Ripton, Fredy [id number] 06/03/2014 14:37:50 06/03/2014 23:59:59 CLS Outpatient Ripton, Fredy [id number] 05/14/2014 16:30:04 05/14/2014 23:59:59 CLS Outpatient Fredy Bassett [id number] 05/05/2014 19:30:15 05/05/2014 23:59:59 CLS Outpatient Dang Estrada [id number] 02/05/2014 02:07:14 02/05/2014 23:59:59 CLS Outpatient Dang Estrada [id number] 12/03/2013 16:11:22 12/03/2013 23:59:59 CLS Outpatient Dang Estrada [id number] 12/27/2017 15:58:00 12/27/2017 23:59:59 CLS Outpatient PATRICIA ARTIS MD [facility] PREOP RIGHT INGUINAL HERNIA, VENTRAL HERNIA [id number] 06/04/2017 21:10:00 06/05/2017 14:15:00 DIS Inpatient JUAN MANUEL FAUSTIN DO [facility] ICU SYNCOPY,OCCIPATAL HEMATOMA [id number] 03/09/2017 09:14:00 03/09/2017 23:59:59 CLS Outpatient ORLIN CORONADO MD [facility] [address] CARD CAD [id number] 01/10/2017 09:20:00 01/12/2017 13:55:00 DIS Inpatient Lulu LAY MD [facility] [address] CSD VT AND SYNCOPE [id number] 01/03/2017 14:54:00 01/03/2017 23:59:59 CLS Outpatient ORLIN CORONADO MD [facility] [address] RAD R42,I10,E78.2,R06.02 [id number] 11/08/2016 13:32:00 11/09/2016 12:45:00 DIS Inpatient ORLIN CORONADO MD [facility] [address] ICU A-FIB W/RVR [id number] 08/02/2016 10:57:00 08/02/2016 23:59:59 CLS Outpatient PATRICIA ARTIS MD [facility] [address] RAD ABD PAIN [id number] 07/25/2016 08:31:00 07/25/2016 23:59:59 CLS Outpatient ORLIN CORONADO MD [facility] [address] CARD CAD,CAROTID ARTERY STENOSIS,HTN,SOB [id number] 07/19/2016 09:37:00 07/19/2016 23:59:59 CLS Outpatient ORLIN CORONADO MD [facility] [address] CARD CAD,HTN,MIXED HLP,SOB [id number] 03/24/2016 13:17:00 03/24/2016 23:59:59 CLS Outpatient ORLIN CORONADO MD [facility] [address] CARD AFIB,CAD,BK [id number] 12/02/2014 12:17:00 12/02/2014 23:59:59 CLS Outpatient GAVIN SALEH [facility] [address] CARD CAD,VT,HTN [id number] 08/08/2014 06:47:00 08/08/2014 14:20:00 DIS Outpatient ORLIN CORONADO MD [facility] [address] CATH CAD,AFIB,HTN,HLP [id number] 05/19/2014 06:35:00 05/19/2014 13:52:00 DIS Outpatient ORLIN CORONADO MD [facility] [address] CATH VTACH,CAD,HTN,DIZZINESS [id number] 01/07/2014 09:05:00 01/07/2014 23:59:59 CLS Outpatient ORLIN CORONADO MD [facility] [address] CARD AFIB,CAD,HTN [id number] 10/04/2013 07:10:00 10/04/2013 23:59:59 CLS Outpatient ORLIN CORONADO MD [facility] [address] CARD SOB,HTN,HLP [id number] 01/03/2018 08:00:00 PEN Preadmit STEFF SOLO, PATRICIA Lawson [facility] RIGHT INGUINAL HERNIA, VENTRAL HERNIA [id number] 12/03/2014 01:41:55 ACT Document Registration [id number] 06/07/2017 21:39:19 Document Registration
[2018-01-01] MEDS ORDERED: NS IV 500 ML 500 ML ONE (11:00)
[2018-01-01 11:05] VITALS: BP 149/84
[2018-01-01] MEDS ORDERED: NS IV 500 ML 500 ML IV PRN (11:07)
--- NOTE | 2018-01-01 11:55 | Conscious Sedation/ASA ---
Conscious Sedation Pre-Proced Time Reviewed: 11:55 ASA Class: 2 Airway Mallampati Classification: ([place] appropriate class) I. II. III, IV Lungs Heart ASA score ASA 1: a normal healthy patient ASA 2: a patient with a mild systemic disease (mid diabetes, controlled hypertension, obesity ASA 3: a patient with a severe systemic disease that limits activity (angina , COPD, prior Myocardial infarction) ASA 4: a patient with an incapacitating disease that is a constant threat to life (CHF, renal failure) ASA 5: a moribund patient not expected to survive 24 hrs. (ruptured aneurysm) ASA 6: a declared brain patient whose organs are being harvested. For emergent operations, add the letter E after the classification Grade 1 Sedation Plan: Discussed options with patient/fam Note The patient is an appropriate candidate to undergo the planned procedure, sedation, and anesthesia. The patient immediately re-assessed prior to indication. PATRICIA ARTIS MD Jan 01, 2018 11:55 am
[2018-01-01] MEDS ORDERED: MIDAZOLAM 2 MG/2 ML (VERSED) VIAL ONE ×2 (13:13)
[2018-01-01] MEDS ORDERED: fentaNYL INJECTION 100 MCG/2 ML AMP ONE (13:13)
[2018-01-01] MEDS: fentaNYL INJECTION 100 MCG/2 ML AMP IVP PRN ×2 (13:34→13:42)
[2018-01-01] MEDS: MIDAZOLAM 2 MG/2 ML (VERSED) VIAL IVP PRN ×2 (13:35→13:44)
--- NOTE | 2018-01-01 13:59 | Endo Procedure Record ---
Endo Procedure Report Date of Procedure Last Colonoscopy: Yes (2006) Jan 01, 2018 Surgeon (s) PATRICIA ARTIS MD Post Procedure/Op Diagnosis Sigmoid Diverticulosis Procedure Performed Colonoscopy to cecum Description of Procedure Anesthesia Type: Conscious Sedation Specimen(s) collected/removed none Description of the Procedure indication for the procedure: This gentleman, with a family history of colon cancer, came in for screening colonoscopy. Informed consent was obtained after reviewing the procedure in detail. Description of procedure: He was placed in left lateral rectus position and his vital signs were monitored. Conscious sedation was achieved using Versed and fentanyl. Digital rectal examination was unremarkable. The colonoscope was then introduced in the rectum and advanced to the cecum by the chordae bowel preparation was acceptable. The scope was then withdrawn slowly and the mucosa examined in a systematic fashion. Findings: Sigmoid diverticulosis. No polyps were found He tolerated the procedure well and was taken back to the nursing area in a stable condition. Impression: Screening colonoscopy. Positive family history. No polyps. PATRICIA ARTIS MD Jan 01, 2018 1:59 pm
--- NOTE | 2018-01-01 14:05 | Discharge Inst-Simple/Standard ---
Discharge Inst-Standard Patient Instructions/Follow Up Plan of Care/Instructions/FU: To return for hernia surgery as scheduled Activity as Tolerated: Yes Discharge Diet: No Restrictions PATRICIA ARTIS MD Jan 01, 2018 2:05 pm
[2018-01-01 14:10] VITALS: BP 120/79
[2018-01-01 14:35] VITALS: BP 137/92
[2018-01-01 14:40] VITALS: BP 137/92
[2018-01-03] MEDS ORDERED: ACHD5005 PO (10:59)
== END 2018-01-01 14:41 | disposition home or self-care (01) ==
LOC: ENDO 10:43
PROVIDERS: ATTEND Surgery
DX: Z12.11 Encounter for screening for malignant neoplasm of colon (principal); K57.30 Diverticulosis of large intestine without perforation or abscess without bleeding; Z80.0 Family history of malignant neoplasm of digestive organs; Z79.01 Long term (current) use of anticoagulants; I25.10 Atherosclerotic heart disease of native coronary artery without angina pectoris; E78.2 Mixed hyperlipidemia; Z87.891 Personal history of nicotine dependence

== ENCOUNTER 2018-01-01 10:46 | Outpatient (CLI) | payer BC, MEDICARE ==
[~2018-01-01] VITALS: Ht 185.4 cm; Wt 84.1 kg
[2018-01-01 11:51] LABS: BASOPHILS % (AUTO) 1 % (0-10); EOSINOPHILS # (AUTO) 0.1 10^3/uL (0.0-0.3); EOSINOPHILS % (AUTO) 1 % (0-10); HEMATOCRIT 41 % (40-54); HEMOGLOBIN 13.4 G/DL (13.3-17.7); LYMPHOCYTES # (AUTO) 1.2 X 10^3 (1.0-4.0); LYMPHOCYTES % (AUTO) 16 % (12-44); MEAN CORPUSCULAR HEMOGLOBIN 28 PG (25-34); MEAN CORPUSCULAR HGB CONC 33 G/DL (32-36); MEAN CORPUSCULAR VOLUME 86 FL (80-99); MEAN PLATELET VOLUME 11.1 FL (7.4-10.4); MONOCYTES # (AUTO) 0.9 X 10^3 (0.0-1.0); MONOCYTES % (AUTO) 12 % (0-12); NEUTROPHILS # (AUTO) 5.1 X 10^3 (1.8-7.8); NEUTROPHILS % (AUTO) 71 % (42-75); PLATELET COUNT 203 10^3/uL (130-400); RED BLOOD COUNT 4.77 10^6/uL (4.35-5.85); RED CELL DISTRIBUTION WIDTH 16.6 % (10.0-14.5); WHITE BLOOD COUNT 7.3 10^3/uL (4.3-11.0)
[2018-01-03] MEDS ORDERED: ACHD5005 PO (10:59)
== END 2018-01-01 13:31 | disposition home or self-care (01) ==
LOC: PREOP 10:46
PROVIDERS: ATTEND Surgery
DX: Z01.818 Encounter for other preprocedural examination (principal); K43.9 Ventral hernia without obstruction or gangrene; K40.90 Unilateral inguinal hernia, without obstruction or gangrene, not specified as recurrent; Z79.01 Long term (current) use of anticoagulants
CPT/HCPCS: 36415; 85025; 87081

== ENCOUNTER 2018-01-03 06:00 | Day surgery (SDC) | payer BC, MEDICARE ==
[~2018-01-03] VITALS: Ht 185.4 cm; Wt 84.1 kg
[2018-01-03] MEDS ORDERED: ceFAZolin 2 GM IV Premixed 50 ML IV ONE (06:45)
[2018-01-03] MEDS ORDERED: MIDAZOLAM 2 MG/2 ML (VERSED) VIAL ONE (06:50)
[2018-01-03] MEDS ORDERED: DEXAMETHASONE 10 MG/ML (DECADRON) 1 ML VIAL ONE (06:50)
[2018-01-03] MEDS ORDERED: GLYCOPYRROLATE 0.2 MG/ML (ROBINUL) 2 ML VIAL ONE (06:50)
[2018-01-03] MEDS ORDERED: LIDOCAINE PF 2% 5 ML (XYLOCAINE) VIAL ONE (06:50)
[2018-01-03] MEDS ORDERED: ROCURONIUM 10 MG/ML 5 ML SYRINGE IV ONE ×2 (06:50→09:33)
[2018-01-03] MEDS ORDERED: SEVOFLURANE (ULTANE) 15 ML INHAL SOLN ONE ×10 (06:50→09:52)
[2018-01-03] MEDS ORDERED: NEOSTIGMINE 1 MG/ML 5 ML SYRINGE ONE (06:50)
[2018-01-03] MEDS ORDERED: fentaNYL INJECTION 100 MCG/2 ML AMP ONE ×2 (06:50→10:32)
[2018-01-03] MEDS ORDERED: ONDANSETRON 4 MG/2 ML (SDV) Z0FRAN ONE (06:50)
[2018-01-03] MEDS ORDERED: proPOfol 200 MG/20 ML (DIPRIVAN) VIAL IV ONE (06:50)
[2018-01-03] MEDS ORDERED: BUP/EPI 0.5% 1:200,000 (SENSORCAINE) 30 ML VIAL ONE (07:16)
[2018-01-03] MEDS: LACTATED RINGERS 1,000 ML IV PRN ×2 (07:22→08:18)
[2018-01-03] MEDS ORDERED: APIX5TAB PO (07:24)
--- NOTE | 2018-01-03 07:40 | Progress Note-Pre Operative ---
Pre-Operative Progress Note H&P Reviewed The H&P was reviewed, patient examined and no changes noted. Date Seen by Provider: Jan 01, 2018 Time Seen by Provider: 11:50 Date H&P Reviewed: January 03, 2018 Time H&P Reviewed: 07:40 Pre-Operative Diagnosis: Recurrent inguinal hernia PATRICIA ARTIS MD January 03, 2018 7:40 am
[2018-01-03 07:47] VITALS: BP 138/92
[2018-01-03] MEDS ORDERED: PHENYLEPHRINE 100 MCG/ML 10 ML (ANESTHESIA) SYR ONE (08:27)
[2018-01-03] MEDS ORDERED: morphine INJ 10 MG/ML 1ML (SYR OR VIAL) ONE (10:42)
--- NOTE | 2018-01-03 10:53 | Operative Report ---
Operative Report Date of Procedure/Surgery January 03, 2018 Surgeon (s) PATRICIA ARTIS MD Wheat Shipper (s): Larissa Kirkpatrick (mED sTUDENT) Post-Operative Diagnosis Same Procedure Performed Robotic assisted repair of recurrent right inguinal hernia with a new mesh Removal of previous mesh Primary repair of supraumbilical ventral hernia Description of Procedure Anesthesia Type: General Estimated blood loss (mL): Minimal Specimen(s) collected/removed Hernia contents and previous mesh Description of the Procedure Indication for the procedure: This gentleman presented with a symptomatic, large , recurrent right inguinal hernia and ventral hernia in relation to a supraumbilical trocar site from previous surgery. He was offered repair using minimally invasive technique with robotic assistance and reinforcement with new mesh. The potential for removing the previous mesh was discussed With regard to the ventral hernia, primary repair with closure of the fascia was offered, the defect being small. Informed consent was obtained after reviewing the operative details and complications of postoperative hematoma cardiac dysfunction and urinary retention. Description of the procedures: He was placed supine on the operating table and general anesthesia induced using an endotracheal tube. A gram of Ancef was administered intravenously as prophylaxis against wound infection. Sequential compression devices were placed around his legs, to minimize the risk of venous thrombosis. A Stallings catheter was placed to decompress the bladder during surgery. It was removed at the end of the operation. Abdomen was prepared and draped in the usual sterile manner. Pneumoperitoneum was established using a Veress needle introduced over the left subcostal margin. Intra-abdominal pressure was maintained at 15 mmHg, using carbon dioxide insufflation. A 12 mm trocar was placed and anatomy visualized using the conventional laparoscope. The defect over the supraumbilical region was about a centimeter in diameter and the contents had been reduced during the insufflation. Under direct view, I placed a 12 mm over the supraumbilical defect itself followed by an 8 mm trocar over each side of the abdomen. The patient was then turned into steep Trendelenburg position to displace loops of bowel out of the pelvis. The robotic system was then docked in place. Laparoscopic survey enlarged recurrent hernia containing extraperitoneal fat. Peritoneum was incised laterally, extending across the median umbilical ligament using the hook cautery. Pre-peritoneal space was entered identifying the previous mesh, which had contracted and got displaced very medially. There was no mesh coverage around the defect itself. Inferior epigastric artery was dissected and preserved. The hernia contents and the sac where reduced completely out of the inguinal canal, protecting the cord structures. A large defect measuring at least 4 cm in diameter in a transverse fashion came into view. Contracted mesh was excised piecemeal and removed out of the peritoneal cavity. Malcom's ligament was defined, completing the medial dissection. The defect was closed primarily using 20V LOC suture using robotic assistance. A polypropylene mesh measuring 10 x 16 cm, pre-shaped to fit into the preperitoneal space was chosen. It was secured to Malcom's ligament and the anterior abdominal musculature with 2-0 Vicryl sutures with the robotic assistance. The peritoneal defect was then closed using a combination of 2-0 Vicryl and 20V LOC sutures with robotic assistance. Hernia contents were placed in an Endo catch bag and removed via the trocar over the left upper quadrant. The fascia over this incision was closed using # 1 Vicryl. The fascia over the supraumbilical defect was closed using #1 Vicryl as well. Skin incisions were closed using 4-0 Vicryl, in a subcuticular fashion. 0.5 percent Marcaine with epinephrine was infiltrated along the incisions, both pre-preemptively and at the conclusion of the operation. He tolerated the procedure well, was extubated in the operating room and taken to the recovery room in a stable condition. Findings of the Procedure See op report Allergies and Home Medications Allergies Coded Allergies: No Known Drug Allergies (Unverified , 12/28/17) Home Medications Apixaban 5 Mg Tablet, 5 MG PO BID, (Reported) Atorvastatin Calcium 40 Mg Tablet, 40 MG PO HS, (Reported) Meloxicam 15 Mg Tablet, 15 MG PO HS, (Reported) Mexiletine HCl 200 Mg Capsule, 200 MG PO TID, (Reported) Multivitamin 1 Each Tablet, 1 TAB PO DAILY, (Reported) Catarina-3/Dha/Epa/Fish Oil 1 Each Capsule, 1 EACH PO DAILY, (Reported) Omeprazole 40 Mg Capsule.dr, 40 MG PO DAILY, (Reported) Sotalol HCl 120 Mg Tablet, 120 MG PO BID, (Reported) Patient Home Medication List Home Medication List Reviewed: Yes PATRICIA ARTIS MD January 03, 2018 10:53 am
[2018-01-03] MEDS ORDERED: ACHD5005 PO (10:59)
[2018-01-03] MEDS ORDERED: fentaNYL INJECTION 100 MCG/2 ML AMP IV PRN (11:00)
[2018-01-03] MEDS ORDERED: ONDANSETRON 4 MG/2 ML (SDV) Z0FRAN IVP PRN ×2 (11:00→11:15)
[2018-01-03] MEDS ORDERED: PATIENT MAY USE OWN MEDS, ALL PO SCH (11:00)
[2018-01-03] MEDS ORDERED: HYDROcodone/APAP 5 MG/325 MG (LORTAB) TAB PO PRN (11:00)
--- NOTE | 2018-01-03 11:01 | Discharge Inst-Simple/Standard ---
Discharge Inst-Standard Discharge Medications New, Converted or Re-Newed RX: RX on Chart Patient Instructions/Follow Up Plan of Care/Instructions/FU: Band-Aids of in a.m. Incentive spirometry for 1 week. Follow-up in 4 weeks. Scrotal support for 1 week Activity as Tolerated: No Goal: No lifting or pushing over 10 pounds Discharge Diet: No Restrictions PATRICIA ARTIS MD January 03, 2018 11:01 am
[2018-01-03] MEDS: morphine INJ 10 MG/ML 1ML (SYR OR VIAL) IVP PRN ×2 (11:17→11:30)
[2018-01-03 12:32] VITALS: BP 120/84
[2018-01-03] MEDS: MEXILETINE HCL 200 MG PO SCH ×2 (13:48→20:38)
[2018-01-03] MEDS: LACTATED RINGERS 1,000 ML IV SCH (14:09)
[2018-01-03 15:50] VITALS: BP 119/57
[2018-01-03 19:40] VITALS: BP 149/87
[2018-01-03] MEDS: SOTALOL 120 MG PO SCH (20:37)
[2018-01-03] MEDS ORDERED: MELOXICAM 15MG TABLET PO SCH (21:00)
[2018-01-03] MEDS ORDERED: ATORVASTATIN 40 MG (LIPITOR) TABLET PO SCH (21:00)
[2018-01-03 23:28] VITALS: BP 125/82
[2018-01-04] MEDS: LACTATED RINGERS 1,000 ML IV SCH (00:26)
[2018-01-04 03:22] VITALS: BP 99/65
[2018-01-04 08:00] VITALS: BP 109/69
[2018-01-04] MEDS: MEXILETINE HCL 200 MG PO SCH (09:34)
[2018-01-04] MEDS: SOTALOL 120 MG PO SCH (09:35)
[2018-01-04 11:15] VITALS: BP 110/69
--- NOTE | 2018-01-04 11:18 | Progress Note-Standard ---
Standard Progress Note Progress Notes/Assess & Plan Date Seen by Provider: January 04, 2018 Time Seen by Provider: 10:20 Progress/Assessment & Plan uneventful night. No abnormal cardiac arrhythmias. No scrotal hematoma. Incisions dry. Able to void spontaneously. Could be discharged home. Final Diagnosis recurrent right inguinal hernia. Supraumbilical ventral hernia. PATRICIA ARTIS MD January 04, 2018 11:18 am
--- NOTE | 2018-01-04 12:47 | Anesthesia-General Post-Op ---
General Patient Condition Mental Status/LOC: Same as Preop Cardiovascular: Satisfactory Nausea/Vomiting: Absent Respiratory: Satisfactory Pain: Controlled Complications: Absent Post Op Complications Complications None Follow Up Care/Instructions Patient Instructions None needed. Anesthesia/Patient Condition Patient Condition Patient is doing well, no complaints, stable vital signs, no apparent adverse anesthesia problems. No complications reported per nursing. [place] [facility]: Yes MARILYN BYRD CRNA January 04, 2018 12:47
== END 2018-01-04 11:15 | disposition home or self-care (01) ==
LOC: SDC 06:00 → 4TH 12:10 → SDC 01-04 11:15
PROVIDERS: ATTEND Surgery
DX: K40.91 Unilateral inguinal hernia, without obstruction or gangrene, recurrent (principal); K43.9 Ventral hernia without obstruction or gangrene; Z80.0 Family history of malignant neoplasm of digestive organs; N40.1 Benign prostatic hyperplasia with lower urinary tract symptoms; R33.9 Retention of urine, unspecified; R97.20 Elevated prostate specific antigen [PSA]; I25.10 Atherosclerotic heart disease of native coronary artery without angina pectoris; Z79.01 Long term (current) use of anticoagulants; Z79.899 Other long term (current) drug therapy; I10 Essential (primary) hypertension; E78.5 Hyperlipidemia, unspecified; Z95.5 Presence of coronary angioplasty implant and graft; I48.91 Unspecified atrial fibrillation; Z87.891 Personal history of nicotine dependence; K21.9 Gastro-esophageal reflux disease without esophagitis; Z95.0 Presence of cardiac pacemaker
CPT/HCPCS: 88302; 94664

== ENCOUNTER → 2018-08-13 | Outpatient (CLI) | payer MEDICARE ==
[~2018-08-13] MED LIST changes: +ACHD5005 PO
== END ==
LOC: CARD 12:46
PROVIDERS: ATTEND Internal Medicine Cardiovascular Disease
DX: I25.10 Atherosclerotic heart disease of native coronary artery without angina pectoris (principal); I10 Essential (primary) hypertension; E78.2 Mixed hyperlipidemia; I49.3 Ventricular premature depolarization; I48.0 Paroxysmal atrial fibrillation; I08.1 Rheumatic disorders of both mitral and tricuspid valves
CPT/HCPCS: 93306

== ENCOUNTER → 2018-11-01 | Outpatient (CLI) | payer MEDICARE ==
--- NOTE | 2018-11-01 18:14 | Diagnostic Imaging Report ---
EXAMINATION: Scrotal ultrasound. INDICATION: Scrotal pain. FINDINGS: Spectral and color flow imaging of the testicles was performed. There are no prior studies available for comparison. Both testicles are identified. The right testicle measures 5.0 x 1.6 x 2.4 cm while the left testicle is estimated to be 3.2 x 2.3 x 3.0 cm. There is no evidence for a solid testicular mass or for torsion. The epididymis on the left is unremarkable. The right epididymis is not well visualized. There is a large hydrocele on the right. There is little if any free fluid about the left testicle. There is no sign of varicocele formation either. IMPRESSION: 1. There is no evidence for a solid testicular mass or for torsion. 2. There is a large hydrocele on the right. 3. The epididymis on the right could not be visualized. Dictated on workstation # [id number]
== END ==
LOC: RAD 13:43
PROVIDERS: ATTEND Surgery
DX: N43.3 Hydrocele, unspecified (principal)
CPT/HCPCS: 76870

== ENCOUNTER 2018-11-15 11:52 | Outpatient (CLI) | payer MEDICARE ==
[~2018-11-15] VITALS: Ht 185.4 cm; Wt 88.5 kg
[2018-11-15 12:01] VITALS: BP 157/104
[2018-11-15] MEDS ORDERED: MULT1TAB69 PO (12:08)
== END 2018-11-15 12:30 | disposition home or self-care (01) ==
LOC: PREOP 11:52
PROVIDERS: ATTEND Urology
DX: Z01.818 Encounter for other preprocedural examination (principal)
CPT/HCPCS: 87081

== ENCOUNTER 2018-11-20 06:27 | Day surgery (SDC) | payer MEDICARE ==
[~2018-11-20] VITALS: Ht 185.4 cm; Wt 88.5 kg
[~2018-11-20 06:27] MED LIST changes: +MULT1TAB69 PO
[2018-11-20 06:45] VITALS: BP 138/91
--- NOTE | 2018-11-20 06:57 | Progress Note-Pre Operative ---
Pre-Operative Progress Note H&P Reviewed The H&P was reviewed, patient examined and no changes noted. Date Seen by Provider: Nov 20, 2018 Time Seen by Provider: 06:57 Date H&P Reviewed: Nov 20, 2018 Time H&P Reviewed: 06:57 Pre-Operative Diagnosis: RT LARGE HYDROCELE SAMMI MALCOLM MD Nov 20, 2018 06:57
[2018-11-20] MEDS ORDERED: ceFAZolin INJECTION 1,000 MG in WATER (STERILE) FOR INJECTION 10 ML IV ONE (07:00)
[2018-11-20] MEDS ORDERED: fentaNYL INJECTION 100 MCG/2 ML AMP ONE (07:21)
[2018-11-20] MEDS ORDERED: SEVOFLURANE (ULTANE) 15 ML INHAL SOLN ONE (07:21)
[2018-11-20] MEDS ORDERED: LIDOCAINE PF 2% 5 ML (XYLOCAINE) VIAL ONE (07:21)
[2018-11-20] MEDS ORDERED: DEXAMETHASONE 10 MG/ML (DECADRON) 1 ML VIAL ONE (07:21)
[2018-11-20] MEDS ORDERED: ONDANSETRON 4 MG/2 ML (SDV) Z0FRAN ONE (07:21)
[2018-11-20] MEDS ORDERED: proPOfol 200 MG/20 ML (DIPRIVAN) VIAL IV ONE (07:21)
[2018-11-20] MEDS: LACTATED RINGERS 1,000 ML IV PRN ×2 (07:30→09:55)
[2018-11-20] MEDS ORDERED: PHENYLEPHRINE 100 MCG/ML 10 ML (ANESTHESIA) SYR ONE (10:08)
--- NOTE | 2018-11-20 10:22 | Progress Note-Post Operative ---
Post-Operative Progess Note Surgeon (s)/Iron Bender (s) Surgeon SAMMI MALCOLM MD Iron Bender: NONE Pre-Operative Diagnosis RT LARGE HYDROCELE Post-Operative Diagnosis SAME Procedure & Operative Findings Date of Procedure 11/20/18 Procedure Performed/Findings RT HYDROCELECTOMY Anesthesia Type GENERAL Estimated Blood Loss Estimated blood loss (mL): NEGLIGIBLE Specimens/Packing Specimens Removed NONE Packin/4# LUISA DRAIN SAMMI MALCOLM MD Nov 20, 2018 10:22
--- NOTE | 2018-11-20 10:29 | Discharge Inst-Urology ---
Discharge Inst-Urology Discharge Medications New, Converted, or Re-newed RX: RX on Chart Patient Instructions/Follow Up Plan Patient to come to office tomorrow at 9am to DC drain, after that may shower, no bath. Please make appointment to been seen in office in 2 weeks. Rest till then In one week, if no bleeding or swelling, may resume Eliquis, hold if starts bleeding Keep bowels soft and moving Scrotal support for 2 weeks. Ice to scrotum in RR and at home for 6 hours and then PRN Increase oral fluids for 48 hours and then as needed. Diet as tolerated. If questions or concerns contact your physician Or seek help at emergency department. SAMMI MALCOLM MD Nov 20, 2018 10:29
[2018-11-20] MEDS ORDERED: ONDANSETRON 4 MG/2 ML (SDV) Z0FRAN IVP PRN (10:30)
[2018-11-20] MEDS ORDERED: morphine INJ 10 MG/ML 1ML (SYR OR VIAL) IVP ONE (10:30)
--- NOTE | 2018-11-20 10:53 | Anesthesia-General Post-Op ---
General Patient Condition Mental Status/LOC: Same as Preop Cardiovascular: Satisfactory Nausea/Vomiting: Absent Respiratory: Satisfactory Pain: Controlled Complications: Absent Post Op Complications Complications None Follow Up Care/Instructions Patient Instructions None needed. Anesthesia/Patient Condition Patient Condition Patient is doing well, no complaints, stable vital signs, no apparent adverse anesthesia problems. PAOLO ENRIQUE DO Nov 20, 2018 10:53
[2018-11-20] MEDS ORDERED: CEPH-507 PO (11:07)
[2018-11-20] MEDS ORDERED: HYDR-3870 PO (11:07)
[2018-11-20 11:15] VITALS: BP 141/90
[2018-11-20 11:45] VITALS: BP 145/96
[2018-11-20 12:15] VITALS: BP 145/96
--- NOTE | 2018-11-20 17:29 | OPERATIVE REPORT ---
DATE OF SERVICE: 11/20/2018 PREOPERATIVE DIAGNOSIS: Large right hydrocele. POSTOPERATIVE DIAGNOSIS: Large right hydrocele. OPERATION PERFORMED: Right hydrocelectomy. SURGEON: Sammi Malcolm MD ANESTHESIA: General. COMPLICATIONS: None. DESCRIPTION OF PROCEDURE: Under satisfactory general anesthesia, the patient in supine position, the genitalia, abdomen and thigh were prepped and draped in the usual sterile fashion. Incision was made in the median raphe, carried through the right scrotal compartment. Large amount of fluid was suctioned. The testicle was delivered and the wound was normal with mild inflammatory changes in the epididymis, mostly reactive. The hydrocele sac was not large, so I went ahead and everted behind the spermatic cord with a few interrupted 3-0 Vicryl. Hemostasis was satisfactory. The testicle was replaced into the scrotum, which was drained by quarter of an inch Truong drain, brought through a separate stab wound in the bottom of the scrotum, secured in position with 3-0 chromic catgut suture. Closure was performed in two layers, the dartos with a running 3-0 chromic and the skin with interrupted with 4-0 Vicryl. The Truong drain was secured in position with 3-0 chromic catgut. Needle, sponge, instrument counts were correct x2. Estimated blood loss was negligible. The patient tolerated the procedure and anesthesia well and was sent to recovery room in stable condition. Job ID: [id number] DocumentID: [id number] Dictated Date: 11/20/2018 10:29:34 Electro Mechanical Technologist Date: 11/20/2018 17:29:05 Dictated By: SAMMI MALCOLM MD
--- NOTE | 2018-11-22 10:56 | Physician Query-Final Dx ---
JASVIR VILLAGOMEZ 11/22/18 1056: Clinic Account Progress/Dx Physician Query: Please clarify where the hydrocele was removed from - Tunica Vaginalis or Spermatic Cord thank you Date of Service Nov 20, 2018 at 06:27 SAMMI MALCOLM MD 11/23/18 1528: Clinic Account Progress/Dx Physician Query: Please give diagnosis DIAGNOSIS: Diagnosis RT HYDROCELE Progress Note: TUNICA VAGINALIS JASVIR VILLAGOMEZ Nov 22, 2018 10:56 SAMMI MALCOLM MD Nov 23, 2018 15:28
== END 2018-11-20 12:20 | disposition home or self-care (01) ==
LOC: SDC 06:27
PROVIDERS: ATTEND Urology
DX: N43.3 Hydrocele, unspecified (principal); I49.5 Sick sinus syndrome; I25.10 Atherosclerotic heart disease of native coronary artery without angina pectoris; I48.0 Paroxysmal atrial fibrillation; I10 Essential (primary) hypertension; E78.5 Hyperlipidemia, unspecified; K21.9 Gastro-esophageal reflux disease without esophagitis; K44.9 Diaphragmatic hernia without obstruction or gangrene; Z95.810 Presence of automatic (implantable) cardiac defibrillator; Z79.01 Long term (current) use of anticoagulants; Z79.899 Other long term (current) drug therapy; Z95.5 Presence of coronary angioplasty implant and graft

== ENCOUNTER → 2018-12-17 | Outpatient (CLI) | payer MEDICARE ==
[~2018-12-17] MED LIST changes: +CEPH-507 PO; +HYDR-3870 PO
--- NOTE | 2018-12-17 12:38 | Diagnostic Imaging Report ---
PROCEDURE: CT abdomen and pelvis without contrast. TECHNIQUE: Multiple contiguous axial images were obtained through the abdomen and pelvis without the use of intravenous contrast. Auto Exposure Controls were utilized during the CT exam to meet ALARA standards for radiation dose reduction. INDICATION: Prostate carcinoma. COMPARISON: Correlation is made with prior CT from 08/02/2016. FINDINGS: The lung bases are clear. No discrete liver mass is identified. The gallbladder is unremarkable. No biliary ductal dilatation is seen. The pancreas and spleen are unremarkable. No adrenal mass is identified. Renal vascular consultations are noted on the right. No urinary tract calculi or obstruction is seen. Aorta is heavily calcified but nonaneurysmal. No central retroperitoneal or mesenteric lymphadenopathy is seen. The small and large bowel loops are normal in caliber. There is diverticulosis of the sigmoid colon but no evidence of acute diverticulitis. There is a small fat-containing umbilical hernia. No herniated bowel loops are seen. Bladder is unremarkable. There is some mild enlargement of the prostate gland. No definite inguinal or iliac lymphadenopathy is seen. No definite osteosclerotic lesions are seen. IMPRESSION: 1. No evidence of abdominal or pelvic lymphadenopathy or evidence of metastatic disease. 2. Sigmoid diverticulosis. 3. Small fat-containing umbilical hernia. Dictated by: Dictated on workstation # [id number]
--- NOTE | 2018-12-17 18:53 | Diagnostic Imaging Report ---
INDICATION: Newly diagnosed prostate carcinoma. TECHNIQUE: The patient was administered 26.4 mCi technetium 99m MDP intravenously and whole body imaging was performed after a three-hour delay. COMPARISON: No prior bone scans are available for comparison. FINDINGS: There is uptake of activity by the axial and appendicular skeleton. There is uptake by both kidneys with excretion into the urinary bladder. Area of photopenia overlies left chest, consistent with cardiac defibrillator battery pack. There is photopenia overlying both knees, consistent with bilateral knee arthroplasties. There is some horizontally oriented uptake involving the lower lumbar spine. No definite compression is seen on the CT study performed earlier the same day. CT study does show degenerative disc disease. No suspicious foci are identified to suggest osseous metastatic disease. IMPRESSION: No scintigraphic evidence of osseous metastatic disease. Dictated by: Dictated on workstation # [id number]
== END ==
LOC: CARD 11:20
PROVIDERS: ATTEND Urology
DX: C61 Malignant neoplasm of prostate (principal)
CPT/HCPCS: 74176; 78306

== ENCOUNTER → 2018-12-19 | Outpatient (CLI) | payer MEDICARE ==
[~2018-12-19] MED LIST changes: +CATHETER FLUSH 10 ML SYR IV PRN; +REGADENOSON 0.4 MG/5 ML SYR (LEXISCAN) IV ONE
[2018-12-19 09:28] VITALS: BP 173/110
[2018-12-19 09:30] VITALS: BP 156/106
--- NOTE | 2018-12-19 15:15 | STRESS TEST ---
DATE OF SERVICE: 12/19/2018 LEXISCAN MYOVIEW STRESS TEST REPORT Baseline heart rate is 90, baseline blood pressure 168/109. Baseline EKG is sinus rhythm with no ischemic changes. In summary, the patient was injected with 10.96 mCi of technetium-99 Myoview and the resting images were obtained. Then, the patient received 0.4 mg of Lexiscan, followed by 30.0 mCi of technetium-99 Myoview. Throughout the test, there were no EKG changes. The resting and stress images were reviewed and compared in the short axis, horizontal long axis, and vertical long axis views. Review of the images showed fix defect involving the basal to mid anteroseptum with no significant ischemia or infarction. SSS is 5, SDS 0, TID value 0.89. On the gated images, the left ventricle appeared to be normal size with normal contractility. Calculated ejection fraction 48%. IN CONCLUSION: 1. The patient tolerated Lexiscan well. 2. No significant ischemia or infarction on SPECT images. 3. Normal left ventricular size with normal contractility. Calculated ejection fraction 48%. Job ID: [id number] DocumentID: [id number] Dictated Date: 12/19/2018 15:07:12 Calender Tender Date: 12/19/2018 15:14:13 Dictated By: ORLIN CORONADO MD
== END ==
LOC: CARD 07:28
PROVIDERS: ATTEND Physician Assistant
DX: I25.10 Atherosclerotic heart disease of native coronary artery without angina pectoris (principal); I10 Essential (primary) hypertension; E78.2 Mixed hyperlipidemia; R06.02 Shortness of breath; I47.2 Ventricular tachycardia
CPT/HCPCS: 78452; 93017

== ENCOUNTER → 2019-10-31 | Outpatient (CLI) | payer MEDICARE ==
[~2019-10-31] MED LIST changes: -CATHETER FLUSH 10 ML SYR IV PRN; -METO-387 PO; -MEXI200C PO; +MTP25TSR PO; +NF-MEXI200 PO; +OMEP40CA27 PO; -REGADENOSON 0.4 MG/5 ML SYR (LEXISCAN) IV ONE
== END ==
LOC: CARD 11:44
PROVIDERS: ATTEND Internal Medicine Cardiovascular Disease
DX: I49.3 Ventricular premature depolarization (principal); I47.2 Ventricular tachycardia; I10 Essential (primary) hypertension; R06.02 Shortness of breath; I65.29 Occlusion and stenosis of unspecified carotid artery; I08.1 Rheumatic disorders of both mitral and tricuspid valves
CPT/HCPCS: 93306

== ENCOUNTER → 2020-07-27 | Outpatient (CLI) | payer MEDICARE ==
[~2020-07-27] MED LIST changes: +ASPI-1238 PO; -ASPI-983 PO; +CATHETER FLUSH 10 ML SYR IV PRN; +HOLD METFORMIN - RECEIVED CONTRAST 20 ML VIAL IV SCH; +IOHEXOL 350 MG/ML 100 ML (OMNIPAQUE 350) VIAL IV ONE; +MULT-567 PO; -MULT1TAB69 PO; +NS 100 ML (IVPB) BAG IV ONE
--- NOTE | 2020-07-27 13:41 | Diagnostic Imaging Report ---
PROCEDURE: CT abdomen and pelvis with and without contrast. TECHNIQUE: Precontrast acquisitions were acquired through the abdomen and pelvis. Multiple contiguous axial images were obtained through the abdomen and pelvis after the administration of intravenous contrast. Auto Exposure Controls were utilized during the CT exam to meet ALARA standards for radiation dose reduction. DATE: July 27, 2020. COMPARISON: CT abdomen and pelvis December 17, 2018. INDICATION: 79-year-old male, history of prostate cancer. FINDINGS: The visualized portions of the lungs are clear. The heart is not enlarged. There is no pericardial effusion. The liver is normal in size and contour. There is no identified liver lesion. The gallbladder is unremarkable. There is no intrahepatic or extrahepatic bile duct dilation. The main pancreatic duct is not abnormally dilated. Unremarkable appearance of the pancreatic parenchyma. The spleen is not enlarged. There is a small accessory splenule on axial image 16. The adrenal glands are unremarkable. Unremarkable appearance of the renal parenchyma. The urinary collecting systems are not distended. There is no identified renal or ureteral stone. Urinary bladder is unremarkable. The intestinal tract is not distended. There is no free intraperitoneal air. There is no drainable fluid collection. There is no free pelvic fluid. There is a fat-containing left inguinal hernia. There are atherosclerotic calcifications. There is no identified abnormally enlarged lymph node in the abdomen or pelvis which meets CT size criteria for adenopathy. There is chondrocalcinosis. There are multilevel degenerative changes of the spine. There is no identified acute bony abnormality. There is no identified bone lesion suspicious for a bone metastasis. IMPRESSION: CT ABDOMEN AND PELVIS. 1. No evidence of metastatic disease in the abdomen or pelvis. 2. No identified acute abnormality in the abdomen or pelvis. Dictated by: Dictated on workstation # [id number]
--- NOTE | 2020-07-27 20:46 | Diagnostic Imaging Report ---
Whole body bone scan INDICATION: Prostate cancer TECHNIQUE: This study was performed following the administration of 25.3 mCi of 99 technetium MDP. Anterior and posterior whole-body images were obtained. The previous exam of 12/17/2018 failed to show any evidence for metastatic disease. As on the prior exam, there is a horizontally oriented area of increased uptake in the lower lumbar spine. This finding is no different than on the previous study and consequently unlikely related to metastatic disease or an acute abnormality. The CT abdomen/pelvis exam of 07/27/2020 did show severe degenerative disc and bony disease at L3-L4, L4-L5 and L5-S1 and I suspect that the abnormal uptake in the lower lumbar spine is due to degenerative disease alone. There is no other abnormal uptake to suggest metastatic disease. The photopenic defect overlying the left thorax and the bilateral total knee prostheses seen previously are again evident and unchanged. Both kidneys continue to excrete the radiotracer. IMPRESSION: The appearance of the bone scan is stable when compared to the prior exam. There is no new area of abnormal uptake to suggest metastatic disease or an acute abnormality. Dictated by: Dictated on workstation # [id number]
== END ==
LOC: CARD 12:00
PROVIDERS: ATTEND Internal Medicine Hematology & Oncology
DX: C61 Malignant neoplasm of prostate (principal)
CPT/HCPCS: 74178; 78306; A9503

== ENCOUNTER 2020-08-11 14:56 | Outpatient (RCR) | payer MEDICARE ==
[2020-07-21 12:59] LABS: BASOPHILS % (AUTO) 1 % (0-10); EOSINOPHILS # (AUTO) 0.2 10^3/uL (0.0-0.3); EOSINOPHILS % (AUTO) 3 % (0-10); HEMATOCRIT 42 % (40-54); HEMOGLOBIN 13.8 g/dL (13.3-17.7); LYMPHOCYTES # (AUTO) 1.3 10^3/uL (1.0-4.0); LYMPHOCYTES % (AUTO) 16 % (12-44); MEAN CORPUSCULAR HEMOGLOBIN 31 pg (25-34); MEAN CORPUSCULAR HGB CONC 33 g/dL (32-36); MEAN CORPUSCULAR VOLUME 96 fL (80-99); MEAN PLATELET VOLUME 10.6 fL (9.0-12.2); MONOCYTES # (AUTO) 0.7 10^3/uL (0.0-1.0); MONOCYTES % (AUTO) 8 % (0-12); NEUTROPHILS % (AUTO) 72 % (42-75); PLATELET COUNT 183 10^3/uL (130-400); WHITE BLOOD COUNT 8.3 10^3/uL (4.3-11.0)
[2020-07-21 13:24] LABS: ALANINE AMINOTRANSFERASE 26 U/L (0-55); ALBUMIN 3.7 GM/DL (3.2-4.5); ALKALINE PHOSPHATASE 85 U/L (40-136); BILIRUBIN,TOTAL 0.6 MG/DL (0.1-1.0); BUN/CREATININE RATIO 27; CALCIUM 7.6 MG/DL (8.5-10.1); CARBON DIOXIDE 23 MMOL/L (21-32); CHLORIDE 110 MMOL/L (98-107); CREATININE SERUM 0.81 MG/DL (0.60-1.30); GFR ESTIMATED > 60; GLUCOSE 128 MG/DL (70-105); SODIUM 142 MMOL/L (135-145)
[~2020-08-11 14:56] MED LIST changes: -CATHETER FLUSH 10 ML SYR IV PRN; -HOLD METFORMIN - RECEIVED CONTRAST 20 ML VIAL IV SCH; -IOHEXOL 350 MG/ML 100 ML (OMNIPAQUE 350) VIAL IV ONE; -NS 100 ML (IVPB) BAG IV ONE
[2020-09-28] MEDS ORDERED: APIX5TAB PO (11:41)
[2020-09-28] MEDS ORDERED: DONE5TAB30 PO (11:41)
[2020-09-28] MEDS ORDERED: MULT-239 PO (11:41)
== END 2020-10-19 | disposition home or self-care (01) ==
LOC: ONC 14:56
PROVIDERS: ATTEND Internal Medicine Hematology & Oncology
DX: C61 Malignant neoplasm of prostate (principal); Z95.0 Presence of cardiac pacemaker; Z96.653 Presence of artificial knee joint, bilateral; Z95.5 Presence of coronary angioplasty implant and graft; Z86.79 Personal history of other diseases of the circulatory system
CPT/HCPCS: 80053; 84153; 85025; G0463; 99204; 99214

== ENCOUNTER 2020-09-27 22:04 | Inpatient (IN) | payer MEDICARE ==
[~2020-09-27] VITALS: Ht 182 cm; Wt 81.6 kg
[2020-09-27 22:36] LABS: BASOPHILS % (AUTO) 1 % (0-10); EOSINOPHILS # (AUTO) 0.3 10^3/uL (0.0-0.3); EOSINOPHILS % (AUTO) 3 % (0-10); HEMATOCRIT 43 % (40-54); HEMOGLOBIN 14.4 g/dL (13.3-17.7); LYMPHOCYTES # (AUTO) 1.6 10^3/uL (1.0-4.0); LYMPHOCYTES % (AUTO) 19 % (12-44); MEAN CORPUSCULAR HEMOGLOBIN 31 pg (25-34); MEAN CORPUSCULAR HGB CONC 33 g/dL (32-36); MEAN CORPUSCULAR VOLUME 94 fL (80-99); MONOCYTES % (AUTO) 11 % (0-12); NEUTROPHILS # (AUTO) 5.9 10^3/uL (1.8-7.8); NEUTROPHILS % (AUTO) 66 % (42-75); PLATELET COUNT 177 10^3/uL (130-400); WHITE BLOOD COUNT 8.9 10^3/uL (4.3-11.0)
[2020-09-27 22:48] LABS: ALBUMIN 3.7 GM/DL (3.2-4.5); CHLORIDE 108 MMOL/L (98-107); INR 1.3 (0.8-1.4); POTASSIUM 4.3 MMOL/L (3.6-5.0); SODIUM 140 MMOL/L (135-145)
[2020-09-27 22:49] LABS: CALCIUM 8.9 MG/DL (8.5-10.1)
[2020-09-27 22:50] LABS: GLUCOSE 95 MG/DL (70-105); TOTAL PROTEIN 6.1 GM/DL (6.4-8.2)
[2020-09-27 22:51] LABS: CARBON DIOXIDE 21 MMOL/L (21-32)
[2020-09-27 22:52] LABS: BILIRUBIN,TOTAL 0.6 MG/DL (0.1-1.0)
[2020-09-27 22:54] LABS: ALKALINE PHOSPHATASE 98 U/L (40-136); CREATININE SERUM 0.81 MG/DL (0.60-1.30); GFR ESTIMATED > 60
[2020-09-27 22:55] LABS: BUN/CREATININE RATIO 28
[2020-09-27 22:57] LABS: ALANINE AMINOTRANSFERASE 21 U/L (0-55)
[2020-09-27] MEDS ORDERED: AMIODARONE INJECTION 150 MG in D5W 100 ML IVPB 100 ML IV ONE (23:15)
[2020-09-27] MEDS: AMIODARONE INJECTION 450 MG in D5W IV SOLUTION (EXCEL) 250 ML IV SCH ×2 (23:30→23:35)
[2020-09-27] MEDS ORDERED: AMIODARONE (BOLUS) 150 MG/3 ML IV ONE (23:41)
--- NOTE | 2020-09-27 23:41 | ED Cardiac General ---
History of Present Illness General Chief Complaint: Cardiac/General Problems Stated Complaint: PACEMAKER WENT OFF Nursing Triage Note: PATIENT STATES HIS PACEMAKER/DEFIB WENT OFF TWICE TONIGHT. STATES HE WAS "JUST SITTING" STATES HAS BEEN BLOATED THIS WEEK WITH SOME SOFT STOOL. (EMILY JUDD MED STUDENT) Source: patient, family, old records Exam Limitations: no limitations (TEO CASH MD) History of Present Illness Date Seen by Provider: Sep 27, 2020 Time Seen by Provider: 22:30 Initial Comments This is a 80 year old male presenting to the Emergency Department via ambulation for a chief complaint of his defibrillator going off twice when he was watching TV tonight. He states that when it went off, it felt like "getting a finger stuck in a light socket." He has felt dizzy all week. He has an appointment on Monday with Dr. Lozano for stent placements. PMHx: prostate cancer (not actively taking medications) (EMILY JUDD MED STUDENT) Initial Comments Patient denies any chest pain or shortness of breath. He reports dizziness intermittently throughout the last week but denies any specific prodrome to the defibrillator firing. He has a long history of ventricular tachycardia, atrial fibrillation, and coronary artery disease. He has had multiple ablations in the past. Dr. Lozano is his primary marine scientist and he has received consultation from Dr. Sanchez at [facility] as well. His also reports he has had some lip and nose bleeds recently. He is on Eliquis. He is in sinus rhythm on initial assessment. Patient also has prostate cancer. (TEO CASH MD) Allergies and Home Medications Allergies Coded Allergies: No Known Drug Allergies (Unverified , 12/28/17) Home Medications Atorvastatin Calcium 40 Mg Tablet, 40 MG PO HS, (Reported) Cephalexin 500 Mg Capsule, 500 MG PO BID Prescribed by: NICK CARPIO on 11/20/18 1107 Hydrocodone/Acetaminophen 1 Each Tablet, 1-2 EACH PO Q6H PRN for PAIN-MODERATE Prescribed by: NICK CARPIO on 11/20/18 1107 Meloxicam 15 Mg Tablet, 15 MG PO HS, (Reported) Mexiletine HCl 200 Mg Capsule, 200 MG PO TID, (Reported) Multivitamin 1 Each Tablet, 1 EACH PO DAILY, (Reported) [place]-3/Dha/Epa/Fish Oil 1 Each Capsule, 1 EACH PO DAILY, (Reported) Omeprazole 40 Mg Capsule.dr, 40 MG PO DAILY, (Reported) Sotalol HCl 120 Mg Tablet, 120 MG PO BID, (Reported) Patient Home Medication List Home Medication List Reviewed: Yes (TEO CASH MD) Review of Systems Review of Systems Constitutional: no symptoms reported EENTM: See HPI Respiratory: No Symptoms Reported Cardiovascular: See HPI Gastrointestinal: No Symptoms Reported Genitourinary: No Symptoms Reported Musculoskeletal: no symptoms reported Skin: no symptoms reported Psychiatric/Neurological: No Symptoms Reported Endocrine: No Symptoms Reported Hematologic/Lymphatic: No Symptoms Reported (TEO CASH MD) Past Hivxfbn-Hidpqe-Fyfaan Hx Past Med/Social Hx: Reviewed Nursing Past Med/Soc Hx (TEO CASH MD) Patient Social History Alcohol Use: Denies Use Smoking Status: Former Smoker Type Used: Cigarettes Former Smoker, Quit: Jun 05, 1958 2nd Hand Smoke Exposure: No Recent Infectious Disease Expo: No Recent Hopitalizations: No (EMILY JUDD) Immunizations Up To Date Tetanus Booster (TDap): Unknown Date of Pneumonia Vaccine: Jun 05, 2020 Date of Influenza Vaccine: Jun 19, 2020 (EMILY JUDD) Seasonal Allergies Seasonal Allergies: No (EMILY JUDD) Past Medical History Surgeries: Yes (BILAT KNEE, PROSTATE, HEART STENT, HERNIA x2) Respiratory: No (Intermittent SOB) Pneumonia Currently Using CPAP: No Currently Using BIPAP: No Cardiac: Yes (STENTS, PACEMAKER REMOVED November, ICD PLACED November, VFIB/VT) Atrial Fibrillation, High Cholesterol, Hypertension Neurological: No (Right side of face numbness 01/08/17) Reproductive Disorders: No Sexually Transmitted Disease: No HIV/AIDS: No Genitourinary: Yes (prostate operation) Benign Prostatic Hyperpl Gastrointestinal: Yes Gastroesophageal Reflux, Hiatal Hernia Musculoskeletal: Yes Arthritis Endocrine: No HEENT: No Loss of Vision: Bilateral Hearing Impairment: Denies Cancer: No Psychosocial: No Integumentary: No Blood Disorders: No Adverse Reaction/Blood Tranf: No (N/A) (JUDD,EMILY X MED STUDENT) Cancer: Yes Prostate (ETO CASH MD) Family Medical History Dementia G8 BROTHER Dysphasia FH: CHF (congestive heart failure) G8 BROTHER FH: heart disease 19 FATHER 19 MOTHER FH: throat cancer G8 BROTHER Physical Exam Vital Signs Vital Signs - First Documented 09/27/20 22:25 Temp 36.9 Pulse 56 Resp 20 B/P (MAP) 103/92 (96) Pulse Ox 99 O2 Delivery Room Air (TEO CASH MD) Vital Signs Capillary Refill : Less Than 3 Seconds (EMILY JUDD MED STUDENT) Height, Weight, BMI Height: 6'1.00" Weight: 195lbs. 0.0oz. 88.304103ko; 24.00 BMI Method:Stated (EMILY JUDD MED STUDENT) General Appearance: No Apparent Distress, WD/WN HEENT: PERRL/EOMI, Normal ENT Inspection Neck: Normal Inspection; No JVD Respiratory: Lungs Clear, Normal Breath Sounds, No Accessory Muscle Use, No Respiratory Distress Cardiovascular: Regular Rate, Rhythm, No Edema, No Murmur, Normal Peripheral Pulses Gastrointestinal: Non Tender, Soft Extremity: Normal Inspection, No Pedal Edema Neurologic/Psychiatric: Alert, Oriented x3, No Motor/Sensory Deficits, Normal Mood/Affect, physician advisor II-XII Norm as Tested Skin: Normal Color, Warm/Dry (TEO CASH MD) Progress/Results/Core Measures Results/Orders Lab Results Laboratory Tests Test 09/27/20 22:25 Range/Units White Blood Count 8.9 4.3-11.0 10^3/uL Red Blood Count 4.62 4.30-5.52 10^6/uL Hemoglobin 14.4 13.3-17.7 g/dL Hematocrit 43 40-54 % Mean Corpuscular Volume 94 80-99 fL Mean Corpuscular Hemoglobin 31 25-34 pg Mean Corpuscular Hemoglobin Concent 33 32-36 g/dL Red Cell Distribution Width 13.9 10.0-14.5 % Platelet Count 177 130-400 10^3/uL Mean Platelet Volume 11.0 9.0-12.2 fL Immature Granulocyte % (Auto) 0 % Neutrophils (%) (Auto) 66 42-75 % Lymphocytes (%) (Auto) 19 12-44 % Monocytes (%) (Auto) 11 0-12 % Eosinophils (%) (Auto) 3 0-10 % Basophils (%) (Auto) 1 0-10 % Neutrophils # (Auto) 5.9 1.8-7.8 10^3/uL Lymphocytes # (Auto) 1.6 1.0-4.0 10^3/uL Monocytes # (Auto) 1.0 0.0-1.0 10^3/uL Eosinophils # (Auto) 0.3 0.0-0.3 10^3/uL Basophils # (Auto) 0.0 0.0-0.1 10^3/uL Immature Granulocyte # (Auto) 0.0 0.0-0.1 10^3/uL Prothrombin Time 17.0 H 12.2-14.7 SEC INR Comment 1.3 0.8-1.4 Activated Partial Thromboplast Time 32 24-35 SEC Sodium Level 140 135-145 MMOL/L Potassium Level 4.3 3.6-5.0 MMOL/L Chloride Level 108 H 98-107 MMOL/L Carbon Dioxide Level 21 21-32 MMOL/L Anion Gap 11 5-14 MMOL/L Blood Urea Nitrogen 23 H 7-18 MG/DL Creatinine 0.81 0.60-1.30 MG/DL Estimat Glomerular Filtration Rate > 60 BUN/Creatinine Ratio 28 Glucose Level 95 70-105 MG/DL Calcium Level 8.9 8.5-10.1 MG/DL Corrected Calcium 9.1 8.5-10.1 MG/DL Magnesium Level 2.0 1.6-2.4 MG/DL Total Bilirubin 0.6 0.1-1.0 MG/DL Aspartate Amino Transf (AST/SGOT) 20 5-34 U/L Alanine Aminotransferase (ALT/SGPT) 21 0-55 U/L Alkaline Phosphatase 98 40-136 U/L Myoglobin 54.8 10.0-92.0 NG/ML Troponin I < 0.028 <0.028 NG/ML Total Protein 6.1 L 6.4-8.2 GM/DL Albumin 3.7 3.2-4.5 GM/DL (TEO CASH MD) My Orders Orders - TEO CASH MD Cbc With Automated Diff (09/27/20 22:17) Magnesium (09/27/20 22:17) Chest 1 View, Ap/Pa Only (09/27/20 22:17) Ekg Tracing (09/27/20 22:17) Comprehensive Metabolic Panel (09/27/20 22:17) Myoglobin Serum (09/27/20 22:17) Protime With Inr (09/27/20 22:17) Partial Thromboplastin Time (09/27/20 22:17) O2 (09/27/20 22:17) Monitor-Rhythm Ecg Trace Only (09/27/20 22:17) Lipid Panel (09/28/20 06:00) Ed Iv/Invasive Line Start (09/27/20 22:17) Troponin I (09/27/20 22:17) Amiodarone Injection (Cordarone Injectio (09/27/20 23:15) Amiodarone Injection (Cordarone Injectio (09/27/20 23:15) Amiodarone For Bolus (Cordarone Bolus) (09/27/20 23:41) (TEO CASH MD) Medications Given in ED Current Medications Medications Dose Ordered Sig/Clementina Route Start Time Stop Time Status Last Admin Dose Admin Amiodarone HCl 150 mg/Dextrose 103 ml @ 600 mls/hr ONCE ONCE IV 09/27/20 23:15 09/27/20 23:25 DC 09/27/20 23:20 600 MLS/HR (TEO CASH MD) Vital Signs/I&O 09/27/20 22:25 Temp 36.9 Pulse 56 Resp 20 B/P (MAP) 103/92 (96) Pulse Ox 99 O2 Delivery Room Air (TEO CASH MD) Blood Pressure Mean: 96 Progress Progress Note : Progress Note Medtronic device was interrogated. Patient has had nearly 3000 episodes of ventricular tachycardia since April. He has had a "V. tach storm" since September 16 with 226 episodes. However, he has never been defibrillated until tonight. Patient has been stable in sinus rhythm throughout the ER stay. Case was reviewed with Dr. Vela who recommended starting amiodarone bolus and drip as well as continuing his current medications. I discussed CODE STATUS with the patient and his . He would like to be full code at this time but does not want any long-term life support. They have advanced directives filled out but not available here at the hospital. Patient's would like frequent updates as patient has mild dementia and cannot accurately convey reports to her and does not remember to call her. (TEO CASH MD) Initial ECG Impression Date: Sep 27, 2020 Initial ECG Impression Time: 22:09 Initial ECG Rate: 83 Initial ECG Rhythm: Normal Sinus Comment Normal sinus rhythm with no ST elevation or depression. Right bundle branch blo ck. No axis deviation. (TEO CASH MD) Diagnostic Imaging Diagonstic Imaging: Xray Plain Films/CT/US/NM/MRI: chest Comments Chest x-ray reviewed by me. Report not yet available. No acute abnormalities appreciated. (TEO CASH MD) Departure Communication (Admissions) Time/Spoke to Admitting Phy: 23:30 Dr. Monk Time/Spoke to Consulting Phy: 23:05 Dr. Vela (TEO CASH MD) Impression Primary Impression: Ventricular tachycardia Additional Impression: Defibrillator discharge Disposition: ADMITTED INPATIENT Condition: Improved Admissions Decision to Admit Reason: Admit from ER (General) Decision to Admit/Date: Sep 27, 2020 Time/Decision to Admit Time: 23:05 (TEO CASH MD) Departure-Patient Inst. Referrals: OREN KAUR (PCP/Family) Primary Care Physician EMILY JUDD MED STUDENT Sep 27, 2020 23:41 TEO CASH MD Sep 27, 2020 23:53
[2020-09-28 00:38] VITALS: BP 152/102
[2020-09-28] MEDS ORDERED: CATHETER FLUSH 10 ML SYR IV PRN (01:45)
[2020-09-28] MEDS ORDERED: AMIODARONE 450 MG/250 ML D5W EXCEL IV SCH ×2 (01:45)
[2020-09-28 03:52] LABS: BASOPHILS % (AUTO) 1 % (0-10); EOSINOPHILS # (AUTO) 0.3 10^3/uL (0.0-0.3); EOSINOPHILS % (AUTO) 3 % (0-10); HEMATOCRIT 42 % (40-54); HEMOGLOBIN 14.1 g/dL (13.3-17.7); LYMPHOCYTES # (AUTO) 1.9 10^3/uL (1.0-4.0); LYMPHOCYTES % (AUTO) 23 % (12-44); MEAN CORPUSCULAR HEMOGLOBIN 31 pg (25-34); MEAN CORPUSCULAR HGB CONC 33 g/dL (32-36); MEAN CORPUSCULAR VOLUME 94 fL (80-99); MEAN PLATELET VOLUME 10.9 fL (9.0-12.2); MONOCYTES # (AUTO) 0.8 10^3/uL (0.0-1.0); MONOCYTES % (AUTO) 10 % (0-12); NEUTROPHILS # (AUTO) 5.3 10^3/uL (1.8-7.8); NEUTROPHILS % (AUTO) 64 % (42-75); PLATELET COUNT 161 10^3/uL (130-400); WHITE BLOOD COUNT 8.3 10^3/uL (4.3-11.0)
[2020-09-28 04:07] LABS: CHLORIDE 108 MMOL/L (98-107); POTASSIUM 4.1 MMOL/L (3.6-5.0); SODIUM 140 MMOL/L (135-145)
[2020-09-28 04:08] LABS: CALCIUM 8.7 MG/DL (8.5-10.1)
[2020-09-28 04:09] LABS: GLUCOSE 99 MG/DL (70-105)
[2020-09-28 04:10] LABS: CARBON DIOXIDE 23 MMOL/L (21-32)
[2020-09-28 04:12] LABS: PHOSPHORUS 3.7 MG/DL (2.3-4.7)
[2020-09-28 04:13] LABS: BUN/CREATININE RATIO 26; CREATININE SERUM 0.78 MG/DL (0.60-1.30); GFR ESTIMATED > 60
--- NOTE | 2020-09-28 04:41 | Pulmonary Consultation ---
History of Present Illness History of Present Illness Date Seen by Provider: Sep 28, 2020 Time Seen by Provider: 04:37 Date of Admission Allergies and Home Medications Allergies Coded Allergies: No Known Drug Allergies (Unverified , 12/28/17) Home Medications Atorvastatin Calcium 40 Mg Tablet, 40 MG PO HS, (Reported) Cephalexin 500 Mg Capsule, 500 MG PO BID Prescribed by: NICK CARPIO on 11/20/18 110 Hydrocodone/Acetaminophen 1 Each Tablet, 1-2 EACH PO Q6H PRN for PAIN-MODERATE Prescribed by: NICK CARPIO on 11/20/18 1107 Meloxicam 15 Mg Tablet, 15 MG PO HS, (Reported) Mexiletine HCl 200 Mg Capsule, 200 MG PO TID, (Reported) Multivitamin 1 Each Tablet, 1 EACH PO DAILY, (Reported) [place]-3/Dha/Epa/Fish Oil 1 Each Capsule, 1 EACH PO DAILY, (Reported) Omeprazole 40 Mg Capsule.dr, 40 MG PO DAILY, (Reported) Sotalol HCl 120 Mg Tablet, 120 MG PO BID, (Reported) Past Tingozo-Uoranb-Pdvabk Hx Past Med/Social Hx: Reviewed Nursing Past Med/Soc Hx Patient Social History Alcohol Use: Denies Use Smoking Status: Former Smoker Type Used: Cigarettes Former Smoker, Quit: Jun 05, 1958 2nd Hand Smoke Exposure: No Recent Infectious Disease Expo: No Recent Hopitalizations: No Have you traveled recently?: No Immunizations Up To Date Tetanus Booster (TDap): Unknown Date of Pneumonia Vaccine: Jun 05, 2020 Date of Influenza Vaccine: Jun 19, 2020 Seasonal Allergies Seasonal Allergies: No Past Medical History Surgeries: Yes (BILAT KNEE, PROSTATE, HEART STENT, HERNIA x2) Respiratory: No (Intermittent SOB) Pneumonia Currently Using CPAP: No Currently Using BIPAP: No Cardiac: Yes (STENTS, PACEMAKER REMOVED November, ICD PLACED November, VFIB/VT) Atrial Fibrillation, High Cholesterol, Hypertension Neurological: No (Right side of face numbness 01/08/17) Reproductive Disorders: No Sexually Transmitted Disease: No HIV/AIDS: No Genitourinary: Yes (prostate operation) Benign Prostatic Hyperpl Gastrointestinal: Yes Gastroesophageal Reflux, Hiatal Hernia Musculoskeletal: Yes Arthritis Endocrine: No HEENT: No Loss of Vision: Bilateral Hearing Impairment: Denies Cancer: Yes Prostate Psychosocial: No Integumentary: No Blood Disorders: No Adverse Reaction/Blood Tranf: No (N/A) Family Medical History Dementia G8 BROTHER Dysphasia FH: CHF (congestive heart failure) G8 BROTHER FH: heart disease 19 FATHER 19 MOTHER FH: throat cancer G8 BROTHER Sepsis Event Evaluation Height, Weight, BMI Height: 6'1.00" Weight: 195lbs. 0.0oz. 88.651691rp; 24.45 BMI Method:Stated Exam Exam Vital Signs Date Time Temp Pulse Resp B/P (MAP) Pulse Ox O2 Delivery O2 Flow Rate FiO2 09/28/20 01:24 95 Room Air 09/28/20 00:57 36.1 80 16 148/109 (122) 94 Room Air 09/28/20 00:38 36.9 82 20 152/102 (111) 99 Room Air 09/28/20 00:15 80 148/93 09/27/20 22:25 36.9 56 20 103/92 (96) 99 Room Air I & O 09/28/20 07:00 Intake Total 50 ml Output Total 200 ml Balance -150 ml Height & Weight Height: 6'1.00" Weight: 195lbs. 0.0oz. 88.029749xj; 24.45 BMI Method:Stated General Appearance: No Apparent Distress, WD/WN HEENT: PERRL/EOMI, Normal ENT Inspection Neck: Normal Inspection; No JVD Respiratory: Lungs Clear, Normal Breath Sounds, No Accessory Muscle Use, No Respiratory Distress Cardiovascular: Regular Rate, Rhythm, No Edema, No Murmur, Normal Peripheral Pulses Capillary Refill: Less Than 3 Seconds Extremity: Normal Inspection, No Pedal Edema Neurologic/Psychiatric: Alert, Oriented x3, No Motor/Sensory Deficits, Normal Mood/Affect, nutritional chemist II-XII Norm as Tested Skin: Normal Color, Warm/Dry Results Lab Laboratory Tests 09/27/20 22:25 09/28/20 03:40 Assessment/Plan Assessment/Plan S/p Vtach and s/p Defibrillation per AICD -Cardiology following -Currently ammio gtt -Pt is currently full code -Pt is on RA Pt follows with [facility] and Dr. Lozano -Currently on DELGADO Zepeda DO Sep 28, 2020 04:41
[2020-09-28 04:44] LABS: TRIGLYCERIDES 70 MG/DL (<150); VLDL CHOLESTEROL 14 MG/DL (5-40)
[2020-09-28 04:49] LABS: CHOLESTEROL 137 MG/DL (< 200)
[2020-09-28 04:50] LABS: HDL CHOLESTEROL 34 MG/DL (40-60)
[2020-09-28] MEDS: CATHETER FLUSH 10 ML SYR IV SCH ×3 (05:53→20:25)
--- NOTE | 2020-09-28 06:08 | NUR ---
UPDATED PT AT THIS TIME
--- NOTE | 2020-09-28 06:17 | Diagnostic Imaging Report ---
INDICATION: Chest pain COMPARISON: 01/09/2017 FINDINGS: Single view of the chest demonstrates slight cardiac enlargement. Lungs are clear. The pacemaker is stable. There is no pneumothorax. IMPRESSION: Slight cardiac enlargement without pulmonary edema or acute infiltrate. Dictated by: Dictated on workstation # [id number]
[2020-09-28] MEDS: lisINopril 5 MG (PRINIVIL) TABLET PO SCH (08:56)
[2020-09-28] MEDS: MELOXICAM 7.5 MG (MOBIC) TABLET PO SCH (08:56)
[2020-09-28] MEDS: APIXABAN 5 MG (ELIQUIS) TABLET PO SCH (08:56)
[2020-09-28] MEDS: MEXILETINE 200 MG (MEXITIL) CAPSULE PO SCH ×3 (08:56→20:24)
[2020-09-28] MEDS: SOTALOL 80 MG (BETAPACE) TAB PO SCH ×2 (08:57→20:24)
--- NOTE | 2020-09-28 09:18 | History & Physical-Hospitalist ---
RINA VELÁZQUEZ,MED STUDENT 09/28/20 0918: History of Present Illness HPI/Chief Complaint Patient is an 80yo male with a PMH of CAD, A-fib, Vfib/Vtach with ICD placed, and HTN who presented to the ED c/o his ICD firing x2 last night 07/28 while watching TV. He states it felt like "getting electrocuted", and states this has never happened before. He also reports dizziness on standing for x2 weeks and intermittent SOB for x3-4 weeks, and feeling bloated for the last week, but denies chest pain. He has an extensive cardiac history and has had stents placed and multiple ablations, and has an appointment with Dr. Lozano to have more stents placed this Monday. He is currently on Eliquis and Sotalol. His ICD was interrogated in the ED which revealed numerous episodes of ventricular tachycardia since April, but he had not been defibrillated until this episode. Per Dr. Vela, he was given an amiodarone bolus and started on a drip. Date Seen 09/28/20 Attending Physician Natali Monk MD PCP Loni Betancur Referring Physician Date of Admission Sep 27, 2020 at 23:47 Home Medications & Allergies Home Medications Reviewed patient Home Medication Reconciliation performed by pharmacy medication reconciliations solar energy technician and/or nursing. Patients Allergies have been reviewed. Allergies Allergies Coded Allergies No Known Drug Allergies (Unverified12/28/17) Past Uqtoqxt-Ayzbnl-Gescik Hx Past Med/Social Hx: Reviewed Nursing Past Med/Soc Hx Patient Social History Marrital Status: Alcohol Use: Rarely Uses Recreational Drug Use: No Smoking Status: Former Smoker Former Smoker, Quit: Jun 05, 1958 Type Used: Cigarettes 2nd Hand Smoke Exposure: No Recent Foreign Travel: No Contact w/other who traveled: No Recent Hopitalizations: No Recent Infectious Disease Expo: No Immunizations Up To Date Tetanus Booster (TDap): Unknown Date of Pneumonia Vaccine: Jun 05, 2020 Date of Influenza Vaccine: Jun 19, 2020 Seasonal Allergies Seasonal Allergies: No Past Medical History Surgeries: Abdominal (Hernia x2), Coronary Stent, Defibrillator, Joint Replacement (Bilateral knee), Pacemaker (Removed 2016) Currently Using CPAP: No Currently Using BIPAP: No Cardiac: Atrial Fibrillation, Coronary Artery Disease, High Cholesterol, Hypertension Reproductive: No Sexually Transmitted Disease: No HIV/AIDS: No Genitourinary: Benign Prostatic Hyperpl Gastrointestinal: Gastroesophageal Reflux, Hiatal Hernia Musculoskeletal: Arthritis Loss of Vision: Bilateral Hearing Impairment: Denies Cancer: Prostate History of Blood Disorders: No Adverse Reaction to Blood Simpson: No (N/A) Family History Dementia G8 BROTHER Dysphasia FH: CHF (congestive heart failure) G8 BROTHER FH: heart disease 19 FATHER 19 MOTHER FH: throat cancer G8 BROTHER Review of Systems Constitutional: No chills; dizziness; No fever EENTM: No hearing loss, No nose congestion, No throat pain Respiratory: No cough; dyspnea on exertion, short of breath; No wheezing Cardiovascular: No chest pain, No edema; palpitations; No syncope Gastrointestinal: No abdominal pain, No constipation, No diarrhea, No vomiting; other (Bloating) Genitourinary: no symptoms reported Musculoskeletal: no symptoms reported Psychiatric/Neurological: Denies Headache, Denies Numbness, Denies Tingling Physical Exam Physical Exam Vital Signs Vital Signs - First Documented 09/27/20 22:25 Temp 36.9 Pulse 56 Resp 20 B/P (MAP) 103/92 (96) Pulse Ox 99 O2 Delivery Room Air Capillary Refill : Less Than 3 Seconds Height, Weight, BMI Height: 6'1.00" Weight: 195lbs. 0.0oz. 88.153667wy; 24.45 BMI Method:Stated General Appearance: No Apparent Distress, WD/WN HEENT: PERRL/EOMI, Pharynx Normal, Moist Mucous Membranes Neck: Full Range of Motion, Non Tender, Supple Respiratory: Lungs Clear, No Accessory Muscle Use, No Respiratory Distress Cardiovascular: Regular Rate, Rhythm, No Edema, No Murmur, Normal Peripheral Pulses Gastrointestinal: Normal Bowel Sounds, Non Tender, Soft; No Distended Extremity: Normal Capillary Refill, Non Tender, No Calf Tenderness, No Pedal Edema Neurologic/Psychiatric: Alert, Oriented x3, Normal Mood/Affect Skin: Normal Color, Warm/Dry Results Results/Procedures Labs Laboratory Tests 09/27/20 22:25 09/28/20 03:40 Patient resulted labs reviewed. Assessment/Plan Assessment and Plan S/p Vtach and s/p Defibrillation by ICD -Cardiology following -Currently on amiodarone drip -Continue home medications per cardiology Hypertension -Continue Lisinopril 5mg PO daily Atrial fibrillation -Cardiology following -Currently in NSR, continue to monitor -Continue Eliquis 5mg PO BID SARA NAIK MD 09/28/20 1413: History of Present Illness Source: patient Time Seen by a Provider: 12:00 Past Zwtjhhl-Dvocqi-Yrabfs Hx Family History Dementia G8 BROTHER Dysphasia FH: CHF (congestive heart failure) G8 BROTHER FH: heart disease 19 FATHER 19 MOTHER FH: throat cancer G8 BROTHER Assessment/Plan Admission Diagnosis Sustained V-tach Admission Status: Inpatient Order (span 2 midnights) Reason for Inpatient Admission: see below Assessment and Plan Patient was admitted due to sustained V-tach with discharge of AICD. Admitted to ICU on amio gtt. No further episodes of V-tach but interrogation in ER of device shows >3000 episodes since April. Plan for cath while inpatient after discussion with Dr Lozano. Patient feeling well today. No complaints. Diagnosis/Problems Diagnosis/Problems (1) Ventricular tachycardia Status: Acute (2) Defibrillator discharge Status: Acute (3) Paroxysmal atrial fibrillation Status: Chronic (4) CAD (coronary artery disease) Status: Chronic Qualifiers: Coronary Disease-Associated Artery/Lesion type: [place] artery [place] vs. transplanted heart: [place] heart Associated angina: without angina Qualified Codes: I25.10 - Atherosclerotic heart disease of [place] coronary artery without angina pectoris (5) Hyperlipemia, mixed Status: Chronic Supervisory-Addendum Brief Verification & Attestation Participated in pt care: history, MDM, physical Personally performed: exam, history, MDM, supervision of care Care discussed with: Medical Student Procedures: n/a Results interpretation: Verified all documentation Verification and Attestation of Medical Student E/M Service A medical student performed and documented this service in my presence. I reviewed and verified all information documented by the medical student and made modifications to such information, when appropriate. I personally performed the physical exam and medical decision making. Sara Naik, Sep 28, 2020,14:14 RINA VELÁZQUEZ,MED STUDENT Sep 28, 2020 09:18 SARA NAIK MD Sep 28, 2020 14:13
[2020-09-28] MEDS ORDERED: LIDOCAINE 1% INJ 20 ML 20 ML VIAL ONE (09:45)
[2020-09-28] MEDS ORDERED: MIDAZOLAM 5 MG/5 ML (VERSED) VIAL ONE (09:45)
[2020-09-28] MEDS ORDERED: NS IV 1000 ML 0 ML ONE (09:46)
[2020-09-28] MEDS ORDERED: HEParin (CATH LAB) 0 ML IV ONE (09:46)
[2020-09-28] MEDS ORDERED: HEParin 1000 UNIT/ML (10ML VIAL) FOR BOLUS ONE (09:46)
[2020-09-28] MEDS ORDERED: fentaNYL INJECTION 100 MCG/2 ML AMP ONE (09:46)
[2020-09-28] MEDS ORDERED: APIX5TAB PO (11:41)
[2020-09-28] MEDS ORDERED: DONE5TAB30 PO (11:41)
[2020-09-28] MEDS ORDERED: MULT-239 PO (11:41)
--- NOTE | 2020-09-28 11:43 | NUR ---
SPOKE WITH THE PT AND WENT THRU THE EXT MED HISTORY TO COMPLETE THE MED REC PT WAS ABLE TO TELL ME WHEN HE TAKES EACH MEDICATION OTC MEDS: [employer]DR[employer] CHEWABLE
--- NOTE | 2020-09-28 12:38 | Consultation-Cardiology ---
HPI-Cardiology Cardiology Consultation Date of Consultation 09/28/20 Date of Admission Time Seen by Provider: 12:33 Indication: ventricular tachycardia HPI 79 years old gentleman with history of coronary artery disease, ventricular tachycardia, has history of ablation and ICD, received a shock from his defibrillator last night and came into the emergency room for evaluation. Juan roberts is known to have history of coronary artery disease and had an abnormal stress test and was scheduled for cardiac catheterization as an outpatient. On my evaluation he was feeling better. Asking to go home. I was planning to proceed with cardiac catheterization but patient has taken his medication 8 breakfast today. Home Medications & Allergies Allergies: Coded Allergies: No Known Drug Allergies (Unverified , 12/28/17) Home Medication List Reviewed: Yes WBJ-Oujazw-Nokpqn Hx Patient Social History Marital Status: Recreational Drug Use: No Smoking Status: Former Smoker Type Used: Cigarettes 2nd Hand Smoke Exposure: No Recent Hopitalizations: No Have you traveled recently?: No Immunizations Up To Date Tetanus Booster (TDap): Unknown Date of Pneumonia Vaccine: Jun 05, 2020 Date of Influenza Vaccine: Jun 19, 2020 Past Medical History Discussed below Family Medical History Family History: Dementia G8 BROTHER Dysphasia FH: CHF (congestive heart failure) G8 BROTHER FH: heart disease 19 FATHER 19 MOTHER FH: throat cancer G8 BROTHER Review of Systems-General Review of Systems Constitutional: see HPI; No chills; dizziness; No fever; malaise EENTM: No hearing loss, No nose congestion, No throat pain Respiratory: see HPI; No cough; dyspnea on exertion; No hemoptysis, No orthopnea, No phlegm; short of breath; No stridor, No wheezing, No other Cardiovascular: see HPI, chest pain; No edema, No Hx of Intervention; palpitations; No syncope, No vascular heart diseas, No other Gastrointestinal: see HPI; No abdominal pain, No constipation, No diarrhea, No vomiting; other (Bloating) Genitourinary: no symptoms reported, see HPI Musculoskeletal: no symptoms reported, see HPI Skin: no symptoms reported, see HPI Psychiatric/Neurological: See HPI; Denies Headache, Denies Numbness, Denies Tingling Reviewed Test Results Reviewed Test Results Lab Laboratory Tests Test 09/27/20 22:25 09/28/20 03:40 Range/Units White Blood Count 8.9 8.3 4.3-11.0 10^3/uL Red Blood Count 4.62 4.53 4.30-5.52 10^6/uL Hemoglobin 14.4 14.1 13.3-17.7 g/dL Hematocrit 43 42 40-54 % Mean Corpuscular Volume 94 94 80-99 fL Mean Corpuscular Hemoglobin 31 31 25-34 pg Mean Corpuscular Hemoglobin Concent 33 33 32-36 g/dL Red Cell Distribution Width 13.9 13.6 10.0-14.5 % Platelet Count 177 161 130-400 10^3/uL Mean Platelet Volume 11.0 10.9 9.0-12.2 fL Immature Granulocyte % (Auto) 0 0 % Neutrophils (%) (Auto) 66 64 42-75 % Lymphocytes (%) (Auto) 19 23 12-44 % Monocytes (%) (Auto) 11 10 0-12 % Eosinophils (%) (Auto) 3 3 0-10 % Basophils (%) (Auto) 1 1 0-10 % Neutrophils # (Auto) 5.9 5.3 1.8-7.8 10^3/uL Lymphocytes # (Auto) 1.6 1.9 1.0-4.0 10^3/uL Monocytes # (Auto) 1.0 0.8 0.0-1.0 10^3/uL Eosinophils # (Auto) 0.3 0.3 0.0-0.3 10^3/uL Basophils # (Auto) 0.0 0.0 0.0-0.1 10^3/uL Immature Granulocyte # (Auto) 0.0 0.0 0.0-0.1 10^3/uL Prothrombin Time 17.0 H 12.2-14.7 SEC INR Comment 1.3 0.8-1.4 Activated Partial Thromboplast Time 32 24-35 SEC Sodium Level 140 140 135-145 MMOL/L Potassium Level 4.3 4.1 3.6-5.0 MMOL/L Chloride Level 108 H 108 H 98-107 MMOL/L Carbon Dioxide Level 21 23 21-32 MMOL/L Anion Gap 11 9 5-14 MMOL/L Blood Urea Nitrogen 23 H 20 H 7-18 MG/DL Creatinine 0.81 0.78 0.60-1.30 MG/DL Estimat Glomerular Filtration Rate > 60 > 60 BUN/Creatinine Ratio 28 26 Glucose Level 95 99 70-105 MG/DL Calcium Level 8.9 8.7 8.5-10.1 MG/DL Corrected Calcium 9.1 8.5-10.1 MG/DL Magnesium Level 2.0 2.0 1.6-2.4 MG/DL Total Bilirubin 0.6 0.1-1.0 MG/DL Aspartate Amino Transf (AST/SGOT) 20 5-34 U/L Alanine Aminotransferase (ALT/SGPT) 21 0-55 U/L Alkaline Phosphatase 98 40-136 U/L Myoglobin 54.8 10.0-92.0 NG/ML Troponin I < 0.028 <0.028 NG/ML Total Protein 6.1 L 6.4-8.2 GM/DL Albumin 3.7 3.2-4.5 GM/DL Phosphorus Level 3.7 2.3-4.7 MG/DL Triglycerides Level 70 <150 MG/DL Cholesterol Level 137 < 200 MG/DL LDL Cholesterol Direct 95 1-129 MG/DL VLDL Cholesterol 14 5-40 MG/DL HDL Cholesterol 34 L 40-60 MG/DL Physical Exam Physical Exam Vital Signs Vital Signs - First Documented 09/27/20 22:25 Temp 36.9 Pulse 56 Resp 20 B/P (MAP) 103/92 (96) Pulse Ox 99 O2 Delivery Room Air Capillary Refill : Less Than 3 Seconds Height, Weight, BMI Height: 6'1.00" Weight: 195lbs. 0.0oz. 88.385035ib; 24.45 BMI Method:Stated General Appearance: No Apparent Distress, WD/WN HEENT: PERRL/EOMI, Pharynx Normal, Moist Mucous Membranes Neck: Full Range of Motion, Non Tender, Supple Respiratory: Lungs Clear, No Accessory Muscle Use, No Respiratory Distress Cardiovascular: Regular Rate, Rhythm, No Edema, No Murmur, Normal Peripheral Pulses Gastrointestinal: Normal Bowel Sounds, Non Tender, Soft; No Distended Extremity: Normal Capillary Refill, Non Tender, No Calf Tenderness, No Pedal Edema Neurologic/Psychiatric: Alert, Oriented x3, Normal Mood/Affect Skin: Normal Color, Warm/Dry A/P-Cardiology Admission Diagnosis Ventricular tachycardia Coronary artery disease Sinus node dysfunction Paroxysmal atrial fibrillation Assessment/Plan Ventricular tachycardia, status post shock from his defibrillator. Patient has history of multiple episode of ventricular tachycardia in the past was intolerant to amiodarone due to shakiness and elevation in his liver function tests, had an ICD implant and ablation to the RVOT and LVOT in the past, another 2 ablation procedure done in March 2017. Started on amiodarone drip. Continue to monitor for now Coronary artery disease, history of stent to the diagonal artery done in 2011, had a cardiac catheterization done in August 2014 showing moderate disease, patient had an abnormal stress test with diaphragmatic attenuation fixed defect involving the inferior wall with reversible ischemia involving the mid to apical septum with stress score 8, SDS 2, I am planning to proceed with cardiac catheterization, hold Eliquis for now Sick sinus syndrome/ Paroxysmal atrial fibrillation, polymorphic ventricular tachycardia, had extensive radiofrequency ablation done in November [address] Mckeon, reported as ventricle tachycardia from high outflow septum 2 different origin, successful ablation of the RVOT and LVOT, resulted in ICD implantation. Had another 2 ablation procedures done late in March 2017, and a nother ablation done on June 05, 2017. He is maintained on sotalol, followed with Dr Shin, continue to monitor Permanent pacemaker, [employer], followed with Dr. Shin in [facility]. [id number] score of 4, yearly risk of stroke without oral anticoagulation is 4 percent, on Eliquis 5 mg twice a day. Currently on hold Moderate mitral regurgitation, last echocardiogram done in October 2019 showing ejection fraction 55-65 percent, left atrium is normal in size, right atrium is mildly dilated. Moderate tricuspid regurgitation, PA pressure 35-40 mmHg. Continue to monitor Hypertension, controlled, continue to monitor. Hyperlipidemia,controlled, I will evaluate lipid profile prior to [facility]. History of Elevated LFTs-improved since discontinuation of amiodarone and Crestor. Continue to monitor Family history of coronary artery disease History of dizziness and syncope. Had a tilt table test done in the past and reported as negative, continue to monitor Carotid artery stenosis-Mild nonobstructive disease, last ultrasound was done in February 2020, continue to monitor. Venous stasis changes in the lower extremity, complaining of numbness and swelling by the end of the day, improved. ABIs done February 2016 within normal limits. ORLIN CORONADO MD Sep 28, 2020 12:38
[2020-09-28] MEDS ORDERED: DONEPEZIL 5 MG (ARICEPT) TAB PO SCH (21:00)
[2020-09-29 03:50] LABS: BASOPHILS % (AUTO) 0 % (0-10); EOSINOPHILS # (AUTO) 0.3 10^3/uL (0.0-0.3); EOSINOPHILS % (AUTO) 4 % (0-10); HEMATOCRIT 43 % (40-54); HEMOGLOBIN 14.1 g/dL (13.3-17.7); LYMPHOCYTES # (AUTO) 1.6 10^3/uL (1.0-4.0); LYMPHOCYTES % (AUTO) 17 % (12-44); MEAN CORPUSCULAR HEMOGLOBIN 31 pg (25-34); MEAN CORPUSCULAR HGB CONC 33 g/dL (32-36); MEAN CORPUSCULAR VOLUME 94 fL (80-99); MEAN PLATELET VOLUME 11.4 fL (9.0-12.2); MONOCYTES % (AUTO) 10 % (0-12); NEUTROPHILS # (AUTO) 6.7 10^3/uL (1.8-7.8); NEUTROPHILS % (AUTO) 69 % (42-75); PLATELET COUNT 162 10^3/uL (130-400); WHITE BLOOD COUNT 9.8 10^3/uL (4.3-11.0)
[2020-09-29 04:03] LABS: CHLORIDE 106 MMOL/L (98-107); POTASSIUM 4.1 MMOL/L (3.6-5.0); SODIUM 139 MMOL/L (135-145)
[2020-09-29 04:05] LABS: CALCIUM 8.8 MG/DL (8.5-10.1); GLUCOSE 90 MG/DL (70-105)
[2020-09-29 04:07] LABS: CARBON DIOXIDE 25 MMOL/L (21-32)
[2020-09-29 04:09] LABS: CREATININE SERUM 0.79 MG/DL (0.60-1.30); GFR ESTIMATED > 60
[2020-09-29 04:10] LABS: BUN/CREATININE RATIO 27
--- NOTE | 2020-09-29 04:34 | Pulmonary Progress Note ---
Subjective Time Seen by a Provider: 04:33 Subjective/Events-last exam No complications noted. Sepsis Event Evaluation Height, Weight, BMI Height: 6'1.00" Weight: 195lbs. 0.0oz. 88.551280yw; 24.45 BMI Method:Stated Exam Exam Vital Signs Date Time Temp Pulse Resp B/P (MAP) Pulse Ox O2 Delivery O2 Flow Rate FiO2 09/29/20 03:00 79 16 99/50 (66) 92 Room Air 09/29/20 02:00 80 17 130/80 (97) 94 Room Air 09/29/20 01:00 80 16 146/87 (106) 96 Room Air 09/29/20 00:00 80 12 131/90 (104) 95 Room Air 09/28/20 23:33 37.0 Room Air 09/28/20 23:00 80 19 122/85 (97) 91 Room Air 09/28/20 22:24 80 09/28/20 22:00 80 12 132/91 (105) 97 Room Air 09/28/20 21:00 80 13 131/81 (98) 97 Room Air 09/28/20 20:29 Room Air 09/28/20 20:24 80 09/28/20 20:15 96 Room Air 09/28/20 20:00 80 18 119/76 (90) 94 Room Air 09/28/20 19:39 36.9 09/28/20 19:00 82 23 107/83 (91) 91 Room Air 09/28/20 19:00 82 09/28/20 18:00 82 24 132/85 (101) 99 Room Air 09/28/20 17:00 81 12 118/93 (101) 94 Room Air 09/28/20 16:12 36.4 09/28/20 16:00 80 13 132/84 (100) 94 Room Air 09/28/20 15:00 80 12 102/54 (70) 95 Room Air 09/28/20 14:00 80 26 119/95 (103) 96 Room Air 09/28/20 13:00 85 29 141/87 (105) 93 Room Air 09/28/20 12:45 36.4 09/28/20 12:45 80 09/28/20 12:00 80 21 95/48 (64) 96 Room Air 09/28/20 11:00 80 18 118/72 (87) 94 Room Air 09/28/20 10:00 80 18 100/84 (89) 94 Room Air 09/28/20 09:00 97 Room Air 09/28/20 09:00 80 11 138/98 (111) 95 Room Air 09/28/20 08:57 79 09/28/20 08:30 36.1 09/28/20 08:00 80 12 97 Room Air 09/28/20 07:00 80 11 114/79 (91) 95 Room Air 09/28/20 06:49 80 09/28/20 06:15 80 16 116/85 (95) 95 Room Air 09/28/20 05:00 80 18 129/76 (93) 92 Room Air I & O 09/29/20 06:59 Intake Total 2375 ml Output Total 1975 ml Balance 400 ml Height & Weight Height: 6'1.00" Weight: 195lbs. 0.0oz. 88.093878uf; 24.45 BMI Method:Stated General Appearance: No Apparent Distress, WD/WN HEENT: PERRL/EOMI, Pharynx Normal, Moist Mucous Membranes Neck: Full Range of Motion, Non Tender, Supple Respiratory: Lungs Clear, No Accessory Muscle Use, No Respiratory Distress Cardiovascular: Regular Rate, Rhythm, No Edema, No Murmur, Normal Peripheral Pulses Capillary Refill: Less Than 3 Seconds Extremity: Normal Capillary Refill, Non Tender, No Calf Tenderness, No Pedal Edema Neurologic/Psychiatric: Alert, Oriented x3, Normal Mood/Affect Skin: Normal Color, Warm/Dry Results Lab Laboratory Tests 09/27/20 22:25 09/28/20 03:40 09/29/20 03:36 Assessment/Plan Assessment/Plan S/p Vtach and s/p Defibrillation per AICD -Cardiology following -s/p ammio gtt -Pt is currently full code -Pt is on RA Pt follows with [facility] and Dr. Marta belle- on hold -Plan is for cath on Mon DELGADO MORALEZ DO Sep 29, 2020 04:34
[2020-09-29] MEDS: CATHETER FLUSH 10 ML SYR IV SCH ×3 (05:57→20:30)
[2020-09-29] MEDS ORDERED: NS IV 1000 ML 1,000 ML IV SCH (07:45)
--- NOTE | 2020-09-29 07:49 | Diagnostic Imaging Report ---
Clinical indication: Patient with ventricular tachycardia. Exam: Portable chest x-ray upright view. Comparisons: Chest x-ray dated 09/27/2020. Findings: Lungs/pleura: Lungs are clear. There is no pneumothorax. There is no pleural effusion. Mediastinum: Unremarkable. Pulmonary vasculature: Unremarkable. Heart: Heart size is within normal limits. Again seen cardiac pacemaker/AICD overlying the left chest. Bones/extrathoracic soft tissue: There are degenerative spurs involving the thoracic spine.. Impression: Stable chest x-ray exam with no interval radiographic evidence of acute cardiopulmonary process. Dictated by: Dictated on workstation # [id number]
[2020-09-29] MEDS ORDERED: AMIODARONE 200 MG (CORDARONE) TAB PO SCH (09:00)
--- NOTE | 2020-09-29 09:01 | Progress Note - Hospitalist ---
RINA VELÁZQUEZ,MED STUDENT 09/29/20 0901: Subjective HPI/CC On Admission Date Seen by Provider: Sep 29, 2020 Time Seen by Provider: 07:45 Patient is an 80yo male with a PMH of CAD, A-fib, Vfib/Vtach with ICD placed, and HTN who presented to the ED c/o his ICD firing x2 last night 07/28 while watching TV. He states it felt like "getting electrocuted", and states this has never happened before. He also reports dizziness on standing for x2 weeks and intermittent SOB for x3-4 weeks, and feeling bloated for the last week, but denies chest pain. He has an extensive cardiac history and has had stents placed and multiple ablations, and has an appointment with Dr. Lozano to have more stents placed this Monday. He is currently on Eliquis and Sotalol. His ICD was interrogated in the ED which revealed numerous episodes of ventricular tachycardia since April, but he had not been defibrillated until this episode. Per Dr. Vela, he was given an amiodarone bolus and started on a drip. Subjective/Events-last exam Doing well today, no new concerns. Per Dr. Lozano will plan on moving heart cath scheduled for tomorrow to this afternoon. Eliquis held in preparation for procedure. Objective Exam Vital Signs Vital Signs Date Time Temp Pulse Resp B/P (MAP) Pulse Ox O2 Delivery O2 Flow Rate FiO2 09/29/20 06:00 80 16 118/62 (80) 93 Room Air 09/29/20 04:00 36.8 Capillary Refill : Less Than 3 Seconds General Appearance: No Apparent Distress, WD/WN HEENT: PERRL/EOMI, Pharynx Normal Neck: Full Range of Motion, Non Tender, Supple Respiratory: Lungs Clear, No Accessory Muscle Use, No Respiratory Distress Cardiovascular: Regular Rate, Rhythm, No Edema, No Murmur, Normal Peripheral Pulses Gastrointestinal: Normal Bowel Sounds, Non Tender, Soft Extremity: Non Tender, No Calf Tenderness Neurologic/Psychiatric: Alert, Normal Mood/Affect Skin: Normal Color, Warm/Dry Results/Procedures Lab Laboratory Tests 09/29/20 03:36 Patient resulted labs reviewed. Assessment/Plan Assessment and Plan Assess & Plan/Chief Complaint S/p Vtach and s/p Defibrillation by ICD -Cardiology following -Currently on amiodarone drip -Planning for heart cath this afternoon Hypertension -Continue Lisinopril 5mg PO daily Atrial fibrillation -Cardiology following -Currently in NSR, continue to monitor -Eliquis held for procedure today SARA NAIK MD 09/30/20 1706: Assessment/Plan Assessment and Plan Assess & Plan/Chief Complaint Patient reports doing well. Plan for cardiac cath today. Eliquis held. No other complaints. Await results from cath. Supervisory-Addendum Brief Verification & Attestation Participated in pt care: history, MDM, physical Personally performed: exam, history, MDM, supervision of care Care discussed with: Medical Student Procedures: n/a Results interpretation: Verified all documentation Verification and Attestation of Medical Student E/M Service A medical student performed and documented this service in my presence. I reviewed and verified all information documented by the medical student and made modifications to such information, when appropriate. I personally performed the physical exam and medical decision making. Sara Naik, Sep 30, 2020,17:05 RINA VELÁZQUEZ,MED STUDENT Sep 29, 2020 09:01 SARA NAIK MD Sep 30, 2020 17:06
[2020-09-29] MEDS: MELOXICAM 7.5 MG (MOBIC) TABLET PO SCH (09:08)
[2020-09-29] MEDS: MEXILETINE 200 MG (MEXITIL) CAPSULE PO SCH ×3 (09:08→20:25)
[2020-09-29] MEDS: lisINopril 5 MG (PRINIVIL) TABLET PO SCH (09:08)
[2020-09-29] MEDS: SOTALOL 80 MG (BETAPACE) TAB PO SCH ×2 (09:09→20:26)
[2020-09-29] MEDS: ASPIRIN E.C. 81 MG (ECOTRIN) TAB PO SCH (09:09)
--- NOTE | 2020-09-29 09:13 | Cardiology Progress Note ---
Subjective Date Seen by Provider: Sep 29, 2020 Time Seen by Provider: 09:11 Subjective/Events-last exam patient was seen at bedside, sitting comfortably, denied any active pain Review of Systems General: No Chills, No Night Sweats, No Fatigue, No Malaise, No Appetite, No Other HEENT: No Head Aches, No Visual Changes, No Eye Pain, No Ear Pain, No Dysphasia, No Sinus Congestion, No Post Nasal Drip, No Sore Throat, No Other Pulmonary: No Dyspnea, No Cough, No Pleuritic Chest Pain, No Other Cardiovascular: No: Chest Pain, Palpitations, Orthopnea, Paroxysmal Noc. Dyspnea, Edema, Lt Headedness, Other Objective-Cardiology Exam Last Set of Vital Signs Vital Signs 09/29/20 09/29/20 06:00 09:09 Pulse 80 Resp 16 B/P (MAP) 118/62 (80) Pulse Ox 93 O2 Delivery Room Air Capillary Refill : Less Than 3 Seconds I&O Intake and Output 09/28/20 23:59 Intake Total 2225 ml Output Total 2125 ml Balance 100 ml Intake Oral 1625 ml IV Total 600 ml Output Urine Total 2125 ml # Voids 2 Daily Weight Change No General: Alert, Oriented X3, Cooperative HEENT: Atraumatic, PERRLA Neck: Supple, No JVD, No Thyromegaly Lungs: Clear to Auscultation, Normal Air Movement Heart: Regular Rate, Normal S1, Normal S2, No Murmurs Abdomen: Normal Bowel Sounds, Soft, No Tenderness, No Hepatosplenomegaly, No Masses Extremities: No Clubbing, No Cyanosis, No Edema, Normal Pulses, No Tenderness/Swelling Skin: No Rashes, No Breakdown, No Significant Lesion Neuro: Normal Gait, Normal Speech, Strength at 5/5 X4 Ext, Normal Tone, Sensation Intact Psych/Mental Status: Mental Status NL, Mood NL Results Lab Laboratory Tests 09/29/20 03:36 A/P-Cardiology Admission Diagnosis Ventricular tachycardia Coronary artery disease Sinus node dysfunction Paroxysmal atrial fibrillation Assessment/Plan Ventricular tachycardia, status post shock from his defibrillator. Patient has history of multiple episode of ventricular tachycardia in the past was intolerant to amiodarone due to shakiness and elevation in his liver function tests, had an ICD implant and ablation to the RVOT and LVOT in the past, another 2 ablation procedure done in March 2017. Started on amiodarone drip. I am starting oral amiodarone again and evaluate his tolerance Coronary artery disease, history of stent to the diagonal artery done in 2011, had a cardiac catheterization done in August 2014 showing moderate disease, patient had an abnormal stress test with diaphragmatic attenuation fixed defect involving the inferior wall with reversible ischemia involving the mid to apical septum with stress score 8, SDS 2,I will proceed with cardiac catheterization today. Sick sinus syndrome/ Paroxysmal atrial fibrillation, polymorphic ventricular tachycardia, had extensive radiofrequency ablation done in November [address] Mckeon, reported as ventricle tachycardia from high outflow septum 2 different origin, successful ablation of the RVOT and LVOT, resulted in ICD implantation. Had another 2 ablation procedures done late in March 2017, and another ablation done on June 05, 2017. He is maintained on sotalol, followed with Dr Shin, continue to monitor Permanent pacemaker, [employer], followed with Dr. Shin in [place]. [id number] score of 4, yearly risk of stroke without oral anticoagulation is 4 percent, on Eliquis 5 mg twice a day. Currently on hold Moderate mitral regurgitation, last echocardiogram done in October 2019 showing ejection fraction 55-65 percent, left atrium is normal in size, right atrium is mildly dilated. Moderate tricuspid regurgitation, PA pressure 35-40 mmHg. Continue to monitor Hypertension, controlled, continue to monitor. Hyperlipidemia,controlled, I will evaluate lipid profile prior to [facility]. History of Elevated LFTs-improved since discontinuation of amiodarone and Crestor. Continue to monitor Family history of coronary artery disease History of dizziness and syncope. Had a tilt table test done in the past and reported as negative, continue to monitor Carotid artery stenosis-Mild nonobstructive disease, last ultrasound was done in February 2020, continue to monitor. Venous stasis changes in the lower extremity, complaining of numbness and swelling by the end of the day, improved. ABIs done February 2016 within normal limits. ORLIN CORONADO MD Sep 29, 2020 09:13
--- NOTE | 2020-09-29 09:13 | Cardiac Procedure Note-CS/ASA ---
Pre-Procedure Note Pre-Op Procedure Note H&P Reviewed The H&P was reviewed, patient examined and no changes noted. Date H&P Reviewed: Sep 29, 2020 Time H&P Reviewed: 09:13 Conscious Sedation Pre-Proced Time 09:13 ASA Score 3 For ASA 3 and 4: Consider anesthesia and medical clearance. Also, for patients with a history of failed moderate sedation consider anesthesia. Airway Lungs Heart ASA score ASA 1: a normal healthy patient ASA 2: a patient with a mild systemic disease (mid diabetes, controlled hypertension, obesity x ASA 3: a patient with a severe systemic disease that limits activity (angina, COPD, prior Myocardial infarction) ASA 4: a patient with an incapacitating disease that is a constant threat to life (CHF, renal failure) ASA 5: a moribund patient not expected to survive 24 hrs. (ruptured aneurysm) ASA 6: a declared brain- patient whose organs are being harvested. For emergent operations, add the letter E after the classification Mallampati Classification Grade 3 Sedation Plan Analgesia, Amnesia, Plan communicated to team members, Discussed options with patient/fam, Discussed risks with patient/fam The patient is an appropriate candidate to undergo the planned procedure, sedation, and anesthesia. The patient immediately re-assessed prior to indication. ORLIN CORONADO MD Sep 29, 2020 09:13
[2020-09-29] MEDS ORDERED: LIDOCAINE 1% INJ 20 ML 20 ML VIAL ONE (14:54)
[2020-09-29] MEDS ORDERED: NS IV 1000 ML 1,000 ML ONE (14:54)
[2020-09-29] MEDS ORDERED: HEParin (CATH LAB) 2,000 ML IV ONE (14:54)
[2020-09-29] MEDS ORDERED: MIDAZOLAM 5 MG/5 ML (VERSED) VIAL ONE (14:57)
[2020-09-29] MEDS ORDERED: fentaNYL INJECTION 100 MCG/2 ML AMP ONE (14:57)
[2020-09-29] MEDS ORDERED: PATIENT MAY USE OWN MEDS, ALL PO SCH (15:45)
--- NOTE | 2020-09-29 15:46 | Cardiac Cath Report ---
Cardiac Cath Report Physician (s)/Lead Electrical Controls Engineer (s) Physician ORLIN CORONADO MD Pre-Procedure Diagnosis Pre-Procedure Diagnosis: ventricular tachycardia Post-Procedure Note Procedure Start Date: Sep 29, 2020 Name of Procedure: Left heart catheterization Left ventriculogram Findings/Procedure Note PROCEDURE NOTE: 80 years old gentleman with abnormal stress test, admitted through the emergency room with ventricular tachycardia at a shock from his defibrillator. After explaining the procedure to the patient, all pros and cons were explained, all questions were answered. The patient signed the consent and then he was placed on the cardiac catheterization laboratory. Groin was prepped SL fashion local anesthesia was used. Sheath placed in the right femoral artery. [place] right and left catheter were used to access the coronary system. Pigtail was used to access the left ventricular cavity. Left ventriculogram was done Aortic arch angiogram was not done At the end of the procedure the sheath was removed. Closure device was used FINDINGS: Hemodynamics LV 123/13, end-diastolic pressure of 15 Aorta 126/71 mean of 97 ANATOMY: Left Main is free of obstructive disease Left Anterior Descending is slightly tortuous tapering down into small artery with no obstructive disease Left Circumflex is nondominant artery small with no obstructive disease Right Coronory Artery is dominant artery with no obstructive disease LV Gram was done showing mild diffuse left ventricular hypokinesia ejection fraction 40 percent CONCLUSION: 1. No significant obstructive disease in the coronary system 2. Slightly prominent left ventricle with hypokinesia EF 40 percent DISCUSSION AND RECOMMENDATION: Continue to maximize medical therapy, refer for EP evaluation Anesthesia Type: Conscious Sedation Estimated blood loss (mL): 25 ml Contrast Amount: 45 ml Total Radiation Dose: 277 mGy Post-Procedure Diagnosis (1) Ventricular tachycardia (2) Defibrillator discharge (3) Paroxysmal atrial fibrillation (4) CAD (coronary artery disease) Qualifiers: Qualified Codes: I25.10 - Atherosclerotic heart disease of [place] coronary artery without angina pectoris (5) Hyperlipemia, mixed ORLIN CORONADO MD Sep 29, 2020 3:46 pm
[2020-09-29] MEDS: NS IV 1000 ML 1,000 ML IV SCH ×2 (16:07→20:30)
[2020-09-30 03:51] LABS: BASOPHILS % (AUTO) 1 % (0-10); EOSINOPHILS # (AUTO) 0.3 10^3/uL (0.0-0.3); EOSINOPHILS % (AUTO) 4 % (0-10); HEMATOCRIT 40 % (40-54); LYMPHOCYTES # (AUTO) 1.6 10^3/uL (1.0-4.0); LYMPHOCYTES % (AUTO) 19 % (12-44); MEAN CORPUSCULAR HEMOGLOBIN 31 pg (25-34); MEAN CORPUSCULAR HGB CONC 33 g/dL (32-36); MEAN CORPUSCULAR VOLUME 95 fL (80-99); MEAN PLATELET VOLUME 10.9 fL (9.0-12.2); MONOCYTES # (AUTO) 0.9 10^3/uL (0.0-1.0); MONOCYTES % (AUTO) 11 % (0-12); NEUTROPHILS # (AUTO) 5.6 10^3/uL (1.8-7.8); NEUTROPHILS % (AUTO) 66 % (42-75); PLATELET COUNT 146 10^3/uL (130-400); WHITE BLOOD COUNT 8.5 10^3/uL (4.3-11.0)
[2020-09-30 04:10] LABS: CHLORIDE 108 MMOL/L (98-107); POTASSIUM 4.1 MMOL/L (3.6-5.0); SODIUM 140 MMOL/L (135-145)
[2020-09-30 04:12] LABS: CALCIUM 8.2 MG/DL (8.5-10.1); GLUCOSE 71 MG/DL (70-105)
[2020-09-30 04:14] LABS: CARBON DIOXIDE 25 MMOL/L (21-32)
[2020-09-30 04:16] LABS: CREATININE SERUM 0.74 MG/DL (0.60-1.30); GFR ESTIMATED > 60; PHOSPHORUS 3.5 MG/DL (2.3-4.7)
[2020-09-30 04:17] LABS: BUN/CREATININE RATIO 24
[2020-09-30 04:19] LABS: MAGNESIUM 2.1 MG/DL (1.6-2.4)
--- NOTE | 2020-09-30 05:05 | Pulmonary Progress Note ---
Subjective Time Seen by a Provider: 05:05 Subjective/Events-last exam no complications noted. Sepsis Event Evaluation Height, Weight, BMI Height: 6'1.00" Weight: 195lbs. 0.0oz. 88.575456yz; 24.45 BMI Method:Stated Exam Exam Vital Signs Date Time Temp Pulse Resp B/P (MAP) Pulse Ox O2 Delivery O2 Flow Rate FiO2 09/30/20 04:00 80 11 110/69 (83) 93 Room Air 09/30/20 03:00 80 14 120/77 (91) 94 Room Air 09/30/20 02:30 80 16 116/80 (92) 93 Room Air 09/30/20 01:00 80 09/30/20 01:00 80 15 100/59 (73) 92 Room Air 09/30/20 00:00 80 14 93/80 (84) 93 Room Air 09/29/20 23:00 82 16 143/80 (101) 93 Room Air 09/29/20 22:00 81 18 137/109 (118) 95 Room Air 09/29/20 21:00 80 18 142/88 (106) 94 Room Air 09/29/20 21:00 Room Air 09/29/20 20:00 80 17 123/106 (112) 95 Room Air 09/29/20 19:02 80 09/29/20 19:00 80 17 127/82 (97) 94 Room Air 09/29/20 18:00 80 12 116/79 (91) 96 Room Air 09/29/20 17:00 80 14 125/69 (87) 93 Room Air 09/29/20 16:22 36.3 09/29/20 16:00 80 18 118/75 (89) 94 Room Air 09/29/20 15:00 80 20 144/85 (104) 96 Room Air 09/29/20 14:00 80 11 134/81 (98) 94 Room Air 09/29/20 13:16 80 09/29/20 13:00 80 21 130/101 (111) 96 Room Air 09/29/20 12:00 80 19 129/73 (91) 94 Room Air 09/29/20 11:09 80 09/29/20 11:00 80 15 111/66 (81) 93 Room Air 09/29/20 10:00 80 17 96/58 (71) 92 Room Air 09/29/20 09:09 80 09/29/20 09:00 36.4 09/29/20 09:00 Room Air 09/29/20 09:00 82 27 113/60 (77) 94 Room Air 09/29/20 08:00 80 23 99/84 (89) 95 Room Air 09/29/20 07:00 87 13 81/65 (70) 93 Room Air 09/29/20 06:23 80 09/29/20 06:00 80 16 118/62 (80) 93 Room Air I & O 09/30/20 07:00 Intake Total 815 ml Output Total 1875 ml Balance -1060 ml Height & Weight Height: 6'1.00" Weight: 195lbs. 0.0oz. 88.012827ud; 24.45 BMI Method:Stated General Appearance: No Apparent Distress, WD/WN HEENT: PERRL/EOMI, Pharynx Normal Neck: Full Range of Motion, Non Tender, Supple Respiratory: Lungs Clear, No Accessory Muscle Use, No Respiratory Distress Cardiovascular: Regular Rate, Rhythm, No Edema, No Murmur, Normal Peripheral Pulses Capillary Refill: Less Than 3 Seconds Extremity: Non Tender, No Calf Tenderness Neurologic/Psychiatric: Alert, Normal Mood/Affect Skin: Normal Color, Warm/Dry Results Lab Laboratory Tests 09/29/20 03:36 09/30/20 03:38 Assessment/Plan Assessment/Plan S/p Vtach and s/p Defibrillation per AICD -Cardiology following -s/p ammio gtt -Pt is currently full code -Pt is on RA Pt follows with BELIN[facility] and Dr. Marta belle- on hold -s/p DELGADO Beltrán DO Sep 30, 2020 05:05
[2020-09-30] MEDS: NS IV 1000 ML 1,000 ML IV SCH ×2 (05:54→19:26)
[2020-09-30] MEDS: CATHETER FLUSH 10 ML SYR IV SCH ×3 (05:56→20:31)
--- NOTE | 2020-09-30 08:49 | Diagnostic Imaging Report ---
INDICATION: V. tach FINDINGS: A pacemaker device unremarkable. Lungs are clear. No failure, effusion or pneumothorax. IMPRESSION: No acute appearing abnormality. Dictated by: Dictated on workstation # [id number]
[2020-09-30] MEDS: MELOXICAM 7.5 MG (MOBIC) TABLET PO SCH (09:17)
[2020-09-30] MEDS: MEXILETINE 200 MG (MEXITIL) CAPSULE PO SCH ×3 (09:17→20:31)
[2020-09-30] MEDS: ASPIRIN E.C. 81 MG (ECOTRIN) TAB PO SCH (09:17)
[2020-09-30] MEDS: lisINopril 5 MG (PRINIVIL) TABLET PO SCH (09:18)
--- NOTE | 2020-09-30 11:53 | Discharge Summary ---
Diagnosis/Chief Complaint Date of Admission Sep 27, 2020 at 23:47 Date of Discharge Admission Diagnosis Sustained V-tach Primary Care Major,Loni [employer] Specialist Discharge Diagnosis (1) Ventricular tachycardia Status: Acute (2) Defibrillator discharge Status: Acute (3) Paroxysmal atrial fibrillation Status: Chronic (4) CAD (coronary artery disease) Status: Chronic (5) Hyperlipemia, mixed Status: Chronic Discharge Summary Discharge Physical Exam Allergies: Coded Allergies: No Known Drug Allergies (Unverified , 12/28/17) Vitals & I&Os Vital Signs Date Time Temp Pulse Resp B/P (MAP) Pulse Ox O2 Delivery O2 Flow Rate FiO2 09/30/20 11:15 36.8 09/30/20 08:30 Room Air 09/30/20 08:00 80 24 102/72 (82) 89 Hospital Course Patient is an 80yo male with a PMH of CAD, A-fib, Vfib/Vtach with ICD placed, and HTN who presented to the ED on 09/27 c/o his ICD firing x2. He was watching T V when his ICD discharged x2, which he described as "getting electrocuted", and stated that this was the first time his ICD had fired. He reported feeling dizzy on standing for x2 weeks and intermittent SOB for x3-4 weeks, and bloating, but denied CP or palpitations prior to the event. His extensive cardiac history includes coronary stents and multiple ablations, and follows with Dr. Lozano and Dr. Shin at . His ICD was interrogated in the ED which revealed several episodes of ventricular tachycardia since April, but this was the first defibrillation event. He was started on an amiodarone drip, and was continued on his Sotalol. He had a failed stress test and had been scheduled for a cardiac cath on 10/02, so this was rescheduled and he underwent the cath on 09/29, which revealed no significant obstructions. After starting the amiodarone drip, he did not experience any further episodes of ventricular tachycardia, so he was switched to oral amiodarone which he tolerated well. Labs (last 24 hrs) Laboratory Tests 09/30/20 03:38: White Blood Count 8.5, Red Blood Count 4.15L, Hemoglobin 13.0L, Hematocrit 40, Mean Corpuscular Volume 95, Mean Corpuscular Hemoglobin 31, Mean Corpuscular Hemoglobin Concent 33, Red Cell Distribution Width 13.6, Platelet Count 146, Mean Platelet Volume 10.9, Immature Granulocyte % (Auto) 0, Neutrophils (%) (Auto) 66, Lymphocytes (%) (Auto) 19, Monocytes (%) (Auto) 11, Eosinophils (%) (Auto) 4, Basophils (%) (Auto) 1, Neutrophils # (Auto) 5.6, Lymphocytes # (Auto) 1.6, Monocytes # (Auto) 0.9, Eosinophils # (Auto) 0.3, Basophils # (Auto) 0.0, Immature Granulocyte # (Auto) 0.0, Sodium Level 140, Potassium Level 4.1, Chloride Level 108H, Carbon Dioxide Level 25, Anion Gap 7, Blood Urea Nitrogen 18, Creatinine 0.74, Estimat Glomerular Filtration Rate > 60, BUN/Creatinine Ratio 24, Glucose Level 71, Calcium Level 8.2L, Phosphorus Level 3.5, Magnesium Level 2.1 Microbiology 09/28/20 MRSA Screen - Final, Complete MRSA not isolated Patient resulted labs reviewed. Discharge Home Medications: Active Scripts Active Reported Donepezil HCl 5 Mg Tablet 5 Mg PO DAILY Eliquis (Apixaban) 5 Mg Tablet 5 Mg PO BID Flintstones with Extra C (Multivitamin) 1 Each Tab.chew 1 Each PO BID Mexiletine HCl 200 Mg Capsule 200 Mg PO 0800,1400,2000 Sotalol (Sotalol HCl) 120 Mg Tablet 120 Mg PO BID Atorvastatin Calcium 40 Mg Tablet 40 Mg PO MON,WED,FRI,SAT Omeprazole 40 Mg Capsule.dr 40 Mg PO DAILY Meloxicam 15 Mg Tablet 15 Mg PO HS PRN Instructions to patient/family Please see electronic discharge instructions given to patient. Problem Qualifiers (1) CAD (coronary artery disease): Coronary Disease-Associated Artery/Lesion type: [place] artery [place] vs. transplanted heart: [place] heart Associated angina: without angina Qualified Codes: I25.10 - Atherosclerotic heart disease of [place] coronary artery without angina pectoris RINA VELÁZQUEZ,MED STUDENT Sep 30, 2020 11:53
--- NOTE | 2020-09-30 12:17 | Progress Note - Hospitalist ---
RINA VELÁZQUEZ,MED STUDENT 09/30/20 1217: Subjective HPI/CC On Admission Date Seen by Provider: Sep 30, 2020 Time Seen by Provider: 08:00 Patient is an 80yo male with a PMH of CAD, A-fib, Vfib/Vtach with ICD placed, and HTN who presented to the ED c/o his ICD firing x2 last night 07/28 while watching TV. He states it felt like "getting electrocuted", and states this has never happened before. He also reports dizziness on standing for x2 weeks and intermittent SOB for x3-4 weeks, and feeling bloated for the last week, but denies chest pain. He has an extensive cardiac history and has had stents placed and multiple ablations, and has an appointment with Dr. Lozano to have more stents placed this Monday. He is currently on Eliquis and Sotalol. His ICD was interrogated in the ED which revealed numerous episodes of ventricular tachycardia since April, but he had not been defibrillated until this episode. Per Dr. Vela, he was given an amiodarone bolus and started on a drip. Subjective/Events-last exam Doing well today, denies any new concerns. Denies CP, SOB, palpitations. Was found to have QT prolongation, so sotalol was held. Has not had any further episodes of ventricular tachycardia. Objective Exam Vital Signs Vital Signs Date Time Temp Pulse Resp B/P (MAP) Pulse Ox O2 Delivery O2 Flow Rate FiO2 09/30/20 11:15 36.8 09/30/20 08:30 Room Air 09/30/20 08:00 80 24 102/72 (82) 89 Capillary Refill : Less Than 3 Seconds General Appearance: No Apparent Distress, WD/WN HEENT: PERRL/EOMI, Pharynx Normal, Moist Mucous Membranes Neck: Full Range of Motion, Non Tender Respiratory: Normal Breath Sounds, No Accessory Muscle Use, No Respiratory Distress Cardiovascular: Regular Rate, Rhythm, No Murmur, Normal Peripheral Pulses Gastrointestinal: Normal Bowel Sounds, Non Tender, Soft Extremity: Normal Capillary Refill, No Calf Tenderness Neurologic/Psychiatric: Alert, Oriented x3, Normal Mood/Affect Results/Procedures Lab Laboratory Tests 09/30/20 03:38 Patient resulted labs reviewed. Assessment/Plan Assessment and Plan Assess & Plan/Chief Complaint S/p Vtach and s/p Defibrillation by ICD -Cardiology following -Currently on amiodarone PO -Sotalol held due to QT prolongation -s/p cardiac cath 09/29 Hypertension -Continue Lisinopril 5mg PO daily Atrial fibrillation -Cardiology following -Currently in NSR, continue to monitor -Eliquis held for procedure SARA NAIK MD 09/30/20 1704: Assessment/Plan Assessment and Plan Assess & Plan/Chief Complaint Patient reports feeling well. No complaints, QTC was prolonged this morning. Discussed with SORAIDA Shah for Cardiology and amiodarone and sotalol held. Plan to continue to monitor on telemetry. Otherwise doing well. Discussed with Dr Lozano and will resume Eliquis as well. Supervisory-Addendum Brief Verification & Attestation Participated in pt care: history, MDM, physical Personally performed: exam, history, MDM, supervision of care Care discussed with: Medical Student Procedures: n/a Results interpretation: Verified all documentation Verification and Attestation of Medical Student E/M Service A medical student performed and documented this service in my presence. I reviewed and verified all information documented by the medical student and made modifications to such information, when appropriate. I personally performed the physical exam and medical decision making. Sara Naik, Sep 30, 2020,17:01 RINA VELÁZQUEZ,MED STUDENT Sep 30, 2020 12:17 SARA NAIK MD Sep 30, 2020 17:04
--- NOTE | 2020-09-30 14:16 | Cardiology Progress Note ---
Subjective Date Seen by Provider: Sep 30, 2020 Time Seen by Provider: 12:00 Subjective/Events-last exam No new complaints, denies any chest pain. Review of Systems General: No Chills, No Night Sweats, No Fatigue, No Malaise, No Appetite, No Other HEENT: No Head Aches, No Visual Changes, No Eye Pain, No Ear Pain, No Dysphasia, No Sinus Congestion, No Post Nasal Drip, No Sore Throat, No Other Pulmonary: No Dyspnea, No Cough, No Pleuritic Chest Pain, No Other Cardiovascular: No: Chest Pain, Palpitations, Orthopnea, Paroxysmal Noc. Dyspnea, Edema, Lt Headedness, Other Objective-Cardiology Exam Last Set of Vital Signs Vital Signs 09/30/20 09/30/20 09/30/20 14:00 15:00 15:20 Temp 36.6 Pulse 80 Resp 24 B/P (MAP) 122/72 (89) Pulse Ox 94 O2 Delivery Room Air Capillary Refill : Less Than 3 Seconds I&O Intake and Output 09/30/20 00:00 Intake Total 1415 ml Output Total 2275 ml Balance -860 ml Intake Oral 1415 ml Output Urine Total 2275 ml # Bowel Movements 1 General: Alert, Oriented X3, Cooperative HEENT: Atraumatic, PERRLA Neck: Supple, No JVD, No Thyromegaly Lungs: Clear to Auscultation, Normal Air Movement Heart: Regular Rate, Normal S1, Normal S2, No Murmurs Abdomen: Normal Bowel Sounds, Soft, No Tenderness, No Hepatosplenomegaly, No Masses Extremities: No Clubbing, No Cyanosis, No Edema, Normal Pulses, No Tenderness/Swelling Skin: No Rashes, No Breakdown, No Significant Lesion Neuro: Normal Gait, Normal Speech, Strength at 5/5 X4 Ext, Normal Tone, Sensation Intact Psych/Mental Status: Mental Status NL, Mood NL Results Lab Laboratory Tests 09/30/20 03:38 A/P-Cardiology Admission Diagnosis Ventricular tachycardia Coronary artery disease Sinus node dysfunction Paroxysmal atrial fibrillation Assessment/Plan Ventricular tachycardia, status post shock from his defibrillator. Patient has history of multiple episode of ventricular tachycardia in the past was intolerant to amiodarone due to shakiness and elevation in his liver function tests, had an ICD implant and ablation to the RVOT and LVOT in the past, another 2 ablation procedure done in March 2017. Amiodarone currently on hold. Coronary artery disease, history of stent to the diagonal artery done in 2011, had a cardiac catheterization done in August 2014 showing moderate disease, patient had an abnormal stress test with diaphragmatic attenuation fixed defect involving the inferior wall with reversible ischemia involving the mid to apical septum with stress score 8, SDS 2, cardiac catheterization done yesterday showing no obstructive coronary artery disease in the coronary system. Sick sinus syndrome/ Paroxysmal atrial fibrillation, polymorphic ventricular tachycardia, had extensive radiofrequency ablation done in November [address] Mckeon, reported as ventricle tachycardia from high outflow septum 2 different origin, successful ablation of the RVOT and LVOT, resulted in ICD implantation. Had another 2 ablation procedures done late in March 2017, and another ablation done on June 05, 2017. He is maintained on sotalol, followed with Dr Shin. EKG done this morning with prolonged QT, will hold sotalol at t his time, repeat EKG this evening. Permanent pacemaker, [employer]tronic, followed with Dr. Shin in [place]. [id number] score of 4, yearly risk of stroke without oral anticoagulation is 4 percent, on Eliquis 5 mg twice a day. Currently on hold Moderate mitral regurgitation, last echocardiogram done in October 2019 showing ejection fraction 55-65 percent, left atrium is normal in size, right atrium is mildly dilated. Moderate tricuspid regurgitation, PA pressure 35-40 mmHg. Continue to monitor Hypertension, controlled, continue to monitor. Hyperlipidemia,controlled, I will evaluate lipid profile prior to [facility]. History of Elevated LFTs-improved since discontinuation of amiodarone and Crestor. Continue to monitor Family history of coronary artery disease History of dizziness and syncope. Had a tilt table test done in the past and reported as negative, continue to monitor Carotid artery stenosis-Mild nonobstructive disease, last ultrasound was done in February 2020, continue to monitor. Venous stasis changes in the lower extremity, complaining of numbness and swelling by the end of the day, improved. ABIs done February 2016 within normal limits. Patient was seen and evaluated with Alyssa, examination performed, management plan was discussed, agree with the current scribed note, I made few changes to the note using Italic font Patient had prolongation of his QTc on EKG. Amiodarone was discontinued, I am holding sotalol today I will reevaluate EKG in the evening prior to the evening dose Patient is feeling better. Continue to monitor ALYSSA FORD Sep 30, 2020 14:16 ORLIN CORONADO MD Sep 30, 2020 17:04
--- NOTE | 2020-09-30 15:04 | NUR ---
Pastoral care visit.
--- NOTE | 2020-09-30 20:23 | NUR ---
NOTIFIED DR CORONADO OF EKG RESULTS-ORDERS TO CONTINUE TO HOLD SOTALOL.
[2020-09-30] MEDS: APIXABAN 5 MG (ELIQUIS) TABLET PO SCH (20:31)
--- NOTE | 2020-09-30 20:41 | NUR ---
updated pt at this time
[2020-10-01 03:38] LABS: BASOPHILS % (AUTO) 1 % (0-10); EOSINOPHILS # (AUTO) 0.4 10^3/uL (0.0-0.3); EOSINOPHILS % (AUTO) 4 % (0-10); HEMATOCRIT 39 % (40-54); HEMOGLOBIN 13.2 g/dL (13.3-17.7); LYMPHOCYTES # (AUTO) 1.5 10^3/uL (1.0-4.0); LYMPHOCYTES % (AUTO) 18 % (12-44); MEAN CORPUSCULAR HEMOGLOBIN 32 pg (25-34); MEAN CORPUSCULAR HGB CONC 34 g/dL (32-36); MEAN CORPUSCULAR VOLUME 94 fL (80-99); MEAN PLATELET VOLUME 10.9 fL (9.0-12.2); MONOCYTES # (AUTO) 0.8 10^3/uL (0.0-1.0); MONOCYTES % (AUTO) 10 % (0-12); NEUTROPHILS # (AUTO) 5.4 10^3/uL (1.8-7.8); NEUTROPHILS % (AUTO) 67 % (42-75); PLATELET COUNT 144 10^3/uL (130-400); WHITE BLOOD COUNT 8.1 10^3/uL (4.3-11.0)
[2020-10-01 04:00] LABS: BUN/CREATININE RATIO 24; CALCIUM 8.3 MG/DL (8.5-10.1); CARBON DIOXIDE 21 MMOL/L (21-32); CHLORIDE 109 MMOL/L (98-107); CREATININE SERUM 0.79 MG/DL (0.60-1.30); GFR ESTIMATED > 60; GLUCOSE 81 MG/DL (70-105); MAGNESIUM 1.9 MG/DL (1.6-2.4); PHOSPHORUS 3.8 MG/DL (2.3-4.7); POTASSIUM 3.7 MMOL/L (3.6-5.0); SODIUM 140 MMOL/L (135-145)
--- NOTE | 2020-10-01 05:09 | Pulmonary Progress Note ---
Subjective Time Seen by a Provider: 05:07 Subjective/Events-last exam No complications noted. Sepsis Event Evaluation Height, Weight, BMI Height: 6'1.00" Weight: 195lbs. 0.0oz. 88.349830oh; 24.45 BMI Method:Stated Exam Exam Vital Signs Date Time Temp Pulse Resp B/P (MAP) Pulse Ox O2 Delivery O2 Flow Rate FiO2 10/01/20 01:00 80 10/01/20 00:47 36.6 80 16 144/89 (107) 93 Room Air 09/30/20 20:52 Room Air 09/30/20 20:00 80 19 Room Air 09/30/20 19:18 80 16 118/64 (82) 96 Room Air 09/30/20 19:00 84 09/30/20 17:23 81 18 153/115 (128) 97 Room Air 09/30/20 15:20 36.6 09/30/20 15:00 80 24 Room Air 09/30/20 14:00 80 19 122/72 (89) 94 Room Air 09/30/20 13:00 84 25 141/87 (105) 97 Room Air 09/30/20 12:32 81 09/30/20 12:00 82 27 160/138 (145) 95 Room Air 09/30/20 11:15 36.8 09/30/20 11:00 80 56 149/96 (113) 96 Room Air 09/30/20 10:00 80 18 125/80 (95) 93 Room Air 09/30/20 09:00 80 19 63/44 (50) 94 Room Air 09/30/20 08:30 Room Air 09/30/20 08:00 80 24 102/72 (82) 89 Room Air 09/30/20 06:51 82 09/30/20 06:45 85 18 142/126 (131) 86 Room Air 09/30/20 06:00 82 16 133/78 (96) 94 Room Air I & O 10/01/20 07:00 Intake Total 995 ml Output Total 1830 ml Balance -835 ml Height & Weight Height: 6'1.00" Weight: 195lbs. 0.0oz. 88.855648ux; 24.45 BMI Method:Stated General Appearance: No Apparent Distress, WD/WN HEENT: PERRL/EOMI, Pharynx Normal, Moist Mucous Membranes Neck: Full Range of Motion, Non Tender Respiratory: Normal Breath Sounds, No Accessory Muscle Use, No Respiratory Distress Cardiovascular: Regular Rate, Rhythm, No Murmur, Normal Peripheral Pulses Capillary Refill: Less Than 3 Seconds Extremity: Normal Capillary Refill, No Calf Tenderness Neurologic/Psychiatric: Alert, Oriented x3, Normal Mood/Affect Skin: Normal Color, Warm/Dry Results Lab Laboratory Tests 09/30/20 03:38 10/01/20 03:27 Assessment/Plan Assessment/Plan S/p Vtach and s/p Defibrillation per AICD -Cardiology following -s/p ammio gtt -Pt is currently full code -Pt is on RA Pt follows with [facility] and Dr. Marta belle- on hold -s/p Cath Prolonged QTc -Cardiology following DELGADO MORALEZ DO Oct 01, 2020 05:09
[2020-10-01] MEDS: CATHETER FLUSH 10 ML SYR IV SCH ×3 (06:46→19:55)
--- NOTE | 2020-10-01 06:58 | Diagnostic Imaging Report ---
HISTORY: Ventricular tachycardia, defibrillator discharge TECHNIQUE: Frontal view of the chest COMPARISON: 09/30/2020 FINDINGS: Lung volumes are normal. No focal consolidation is seen. There is no pleural effusion or pneumothorax. The left-sided automatic implantable cardiac defibrillator leads appear stable. There are severe degenerative changes in the shoulders bilaterally. IMPRESSION: 1. No acute pulmonary abnormality. The automatic implantable cardiac defibrillator appears stable in position. Dictated by: Dictated on workstation # [id number]
[2020-10-01] MEDS ORDERED: SOTALOL 80 MG (BETAPACE) TAB ONE (07:57)
[2020-10-01] MEDS: ASPIRIN E.C. 81 MG (ECOTRIN) TAB PO SCH (08:02)
[2020-10-01] MEDS: APIXABAN 5 MG (ELIQUIS) TABLET PO SCH ×2 (08:03→19:55)
[2020-10-01] MEDS: MEXILETINE 200 MG (MEXITIL) CAPSULE PO SCH ×3 (08:03→19:55)
[2020-10-01] MEDS: lisINopril 5 MG (PRINIVIL) TABLET PO SCH (08:03)
[2020-10-01] MEDS: MELOXICAM 7.5 MG (MOBIC) TABLET PO SCH (08:03)
[2020-10-01] MEDS ORDERED: SOTALOL 80 MG (BETAPACE) TAB PO ONE (08:15)
--- NOTE | 2020-10-01 08:57 | Cardiology Discharge Summary ---
Discharge Summary Hospital Course Problems Reviewed?: Yes Hospital Course Date of Admission: Sep 27, 2020 at 23:47 Admission Diagnosis : Family Physician/Provider: Loni Betancur Date of Discharge: 10/01/20 Discharge Diagnosis: [ventricular tachycardia Coronary artery disease Hypertension Hyperlipidemia ] Hospital Course: [ Ventricular tachycardia, status post shock from his defibrillator. Patient has history of multiple episode of ventricular tachycardia in the past was intolerant to amiodarone due to shakiness and elevation in his liver function tests, had an ICD implant and ablation to the RVOT and LVOT in the past, another 2 ablation procedure done in March 2017, amiodarone was discontinued, had prolonged QT interval, I am decreasing sotalol dose and we will monitor tolerance and response, I arranged for him for EP evaluation, prior to discharge patient had another 2 episode of nonsustained ventricular tachycardia, I decided to transfer him directly to [facility] for evaluation with Dr. Segura and possible EP study and ablation. QTC is borderline at this time, a decrease sotalol to 80 mg Coronary artery disease, history of stent to the diagonal artery done in 2011, had a cardiac catheterization done in August 2014 showing moderate disease, patient had an abnormal stress test with diaphragmatic attenuation fixed defect involving the inferior wall with reversible ischemia involving the mid to apical septum with stress score 8, SDS 2, cardiac catheterization done yesterday showing no obstructive coronary artery disease in the coronary system. Sick sinus syndrome/ Paroxysmal atrial fibrillation, polymorphic ventricular tachycardia, had extensive radiofrequency ablation done in November [address] Nayana leija, reported as ventricle tachycardia from high outflow septum 2 different origin, successful ablation of the RVOT and LVOT, resulted in ICD implantation. Had another 2 ablation procedures done late in March 2017, and another ablation done on June 05, 2017. He is maintained on sotalol, followed with Dr Shin. EKG showed improvement in QTC, I will decrease sotalol dose and evaluate tolerance Permanent pacemaker, [employer]tr[employer], followed with Dr. Shin in [place]. [id number] score of 4, yearly risk of stroke without oral anticoagulation is 4 percent, on Eliquis 5 mg twice a day. Currently on hold Moderate mitral regurgitation, last echocardiogram done in October 2019 showing ejection fraction 55-65 percent, left atrium is normal in size, right atrium is mildly dilated. Moderate tricuspid regurgitation, PA pressure 35-40 mmHg. Continue to monitor Hypertension, controlled, continue to monitor. Hyperlipidemia,controlled, I will evaluate lipid profile prior to [facility]. History of Elevated LFTs-improved since discontinuation of amiodarone and Crestor. Continue to monitor Family history of coronary artery disease History of dizziness and syncope. Had a tilt table test done in the past and reported as negative, continue to monitor Carotid artery stenosis-Mild nonobstructive disease, last ultrasound was done in February 2020, continue to monitor. Venous stasis changes in the lower extremity, complaining of numbness and swelling by the end of the day, improved. ABIs done February 2016 within normal limits.] Labs and Pending Lab Test: Laboratory Tests 10/01/20 03:27: White Blood Count 8.1, Red Blood Count 4.15L, Hemoglobin 13.2L, Hematocrit 39L, Mean Corpuscular Volume 94, Mean Corpuscular Hemoglobin 32, Mean Corpuscular Hemoglobin Concent 34, Red Cell Distribution Width 13.3, Platelet Count 144, Mean Platelet Volume 10.9, Immature Granulocyte % (Auto) 0, Neutrophils (%) (Auto) 67, Lymphocytes (%) (Auto) 18, Monocytes (%) (Auto) 10, Eosinophils (%) (Auto) 4, Basophils (%) (Auto) 1, Neutrophils # (Auto) 5.4, Lymphocytes # (Auto) 1.5, Monocytes # (Auto) 0.8, Eosinophils # (Auto) 0.4H, Basophils # (Auto) 0.0, Immature Granulocyte # (Auto) 0.0, Sodium Level 140, Potassium Level 3.7, Chloride Level 109H, Carbon Dioxide Level 21, Anion Gap 10, Blood Urea Nitrogen 19H, Creatinine 0.79, Estimat Glomerular Filtration Rate > 60, BUN/Creatinine Ratio 24, Glucose Level 81, Calcium Level 8.3L, Phosphorus Level 3.8, Magnesium Level 1.9 Microbiology 09/28/20 MRSA Screen - Final, Complete MRSA not isolated Home Meds Active Reported Donepezil HCl 5 Mg Tablet 5 Mg PO DAILY Eliquis (Apixaban) 5 Mg Tablet 5 Mg PO BID Flintstones with Extra C (Multivitamin) 1 Each Tab.chew 1 Each PO BID Mexiletine HCl 200 Mg Capsule 200 Mg PO 0800,1400,2000 Sotalol (Sotalol HCl) 120 Mg Tablet 120 Mg PO BID Atorvastatin Calcium 40 Mg Tablet 40 Mg PO MON,WED,FRI,SAT Omeprazole 40 Mg Capsule.dr 40 Mg PO DAILY Meloxicam 15 Mg Tablet 15 Mg PO HS PRN Assessment/Pt DC Instructions Transferred to [facility] Appointment with Dr. CORONADO's office in one to 2 weeks Discharge Diet: No Restrictions Discharge Physical Examination Allergies: Coded Allergies: No Known Drug Allergies (Unverified , 12/28/17) General Appearance: No Apparent Distress, WD/WN HEENT: PERRL/EOMI, TMs Normal, Normal ENT Inspection, Pharynx Normal Respiratory: Chest Non Tender, Lungs Clear, Normal Breath Sounds, No Accessory Muscle Use, No Respiratory Distress Cardiovascular: Regular Rate, Rhythm, No Edema, No Gallop, No JVD, No Murmur, Normal Peripheral Pulses Gastrointestinal: Normal Bowel Sounds, No Organomegaly, No Pulsatile Mass, Non Tender, Soft Extremity: Normal Capillary Refill, Normal Inspection, Normal Range of Motion, Non Tender, No Calf Tenderness Skin: Normal Color, Warm/Dry Neurologic/Psychiatric: Alert, Oriented x3, No Motor/Sensory Deficits, Normal 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
[2020-10-01] MEDS: NS IV 1000 ML 1,000 ML IV SCH ×2 (09:00→15:56)
--- NOTE | 2020-10-01 15:31 | NUR ---
SPOKE WITH PATIENT , UPDATED AT THIS TIME. INFORMED OF PATIENT TRANSFER, AWARE, RECEIVED CALL FROM PATIENT. ANSWERED QUESTIONS. THANKED THIS RN FOR CALL.
--- NOTE | 2020-10-01 15:55 | NUR ---
CALL PLACED TO [facility] CHECKING STATUS ON PATIENT TRANSFER, TRANSFER CENTER STATED THEY WERE STILL AWAITING ON BED ASSIGNMENT FROM [facility] AT THIS TIME.
--- NOTE | 2020-10-01 22:00 | NUR ---
TRANSFER CENTER FROM [facility] STATED THAT THERE IS NOT A BED AT THIS TIME FOR PATIENT BUT WOULD UPDATE IN THE AM.
[2020-10-02 03:15] LABS: BASOPHILS % (AUTO) 0 % (0-10); EOSINOPHILS # (AUTO) 0.3 10^3/uL (0.0-0.3); EOSINOPHILS % (AUTO) 3 % (0-10); HEMATOCRIT 39 % (40-54); HEMOGLOBIN 13.3 g/dL (13.3-17.7); LYMPHOCYTES # (AUTO) 1.5 10^3/uL (1.0-4.0); LYMPHOCYTES % (AUTO) 16 % (12-44); MEAN CORPUSCULAR HEMOGLOBIN 32 pg (25-34); MEAN CORPUSCULAR HGB CONC 34 g/dL (32-36); MEAN CORPUSCULAR VOLUME 94 fL (80-99); MEAN PLATELET VOLUME 11.3 fL (9.0-12.2); MONOCYTES # (AUTO) 0.9 10^3/uL (0.0-1.0); MONOCYTES % (AUTO) 10 % (0-12); NEUTROPHILS # (AUTO) 6.6 10^3/uL (1.8-7.8); NEUTROPHILS % (AUTO) 70 % (42-75); PLATELET COUNT 152 10^3/uL (130-400); WHITE BLOOD COUNT 9.4 10^3/uL (4.3-11.0)
[2020-10-02 03:27] LABS: CHLORIDE 107 MMOL/L (98-107); POTASSIUM 3.9 MMOL/L (3.6-5.0); SODIUM 139 MMOL/L (135-145)
[2020-10-02 03:29] LABS: CALCIUM 8.4 MG/DL (8.5-10.1); GLUCOSE 91 MG/DL (70-105)
[2020-10-02 03:31] LABS: CARBON DIOXIDE 22 MMOL/L (21-32)
[2020-10-02 03:33] LABS: CREATININE SERUM 0.74 MG/DL (0.60-1.30); GFR ESTIMATED > 60; PHOSPHORUS 3.5 MG/DL (2.3-4.7)
[2020-10-02 03:34] LABS: BUN/CREATININE RATIO 24
[2020-10-02 03:36] LABS: MAGNESIUM 1.9 MG/DL (1.6-2.4)
[2020-10-02] MEDS: NS IV 1000 ML 1,000 ML IV SCH ×2 (04:32→13:56)
[2020-10-02] MEDS: CATHETER FLUSH 10 ML SYR IV SCH ×2 (06:03→14:09)
--- NOTE | 2020-10-02 06:03 | NUR ---
UPDATED PT AT THIS TIME.
--- NOTE | 2020-10-02 06:29 | Pulmonary Progress Note ---
Subjective Time Seen by a Provider: 06:28 Subjective/Events-last exam No complications noted. Sepsis Event Evaluation Height, Weight, BMI Height: 6'1.00" Weight: 195lbs. 0.0oz. 88.478156to; 24.45 BMI Method:Stated Exam Exam Vital Signs Date Time Temp Pulse Resp B/P (MAP) Pulse Ox O2 Delivery O2 Flow Rate FiO2 10/02/20 05:17 36.6 82 16 119/76 (90) 96 Room Air 10/02/20 01:00 80 10/02/20 00:22 36.3 82 16 151/88 (109) 98 Room Air 10/01/20 21:00 Room Air 10/01/20 19:52 36.6 85 16 158/86 (110) 97 Room Air 10/01/20 19:00 90 10/01/20 16:30 80 17 143/101 (115) Room Air 10/01/20 12:52 36.8 10/01/20 12:46 80 10/01/20 12:15 80 15 151/92 (111) Room Air 10/01/20 09:00 Room Air 10/01/20 08:00 36.8 10/01/20 06:40 80 I & O 10/02/20 07:00 Intake Total 800 ml Balance 800 ml Height & Weight Height: 6'1.00" Weight: 195lbs. 0.0oz. 88.462209tu; 24.45 BMI Method:Stated General Appearance: No Apparent Distress, WD/WN HEENT: PERRL/EOMI, TMs Normal, Normal ENT Inspection, Pharynx Normal Neck: Full Range of Motion, Non Tender Respiratory: Chest Non Tender, Lungs Clear, Normal Breath Sounds, No Accessory Muscle Use, No Respiratory Distress Cardiovascular: Regular Rate, Rhythm, No Edema, No Gallop, No JVD, No Murmur, Normal Peripheral Pulses Capillary Refill: Less Than 3 Seconds Extremity: Normal Capillary Refill, Normal Inspection, Normal Range of Motion, Non Tender, No Calf Tenderness Neurologic/Psychiatric: Alert, Oriented x3, No Motor/Sensory Deficits, Normal 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 Marta belle- on hold -s/p Cath Prolonged QTc -Cardiology following DELGADO MORALEZ DO Oct 02, 2020 06:29
[2020-10-02] MEDS: lisINopril 5 MG (PRINIVIL) TABLET PO SCH (08:27)
[2020-10-02] MEDS: ASPIRIN E.C. 81 MG (ECOTRIN) TAB PO SCH (08:27)
[2020-10-02] MEDS: APIXABAN 5 MG (ELIQUIS) TABLET PO SCH (08:27)
[2020-10-02] MEDS: MELOXICAM 7.5 MG (MOBIC) TABLET PO SCH (08:27)
[2020-10-02] MEDS: MEXILETINE 200 MG (MEXITIL) CAPSULE PO SCH ×2 (08:27→13:58)
[2020-10-02] MEDS ORDERED: SOTALOL 80 MG (BETAPACE) TAB PO ONE (10:00)
--- NOTE | 2020-10-02 11:52 | NUR ---
EKG 2 hours after sotalol administered per Dr. Lozano.
--- NOTE | 2020-10-02 12:54 | Cardiology Progress Note ---
Subjective Date Seen by Provider: Oct 02, 2020 Time Seen by Provider: 12:53 Subjective/Events-last exam Patient was seen at bedside, feeling better today, no further episodes of ventricular tachycardia noted on his telemetry Review of Systems General: No Chills, No Night Sweats, No Fatigue, No Malaise, No Appetite, No Other HEENT: No Head Aches, No Visual Changes, No Eye Pain, No Ear Pain, No Dysphasia, No Sinus Congestion, No Post Nasal Drip, No Sore Throat, No Other Pulmonary: No Dyspnea, No Cough, No Pleuritic Chest Pain, No Other Cardiovascular: No: Chest Pain, Palpitations, Orthopnea, Paroxysmal Noc. Dyspnea, Edema, Lt Headedness, Other Objective-Cardiology Exam Last Set of Vital Signs Vital Signs 10/02/20 11:55 Temp 36.2 Pulse 81 Resp 16 B/P (MAP) 145/87 (106) Pulse Ox 98 O2 Delivery Room Air Capillary Refill : Less Than 3 Seconds I&O Intake and Output 10/02/20 00:00 Intake Total 850 ml Balance 850 ml Intake Oral 850 ml # Voids 7 General: Alert, Oriented X3, Cooperative HEENT: Atraumatic, PERRLA Neck: Supple, No JVD, No Thyromegaly Lungs: Clear to Auscultation, Normal Air Movement Heart: Regular Rate, Normal S1, Normal S2, No Murmurs Abdomen: Normal Bowel Sounds, Soft, No Tenderness, No Hepatosplenomegaly, No Masses Extremities: No Clubbing, No Cyanosis, No Edema, Normal Pulses, No Tenderness/Swelling Skin: No Rashes, No Breakdown, No Significant Lesion Neuro: Normal Gait, Normal Speech, Strength at 5/5 X4 Ext, Normal Tone, Sensation Intact Psych/Mental Status: Mental Status NL, Mood NL Results Lab Laboratory Tests 10/02/20 02:53 A/P-Cardiology Admission Diagnosis Ventricular tachycardia Coronary artery disease Sinus node dysfunction Paroxysmal atrial fibrillation Assessment/Plan Ventricular tachycardia, status post shock from his defibrillator. Patient has history of multiple episode of ventricular tachycardia in the past was intolerant to amiodarone due to shakiness and elevation in his liver function tests, had an ICD implant and ablation to the RVOT and LVOT in the past, another 2 ablation procedure done in March 2017. Amiodarone currently on hold. I am restarting sotalol at 80 mg twice daily, QTC today is 490 after the first dose of sotalol Coronary artery disease, history of stent to the diagonal artery done in 2011, had a cardiac catheterization done in August 2014 showing moderate disease, patient had an abnormal stress test with diaphragmatic attenuation fixed defect involving the inferior wall with reversible ischemia involving the mid to apical septum with stress score 8, SDS 2, cardiac catheterization done yesterday showing no obstructive coronary artery disease in the coronary system. Sick sinus syndrome/ Paroxysmal atrial fibrillation, polymorphic ventricular tachycardia, had extensive radiofrequency ablation done in November [address] Mckeon, reported as ventricle tachycardia from high outflow septum 2 different origin, successful ablation of the RVOT and LVOT, resulted in ICD implantation. Had another 2 ablation procedures done late in March 2017, and another ablation done on June 05, 2017. He is maintained on sotalol, followed with Dr Shin. EKG done this morning with prolonged QT, will hold sotalol at this time, repeat EKG this evening. Permanent pacemaker, [employer]tronic, followed with Dr. Shin in . [id number] score of 4, yearly risk of stroke without oral anticoagulation is 4 percent, on Eliquis 5 mg twice a day. Currently on hold Moderate mitral regurgitation, last echocardiogram done in October 2019 showing ejection fraction 55-65 percent, left atrium is normal in size, right atrium is mildly dilated. Moderate tricuspid regurgitation, PA pressure 35-40 mmHg. Continue to monitor Hypertension, controlled, continue to monitor. Hyperlipidemia,controlled, I will evaluate lipid profile prior to [facility]. History of Elevated LFTs-improved since discontinuation of amiodarone and Crestor. Continue to monitor Family history of coronary artery disease History of dizziness and syncope. Had a tilt table test done in the past and reported as negative, continue to monitor Carotid artery stenosis-Mild nonobstructive disease, last ultrasound was done in February 2020, continue to monitor. Venous stasis changes in the lower extremity, complaining of numbness and swelling by the end of the day, improved. ABIs done February 2016 within normal limits. ORLIN CORONADO MD Oct 02, 2020 12:54
--- NOTE | 2020-10-02 13:40 | NUR ---
"RD ASSESSMENT PMHx: CAD; hypercholesterolemia; HTN; BPH; GERD; CA(prostate); PT INTERACTION: Pt was awake and pleasant during nutrition assessment for LOS. Pt states current appetite is good. Note avg PO intake 100% x3d, per chart review. Pt states following a regular diet at home, and has no issues with chewing/swallowing food. Pt states no recent issues with n/v/c/d. Note last BM was 09/19, and pt not currently on bowel regimen per chart review. Pt states no recent wt changes. Note unable to determine recent wt hx, per chart review. Est. kcal needs: 2929-6423 kcal | 25-30 kcal/kg Est. Pro needs: 66-82 g Pro | 0.8-1.0 g Pro/kg PES STATEMENT: Given current appetite and PO intake, no nutrition diagnosis at this time (NO-1.1). INTERVENTION: Continue with current diet order of CHO 60g/m 1snack diet. Will continue to follow and reassess as pt needs, intake, and status change. Alek YAÑEZ MS RD LD [phone] cell"
--- NOTE | 2020-10-02 18:45 | NUR ---
timeline note: 173: Received call from [facility] with room number for pt for [facility] rm [id number], and number for report. 1750: Report called to Sandra RN at [facility]. 180: Called placed to , no answer at this time. 1830: Called placed to , updated on pt, and hospital, room number, admitting doctor, and unit phone number.
[2020-10-02] MEDS ORDERED: SOTALOL 80 MG (BETAPACE) TAB PO SCH (21:00)
--- NOTE | 2020-10-02 22:12 | NUR ---
Timeline: 2143 pt signed d/c paperwork 2156 pt left ICU via stretcher with [facility]
== END 2020-10-02 21:57 | DRG 287 ==
LOC: EDUNIT# 22:04 → ER 22:05 → ICU 23:47 → CSD 10-01 19:25
PROVIDERS: ADMIT Internal Medicine; ATTEND Internal Medicine Cardiovascular Disease
PROC: 4A023N7 Measurement of Cardiac Sampling and Pressure, Left Heart, Percutaneous Approach (ICD-10-PCS; principal; 2020-09-29)
PROC: B2111ZZ Fluoroscopy of Multiple Coronary Arteries using Low Osmolar Contrast (ICD-10-PCS; 2020-09-29)
PROC: B2151ZZ Fluoroscopy of Left Heart using Low Osmolar Contrast (ICD-10-PCS; 2020-09-29)
DX: I47.2 Ventricular tachycardia (principal); I25.10 Atherosclerotic heart disease of native coronary artery without angina pectoris; I48.0 Paroxysmal atrial fibrillation; I34.0 Nonrheumatic mitral (valve) insufficiency; Z20.822 Contact with and (suspected) exposure to COVID-19; I10 Essential (primary) hypertension; E78.2 Mixed hyperlipidemia; R94.31 Abnormal electrocardiogram [ECG] [EKG]; Z95.5 Presence of coronary angioplasty implant and graft; Z95.810 Presence of automatic (implantable) cardiac defibrillator; Z79.01 Long term (current) use of anticoagulants
CPT/HCPCS: 36415; 71045; 80048; 80053; 80061; 83735; 83874; 84100; 84484; 85025; 85610; 85730; 87081; 87635; 93005; 93041; 93458

== ENCOUNTER 2021-01-16 21:42 | Inpatient (IN) | payer MEDICARE ==
[~2021-01-16] VITALS: Ht 185 cm; Wt 82.6 kg
[~2021-01-16 21:42] MED LIST changes: +DONE5TAB30 PO; +MULT-239 PO
[2021-01-16 21:56] LABS: BASOPHILS # (AUTO) 0.1 10^3/uL (0.0-0.1); BASOPHILS % (AUTO) 1 % (0-10); EOSINOPHILS # (AUTO) 0.3 10^3/uL (0.0-0.3); EOSINOPHILS % (AUTO) 2 % (0-10); HEMATOCRIT 47 % (40-54); HEMOGLOBIN 15.4 g/dL (13.3-17.7); LYMPHOCYTES # (AUTO) 1.4 10^3/uL (1.0-4.0); LYMPHOCYTES % (AUTO) 12 % (12-44); MEAN CORPUSCULAR HEMOGLOBIN 30 pg (25-34); MEAN CORPUSCULAR HGB CONC 33 g/dL (32-36); MEAN CORPUSCULAR VOLUME 92 fL (80-99); MEAN PLATELET VOLUME 10.9 fL (9.0-12.2); MONOCYTES % (AUTO) 8 % (0-12); NEUTROPHILS # (AUTO) 9.5 10^3/uL (1.8-7.8); NEUTROPHILS % (AUTO) 77 % (42-75); PLATELET COUNT 214 10^3/uL (130-400); WHITE BLOOD COUNT 12.3 10^3/uL (4.3-11.0)
[2021-01-16] MEDS ORDERED: ASPIRIN 81 MG CHEW (CHILDREN'S ASA) PO ONE (22:00)
[2021-01-16 22:09] LABS: ALBUMIN 4.2 GM/DL (3.2-4.5); CHLORIDE 106 MMOL/L (98-107); SODIUM 145 MMOL/L (135-145)
[2021-01-16 22:10] LABS: CALCIUM 9.8 MG/DL (8.5-10.1)
[2021-01-16 22:11] LABS: GLUCOSE 129 MG/DL (70-105); INR 1.1 (0.8-1.4); PROTHROMBIN TIME PATIENT 14.4 SEC (12.2-14.7); TOTAL PROTEIN 7.4 GM/DL (6.4-8.2)
[2021-01-16 22:13] LABS: BILIRUBIN,TOTAL 0.7 MG/DL (0.1-1.0); CARBON DIOXIDE 27 MMOL/L (21-32)
[2021-01-16 22:15] LABS: ALKALINE PHOSPHATASE 102 U/L (40-136); CREATININE SERUM 0.94 MG/DL (0.60-1.30); GFR ESTIMATED > 60
[2021-01-16 22:16] LABS: BUN/CREATININE RATIO 20
[2021-01-16 22:18] LABS: ALANINE AMINOTRANSFERASE 24 U/L (0-55); MAGNESIUM 2.1 MG/DL (1.6-2.4)
[2021-01-16] MEDS ORDERED: AMIODARONE INJECTION 450 MG in D5W IV SOLUTION (EXCEL) 250 ML IV SCH ×2 (22:30→23:45)
[2021-01-16] MEDS ORDERED: AMIODARONE FOR BOLUS 150 MG in D5W 100 ML IVPB 100 ML IV ONE (22:30)
[2021-01-16 23:30] VITALS: BP 107/82
[2021-01-16] MEDS ORDERED: LIDOCAINE UROJET 2% GEL 10 ML PKG ONE (23:33)
[2021-01-16] MEDS ORDERED: CATHETER FLUSH 10 ML SYR IV PRN (23:45)
[2021-01-17] MEDS ORDERED: NS IV 1000 ML 1,000 ML ONE (01:33)
[2021-01-17] MEDS ORDERED: NS IV 1000 ML 1,000 ML IV SCH (01:45)
[2021-01-17 02:52] LABS: BASOPHILS % (AUTO) 0 % (0-10); EOSINOPHILS # (AUTO) 0.1 10^3/uL (0.0-0.3); EOSINOPHILS % (AUTO) 1 % (0-10); HEMATOCRIT 39 % (40-54); HEMOGLOBIN 12.9 g/dL (13.3-17.7); LYMPHOCYTES # (AUTO) 1.1 10^3/uL (1.0-4.0); LYMPHOCYTES % (AUTO) 11 % (12-44); MEAN CORPUSCULAR HEMOGLOBIN 30 pg (25-34); MEAN CORPUSCULAR HGB CONC 33 g/dL (32-36); MEAN CORPUSCULAR VOLUME 92 fL (80-99); MEAN PLATELET VOLUME 11.4 fL (9.0-12.2); MONOCYTES # (AUTO) 0.8 10^3/uL (0.0-1.0); MONOCYTES % (AUTO) 8 % (0-12); NEUTROPHILS # (AUTO) 7.9 10^3/uL (1.8-7.8); NEUTROPHILS % (AUTO) 80 % (42-75); PLATELET COUNT 228 10^3/uL (130-400); WHITE BLOOD COUNT 9.9 10^3/uL (4.3-11.0)
[2021-01-17] MEDS: NS IV 500 ML 500 ML IV SCH ×2 (03:05→15:53)
[2021-01-17 03:06] LABS: ALBUMIN 3.3 GM/DL (3.2-4.5); CHLORIDE 109 MMOL/L (98-107); POTASSIUM 4.2 MMOL/L (3.6-5.0); SODIUM 144 MMOL/L (135-145)
[2021-01-17 03:07] LABS: CALCIUM 8.9 MG/DL (8.5-10.1)
[2021-01-17 03:08] LABS: TRIGLYCERIDES 72 MG/DL (<150); VLDL CHOLESTEROL 14 MG/DL (5-40)
[2021-01-17 03:09] LABS: GLUCOSE 119 MG/DL (70-105); TOTAL PROTEIN 5.6 GM/DL (6.4-8.2)
[2021-01-17 03:10] LABS: BILIRUBIN,TOTAL 0.6 MG/DL (0.1-1.0); CARBON DIOXIDE 25 MMOL/L (21-32)
[2021-01-17 03:12] LABS: ALKALINE PHOSPHATASE 76 U/L (40-136); CREATININE SERUM 0.79 MG/DL (0.60-1.30); GFR ESTIMATED > 60; PHOSPHORUS 3.5 MG/DL (2.3-4.7)
[2021-01-17 03:13] LABS: CHOLESTEROL 136 MG/DL (< 200)
[2021-01-17 03:14] LABS: BUN/CREATININE RATIO 25; HDL CHOLESTEROL 34 MG/DL (40-60)
[2021-01-17 03:15] LABS: ALANINE AMINOTRANSFERASE 19 U/L (0-55)
[2021-01-17 03:16] LABS: MAGNESIUM 1.9 MG/DL (1.6-2.4)
[2021-01-17] MEDS: CATHETER FLUSH 10 ML SYR IV SCH ×3 (04:09→20:00)
--- NOTE | 2021-01-17 06:15 | ED Cardiac General ---
History of Present Illness General Chief Complaint: Cardiac/General Problems Stated Complaint: ARRHYTHMIA VT/VF/DEFIBRILLATOR DISCHARGES Nursing Triage Note: TO ED VIA POV AND W/C TO ROOM 8 WITH C/O DEFIB GOING OFF APPROX 7 TIMES. HE STATES THIS STARTED WALKING OUT OF BATHROOM. THE FIRST INITIAL SHOCK MADE HIM FALL TO THE GROUND. Source: patient (LIMVENKAT HISTORIAN), spouse (LIMITED HISTORIAN) History of Present Illness Date Seen by Provider: January 16, 2021 Time Seen by Provider: 21:40 Initial Comments PT ARRIVES VIA POV FROM HOME IN [place]--50+ MILES FROM HERE CALLED EMS TO THE HOME, AND THEN DECIDED TO DRIVE HERE BY POV--STATES DROVE HERE "90 MILES AN HOUR" PT STATES HIS DEFIBRILLATOR HAS GONE OFF AT LEAST 7 TIMES TONIGHT--WHEN HE GOT UP TO GO TO THE BATHROOM TONIGHT, AND TWICE IN WAITING ROOM BATHROOM STATES THE FIRST SHOCK KNOCKED HIM DOWN, BUT DID NOT INJURE HIMSELF OR HAVE ANY LOSS OF CONSCIOUSNESS PT DENIES ANY PRIOR WARNING SYMPTOMS BEFORE IT DISCHARGES STATES HE FEELS FINE NOW NO CHEST PAIN NO SHORTNESS OF BREATH NO SENSATION OF PALPITATIONS NO DIZZINESS NO SYNCOPE NO SWEATS NO NAUSEA/VOMITING NO HEADACHE PT HAD THE SAME ISSUE IN SEPTEMBER OF THIS YEAR. WAS ADMITTED HERE AND THEN T R[facility]ERRED TO [facility], WHERE PT STATES HE HAD ANOTHER ABLATION PT HAS AN EXTENSIVE CARDIAC HISTORY--HAS HISTORY OF CAD WITH STENTS, ATRIAL FIB/FLUTTER, V-FIB/V-TACH PT HAS HAD MULTIPLE CARDIAC ABLATIONS, PACEMAKER/DEFIBRILLATOR Allergies and Home Medications Allergies Coded Allergies: No Known Drug Allergies (Unverified , 12/28/17) Home Medications Apixaban 5 Mg Tablet, 5 MG PO BID, (Reported) Last Action: Continued Atorvastatin Calcium 40 Mg Tablet, 40 MG PO MON,WED,FRI,SAT, (Reported) Last Action: Continued Donepezil HCl 5 Mg Tablet, 5 MG PO DAILY, (Reported) Last Action: Continued Lisinopril 5 Mg Tablet, 5 MG PO DAILY, (Reported) Last Action: New Order Omeprazole 40 Mg Capsule.dr, 40 MG PO DAILY, (Reported) Last Action: Reviewed Patient Home Medication List Home Medication List Reviewed: Yes Review of Systems Review of Systems Constitutional: no symptoms reported Respiratory: No Symptoms Reported Cardiovascular: See HPI; Denies Chest Pain, Denies Edema, Denies Lightheadedness, Denies Syncope Gastrointestinal: No Symptoms Reported Genitourinary: No Symptoms Reported Musculoskeletal: no symptoms reported Skin: no symptoms reported Psychiatric/Neurological: No Symptoms Reported Endocrine: No Symptoms Reported Hematologic/Lymphatic: No Symptoms Reported Past Poegpes-Gwxnsh-Fvarwl Hx Past Med/Social Hx: Reviewed and Corrections made Patient Social History Alcohol Use: Denies Use Smoking Status: Former Smoker Type Used: Cigarettes Former Smoker, Quit: Jun 05, 1958 2nd Hand Smoke Exposure: No Recent Infectious Disease Expo: No Recent Hopitalizations: No Have you traveled recently?: No Alcohol Use?: No Immunizations Up To Date Tetanus Booster (TDap): Unknown Date of Pneumonia Vaccine: Jun 05, 2020 Date of Influenza Vaccine: Jun 19, 2020 Seasonal Allergies Seasonal Allergies: No Past Medical History Surgeries: Yes (BILAT KNEE, PROSTATE, HEART STENT, HERNIA x2) Abdominal, Cardiac, Coronary Stent, Defibrillator, Joint Replacement, Pacemaker, Transurethral Resection Respiratory: Yes (INTERMITTENT DYSPNEA) Pneumonia Currently Using CPAP: No Currently Using BIPAP: No Cardiac: Yes (STENTS, PACEMAKER REMOVED November, ICD PLACED November, VFIB/VT;PAF;SSS) Atrial Fibrillation, Coronary Artery Disease, High Cholesterol, Hypertension, Irregular Heartbeat Neurological: No (Right side of face numbness 01/08/17) Reproductive Disorders: No Sexually Transmitted Disease: No HIV/AIDS: No Genitourinary: Yes (PROSTATE CANCER--S/P TURP) Benign Prostatic Hyperpl Gastrointestinal: Yes Gastroesophageal Reflux, Hiatal Hernia Musculoskeletal: Yes Arthritis Endocrine: No HEENT: No Loss of Vision: Bilateral Hearing Impairment: Denies Cancer: Yes Prostate Did You Recieve Any Treatments: Yes What Type of Treatment Did You: Surgical Intervention Psychosocial: No Integumentary: No Blood Disorders: No Adverse Reaction/Blood Tranf: No (N/A) Family Medical History Dementia G8 BROTHER Dysphasia FH: CHF (congestive heart failure) G8 BROTHER FH: heart disease 19 FATHER 19 MOTHER FH: throat cancer G8 BROTHER PAST SURGICAL/PROCEDURAL HISTORY: -HERNIA REPAIR X 2 -BILATERAL KNEE REPLACEMENTS -MULTIPLE CARDIAC CATHS, WITH STENT X 1 IN [address], THEN REMOVED 2016 AND REPLACED WITH A DEFIBRILLATOR ( [employer] ) -MULTIPLE CARDIAC ABLATIONS FOR V-TACH--AT LEAST 6, OF 01/2021 Physical Exam Vital Signs Vital Signs - First Documented 01/16/21 21:42 Temp 36.2 Pulse 137 Resp 20 B/P (MAP) 160/120 (133) O2 Delivery Nasal Cannula O2 Flow Rate 2.00 Capillary Refill : Less Than 3 Seconds Height, Weight, BMI Height: 6'1.00" Weight: 195lbs. 0.0oz. 88.605728th; 24.04 BMI Method:Stated General Appearance: No Apparent Distress, WD/WN Respiratory: Normal Breath Sounds, No Accessory Muscle Use, No Respiratory Distress Cardiovascular: No JVD, No Murmur, Tachycardia Gastrointestinal: Non Tender, Soft Extremity: Normal Capillary Refill, Normal Range of Motion, Non Tender, No Calf Tenderness, Pedal Edema (2+ BILATERALLY) Neurologic/Psychiatric: Alert, Oriented x3, No Motor/Sensory Deficits Progress/Results/Core Measures Results/Orders Lab Results Laboratory Tests Test 01/16/21 21:50 Range/Units White Blood Count 12.3 H 4.3-11.0 10^3/uL Red Blood Count 5.14 4.30-5.52 10^6/uL Hemoglobin 15.4 13.3-17.7 g/dL Hematocrit 47 40-54 % Mean Corpuscular Volume 92 80-99 fL Mean Corpuscular Hemoglobin 30 25-34 pg Mean Corpuscular Hemoglobin Concent 33 32-36 g/dL Red Cell Distribution Width 13.7 10.0-14.5 % Platelet Count 214 130-400 10^3/uL Mean Platelet Volume 10.9 9.0-12.2 fL Immature Granulocyte % (Auto) 0 % Neutrophils (%) (Auto) 77 H 42-75 % Lymphocytes (%) (Auto) 12 12-44 % Monocytes (%) (Auto) 8 0-12 % Eosinophils (%) (Auto) 2 0-10 % Basophils (%) (Auto) 1 0-10 % Neutrophils # (Auto) 9.5 H 1.8-7.8 10^3/uL Lymphocytes # (Auto) 1.4 1.0-4.0 10^3/uL Monocytes # (Auto) 1.0 0.0-1.0 10^3/uL Eosinophils # (Auto) 0.3 0.0-0.3 10^3/uL Basophils # (Auto) 0.1 0.0-0.1 10^3/uL Immature Granulocyte # (Auto) 0.0 0.0-0.1 10^3/uL Prothrombin Time 14.4 12.2-14.7 SEC INR Comment 1.1 0.8-1.4 Activated Partial Thromboplast Time 29 24-35 SEC Sodium Level 145 135-145 MMOL/L Potassium Level 4.0 3.6-5.0 MMOL/L Chloride Level 106 98-107 MMOL/L Carbon Dioxide Level 27 21-32 MMOL/L Anion Gap 12 5-14 MMOL/L Blood Urea Nitrogen 19 H 7-18 MG/DL Creatinine 0.94 0.60-1.30 MG/DL Estimat Glomerular Filtration Rate > 60 BUN/Creatinine Ratio 20 Glucose Level 129 H 70-105 MG/DL Calcium Level 9.8 8.5-10.1 MG/DL Corrected Calcium 9.6 8.5-10.1 MG/DL Magnesium Level 2.1 1.6-2.4 MG/DL Total Bilirubin 0.7 0.1-1.0 MG/DL Aspartate Amino Transf (AST/SGOT) 25 5-34 U/L Alanine Aminotransferase (ALT/SGPT) 24 0-55 U/L Alkaline Phosphatase 102 40-136 U/L Myoglobin 195.3 H 10.0-92.0 NG/ML Troponin I < 0.028 <0.028 NG/ML B-Type Natriuretic Peptide 296.0 H <100.0 PG/ML Total Protein 7.4 6.4-8.2 GM/DL Albumin 4.2 3.2-4.5 GM/DL My Orders Orders - KATHI AGUILAR DO Amiodarone Injection (Cordarone Injectio (01/16/21 22:30) Amiodarone For Bolus (Cordarone Bolus) (01/16/21 22:30) Medications Given in ED Vital Signs/I&O 01/16/21 01/16/21 21:42 21:42 Temp 36.2 Pulse 137 Resp 20 B/P (MAP) 160/120 (133) O2 Delivery Nasal Cannula Nasal Cannula O2 Flow Rate 2.00 Blood Pressure Mean: 55 Progress Progress Note : Progress Note PLACED ON MONITOR HR 140 WITH SINUS TACH. DEFIBRILLATOR INTERROGATION DONE, REPORT RECEIVED AT 1364--SHOWED 8 SHOCKS FOR V-FIB/V-TACH. 7 TREATED EPISODES LASTING LONGER THAN 30 SECONDS. 1 FAILED TREATMENT. DEVICE READS THAT PT HAS HAD 14,581 TOTAL EPISODES OF V-FIB/V-TACH FROM - 12/29/20 PT WAS GIVEN AMIDARONE BOLUS AND STARTED ON AMIODARONE DRIP PT HAD NO EPISODES OF V-FIB / V-TACH AND NO DEFIBRILLATOR DISCHARGES DURING ER STAY HEART RATE REMAINS IN 130'S/SINUS TACH PT HAD NO SYMPTOMS OF ANY KIND DURING ER STAY Initial ECG Impression Date: January 16, 2021 Initial ECG Impression Time: 21:42 Initial ECG Rate: 138 Initial ECG Rhythm: S.Tach (RBBB; ST DEPRESSION ANTERIOR/LATERALLY), SVT EKG : EKG Time: 22:28 Rate: 134 Rhythm: SVT ECG Comparisson: Unchanged Diagnostic Imaging Comments CXR--NO ACUTE PROCESS, PENDING RADIOLOGIST REVIEW Reviewed: Reviewed by Me Departure Communication (Admissions) 2217--SPOKE WITH DR. LAY, TDP DISPLAYS ANALYST DISTRICT CLAIMS MANAGER. ADVISES/AGREES WITH AMIODARONE DRIP AND BOLUS. WILL SEE PT IN CONSULT 2222--SPOKE WITH DR. GUTIERREZ, HOSPITALIST, ACCEPTS PT FOR ADMIT. NO ADDITIONAL RECOMMENDATIONS 2236--REPORT TO E-ICU PHYSICIAN. NO ADDITIONAL RECOMMENDATIONS. Impression Primary Impression: Sustained ventricular tachycardia Additional Impressions: MULTIPLE DEFIBRILLATOR DISCHARGES Paroxysmal atrial fibrillation Disposition: ADMITTED INPATIENT Condition: Stable Admissions Decision to Admit Reason: Admit from ER (General) Decision to Admit/Date: January 17, 2021 Time/Decision to Admit Time: 22:15 Departure-Patient Inst. Referrals: OREN KAUR (PCP) Primary Care Physician KATHI AGUILAR DO January 17, 2021 06:15
--- NOTE | 2021-01-17 06:47 | Diagnostic Imaging Report ---
EXAMINATION: Chest 1 view HISTORY: Chest pain. COMPARISON: 10/01/2020. FINDINGS: Left pectoral pacemaker is in place. The lung volumes are normal. No focal consolidation is seen. No large pleural effusion or pneumothorax is seen. The cardiomediastinal silhouette is normal in size and contour. No acute osseous abnormality is seen. IMPRESSION: 1. No acute pleuroparenchymal process. Dictated by: Dictated on workstation # [id number]
--- NOTE | 2021-01-17 11:06 | History & Physical-Hospitalist ---
History of Present Illness HPI/Chief Complaint Srinivasa Torres is an 80-year-old male with past medical history of atrial fibrillation, coronary artery disease, ventricular arrhythmias status post defibrillator/pacemaker, who presented after his defibrillator discharge several times at home. He reports that he has been feeling weak for the past few days. He denies any palpitations. He denies any chest pain. He denies any shortness of breath. He does have chronic dyspnea on exertion. He denies any fevers or chills. He denies any cough. He had issues with his defibrillator discharging a few months ago and he went to a hospital in [place] [employer] where he underwent an ablation. Source: patient, family Exam Limitations: no limitations Date Seen 01/17/21 Time Seen by a Provider: 09:25 Attending Physician Hilary Gutierrez MD PCP Loni Betancur Referring Physician Date of Admission January 16, 2021 at 22:20 Home Medications & Allergies Home Medications Reviewed patient Home Medication Reconciliation performed by pharmacy medication reconciliations veterinary technician assistant and/or nursing. Patients Allergies have been reviewed. Allergies Allergies Coded Allergies No Known Drug Allergies (Unverified12/28/17) Patient Social History Tobacco Use?: No Smoking Status: Former Smoker Use of E-Cig and/or Vaping dev: No Substance use?: No Alcohol Use?: No Pt stated abuse/neglect: No Immunizations Up To Date Influenza Vaccine Up-to-Date: Yes; Up-to-Date First/Initial COVID19 Vaccinat: 10/25 Second COVID19 Vaccination Demetrio: 11/22 Tetanus Booster (TDap): Unknown Hepatitis A: No Hepatitis B: No TB Skin Test: None Date of Pneumonia Vaccine: Jun 05, 2020 Current Status Do you have an Advance Directi: Yes Advance Directive Location: Home Communicates: Verbally Primary Language: Cypriot Preferred Spoken Language: Cypriot Is interpretation needed?: No Sensory deficits: Vision impairment Implanted or Applied Medical D: Pacemaker Past Medical History Atrial fibrillation Coronary artery disease Hypertension Family Medical History Family Hx: Noncontributory Review of Systems Constitutional: weakness EENTM: no symptoms reported Respiratory: no symptoms reported Cardiovascular: no symptoms reported Gastrointestinal: no symptoms reported Genitourinary: no symptoms reported Musculoskeletal: no symptoms reported Skin: no symptoms reported Psychiatric/Neurological: No Symptoms Reported Physical Exam Physical Exam Vital Signs Vital Signs - First Documented 5/15/21 5/15/21 21:42 23:30 Temp 36.2 Pulse 137 Resp 20 B/P (MAP) 160/120 (133) Pulse Ox 97 O2 Delivery Nasal Cannula O2 Flow Rate 2.00 Capillary Refill : Less Than 3 Seconds Height, Weight, BMI Height: 6'1.00" Weight: 195lbs. 0.0oz. 88.257686lr; 24.04 BMI Method:Stated General Appearance: No Apparent Distress, WD/WN HEENT: PERRL/EOMI, Pharynx Normal Neck: Normal Inspection, Supple Respiratory: Lungs Clear, Normal Breath Sounds, No Respiratory Distress Cardiovascular: No Murmur, Normal Peripheral Pulses, Tachycardia (Regular rhyth m) Gastrointestinal: Normal Bowel Sounds, Non Tender, Soft Extremity: Normal Inspection, Non Tender, Pedal Edema (Trace) Neurologic/Psychiatric: Alert, Oriented x3, No Motor/Sensory Deficits, Normal Mood/Affect Skin: Normal Color, Warm/Dry Results Results/Procedures Labs Laboratory Tests 01/16/21 21:50 01/17/21 02:25 Patient resulted labs reviewed. Imaging: Reviewed Imaging Report Assessment/Plan Admission Diagnosis Ventricular tachycardia Admission Status: Inpatient Order (span 2 midnights) Reason for Inpatient Admission: Cardiology evaluation Assessment and Plan Ventricular tachycardia Defibrillator discharge Debifrillator discharged several times at home, twice since arrival Started on IV Amiodarone Remains tachycardic in the 130s Cardiology consulted, appreciate assistance AFib HTN HLD Resume home meds once ok with Cardiology Diagnosis/Problems Diagnosis/Problems (1) Sustained ventricular tachycardia Status: Acute (2) Defibrillator discharge Status: Acute HILARY GUTIERREZ MD January 17, 2021 11:05
[2021-01-17] MEDS ORDERED: meTOprolol 5 MG/5 ML (LOPRESSOR) VIAL IV ONE (13:15)
[2021-01-17] MEDS ORDERED: LISI-729 PO (14:56)
[2021-01-17] MEDS: MAGNESIUM 1 GM/100 ML IVPB 100 ML IV SCH ×2 (15:13→16:02)
[2021-01-17] MEDS: meTOprolol 5 MG/5 ML (LOPRESSOR) VIAL IV SCH ×2 (16:02→19:59)
[2021-01-17] MEDS: APIXABAN 5 MG (ELIQUIS) TABLET PO SCH (19:59)
[2021-01-17] MEDS ORDERED: AMIODARONE 200 MG (CORDARONE) TAB PO SCH (21:00)
--- NOTE | 2021-01-17 22:13 | Consultation-Cardiology ---
HPI-Cardiology Cardiology Consultation: Date of Consultation 01/17/21 Date of Admission Attending Physician Natali Monk MD Admitting Physician Loni Betancur Consulting Physician Lulu GARCIA MD HPI: Time Seen by a Provider: 12:00 Chief Complaint: ICD firing This is a 80 year old patient with history of AF, VT, ICD. with multiple VT ablations in the past - most recent five months ago at [facility]. Presents with numerous ICD shocks with patient being conscious during all shocks. Patient is on sotalol and Eliquis. Intolerant to Mexilitine. Review of Systems-Cardiology Review of Systems Constitutional: As described under HPI; No As described under HPI, No no sympt oms reported, No chills, No fever, No lightheadedness Eyes: No As described under HPI, No no symptoms reported, No blindness, No blurred vision, No contact lenses, No drainage, No decreased acuity, No foreign body sensation, No pain, No vision change Ears/Nose/Throat: No As described under HPI, No no symptoms reported, No chronic hearing loss, No ear discharge, No ear pain, No nasal drainage, No ulcerations Respiratory: No no symptoms reported; As described under HPI; No As described under HPI, No cough, No orthopnea, No shortness of breath, No SOB with excertion Cardiovascular: No no symptoms reported; As described under HPI; No As described under HPI, No chest pain, No edema, No irregular heart rate, No lightheadedness, No palpitations Gastrointestinal: No no symptoms reported, No As described under HPI, No abdomen distended, No abdominal pain, No blood streaked bowels, No constipation, No diarrhea, No nausea, No vomiting, No stool coloration changes Genitourinary: No As described under HPI, No burning, No dysuria, No discharge, No frequency, No flank pain, No hematuria, No urgency Skin: No rash, No skin related problems, No ulcerations Psychiatric/Neurological: No anxiety, No depression, No seizure, No focal w eakness, No syncope Hematologic: No bleeding abnormalities KBB-Iebigx-Ojrfwr Hx Patient Social History Smoking Status: Former Smoker 2nd Hand Smoke Exposure: No Have you traveled recently?: No Alcohol Use?: No Pt feels they are or have been: No Immunizations Up To Date Tetanus Booster (TDap): Unknown Date of Pneumonia Vaccine: Jun 05, 2020 Date of Influenza Vaccine: Jun 19, 2020 Past Medical History PMH As described under Assessment. Family Medical History Family History: Dementia G8 BROTHER Dysphasia FH: CHF (congestive heart failure) G8 BROTHER FH: heart disease 19 FATHER 19 MOTHER FH: throat cancer G8 BROTHER Allergies and Home Medications Allergies Coded Allergies: No Known Drug Allergies (Unverified , 12/28/17) Home Medications Apixaban 5 Mg Tablet, 5 MG PO BID, (Reported) Last Action: Continued Atorvastatin Calcium 40 Mg Tablet, 40 MG PO MON,WED,FRI,SAT, (Reported) Last Action: Continued Donepezil HCl 5 Mg Tablet, 5 MG PO DAILY, (Reported) Last Action: Continued Lisinopril 5 Mg Tablet, 5 MG PO DAILY, (Reported) Last Action: New Order Omeprazole 40 Mg Capsule.dr, 40 MG PO DAILY, (Reported) Last Action: Reviewed Patient Home Medication List Home Medication List Reviewed: Yes Physical Exam-Cardiology Physical Exam Vital Signs/I&O 01/17/21 01/17/21 01/17/21 01/17/21 11:00 11:50 12:00 12:00 Temp 36.8 Pulse 134 135 Resp 11 23 B/P (MAP) 98/84 (89) 119/83 (95) Pulse Ox 97 97 98 O2 Delivery Room Air Room Air Room Air 01/17/21 01/17/21 01/17/21 01/17/21 12:35 13:00 14:00 15:00 Pulse 137 135 133 135 Resp 18 21 20 B/P (MAP) 121/96 (104) 124/86 (99) 121/80 (94) Pulse Ox 92 94 97 O2 Delivery Room Air Room Air Room Air 01/17/21 01/17/21 01/17/21 01/17/21 15:03 16:00 16:00 17:00 Temp 36.7 Pulse 137 137 Resp 16 20 B/P (MAP) 139/119 (126) 102/68 (79) Pulse Ox 97 95 98 O2 Delivery Room Air Room Air Room Air 01/17/21 01/17/21 01/17/21 18:00 19:00 20:00 Pulse 134 133 Resp 15 B/P (MAP) 100/77 (85) Pulse Ox 95 97 O2 Delivery Room Air Room Air 01/17/21 00:00 Intake Total 103 ml Balance 103 ml Capillary Refill : Less Than 3 Seconds Constitutional: appears stated age; No apparent distress; well-developed, well- nourished HEENT: PERRL; No discharge; hearing is well preserved, oral hygience is good; No ulceration, No xanthelasmas are seen Neck: No carotid bruit; carotid pulses are 2 + bilaterally Respiratory: chest is bilaterally symmetric, lungs clear to auscultation Cardiovascular: regular rate-rhythm, tachycardia, S1 and S2 Gastrointestinal: soft, audible bowel sounds; No spleenomegaly Rectal: deferred Extremities: No clubbing, No cyanosis; no lower extremity edema bilateral; No significant edema Neurologic/Psychiatric: alert, oriented x 3, power is 5/5 both on sides Skin: No rash, No ulcerations Data Review Labs Laboratory Tests 01/17/21 02:25: White Blood Count 9.9, Red Blood Count 4.24L, Hemoglobin 12.9L, Hematocrit 39L, Mean Corpuscular Volume 92, Mean Corpuscular Hemoglobin 30, Mean Corpuscular Hemoglobin Concent 33, Red Cell Distribution Width 13.8, Platelet Count 228, Mean Platelet Volume 11.4, Immature Granulocyte % (Auto) 0, Neutrophils (%) (Auto) 80H, Lymphocytes (%) (Auto) 11L, Monocytes (%) (Auto) 8, Eosinophils (%) (Auto) 1, Basophils (%) (Auto) 0, Neutrophils # (Auto) 7.9H, Lymphocytes # (Auto) 1.1, Monocytes # (Auto) 0.8, Eosinophils # (Auto) 0.1, Basophils # (Auto) 0.0, Immature Granulocyte # (Auto) 0.0, Sodium Level 144, Potassium Level 4.2, Chloride Level 109H, Carbon Dioxide Level 25, Anion Gap 10, Blood Urea Nitrogen 20H, Creatinine 0.79, Estimat Glomerular Filtration Rate > 60, BUN/Creatinine Ratio 25, Glucose Level 119H, Calcium Level 8.9, Corrected Calcium 9.5, Phosphorus Level 3.5, Magnesium Level 1.9, Total Bilirubin 0.6, Aspartate Amino Transf (AST/SGOT) 28, Alanine Aminotransferase (ALT/SGPT) 19, Alkaline Phosphatase 76, Troponin I 0.034H, Total Protein 5.6L, Albumin 3.3, Triglycerides Level 72, Cholesterol Level 136, LDL Cholesterol Direct 100, VLDL Cholesterol 14, HDL Cholesterol 34L 01/17/21 03:20: Lactic Acid Level 1.08 ECG Impression ECG Comment wide complex tachycardia A/P-Cardiology Assessment/Admission Diagnosis Recurrent Incessant slow VT, Numerous ICD shocks, Previous VT ablations, PAF on eliquis Plan Recurrent Incessant slow VT, Numerous ICD shocks, failed ATP therapy. Numerous ICD shocks while patient was conscious. Still in slow VT at 133bpm. ICD interrogation showed VT treatment zone starting from 133-188bpm. I discussed at length with the patient and . They wanted the ICD to be shut off or "taken out". I discussed that if we switch off VT therapies, and he has hemodynamically significant VT, it could be fatal. They understand and were willing to do it. We discussed further and I offered to change the VT zone from 133 to 188bpm. and start aggressive medical therapy. they agreed with risk of fatality if the patient has VT below 188bpm and becomes hemodynamically significant. We will dc sotalol and start bolus amiodarone. Previously amio resulted in LFTs but will start for now. Lopressor 5mg IV q4hrs. Magnesium 2gm IV x 1. Unlikely ischemic since it is monomorphic and cath in Sep 2020 shows no significant CAD. If on current medical therapy, the patient requires ICD shock or external shock - we will recommend transfering to [facility] where his EP is based at. Echo showed Normal LVEF. Previous VT ablations, PAF on eliquis Thank you for your consultation. Please call me if you have any questions. Deborah Garcia MD, FACP, FACC, FSCAI, FHRS, CCDS Interventional Cardiology Cardiac Electrophysiology Vascular Medicine and Endovascular Interventions Lulu GARCIA MD January 17, 2021 22:13
[2021-01-18] MEDS: meTOprolol 5 MG/5 ML (LOPRESSOR) VIAL IV SCH ×3 (01:36→08:04)
[2021-01-18 03:48] LABS: BASOPHILS % (AUTO) 0 % (0-10); EOSINOPHILS # (AUTO) 0.1 10^3/uL (0.0-0.3); EOSINOPHILS % (AUTO) 0 % (0-10); HEMATOCRIT 42 % (40-54); HEMOGLOBIN 13.9 g/dL (13.3-17.7); LYMPHOCYTES # (AUTO) 1.7 10^3/uL (1.0-4.0); LYMPHOCYTES % (AUTO) 13 % (12-44); MEAN CORPUSCULAR HEMOGLOBIN 30 pg (25-34); MEAN CORPUSCULAR HGB CONC 33 g/dL (32-36); MEAN CORPUSCULAR VOLUME 92 fL (80-99); MEAN PLATELET VOLUME 11.9 fL (9.0-12.2); MONOCYTES # (AUTO) 1.1 10^3/uL (0.0-1.0); MONOCYTES % (AUTO) 9 % (0-12); NEUTROPHILS % (AUTO) 77 % (42-75); PLATELET COUNT 165 10^3/uL (130-400); WHITE BLOOD COUNT 12.9 10^3/uL (4.3-11.0)
[2021-01-18 04:04] LABS: CHLORIDE 107 MMOL/L (98-107); POTASSIUM 4.1 MMOL/L (3.6-5.0); SODIUM 139 MMOL/L (135-145)
[2021-01-18 04:05] LABS: CALCIUM 8.9 MG/DL (8.5-10.1)
[2021-01-18 04:06] LABS: GLUCOSE 107 MG/DL (70-105)
[2021-01-18 04:07] LABS: CARBON DIOXIDE 22 MMOL/L (21-32)
[2021-01-18 04:10] LABS: CREATININE SERUM 0.84 MG/DL (0.60-1.30); GFR ESTIMATED > 60; PHOSPHORUS 3.4 MG/DL (2.3-4.7)
[2021-01-18 04:11] LABS: BUN/CREATININE RATIO 20
[2021-01-18 04:12] LABS: MAGNESIUM 2.1 MG/DL (1.6-2.4)
[2021-01-18] MEDS: CATHETER FLUSH 10 ML SYR IV SCH (06:20)
--- NOTE | 2021-01-18 07:35 | Diagnostic Imaging Report ---
INDICATION: Discharging defibrillator, arrhythmia COMPARISON: 01/16/21 single view the chest and straight stable cardiac enlargement. Lungs remain clear. There is no pneumothorax. Pacemaker stable. IMPRESSION: No acute cardiopulmonary findings. Dictated by: Dictated on workstation # [id number]
[2021-01-18] MEDS: APIXABAN 5 MG (ELIQUIS) TABLET PO SCH (08:04)
--- NOTE | 2021-01-18 08:46 | Progress Note - Hospitalist ---
Subjective HPI/CC On Admission Date Seen by Provider: January 18, 2021 Time Seen by Provider: 08:42 Srinivasa Torres is an 80-year-old male with past medical history of atrial fibrillation, coronary artery disease, ventricular arrhythmias status post defibrillator/pacemaker, who presented after his defibrillator discharge several times at home. He reports that he has been feeling weak for the past few days. He denies any palpitations. He denies any chest pain. He denies any shortness of breath. He does have chronic dyspnea on exertion. He denies any fevers or chills. He denies any cough. He had issues with his defibrillator discharging a few months ago and he went to a hospital in [place] where he underwent an ablation. Subjective/Events-last exam Pt reports doing well. No further discharges. Still SOB. Has not been up to ambulate much yet. Focused Exam Lactate Level 01/17/21 03:20: Lactic Acid Level 1.08 Objective Exam Vital Signs Vital Signs Date Time Temp Pulse Resp B/P (MAP) Pulse Ox O2 Delivery O2 Flow Rate FiO2 01/18/21 08:00 99 Room Air 01/18/21 08:00 138 34 103/82 (89) 01/17/21 23:12 36.9 01/17/21 01:30 2.00 Capillary Refill : Less Than 3 Seconds General Appearance: No Apparent Distress, WD/WN Respiratory: Lungs Clear, No Respiratory Distress Cardiovascular: No JVD, No Murmur, Tachycardia Neurologic/Psychiatric: Alert, Oriented x3 Results/Procedures Lab Laboratory Tests 01/18/21 03:10 Patient resulted labs reviewed. Imaging: Reviewed Imaging Report Assessment/Plan Assessment and Plan Assess & Plan/Chief Complaint Ventricular tachycardia Defibrillator discharge Defibrillator discharged several times at home and on arrival but none since meds adjusted yesterday Continue IV Amiodarone HR remains in the 130s Cardiology consulted, appreciate assistance Sotalol DC-ed AFib HTN HLD Continue home meds Continue Eliquis DVT ppx: Eliquis as above SARA MCCOY MD January 18, 2021 08:46
[2021-01-18] MEDS ORDERED: DONEPEZIL 5 MG (ARICEPT) TAB PO SCH (09:00)
[2021-01-18] MEDS ORDERED: PANTOPRAZOLE 40 MG (PROTONIX) TAB PO SCH (09:00)
[2021-01-18] MEDS ORDERED: AMIODARONE 200 MG (CORDARONE) TAB PO SCH (09:00)
--- NOTE | 2021-01-18 09:23 | Cardiology Progress Note ---
Subjective Date Seen by Provider: January 18, 2021 Time Seen by Provider: 09:18 Subjective/Events-last exam Patient is laying down in bed, feeling better. No new complaint. Denied any chest pain Review of Systems General: No Chills, No Night Sweats, No Fatigue, No Malaise, No Appetite, No Ot her HEENT: No Head Aches, No Visual Changes, No Eye Pain, No Ear Pain, No Dysp hasia, No Sinus Congestion, No Post Nasal Drip, No Sore Throat, No Other Pulmonary: No Dyspnea, No Cough, No Pleuritic Chest Pain, No Other Cardiovascular: No: Chest Pain, Palpitations, Orthopnea, Paroxysmal Noc. Dyspnea, Edema, Lt Headedness, Other Focused Exam Lactate Level 01/17/21 03:20: Lactic Acid Level 1.08 Objective-Cardiology Exam Last Set of Vital Signs Vital Signs 01/17/21 01/17/21 01/18/21 01:30 23:12 09:00 Temp 36.9 Pulse 134 Resp 31 B/P (MAP) 119/87 (98) Pulse Ox 90 O2 Delivery Room Air O2 Flow Rate 2.00 Capillary Refill : Less Than 3 Seconds I&O Intake and Output 01/18/21 00:00 Intake Total 2469 ml Output Total 1335 ml Balance 1134 ml Intake Oral 1010 ml IV Total 1459 ml Output Urine Total 1335 ml # Bowel Movements 2 General: Alert, Oriented X3, Cooperative HEENT: Atraumatic, PERRLA Neck: Supple, No JVD, No Thyromegaly Lungs: Clear to Auscultation, Normal Air Movement Heart: Regular Rate, Normal S1, Normal S2, No Murmurs Abdomen: Normal Bowel Sounds, Soft, No Tenderness, No Hepatosplenomegaly, No Masses Extremities: No Clubbing, No Cyanosis, No Edema, Normal Pulses, No Tenderness/Swelling Skin: No Rashes, No Breakdown, No Significant Lesion Neuro: Normal Gait, Normal Speech, Strength at 5/5 X4 Ext, Normal Tone, Sensation Intact Psych/Mental Status: Mental Status NL, Mood NL Results Lab Laboratory Tests 01/18/21 03:10 A/P-Cardiology Admission Diagnosis Ventricular tachycardia Hypertension Hyperlipidemia Coronary artery disease Assessment/Plan Ventricular tachycardia, status post shock from his defibrillator. Patient has history of multiple episode of ventricular tachycardia in the past was intolerant to amiodarone due to shakiness and elevation in his liver function tests, had an ICD implant and ablation to the RVOT and LVOT in the past, another 2 ablation procedure done in March 2017, had a total of 9 shocks from his defibrillator over the weekend, EKG showed narrow complex tachycardia, interrogation of his ICD showing P waves marching through with a sinus rhythm and ventricular tachycardia, patient was frustrated and requested to remove the ICD, after discussing with Dr. Garcia he agreed on increasing the VT zone from 133-180, he is still with a heart rate 130. Started on amiodarone drip. Adding beta-blockers. I will discuss it with Dr. Shin and evaluate the possibility of transfer to Coronary artery disease, history of stent to the diagonal artery done in 2011, had a cardiac catheterization done in August 2014 showing moderate disease, patient had an abnormal stress test with diaphragmatic attenuation fixed defect involving the inferior wall with reversible ischemia involving the mid to apical septum with stress score 8, SDS 2, cardiac catheterization done in September 2020 showing no obstructive coronary artery disease in the coronary system. Sick sinus syndrome/ Paroxysmal atrial fibrillation, polymorphic ventricular tachycardia, had extensive radiofrequency ablation done in November [address] Mckeon, reported as ventricle tachycardia from high outflow septum 2 different origin, successful ablation of the RVOT and LVOT, resulted in ICD implantation. Had another 2 ablation procedures done late in March 2017, and ano ther ablation done on June 05, 2017. He has failed amiodarone in the past, intolerant to mexiletine, failed sotalol, restarting amiodarone. Permanent pacemaker, [employer], followed with Dr. Shin in . [id number] score of 4, yearly risk of stroke without oral anticoagulation is 4 percent, on Eliquis 5 mg twice a day. Moderate mitral regurgitation, last echocardiogram done in October 2019 showing ejection fraction 55-65 percent, left atrium is normal in size, right atrium is mildly dilated. Moderate tricuspid regurgitation, PA pressure 35-40 mmHg. Continue to monitor Hypertension, controlled, continue to monitor. Hyperlipidemia, continue to monitor History of Elevated LFTs-improved since discontinuation of amiodarone and Crestor. Continue to monitor Family history of coronary artery disease History of dizziness and syncope. Had a tilt table test done in the past and re ported as negative, continue to monitor Carotid artery stenosis-Mild nonobstructive disease, last ultrasound was done in February 2020, continue to monitor. Venous stasis changes in the lower extremity, complaining of numbness and swelling by the end of the day, improved. ABIs done February 2016 within normal limits. ORLIN CORONADO MD January 18, 2021 09:23
[2021-01-18] MEDS ORDERED: SOTA120T PO (10:02)
[2021-01-18] MEDS ORDERED: MULT-1112 PO (10:02)
[2021-01-18] MEDS ORDERED: ACET-2267 PO (10:02)
[2021-01-18] MEDS ORDERED: GUAI1CAP51 PO (10:02)
[2021-01-18] MEDS ORDERED: MELO15TA39 PO (10:02)
[2021-01-18] MEDS: NS IV 500 ML 500 ML IV SCH (12:29)
== END 2021-01-18 16:50 | disposition short-term general hospital (02) | DRG 310 ==
LOC: ER 21:42 → EDUNIT# 21:42 → ICU 22:20
PROVIDERS: ADMIT Internal Medicine; ATTEND Internal Medicine
DX: I47.2 Ventricular tachycardia (principal); I49.01 Ventricular fibrillation; I48.0 Paroxysmal atrial fibrillation; I48.92 Unspecified atrial flutter; I25.10 Atherosclerotic heart disease of native coronary artery without angina pectoris; E78.00 Pure hypercholesterolemia, unspecified; I10 Essential (primary) hypertension; N40.0 Benign prostatic hyperplasia without lower urinary tract symptoms; K21.9 Gastro-esophageal reflux disease without esophagitis; Z79.01 Long term (current) use of anticoagulants; Z95.5 Presence of coronary angioplasty implant and graft; Z85.46 Personal history of malignant neoplasm of prostate; Z95.810 Presence of automatic (implantable) cardiac defibrillator; Z87.891 Personal history of nicotine dependence; Z87.01 Personal history of pneumonia (recurrent); Z82.49 Family history of ischemic heart disease and other diseases of the circulatory system
CPT/HCPCS: 36415; 71045; 80048; 80053; 80061; 83605; 83735; 83874; 83880; 84100; 84484; 85025; 85610; 85730; 87081; 93005; 93041; 93306